=== PATIENT | female | born 1985 | race Caucasian/White ===

== ENCOUNTER 2017-05-05 10:30 | Outpatient (RCR) | payer MEDICAID, SELFPAY ==
--- NOTE | 2017-02-06 13:32 | HP.PTEVAL_ITS ---
Patient's Visit Information MELLY ESTRADA is a 31 year old F referred to Physical Therapy by Nahid Hernández with a diagnosis of LUMBAGO WITH SCIATICA LEFT.. Date of Evaluation: 02/06/17 Physical Therapist: Evelyn Moreno - Visit Plan Frequency: 2-3x /Week Duration: 4-6 Weeks Plan: AQUATIC THERAPY. POSTURE CORRECTION/STRENGTHENING, INSTRUCTION IN APPROPRIATE BODY MECHANICS AND ACTIVITY MODIFICATIONS. DLS STARTING WITH A NEUTRAL SPINE PROGRESSING ROM TOLERATED. DAV LE ROM, STRETCHING AND STRENGTHENING. HEP INSTRUCTION. - Subjective Subjective: THIS PATIENT PRESENTS TO PT WITH C/O DAV LBP L > R. AT TIMES SHE HAS PAIN NUMBNESS AND TINGLING ALL THE WAY DOWN BOTH LEGS TO HER FEET - AGAIN, LEFT > RIGHT. THESE SX'S STARTED A LONG TIME AGO (2011). THEY STARTED WHEN SHE STARTED GROOMING. 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 WORSE WITH: BENDING, LIFTING, PUSHING , PULLINIG, WALKING, HOUSEWORK. BETTER WITH: REST. PAIN SCALE: WORST 10/10, LEAST 0/10. AT THIS POINT IN TIME SHE FEELS LIKE HER SX'S ARE UNCHANGING. IMAGING: LUMBAR X-RAY RECENTLY SHOWED TO BE FINE BUT SOME STRAIGHTENING OF THE NORMAL LUMBAR LORDOSIS. PMH: DEPRESSION AND ANXIETY. PAST TREATMENTS - NONE. PT EVAL WHILE BUT UNABLE TO FOLLOW THROUGH. - Objective THIS PATIENT AMBULATES INDEP'LY INTO PT WITHOUT ANY ASSISTIVE DEVICES. HER SITTING POSTURE IS POOR. HER STANDING POSTURE IS MAULIK. NO RELEVENT LATERAL SHIP. INDEP SIT TO STAND WITHOUT UE ASSIST. DECREASED LLE LIGHT TOUCH SENSATION COMPARED TO THE RIGHT. DAV LE DTR'S 2/2. DAV LE STRENGTH 5/5 WITH MMT. POOR CORE STRENGTH. LUMBAR MVMT LOSS: FLEX - MIN, EXT - MOD, DAV SG - MIN. PATIENT WITH C/O INCREASED LBP WITH LUMBAR ROM TESTING ALL PLANES. TESTING DOES NOT PROVOKE LE SX'S. POSITIVE DAV LE DURAL SIGNS. PALPATION: TENDERNESS WITH PALPATION OF DAV THORACIC AND LUMBAR PARASPINALS LEFT > RIGHT. INCREASED MUSCLE TONE OF PARASPINALS LEFT > RIGHT. PATIENT IS ALSO TENDER WITH LIGHT PALPASTION OF THE LUMBAR SPINE, SACRAL REGION, DAV SI REGIONS AND LEFT BUTTOCK. - Goals Goal 1:: DECREASE C/O BACK AND DAV LE SX'S. Goal Time Frame: 4-6 Weeks Goal 2:: IMPROVE BENDING, LIFTING, STANDING, WALKING, ADL, WORK AND SLEEP FUNCTION Goal Time Frame: 4-6 Weeks Goal 3:: INSTRUCT IN PROPHYLAXIS Goal Time Frame: 4-6 Weeks - Rehabilitation Potential Rehabilitation Potential: Fair - Anticipated Interventions Patient/Client Instruction: Educate patient on: Condition, Plan of Care, Risk Factors, Benefits of Fitness Program For the Purpose of:: To improve self management Therapeutic Exercise to Include: Strength training, Endurance training, Body mechanics, Postural training, Flexibilty training, In an aquatic setting, Dynamic Lumbar Stabilization For the Purpose of:: To improve ability of physical actions for home/community/ work/leisure Thank you for the opportunity to evaluate your patient. For Medicare and Medicare HMO plans, please review the plan of care and approve it. It will need to be FAXED BACK to us at [phone] for Medicare purposes. Please let me know if there are questions or concerns regarding this plan of care. Physician Signature: Date:
--- NOTE | 2017-04-09 10:49 | HP.PTREVAL_ITS ---
Nahid Hernández, It has been my pleasure to treat MELLY ESTRADA over the last 16 visits for LUMBAGO WITH SCIATICA LEFT.. Please see the progress note below for an update on the physical therapy plan of care! Subjective: PATIENT REPORTS SHE IS A LITTLE BIT BETTER OVER ALL. CURRENTLY HAVING 5/10 LEFT LOW BACK PAIN AND DAV HIP ACHINIG. PATIENT PLANS TO GET A MEMBERSHIP THIS WEEK. SHE REPORTS SHE STILL GETS BACK AND DAV LE SX'S L>R UP TO 7/10 AND HER LBP AND LEFT HIP PAIN IS CONSTANT - LEAST 2/10. SHE IS NOT HAVING MUCH PAIN BELOW HER KNEES SHE DID BEFORE PT AND SHE DOES NOT THINK SHE HAS FOOT SX'S ANYMORE. PT STATES SHE WOULD REALLY LIKE TO TRY LAND EX'S. Objective/Function: DECREASED LLE LIGHT TOUCH SENSATION COMPARED TO THE RIGHT. DAV LE DTR'S 2/2. DAV LE STRENGTH 5/5 WITH MMT. POOR CORE STRENGTH. LUMBAR MVMT LOSS: FLEX - MIN, EXT - MOD, DAV SG - MIN. PATIENT WITH C/O INCREASED LBP WITH LUMBAR ROM TESTING ALL PLANES. TESTING DID PROVOKE LE SX'S INTO THIGHS. POSITIVE DAV LE DURAL SIGNS. PALPATION: TENDERNESS WITH PALPATION OF DAV THORACIC AND LUMBAR PARASPINALS LEFT > RIGHT. INCREASED MUSCLE TONE OF PARASPINALS LEFT > RIGHT. PATIENT IS ALSO TENDER WITH LIGHT PALPASTION OF THE LUMBAR SPINE, SACRAL REGION, DAV SI REGIONS AND LEFT BUTTOCK. DUE TO PATIENT CONTINUING TO HAVE DAV LE SX'S (L>R) AND HAVING QUESTIONS ABOUT SOCIAL SECURITY/ DISABILITY I HAVE RECOMMENDED SHE FOLLOW UP WITH HER FAMILY PHYSICIAN AT THIS TIME IN ADDITION TO THE BELOW PLAN. SHE IS AGREEABLE. Plan Plan: OK TO TRY TRANSITION TO LAND BASED EX FOR POSTURE CORRECTION/STRENGTHENING , INSTRUCTION IN APPROPRIATE BODY MECHANICS AND ACTIVITY MODIFICATIONS. DLS STARTING WITH A NEUTRAL SPINE PROGRESSING ROM TOLERATED. DAV LE ROM, STRETCHING AND STRENGTHENING. HEP INSTRUCTION. PLEASE START WITH EX'S IN LYING AND PROGRESS TO ANY STANDING EX'S OR MACHINES SLOWLY. Goals Goal 1:: DECREASE C/O BACK AND DAV LE SX'S. Goal Time Frame: 6-8 Weeks Goal Progress: Progressing Goal 2:: IMPROVE BENDING, LIFTING, STANDING, WALKING, ADL, WORK AND SLEEP FUNCTION Goal Time Frame: 6-8 Weeks Goal Progress: Progressing Goal 3:: INSTRUCT IN PROPHYLAXIS Goal Time Frame: 6-8 Weeks Goal Progress: Progressing Anticipated Interventions Patient/Client Instruction: Educate patient on: Condition, Plan of Care, Risk Factors, Benefits of Fitness Program For the Purpose of:: To improve self management Therapeutic Exercise to Include: Strength training, Endurance training, Body mechanics, Postural training, Flexibilty training, In an aquatic setting, Dynamic Lumbar Stabilization For the Purpose of:: To improve ability of physical actions for home/community/ work/leisure Please do not hesitate to contact me at [phone] by phone or Fax: if you have questions or concerns regarding this new plan of care! Sincerely, Evelyn Moreno
== END 2017-05-05 11:00 | disposition home or self-care (01) ==
LOC: PT 10:30
PROVIDERS: Family Provider Family Medicine; PCP Family Medicine; Visit Provider Family Medicine
DX: M54.42 Lumbago with sciatica, left side (principal)
CPT/HCPCS: 97110; 97113; 97162; 97530

== ENCOUNTER → 2017-09-25 16:42 | Outpatient (CLI) | payer MEDICAID, SELFPAY ==
[2017-09-30 09:05] LABS: HPV Reflexed? NOT INDICATED
== END ==
PROVIDERS: Visit Provider Obstetrics & Gynecology
DX: Z12.4 Encounter for screening for malignant neoplasm of cervix (principal)
CPT/HCPCS: 88175; G0145

== ENCOUNTER → 2017-10-01 16:23 | Outpatient (CLI) | payer MEDICAID, SELFPAY ==
--- NOTE | 2017-10-01 16:30 | RAD_ITS ---
XR Pelvis 1 or 2 Views INDICATION: PUBIC BONE PAIN COMPARISON: None TECHNIQUE: 2 frontal views of the pelvis FINDINGS: The pelvis is intact and there is normal alignment at the SI joints. Sclerosis is noted at the symphysis pubis with mild questionable osseous erosions. Superior and inferior pelvic rami and hips are normal. An IUD is seen in place. RAD/Pelvis 1 or 2 Views IMPRESSION: Findings suggestive of osteitis pubis. at 2109 Reported and signed by: Harmony Girard MD Electronically Signed: Harmony Girard MD at 21:07 EDT Tel , Service support ,
== END ==
PROVIDERS: Family Provider Family Medicine; PCP Family Medicine; Visit Provider Family Medicine
DX: M89.8X8 Other specified disorders of bone, other site (principal)
CPT/HCPCS: 72170

== ENCOUNTER 2017-12-27 15:30 | Emergency (ER) | payer MEDICAID, SELFPAY ==
[2017-12-27 15:32] VITALS: BP 112/79; PULSE 92; RESP 18; TEMP 36.6; O2SAT 100; BMI 25.0
--- NOTE | 2017-12-27 15:41 | CT_ITS ---
STUDY: CT ABDOMEN AND PELVIS WITHOUT CONTRAST REASON FOR EXAM: Female, 32 years old. Pelvic pain RADIATION DOSAGE (If Supplied By Facility): CTDIvol = ( 6.87 ) mGy, DLP = ( 324.59 ) mGycm TECHNIQUE: Transaxial images were obtained from the dome of the diaphragm to the symphysis pubis without oral contrast, and without intravenous contrast. Sagittal and coronal images were reconstructed. Individualized dose optimization techniques were used for this CT. COMPARISON: None. FINDINGS: The visualized lung bases are unremarkable. The visualized portions of the heart are within normal limits. Normal liver. Normal gallbladder and extrahepatic biliary system. Normal spleen. Normal pancreas. Normal bilateral adrenal glands. Normal right kidney. Normal left kidney. Normal visualized stomach. Normal small intestine. Mild diffuse fecal retention in the colon. The appendix is visualized and appears normal. Normal abdominal aorta. Normal inferior vena cava. Normal retroperitoneum. Normal urinary bladder. IUD in the uterus. Possible 1.2 cm left adnexal cystic lesion. Normal abdominal wall. Normal osseous structures. CT/Abdomen/Pelvis without Cont IMPRESSION: IUD in the uterus. Possible 1.2 cm left adnexal cystic lesion. Electronically Signed: Landen Cheatham DO at 17:31 EDT Tel [phone], Service support ,
--- NOTE | 2017-12-27 15:44 | ED.DCSUM_ITS ---
- ER Visit Summary Date of Service: 12/27/17 Chief Complaint: Pelvic pain History of Present Illness: The patient is a 32 F presenting with pelvic pain which has been ongoing for the past 2 years. She states she has pain in the left lower quadrant. She states that yesterday it worsened when she was walking frequently to garage sales. She has been seen by her CAR BODY INSPECTOR for these complaints. She states she was referred to orthopedics and is scheduled to see them next week to evaluate her pelvic bone. She denies any vaginal discharge or irregular bleeding. Denies possibility of STD. She denies nausea, vomiting , diarrhea. Denies fever or other complaints. Denies possibility of . Physical Examination: Vitals are stable. Patient is afebrile. Alert no acute distress. HEENT exam is unremarkable. Lungs are clear and equal bilaterally. Heart is regular rate and rhythm. Abdomen is soft mild left lower quadrant tenderness, no rebound or guarding Extremities are unremarkable. Skin is warm and dry. Remainder of exam is unremarkable. Emergency Department Course and Treatment: CBC, chemistries unremarkable. Urinalysis unremarkable. HCG negative. CT abdomen pelvis shows IUD in the uterus. Possible 1.2 cm left adnexal cystic lesion. She is advised to take NSAIDs for pain. Advised to follow-up with her CAR BODY INSPECTOR. Advised return to ED for worsening complaints. Disposition: Discharge home Impression: Pelvic pain, left adnexal cyst This note was generated with [employer] dictation software. It may contain incorrect words, spelling, and punctuation that were not noted in review of the chart prior to signing ED Disposition - Plan for ED Patient: Chief Complaint: Female C/O Referrals: Nahid Hernández [Primary Care Provider] -
[2017-12-27 15:59] LABS: Absolute Lymphocyte Count 2.63 X10^3/ul (0.83-4.51); Absolute Neutrophil Count 4.7 X10^3/uL (2.0-7.7); Basophil# 0.01 X10^3/uL; Basophil% 0.1 % (0-1); Eosinophil# 0.16 X10^3/uL; Hematocrit 43.8 % (37-47); Hemoglobin 14.5 g/dl (12.0-15.0); Lymphocyte # 2.63 X10^3/ul (4.0); Lymphocyte % 32.8 % (19-41); Mean Corp Hgb Conc 33.1 g/gl (32-36); Mean Corpuscular Hgb 28.7 pg (27.0-32.0); Mean Corpuscular Volume 86.6 fL (81-99); Mean Platelet Vol. 10.9 fl (6.2-12.0); Monocyte% 6.2 % (0-10); Neutrophil % 58.8 % (47-70); Platelet Count 196 K/mm3 (150-450); RBC Distribution Width CV 12.4 % (11.6-14.6); RBC Distribution Width SD 39.5 fl (35.1-43.9); Red Blood Count 5.06 M/mm3 (4.2-5.4)
[2017-12-27 16:01] LABS: POSITIVE COUNT NO; POSITIVE DIFFERENTIAL NO; POSITIVE MORPHOLOGY NO
[2017-12-27 16:07] LABS: Mucous, Urine 0 SEEN /hpf (<or=2+); Red Blood Cells-Urine 0 SEEN /hpf (0-5)
[2017-12-27 16:13] LABS: Anion Gap 5 (5-15); BUN 10 mg/dL (7-18); Calcium,Total 8.9 mg/dL (8.5-10.1); Chloride 105 mmol/L (98-107); Creatinine, Serum 0.91 mg/dL (0.55-1.02); EST Glomerular Filtration Rate 76 mL/min (>60); Est Glom Filt Rate - Afr Amer 92 mL/min (>60); Glucose 85 mg/dL (74-106); Potassium 4.4 mmol/L (3.5-5.1); Sodium Level 140 mmol/L (136-145)
[2017-12-27 16:17] LABS: Color, Urine Yellow (Yellow); Glucose, Dipstick Normal (Normal); Ketone-Dipstick Negative (Negative); Leukocyte Esterase-Dipstick 25 /ul (Negative); Nitrite-Dipstick Negative (Negative); Occult Blood-Urine Negative /ul (Negative); Protein-Dipstick Negative (Negative); Urine Bilirubin Dipstick Negative (Negative); Urine Clarity Cloudy (Clear); Urine Urobilinogen Normal (Normal)
[2017-12-27 16:31] LABS: Pregnancy, Serum, hCG Quali. NEGATIVE Negative (0-9 Nonpreg)
[2017-12-27 16:59] LABS: Bacteria 1+ /hpf (None Seen); Squamous Epithelial Cells - UA 5-10 SEEN /hpf (5-10); White Blood Cells 0-5 SEEN /hpf (0-5)
--- NOTE | 2017-12-27 18:02 | ED.DEP ---
ED Disposition - Plan for ED Patient: Chief Complaint: Female C/O Instructions: ED Cyst Ovarian Referrals: Nahid Hernández [Primary Care Provider] -
--- NOTE | 2017-12-27 18:09 | ED.DEP ---
ED Disposition - Plan for ED Patient: Chief Complaint: Female C/O Instructions: ED Cyst Ovarian Prescriptions: Naproxen [Naprosyn] 500 mg PO BID PRN #20 tablet Referrals: Nahid Hernández [Primary Care Provider] -
[2017-12-27] MEDS: Ketorolac 30 MG/ML Syringe IV (18:32)
[2017-12-27 19:02] VITALS: BP 110/80; PULSE 88; RESP 18; O2SAT 98
== END 2017-12-27 19:03 | disposition home or self-care (01) ==
PROVIDERS: Emergency Provider Emergency Medicine; Family Provider Family Medicine; PCP Family Medicine
DX: N83.8 Other noninflammatory disorders of ovary, fallopian tube and broad ligament (principal); R10.32 Left lower quadrant pain; F32.9 Major depressive disorder, single episode, unspecified; F90.9 Attention-deficit hyperactivity disorder, unspecified type; Z79.899 Other long term (current) drug therapy; Z97.5 Presence of (intrauterine) contraceptive device
CPT/HCPCS: 74176; 80048; 81001; 84703; 85025; 96374; 99283; A4216

== ENCOUNTER 2018-02-25 07:06 | Day surgery (SDC) | payer MEDICAID, SELFPAY ==
[2018-02-20 16:04] LABS: Hematocrit 42.1 % (37-47); Hemoglobin 13.7 g/dl (12.0-15.0); Mean Corp Hgb Conc 32.5 g/gl (32-36); Mean Corpuscular Hgb 28.1 pg (27.0-32.0); Mean Corpuscular Volume 86.3 fL (81-99); Mean Platelet Vol. 11.1 fl (6.2-12.0); Platelet Count 201 K/mm3 (150-450); RBC Distribution Width CV 12.6 % (11.6-14.6); RBC Distribution Width SD 39.6 fl (35.1-43.9); Red Blood Count 4.88 M/mm3 (4.2-5.4); White Blood Count 8.7 K/mm3 (4.4-11.0)
[2018-02-20 16:06] LABS: Scan Indicated on CBC? Y/N NO
[2018-02-20 16:31] LABS: International Normalized Ratio 1.1; Partial Thromboplast Time 27.5 Seconds (24.1-36.2); Prothrombin Time (Protime)PT. 13.8 SECONDS (11.7-14.9)
[2018-02-20 16:43] LABS: Pregnancy, Serum, hCG Quali. NEGATIVE Negative (0-9 Nonpreg)
[2018-02-25 07:27] LABS: Internal QC Validated? YES +Cl - CLEAR BKGD; Pregnancy, Urine Negative Negative
[2018-02-25 07:32] VITALS: BP 110/74; PULSE 63; RESP 16; TEMP 37.1; O2SAT 99; BMI 25.2
--- NOTE | 2018-02-25 08:28 | DCINST_ITS ---
You will use the following diet at home:: No restrictions, Regular Discharge Activity: Return to Normal Activity, May Drive, May not drive while taking narcotic pain medications., May Shower Return to work on:: 03/02/18 May shower in (days): 0 May resume sexual activity in: 2 weeks Call your doctor if your incision/area has: Sudden Increased Bleeding, Increased Pain/ Swelling, Increased Redness, Foul Smelling Discharge, Swelling at the incision site Call your doctor if you observe: Fever of 101 or Higher, Inability to urinate, Inability to have a bowel movement, Using more than one pad per hour, Shortness of breath, Chest pain, Calf discomfort, Uncontrolled pain Remove Dressing in (days):: 2 Cleanse incision/area with: Soap & Water Allergies/Adverse Reactions: Allergies No Known Allergies Allergy (Verified 02/18/18 15:21) Medications to take at Discharge Clonazepam 1 mg PO QHS 03/17/16 Duloxetine Hcl [Cymbalta] 30 mg PO DAILY 02/18/18 Lisdexamfetamine Dimesylate [Vyvanse] 40 mg PO DAILY 02/18/18 Naproxen [Naprosyn] 500 mg PO BID PRN PRN 02/18/18 Tizanidine HCl [Zanaflex] 4 mg PO BID PRN 02/18/18 Ibuprofen 800 mg PO Q6H PRN PRN #30 tab 02/25/18 Oxycodone [Oxyir] 5 mg PO Q6H PRN PRN 7 Days #28 tab 02/25/18 The following prescriptions were given: Ibuprofen 800 mg PO Q6H PRN PRN #30 tab PRN Reason: pain or cramping Oxycodone [Oxyir] 5 mg PO Q6H PRN PRN 7 Days #28 tab PRN Reason: Severe Pain (6-02/25) Primary Care Physician: Care Physician,No Primary [Primary Care Provider] - Test Results: Test results from this visit will be discussed in further detail at your follow- up appointment, if applicable. Please Follow Up With: Alec Lozano MD When: one week Proposed Discharge Date: 02/25/18
[2018-02-25] MEDS: Bupivacaine 0.5% PF 10 ML VIAL (08:45)
--- NOTE | 2018-02-25 08:54 | PCM.OPRPT ---
Problem List (1) Chronic pelvic pain in female Status: Chronic Report of Operation Date of Procedure: 02/25/18 Pre-Operative Diagnosis: Chronic pelvic pain Post-Operative Diagnosis: Same Surgery/Procedure Performed:: Diagnostic laparoscopy, lysis of adhesions Description of Surgical Findings:: Normal appearing liver and stomach. Normal uterus, ovaries, and fallopian tubes. Minor adhesions of anterior bladder peritoneum to anterior lower uterine segment. No evidence of endometriosis. No abdominal adhesions noted. crime lab analyst: Nida Miller Type of Anesthesia:: General Anesthesiologist: Glynn Thomson Special Medications: none Specimen's removed: none Drains: none Estimated Blood Loss (mL): minimal Fluids Replaced: 700cc LR Description of Procedure: Willow was taken to the OR with IV running. She was given two grams of Cefotetan intravenously for surgical prophylaxis. SCDs were in place and operational from the preoperative area through surgery and into recovery. General anesthesia was introduced without complication. She was then prepped and draped in the dorsal lithotomy position and the bladder drained with a red rubber catheter. A acorn style uterine manipulator was placed. Attention was then directed to the abdomen where a 5 mm vertical incision was made in the lower base of the umbilicus. The underlying subcutaneous tissue was then dissected bluntly down to the level of fascia. The abdominal wall was then elevated and a Veress needle was placed through the umbilical defect into the abdominal cavity. The abdomen was then inflated to 15 Torr with CO2 gas. A second 5 mm port was placed on the right side lateral to the inferior epigastric vessels about 4 cm below the level of the umbilicus. A thorough survey of the abdomen and pelvis was performed with findings as above. Using the endoshears the adhesions between the bladder and lower uterine segment was excised. The laparoscopic right port was removed followed by removal of the umbilical port after the gas was evacuated. The incisions were closed with 4-0 monocryl. The incision sites were injected with 0.5% Marcaine for local anesthesia. All instruments were removed from the vagina. Sponge and instrument counts were correct. She was reversed from anesthesia and taken to the recovery room in stable condition. Grafts/Implants Used: none - Complications none - Admit VTE Documentation VTE Present on Admission: No VTE Mechan Device Prophylaxis: SCD's VTE Pharm Prophylaxis ordered?: No Reason prophylaxis not ordered:: Treatment Not Indicated
--- NOTE | 2018-02-25 09:06 | OP.PCM_ITS ---
Problem List (1) Chronic pelvic pain in female Status: Chronic Report of Operation Date of Procedure: 02/25/18 Pre-Operative Diagnosis: Chronic pelvic pain Post-Operative Diagnosis: Same Surgery/Procedure Performed:: Diagnostic laparoscopy, lysis of adhesions Description of Surgical Findings:: Normal appearing liver and stomach. Normal uterus, ovaries, and fallopian tubes. Minor adhesions of anterior bladder peritoneum to anterior lower uterine segment. No evidence of endometriosis. No abdominal adhesions noted. agricultural equipment sales engineer: Nida Miller Type of Anesthesia:: General Anesthesiologist: Glynn Thomson Special Medications: none Specimen's removed: none Drains: none Estimated Blood Loss (mL): minimal Fluids Replaced: 700cc LR Description of Procedure: Willow was taken to the OR with IV running. She was given two grams of Cefotetan intravenously for surgical prophylaxis. SCDs were in place and operational from the preoperative area through surgery and into recovery. General anesthesia was introduced without complication. She was then prepped and draped in the dorsal lithotomy position and the bladder drained with a red rubber catheter. A acorn style uterine manipulator was placed. Attention was then directed to the abdomen where a 5 mm vertical incision was made in the lower base of the umbilicus. The underlying subcutaneous tissue was then dissected bluntly down to the level of fascia. The abdominal wall was then elevated and a Veress needle was placed through the umbilical defect into the abdominal cavity. The abdomen was then inflated to 15 Torr with CO2 gas. A second 5 mm port was placed on the right side lateral to the inferior epigastric vessels about 4 cm below the level of the umbilicus. A thorough survey of the a bdomen and pelvis was performed with findings as above. Using the endoshears the adhesions between the bladder and lower uterine segment was excised. The laparoscopic right port was removed followed by removal of the umbilical port after the gas was evacuated. The incisions were closed with 4-0 monocryl. The incision sites were injected with 0.5% Marcaine for local anesthesia. All instruments were removed from the vagina. Sponge and instrument counts were correct. She was reversed from anesthesia and taken to the recovery room in stable condition. Grafts/Implants Used: none - Complications none - Admit VTE Documentation VTE Present on Admission: No VTE Mechan Device Prophylaxis: SCD's VTE Pharm Prophylaxis ordered?: No Reason prophylaxis not ordered:: Treatment Not Indicated
[2018-02-25 09:10] VITALS: BP 110/74; BP 145/102; PULSE 90; RESP 17; TEMP 36.6; O2SAT 100
[2018-02-25 09:15] VITALS: BP 110/74; BP 132/67; PULSE 90; RESP 16; O2SAT 95
[2018-02-25 09:30] VITALS: BP 110/74; BP 133/62; PULSE 89; RESP 16; TEMP 36.4; O2SAT 100
[2018-02-25] MEDS: oxyCODONE 5 MG Tablet 10 MG PO (09:58)
[2018-02-25] MEDS: Lactated Ringers 1,000 ML 125 ML IV (10:07)
[2018-02-25 11:16] VITALS: BP 110/74; BP 123/62; PULSE 60; RESP 16; TEMP 36.3; O2SAT 98
== END 2018-02-25 11:21 | disposition home or self-care (01) ==
LOC: SDC 07:06 → AC 07:07
PROVIDERS: Referring Provider Obstetrics & Gynecology; Visit Provider Obstetrics & Gynecology
PROC: (CPT 49320; principal; 2018-02-25 08:15)
DX: R10.2 Pelvic and perineal pain (principal); G89.29 Other chronic pain; K58.9 Irritable bowel syndrome, unspecified; K21.9 Gastro-esophageal reflux disease without esophagitis; F32.9 Major depressive disorder, single episode, unspecified; F41.9 Anxiety disorder, unspecified; F17.200 Nicotine dependence, unspecified, uncomplicated; Z79.899 Other long term (current) drug therapy
CPT/HCPCS: 49320; 36415; 81025; 84703; 85027; 85610; 85730; 86850; 86900; J7120; A4216; J2405

== ENCOUNTER 2018-03-10 18:38 | Emergency (ER) | payer MEDICAID, SELFPAY ==
[2018-03-10 18:39] VITALS: BP 128/63; PULSE 94; RESP 16; TEMP 36.4; O2SAT 99; BMI 25.4
[2018-03-10 19:09] VITALS: BP 131/92; PULSE 79; RESP 17
[2018-03-10 19:11] VITALS: BP 114/78; BP 119/73; BP 120/87; PULSE 66; PULSE 72; PULSE 84
--- NOTE | 2018-03-10 19:12 | ED.VISSUMM ---
- ER Visit Summary Date of Service: 03/10/18 Chief Complaint: Dizziness and ears ringing History of Present Illness: The patient is a 32 F past medical history of symphysis pubis disorder post fall and . Also history of anxiety and depression. Patient states today except she has had some intermittent dizziness which she does. And her ears are ringing. When she stands she feels near syncopal. She denies any melena. She denies any vomiting. She has had mild nausea and diarrhea. No dysuria. No headache. No chest pain. No shortness of breath. No hemoptysis. No prior history. Physical Examination: Vital signs stable afebrile. Initial blood pressure 128/63. Pulse ox 99% on room air no signs of hypoxia.. and child are in the room. H EENT exam unremarkable. Pupils round reactive light. TMs normal bilaterally. Canals normal. Posterior pharynx moist pink. No erythema. No signs of trauma to her face or head. Neck nontender. No lymphadenopathy. No meningismus. Lungs clear to auscultation bilaterally. Heart regular rhythm rate about 90 no murmur. Chest nontender. Abdomen soft nontender. Normal bowel sounds no peritoneal signs. Patient is moving all 4 extremities. They are neurovascularly intact. She has 5 out of 5 flight communications operator strength bilaterally. Dorsi plantar flexion intact. Back exam normal. Skin exam normal. No rashes. No hematomas. No bruising. Neurologically she is awake alert with no focal motor or sensory deficits. NIH of 0. Fingertip to nose and heel to shirley all within normal limits. Test Results: Orthostatic vital signs are unremarkable. Emergency Department Course and Treatment: Clinically the patient has a normal exam. I think some of her symptoms may be from the amount of ibuprofen she is taking. She is going to decrease that. I do not think she needs labs done at this time. I did explain to her and her I would gladly do screening labs if they felt they were necessary and they are fine with those not being done. On the monitor she is a sinus rhythm. Rate of about 90. Treatment Plan: Follow-up with her primary care physician as needed. Disposition: Discharge Impression: Acute ears ringing secondary to excessive ibuprofen use. This note was generated with [employer] dictation software. It may contain incorrect words, spelling, and punctuation that were not noted in review of the chart prior to signing ED Disposition - Plan for ED Patient: Chief Complaint: Dizziness Referrals: Care Physician,No Primary [Primary Care Provider] -
--- NOTE | 2018-03-10 19:16 | ED.DCSUM_ITS ---
- ER Visit Summary Date of Service: 03/10/18 Chief Complaint: Dizziness and ears ringing History of Present Illness: The patient is a 32 F past medical history of symphysis pubis disorder post fall and . Also history of anxiety and depression. Patient states today except she has had some intermittent dizziness which she does. And her ears are ringing. When she stands she feels near syncopal. She denies any melena. She denies any vomiting. She has had mild nausea and diarrhea. No dysuria. No headache. No chest pain. No shortness of breath. No hemoptysis. No prior history. Physical Examination: Vital signs stable afebrile. Initial blood pressure 128/63. Pulse ox 99% on room air no signs of hypoxia.. and child are in the room. H EENT exam unremarkable. Pupils round reactive light. TMs normal bilaterally. Canals normal. Posterior pharynx moist pink. No erythema. No signs of trauma to her face or head. Neck nontender. No lymphadenopathy. No meningismus. Lungs clear to auscultation bilaterally. Heart regular rhythm rate about 90 no murmur. Chest nontender. Abdomen soft nontender. Normal bowel sounds no peritoneal signs. Patient is moving all 4 extremities. They are neurovascularly intact. She has 5 out of 5 jig box operator strength bilaterally. Dorsi plantar flexion intact. Back exam normal. Skin exam normal. No rashes. No hematomas. No bruising. Neurologically she is awake alert with no focal motor or sensory deficits. NIH of 0. Fingertip to nose and heel to shirley all within normal limits. Test Results: Orthostatic vital signs are unremarkable. Emergency Department Course and Treatment: Clinically the patient has a normal exam. I think some of her symptoms may be from the amount of ibuprofen she is taking. She is going to decrease that. I do not think she needs labs done at this time. I did explain to her and her I would gladly do screening labs if they felt they were necessary and they are fine with those not being done. On the monitor she is a sinus rhythm. Rate of about 90. Treatment Plan: Follow-up with her primary care physician as needed. Disposition: Discharge Impression: Acute ears ringing secondary to excessive ibuprofen use. This note was generated with [employer] dictation software. It may contain incorrect words, spelling, and punctuation that were not noted in review of the chart prior to signing ED Disposition - Plan for ED Patient: Chief Complaint: Dizziness Referrals: Care Physician,No Primary [Primary Care Provider] -
--- NOTE | 2018-03-10 19:16 | ED.DEP ---
ED Disposition - Plan for ED Patient: Disposition: Home or Assisted Living Chief Complaint: Dizziness Instructions: ED Dizziness [facility] Referrals: Dante Collins MD [STAFF PHYSICIAN] - 3-5 Days if not improving Additional Instructions: Decrease ibuprofen use to no more than 800 mg 3 times a day. If you do not need to use less than that. Plenty fluids and rest. If feeling worse return to ER if not improving follow-up with Dr. Manuel Collins.
== END 2018-03-10 19:32 | disposition home or self-care (01) ==
LOC: ED 19:24
PROVIDERS: Emergency Provider Emergency Medicine
DX: H93.13 Tinnitus, bilateral (principal); R55 Syncope and collapse; R11.0 Nausea; R19.7 Diarrhea, unspecified; F32.9 Major depressive disorder, single episode, unspecified; F41.9 Anxiety disorder, unspecified; F17.290 Nicotine dependence, other tobacco product, uncomplicated; Z79.1 Long term (current) use of non-steroidal anti-inflammatories (NSAID); Z79.899 Other long term (current) drug therapy
CPT/HCPCS: 99283

== ENCOUNTER → 2018-03-20 12:40 | Outpatient (CLI) | payer MEDICAID, SELFPAY ==
[2018-03-20 13:08] LABS: Erythrocyte Sedimentation Rate 6 mm/hr (0-20)
[2018-03-20 13:37] LABS: CRP < 2.90 mg/L (0.0-3.0); Rheumatoid Factor < 10.0 IU/mL (<15)
[2018-03-23 15:47] LABS: ANTINUCLEAR ANTIBODIES DIRECT Negative (Negative)
[2018-03-25 09:12] LABS: CCP IgG Antibodies 7 units (0-19); HLA B27 Negative (.)
== END ==
PROVIDERS: PCP Internal Medicine; Referring Provider Internal Medicine; Visit Provider Nurse Practitioner Family
DX: M86.9 Osteomyelitis, unspecified (principal); R10.2 Pelvic and perineal pain; G89.29 Other chronic pain
CPT/HCPCS: 36415; 81374; 85652; 86038; 86140; 86200; 86225; 86235; 86431

== ENCOUNTER → 2018-06-11 15:11 | Outpatient (CLI) | payer MEDICAID, SELFPAY ==
[2018-06-11 14:34] VITALS: BMI 25.0
[2018-06-11 16:21] LABS: Absolute Lymphocyte Count 3.32 X10^3/ul (0.83-4.51); Absolute Neutrophil Count 3.4 X10^3/uL (2.0-7.7); Basophil# 0.02 X10^3/uL; Basophil% 0.2 % (0-1); Eosinophil# 1.12 X10^3/uL; Eosinophils% 13.3 % (0-5); Hematocrit 40.3 % (37-47); Lymphocyte # 3.32 X10^3/ul (4.0); Lymphocyte % 39.5 % (19-41); Mean Corp Hgb Conc 32.3 g/gl (32-36); Mean Corpuscular Hgb 28.6 pg (27.0-32.0); Mean Corpuscular Volume 88.6 fL (81-99); Mean Platelet Vol. 11.6 fl (6.2-12.0); Monocyte# 0.54 X10^3/uL; Monocyte% 6.4 % (0-10); Neutrophil # 3.38 X10^3/uL (2.7-7.7); Neutrophil % 40.4 % (47-70); Platelet Count 252 K/mm3 (150-450); RBC Distribution Width CV 12.7 % (11.6-14.6); RBC Distribution Width SD 40.6 fl (35.1-43.9); Red Blood Count 4.55 M/mm3 (4.2-5.4); White Blood Count 8.4 K/mm3 (4.4-11.0)
[2018-06-11 16:23] LABS: POSITIVE COUNT NO; POSITIVE DIFFERENTIAL NO; POSITIVE MORPHOLOGY NO
[2018-06-11 16:45] LABS: ALB/GLOB Ratio 0.7 RATIO (0.9-2.4); AST(SGOT) 11 U/L (15-37); Alanine Aminotransfer ALT/SGPT 21 U/L (13-56); Alkaline Phosphatase 88 U/L (45-117); Anion Gap 8 (5-15); BUN 10 mg/dL (7-18); BUN/Creat Ratio 12.4 RATIO (10-20); Calcium,Total 8.7 mg/dL (8.5-10.1); Chloride 105 mmol/L (98-107); Creatinine, Serum 0.81 mg/dL (0.55-1.02); EST Glomerular Filtration Rate 87 mL/min (>60); Est Glom Filt Rate - Afr Amer 106 mL/min (>60); Globulin 4.2 g/dL (2.2-4.2); Glucose 93 mg/dL (74-106); Potassium 3.8 mmol/L (3.5-5.1); Protein, Total 7.2 g/dL (6.4-8.2); Sodium Level 142 mmol/L (136-145)
== END ==
PROVIDERS: Family Provider Internal Medicine; PCP Internal Medicine; Referring Provider Internal Medicine; Visit Provider Internal Medicine
DX: R10.9 Unspecified abdominal pain (principal)
CPT/HCPCS: 36415; 80053; 85025

== ENCOUNTER → 2018-06-13 08:58 | Outpatient (CLI) | payer MEDICAID, SELFPAY ==
[2018-06-11 14:34] VITALS: BMI 25.0
--- NOTE | 2018-06-13 08:59 | US_ITS ---
STUDY: ABDOMINAL ULTRASOUND - RIGHT UPPER QUADRANT REASON FOR VISIT: Female, 33 years old. Right upper quadrant pain TECHNIQUE: Ultrasound evaluation of the right upper quadrant was performed with real-time and static laws-scale imaging. TECHNICAL QUALITY: Adequate. COMPARISON: None. FINDINGS: Liver: The liver measures 13 cm. There is normal echogenicity of the liver. The bile ducts are within normal limits. There is hepatic color flow. The direction of portal flow is hepatopetal. There is no demonstrated mass lesion. Gallbladder: Normal distended gallbladder. The gallbladder wall measures 2 mm. There is a negative sonographic Villaseñor's sign. There is no pericholecystic fluid. There are no gallstones. Common Bile Duct (C.B.D.): The common bile duct measures 4 mm. Pancreas: There is normal echogenicity of the visualized pancreas. There is no demonstrated pancreatic mass or cyst. Right Kidney: Normal size of the right kidney. The right kidney measures 10.8 cm. Normal renal cortex. The right cortex measures 1.4 cm. There is no demonstrated renal mass or cyst. There is no right hydronephrosis. US/Abdomen Limited IMPRESSION: Normal right upper quadrant ultrasound examination. Electronically Signed: Pepe Tellez MD at 23:39 EST , Service support ,
== END ==
PROVIDERS: Family Provider Internal Medicine; PCP Internal Medicine; Referring Provider Internal Medicine; Visit Provider Internal Medicine
DX: R10.11 Right upper quadrant pain (principal)
CPT/HCPCS: 76705

== ENCOUNTER → 2018-07-02 15:04 | Outpatient (CLI) | payer MEDICAID, SELFPAY ==
[2018-06-23 16:07] VITALS: BMI 25.0
== END ==
PROVIDERS: Family Provider Internal Medicine; PCP Internal Medicine; Referring Provider Internal Medicine; Visit Provider Internal Medicine
DX: D72.1 Eosinophilia (principal)
CPT/HCPCS: 87177; 87209

== ENCOUNTER 2018-07-03 16:30 | Outpatient (RCR) | payer MEDICAID, SELFPAY ==
[2018-04-07 13:11] VITALS: BMI 25.0
--- NOTE | 2018-06-10 17:02 | HP.PTEVAL_ITS ---
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 Date of Evaluation: 06/10/18 Physical Therapist: Evelyn Moreno, PT, Cert MDT - Visit Plan Frequency: 2-3x /Week Duration: 4-6 Weeks Plan: *NO HIP ABDUCTION*. AQUATIC THERAPY FOR PAIN RELEIF, POSTURE CORRECTION/STRENGTHENING, INSTRUCTION IN APPROPRIATE BODY MECHANICS AND ACTIVITY MODIFICATIONS. DLS STARTING WITH A NEUTRAL SPINE PROGRESSING ROM TOLERATED. DAV LE ROM, STRETCHING AND STRENGTHENING. HEP INSTRUCTION. - Subjective Findings: SURGERY: S/P PELVIC FUSION BY DR. YANG AT [facility] APR 20 2018 (7 WEEKS PO). Work/Leisure: UNEMPLOYEED. Disability: NO. Present symptoms: DAV HIP PAIN. LOW BACK PAIN. DAV THIGH PAIN. NUMBNESS LEFT UPPER THIGH. Present since: AUGUST 2015. Pain Scale: WORST 7/10, LEAST 3/10. Currently: 5/10. 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 SHE REPORTS A DOG PULLED HER OVER. SHE REPORTS THE PAIN DID NOT START IMMEDIATELY AFTER THE FALL. Symptoms at onset: PAIN IN HIPS AND PUBIC AREA - RUNNING UP BACK AND DOWN LEGS. Worse: WALKING, TURNING TOO FAST, TWISTING, PICKING UP ANYTHING HEAVY, GOING UP AND DOWN STAIRS, BENDING OVER, STANDING. Better: FLAT ON BACK, MUSCLE RELAXERS, PAIN MEDS. Disturbed sleep: NO. Previous history/Previous treatment: AQUATIC THERAPY FALL OF 2016. CORTISONE SHOT IN PUBIC SYMPHASIS BY A TRAUMA SURGEON AT [facility] - GAVE A COUPLE DAYS OF RELEIF, NO CHIROPRACTOR. Coughing/sneezing/straining: NEGATIVE. Gait: PATIENT REPORTS SHE STILL HAS A LIMP ON HER LEFT LEG BECAUSE HER HIPS ARE HURTING LEFT > RIGHT. Difficulty initiating urinatin: NO. Accidents: NO. Unexplained weight loss: NO. Imaging: PMH: UNREMARKABLE EXCEPT DEPRESSION AND ANXIETY. ADHD. Recent major surgery: RARE PELVIC FUSION SURGERY APR 20 2018. SCREW IN EACH SI JOINT. 2 PLATES AND 6 SCREWS PUBIC SYMPHASIS REGION. PATIENT REPORTS SHE WAS NON WEIGHT BEARING FOR 6 WEEKS. RELEASED TO START WALKING 1/16/19. PLOF (Prior Level of Function): MAY 2015 ACTIVITY WAS UNLIMITED INCLUDING RUNNING UNTIL WITH DAUGHTER. OTHER: PATIENT REPORTS THE SURGERY HAS HELPED A LOT. SHE REPORTS SHE IS ABOUT 75% BETTER SINCE HAVING SURGERY. PATIENT AND PATIENTS [facility] REPORT THAT THE CORRECT DIAGNOSIS IS OSTEITIS OF PUBIC SYMPHYSIS AND THAT OSTEOMYELITIS IS NOT CORRECT. - Objective Sitting/Standing Posture: POOR. PATIENT HAS A VERY SLOUCHED POSTURE WITH FORWARD HEAD AND ROUNDED SHOULDERS. Lordosis: DECREASED. Lateral shift: NO. Relevant shift: N/A. Active Correction of posture: BETTER. Other Observations: INDEP GAIT INTO PT WITH FAIR CADANCE AND NO AD'S X > 300 FEET. MILD LIMP ON LLE. Motor deficit: DAV LE STRENGTH GROSSLY 4/5 WITH MMT'ING EXCEPT HIPS GRADED 3+ TO 4-/5 BUT TESTING WAS DONE CAREFULLY. PATIENT HAS ONLY BEEN WALKING ABOUT A WEEK AFTER BEING NWB FOR 6 WEEKS POST SURGERY. Sensory deficit: DECREASED LIGHT TOUCH SENSATION OF LEFT ANTEROLATERAL PROX THIGH, ALONG LATERAL THIGH AND LATERAL LEG COMPARED TO RIGHT. ROM deficit: TIGHT DAV HIP FLEXORS AND HS'S. HIP ABD NT. Lumbar mvmt loss: flex - MIN. ext - MOD. R SG - MOD. L SG - MOD. Core strength: POOR. Palpation/Observation: OBSERVED 2 LEFT AND ONE RIGHT SURGICAL INCISION THAT ARE WELL HEALING WITHOUT ANY SIGNS OF INFECTION OR OPEN AREAS. PATIENT DENIES ANY INCISION PROBLEMS. - Goals Goal 1:: DECREASE C/O BACK, PELVIC, DAV HIP AND DAV THIGH SX'S. 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 Goal Time Frame: 4-6 Weeks Goal 3:: INSTRUCT IN PROPHYLAXIS Goal Time Frame: 4-6 Weeks - Rehabilitation Potential Rehabilitation Potential: Fair - Anticipated Interventions Patient/Client Instruction: Educate patient on: Condition, Plan of Care, Risk Factors, Benefits of Fitness Program For the Purpose of:: To improve self management Therapeutic Exercise to Include: Strength training, Body mechanics, Postural training, Flexibilty training, Gait and locomotor training, In an aquatic setting, Active ROM, Dynamic Lumbar Stabilization, Scapular Strength/Stabilization Comment: *NO HIP ABDUCTION* For the Purpose of:: To decrease pain, To increase ROM, To improve muscle performance and motor function, To increase tolerance to activity/condition/position, To improve ability of physical actions for home/community/work/leisure, To improve gait and locomotor functions Thank you for the opportunity to evaluate your patient. For Medicare and Medicare HMO plans, please review the plan of care and approve it. It will need to be FAXED BACK to us at [phone] for Medicare purposes. For Medicare only, by signing this I certify the plan of care. Please let me know if there are questions or concerns regarding this plan of care. Physician Signature: Date:
--- NOTE | 2018-08-11 13:40 | HP.PT.NRP ---
HP - Discharge Summary (1) - Patient Information MELLY ESTRADA was seen in my office for initial evaluation on 06/10/18. The following Plan of Care was established for this patient: Initial Frequency: 2-3x /Week Initial Duration: 4-6 Weeks - Anticipated Interventions Patient/Client Instruction: Educate patient on: Condition, Plan of Care, Risk Factors, Benefits of Fitness Program For the Purpose of:: To improve self management Therapeutic Exercise to Include: Strength training, Body mechanics, Postural training, Flexibilty training, Gait and locomotor training, In an aquatic setting, Active ROM, Dynamic Lumbar Stabilization, Scapular Strength/Stabilization For the Purpose of:: To decrease pain, To increase ROM, To improve muscle performance and motor function, To increase tolerance to activity/condition/position, To improve ability of physical actions for home/community/work/leisure, To improve gait and locomotor functions This patient was last seen in our office 07/03/18. Pertinent comments regarding their Physical therapy will appear below: This patient has not returned to Physical Therapy and is appropriate to return to MD for further follow-up as needed. At this point I will be discontinuing this patient from physical therapy. I would be happy to see this patient again in the future if found appropriate by the physician. Thank you! Evelyn Moreno PT, Cert MDT
== END 2018-07-03 19:00 | disposition home or self-care (01) ==
LOC: PT 16:30
PROVIDERS: Family Provider Internal Medicine; PCP Internal Medicine
DX: M86.60 Other chronic osteomyelitis, unspecified site (principal); M86.9 Osteomyelitis, unspecified
CPT/HCPCS: 97113; 97162; 97530

== ENCOUNTER 2018-07-13 18:14 | Emergency (ER) | payer MEDICAID, SELFPAY ==
[2018-07-13 14:59] VITALS: BMI 25.0
[2018-07-13 18:15] VITALS: BP 117/71; PULSE 91; RESP 15; TEMP 36.8; O2SAT 98; BMI 25.3
[2018-07-13 19:12] LABS: Mucous, Urine 0 SEEN /hpf (<or=2+)
[2018-07-13 19:19] LABS: Absolute Lymphocyte Count 2.99 X10^3/ul (0.83-4.51); Basophil# 0.02 X10^3/uL; Basophil% 0.2 % (0-1); Eosinophil# 0.26 X10^3/uL; Hematocrit 44.1 % (37-47); Hemoglobin 14.3 g/dl (12.0-15.0); Lymphocyte # 2.99 X10^3/ul (4.0); Lymphocyte % 34.3 % (19-41); Mean Corp Hgb Conc 32.4 g/gl (32-36); Mean Corpuscular Hgb 28.5 pg (27.0-32.0); Mean Corpuscular Volume 87.8 fL (81-99); Mean Platelet Vol. 11.2 fl (6.2-12.0); Monocyte# 0.42 X10^3/uL; Monocyte% 4.8 % (0-10); Neutrophil # 5.01 X10^3/uL (2.7-7.7); Neutrophil % 57.6 % (47-70); Platelet Count 249 K/mm3 (150-450); RBC Distribution Width CV 12.4 % (11.6-14.6); RBC Distribution Width SD 39.6 fl (35.1-43.9); Red Blood Count 5.02 M/mm3 (4.2-5.4); White Blood Count 8.7 K/mm3 (4.4-11.0)
[2018-07-13 19:21] LABS: POSITIVE COUNT NO; POSITIVE DIFFERENTIAL NO; POSITIVE MORPHOLOGY NO
[2018-07-13 19:23] LABS: Color, Urine Yellow (Yellow); Glucose, Dipstick Normal (Normal); Ketone-Dipstick Negative (Negative); Leukocyte Esterase-Dipstick 25 /ul (Negative); Nitrite-Dipstick Negative (Negative); Occult Blood-Urine 10 /ul (Negative); Protein-Dipstick Negative (Negative); Urine Bilirubin Dipstick Negative (Negative); Urine Clarity Clear (Clear); Urine Urobilinogen Normal (Normal)
[2018-07-13 19:25] LABS: Bacteria 1+ /hpf (None Seen); Red Blood Cells-Urine 0-5 SEEN /hpf (0-5); Squamous Epithelial Cells - UA 0-5 SEEN /hpf (5-10); White Blood Cells 0-5 SEEN /hpf (0-5)
[2018-07-13 19:27] LABS: Anion Gap 4 (5-15); BUN 7 mg/dL (7-18); BUN/Creat Ratio 8.5 RATIO (10-20); Chloride 107 mmol/L (98-107); Creatinine, Serum 0.82 mg/dL (0.55-1.02); EST Glomerular Filtration Rate 86 mL/min (>60); Est Glom Filt Rate - Afr Amer 103 mL/min (>60); Glucose 89 mg/dL (74-106); Potassium 4.1 mmol/L (3.5-5.1); Sodium Level 139 mmol/L (136-145)
--- NOTE | 2018-07-13 19:54 | CT_ITS ---
STUDY: CT ABDOMEN AND PELVIS WITH CONTRAST REASON FOR EXAM: Female, 33 years old. Nausea, vomiting, diarrhea RADIATION DOSAGE (If Supplied By Facility): CTDIvol = ( 12.69 ) mGy, DLP = ( 580.46 ) mGycm TECHNIQUE: Transaxial images were obtained from the dome of the diaphragm to the symphysis pubis without oral contrast. Isovue 300 100ML IV was administered. Sagittal and coronal images were reconstructed. Individualized dose optimization techniques were used for this CT. COMPARISON: 12/28/1979. FINDINGS: The visualized lung bases are unremarkable. The visualized portions of the heart are within normal limits. There is a pectus deformity of the chest. There is a new small pericardial effusion. Normal liver. Normal gallbladder and extrahepatic biliary system. Normal spleen. Normal pancreas. Normal bilateral adrenal glands. Normal right kidney. Normal left kidney. Normal visualized stomach. Normal small intestine. Normal colon. The appendix is visualized and appears normal. Normal abdominal aorta. Normal inferior vena cava. Normal retroperitoneum. Normal urinary bladder. Normal abdominal wall. There is streak artifact from bilateral SI screws and plate and screws within the pubic symphysis. There is sclerosis at the SI joints. There is also sclerosis of the pubic symphysis which is obscured by the plate and screws There is a 1.4 cm x 1 cm right ovarian cyst. There is a 1.4 cm x 1.2 cm hypodensity within the anterior uterus not present on prior exam. There has been removal of the IUD. The prior described left ovarian cyst is not present on this study. CT/Abdomen/Pelvis W IV Cont ONLY IMPRESSION: Pectus deformity of the chest New small pericardial effusion which should be correlated clinically, cardiac echo should be considered Removal of the IUD, 1.4 x 1.2 cm hypodensity within the anterior myometrium this could represent a leiomyoma however it was not visualized on the prior study, however the prior study did not have intravenous contrast. This could represent a leiomyoma however this could also represent hematoma, abscess, or other benign or malignant lesions. This should be further evaluated with pelvic and transvaginal ultrasound 1.4 x 1 cm right ovarian cyst Bilateral sacroiliitis with placement of metallic plate and screws across the SI joints placement metallic plate and screws at the pubic symphysis with degenerative changes at the pubic symphysis which are obscured by the plate and screws Electronically Signed: Thomas Greenberg, at 22:19 EST Tel , Service support ,
[2018-07-13] MEDS: 0.9% Normal Saline 1,000 ML 1000 ML IV (20:05)
[2018-07-13] MEDS: Ketorolac 30 MG/ML Syringe IV (20:06)
[2018-07-13 20:24] LABS: Pregnancy, Serum, hCG Quali. NEGATIVE Negative (0-9 Nonpreg)
[2018-07-13 20:26] LABS: AST(SGOT) 21 U/L (15-37); Alanine Aminotransfer ALT/SGPT 54 U/L (13-56); Albumin, Serum 3.4 g/dL (3.2-5.0); Alkaline Phosphatase 99 U/L (45-117); Bilirubin, Direct 0.11 mg/dL (0.00-0.30); Globulin 4.7 g/dL (2.2-4.2); Lipase 125 U/L (73-393); Protein, Total 8.1 g/dL (6.4-8.2)
[2018-07-13] MEDS: Morphine 4 MG/ML Syringe IV (22:24)
[2018-07-13 22:28] VITALS: RESP 18; O2SAT 98
--- NOTE | 2018-07-13 22:57 | ED.VISSUMM ---
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 She reports she had left-sided abdominal pain for the past month. Continuous pain that waxes and wanes. She describes it as sharp and stabbing. Symptoms are worst 5-10 currently. She reports that it may be an worsened by food. Is relieved by nothing. She is been nausea and vomited twice today. No blood or emesis. She had 10 episodes of diarrhea per day. She denies any blood in stools or black tarry stools. No dysuria frequency. Last menstrual. Was approximate 1 week ago. No vaginal bleeding or discharge. Patient reports that she was started on omeprazole approximate 1 month ago and has not had any relief from this. She does report that she had a colonoscopy approximately 4 years ago at [facility] that was unremarkable. No family history of Crohn's or ulcerative colitis. Patient states that May 05 she had a fusion of a open versus pubis and SI joints following a at [facility]. Physical Examination: Vitals: Stable. Afebrile. General: Well-nourished and well-developed. Head: Normocephalic atraumatic. Neck: Supple, no lymphadenopathy. No JVD. Nontender. Cardiovascular: Regular rate and rhythm. No murmurs. Respiratory: No respiratory distress. Clear to auscultation bilaterally. Abdominal: Soft, mild left upper and left lower quadrant tenderness to palpation, nondistended, normal bowel sounds. No guarding, rebound, or peritoneal signs. Back: Nontender. Extremities: Nontender, no edema. Skin: Normal color, no rash. Neurologic: Alert and oriented ?3. Cranial nerves II through XII are intact. Normal strength and sensation. Psych: Normal affect. Test Results: CBC is normal. Chem-7 is normal. LFTs marked globin of 4.7. Lipase is normal. UA is negative. test is negative. Clinical Impression(s) from Imaging Studies Abdomen/Pelvis CT 07/13/18 19:54 IMPRESSION: Pectus deformity of the chest New small pericardial effusion which should be correlated clinically, cardiac echo should be considered Removal of the IUD, 1.4 x 1.2 cm hypodensity within the anterior myometrium this could represent a leiomyoma however it was not visualized on the prior study, however the prior study did not have intravenous contrast. This could represent a leiomyoma however this could also represent hematoma, abscess, or other benign or malignant lesions. This should be further evaluated with pelvic and transvaginal ultrasound 1.4 x 1 cm right ovarian cyst Bilateral sacroiliitis with placement of metallic plate and screws across the SI joints placement metallic plate and screws at the pubic symphysis with degenerative changes at the pubic symphysis which are obscured by the plate and screws Electronically Signed: Thomas Greenberg, at 22:19 EST Tel , Service support , Emergency Department Course and Treatment: Patient with a dose of morphine, Toradol, and Zofran IV. She is resting comfortably. Treatment Plan: The CT read is essentially worthless. They suggest a cardiac echo when she has no symptoms consistent with a pericardial effusion. The patient has a history of fibroids. She does not need to have a pelvic and transvaginal ultrasound is suggested on the CT. I had a prolonged discussion with her about the possible etiology of her symptoms. She will be discharged with instructions to follow-up her primary care physician and gastroenterology as previously scheduled. I suggested that she take fiber supplement and probiotics. Return to the emergency department for any worsening symptoms. Disposition: To home in improved and stable condition. Impression: 1. Abdominal pain, uncertain cause. 2. Uterine fibroids. This note was generated with [employer] dictation software. It may contain incorrect words, spelling, and punctuation that were not noted in review of the chart prior to signing ED Disposition - Plan for ED Patient: Disposition: Home or Assisted Living Instructions: ED Abdominal Pain Unkn Cause Prescriptions: Ondansetron [Zofran Odt] 4 mg PO Q8H PRN PRN #10 tablet PRN Reason: Nausea Referrals: Flakito Seals MD [Primary Care Provider] - 3-5 Days if not improving
[2018-07-13 23:07] VITALS: BP 118/71; PULSE 79; RESP 16; O2SAT 97
== END 2018-07-13 23:08 | disposition home or self-care (01) ==
LOC: ED 19:59
PROVIDERS: Emergency Provider Emergency Medicine; Family Provider Internal Medicine; PCP Internal Medicine
DX: R10.9 Unspecified abdominal pain (principal); D25.9 Leiomyoma of uterus, unspecified; N83.201 Unspecified ovarian cyst, right side; R11.2 Nausea with vomiting, unspecified; R19.7 Diarrhea, unspecified; R51 Headache; K21.9 Gastro-esophageal reflux disease without esophagitis; F32.9 Major depressive disorder, single episode, unspecified; F90.9 Attention-deficit hyperactivity disorder, unspecified type; F17.290 Nicotine dependence, other tobacco product, uncomplicated; Z79.899 Other long term (current) drug therapy
CPT/HCPCS: 74177; 80048; 80076; 81001; 83690; 84703; 85025; 96361; 96374; 96375; 99283; J7030; Q9967; A4216

== ENCOUNTER → 2018-08-11 15:23 | Outpatient (CLI) | payer MEDICAID, SELFPAY ==
[2018-07-13 18:15] VITALS: BMI 25.3
[2018-08-11 16:53] LABS: Amphetamine Urine VISTA POSITIVE (<1000 ng/mL); Barbiturate Urine VISTA NEGATIVE (< 200 ng/mL); Benzodiazepine Urine VISTA NEGATIVE (< 200 ng/mL); Cocaine Urine VISTA NEGATIVE (< 300 ng/mL); Ecstacy Urine VISTA NEGATIVE (< 500 ng/mL); Methadone Urine VISTA NEGATIVE (< 300 ng/mL); PCP Urine VISTA NEGATIVE (< 25 ng/mL); THC Urine VISTA NEGATIVE (< 50 ng/mL); Vista UDS pH Range 6
== END ==
PROVIDERS: Family Provider Internal Medicine; PCP Internal Medicine; Referring Provider Psychiatry & Neurology Psychiatry; Visit Provider Psychiatry & Neurology Psychiatry
DX: Z79.899 Other long term (current) drug therapy (principal)
CPT/HCPCS: 80307

== ENCOUNTER 2018-08-14 09:00 | Outpatient (RCR) | payer MEDICAID, SELFPAY ==
--- NOTE | 2018-08-14 09:45 | BH.NA ---
Physical Data - Vital Signs Pulse Rate: 105 Respiratory Rate: 14 - Height/Weight Height: 1.68 m Weight:: 70.307 kg Weight in Pounds: 155.0 lbs Current Medication Compliance - Medication Compliance Do you take your medication as prescribed?: Yes Do you need assistance with taking medication?: No Have you had side effects from medication?: Yes Nutritional History - Appetite Nutritional Instructions:: If client shows signs of a swallowing problem, weight change of 10 pounds or more in the last month, or is on a diabetic diet, the physician will review and request a dietitian consult, as appropriate. All unintentional weight loss will be referred to the physician for decision on need for dietitian consult. Describe your appetite:: Fair Have you noticed a change in your eating habits lately?: Yes - decreased appetite associated w/ increased depression Functional Assessment - Sleep Pattern Describe any problems with sleeping: Client endorses difficulty falling asleep and difficulty waking in the mornings. - Activities Motor Activity:: Functional Sensory/Communication Assess - Hearing Problems Do you have any hearing problems?: Adequate - Communication Problems Do you have difficulty understanding what people are saying?: No Do you have trouble putting your thoughts into words or expressing what you want to say?: No Do people ever have trouble understanding what you say?: No What is your primary language?: Nepali Learning Assessment - Learning Barriers Learning Barriers:: Ready to learn Medical Problems/History - Pain Assessment Do you have acute or chronic pain?: Yes - Female Reproductive Do you think you may be ?: No Number of pregnancies:: 3 Number of children:: 1 Have you reached menopause?: No Do you have any history of breast disease?: No :: 2 - EAB - Family History Family History: Family History (Last Reviewed 09/02/18 @ 15:50 by Lissa Olivier) Mother Arthritis Autoimmune disease Blood clot in vein Hypertension Melanoma CVA (cerebral vascular accident) Father Arthritis High cholesterol H/O ulcer disease Grandmother Anxiety Arthritis Myocardial infarction Depression COPD (chronic obstructive pulmonary disease) High cholesterol Hypertension Grandfather Arthritis High cholesterol Hypertension Diabetes Grandmother Kidney disease Surgical History - Surgical History Have you had any surgeries? If so, list type and date:: Yes Substance Abuse - Substance Abuse Please describe substance abuse in the last 30 days:: Denies ETOH use. Past substance use/abuse. 15 pack years cigarette smoking, now uses vape device. Mental Status Summary - Mental Status Significant Findings/Observations on Appearance and Mood:: Willow is a 33-year-old female who is cooperative with interview. She has appropriate grooming and hygiene, casually dressed. Normal activity with steady gait. Good eye contact. Speech is clear and of normal rate and volume. Mild depression and anxiety. Mood congruent affect. Logical associations and normal process. No symptoms of delusions. Denies hallucinations and HI; passive SI for the past 2 months without plan or intent. Suicide Assessment - Suicidal Ideation Are you currently or have you been suicidal in the past?: Yes Suicidal Intentional Rating Scale (SIRS): Current suicidal thoughts/No plan/Contracts for safety Physician Notification: If Active suicidal thoughts/Will not contract for safety is checked, contact physician and document in the Physician Notification section below. Past Psychiatric History - MH Treatment Hx Past Psychiatric Medications:: Prozac, Adderall, most SSRIs Describe (age, circumstance, etc) any past hospitalizations: N/A Fall Risk Assessment - Age Age: Less than 60 - Mental Status Mental Status: Willing & able to ask for assistance when needed - Physical Status Physical Status: No problems - Impairments Impairments: None - Elimination Elimination: Continent AND independent - Gait or Balance Gait or Balance: Walks independently - Hx of Falls History of falls in the past 6 months: No known history - Medications/Substances Psychotropics:: Antidepressants, Anxiolytics (e.g. benzodiazepines) Medications/substances used within the past 24 hours or ordered to administer: 1-2 of the medications/substances listed above - Total Score Total Points:: 1 Physician Notification - Physician Notification Physician Notified: Vance Trivedi Method of Notification: Face to Face Comments: treatment planning discussion RN Summary of Impressions - Impressions Recommendations: Include psychiatric and medical issues, treatment planning recommendations, and discharge planning needs. Impression: General Medical Conditions: GERD, ?fibro - Level of Care How do the client's current symptoms and functional deficits support need for this level of care?: Willow presents after a 2 month decompensation of her mental health symptoms. She recognizes that her medical issues and financial strain have greatly contributed to her decline. She has been isolating and avoiding, some days staying in bed all day. She has mostly had passive thoughts of , but has been having fleeting SI without plan or intent for the past 2 weeks. IOP will promote gains and social engagement while preventing further decompensation.
--- NOTE | 2018-08-14 10:20 | BH.SGPN.GN ---
Behaviors/Verbalizations/Mental Status: [] Eye contact is good. Motor activity is appropriate. Appearance is neat. Speech is Appropriate. Mood is anxious. Affect is congruent. Thoughts are linear and logical. No evidence of psychosis. Client Response/Progress/Benefit: [] Pt was an active participant in group discussion and activity. Worked with the group to identify negative coping skills which increase MH symptoms such as; addiction, isolation, avoidance, sleeping to escape, anger outbursts, and impulsive behaviors. Group also identified barriers or obstacles that keep us in unhealthy coping skills such as; lack of awareness of healthy coping, immediate gratification, unhealthy feels comfortable, challenging to change what we are used too, being in negative relationships, and distorted thinking. Participated in experiential activity and processed the activity with the group. Through processing of activity group identified some strategies which helped them overcome barriers during the activity. Able to identify how strategies used such as communication, focus, and mindfulness could also be beneficial positive coping skills. Started to categorize internal vs external coping skills. Benefited from group through identification of unhealthy coping skills, barriers to overcoming unhealthy coping skills, psycho-education on external vs internal coping skills, and coping strategies. Will continue in IOP to prevent decompensation, decrease isolative behaviors, stabilize anxiety/depression.
--- NOTE | 2018-08-14 11:20 | BH.SGPN.GN ---
Behaviors/Verbalizations/Mental Status: []Pt eye contact good, casually dressed, motor activity appropriate, speech normal rate and tone, mood anxious, congruent affect, thoughts linear and intact, no evidence of delusions or hallucinations. Client Response/Progress/Benefit: []Pt attentively listened to others and contributed thoughts at times during discussion. Pt identified several healthy coping skills throughout group brainstorm. Pt could relate to peers comments about how distracting coping skills can be unhealthy if use for avoidance. Pt identified she is willing to practice the following coping skills to increase her healthy skills toolkit: painting, journaling, funny movie, cleaning/organizing, and playing drums. Pt seemed to benefit from increasing repertoire of healthy coping skills. Pt to continue IOP level of care to maintain gains, continue utilization of healthy coping and prevent decompensation. Pt's first day in IOP. Pt to continue IOP level of care to increase emotional regulation, improve interpersonal skills and prevent decompensation. Narrative Note: []
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
--- NOTE | 2018-08-14 14:26 | BH.DR.ITP ---
Initial Treatment Plan - Patient Information Visit Information: ADMISSION DATE: 08/14/18 EXPECTED LOS: 4-6 weeks Diagnoses:: Major depression; persistent depressive disorder;Borderline personality disorder; history of polydrug abuse - Problems/Symptoms Problem #1:: Depression Symptom:: low mood, low energy and motivation; passive wishes Problem #2:: borderline personality disorder Symptom:: symptoms of emptiness, identity problems, a history of impulsivity Problem #3:: a history of pulysubstance abuse Symptom:: a history of poor coping skills leading to drug use
[2018-10-23 08:26] VITALS: PULSE 105; RESP 14
== END 2018-08-16 23:59 ==
LOC: BHIOP 09:00
PROVIDERS: Family Provider Internal Medicine; PCP Internal Medicine; Referring Provider Psychiatry & Neurology Psychiatry; Visit Provider Psychiatry & Neurology Psychiatry
DX: F33.2 Major depressive disorder, recurrent severe without psychotic features (principal); F34.1 Dysthymic disorder; F41.9 Anxiety disorder, unspecified; F90.9 Attention-deficit hyperactivity disorder, unspecified type; F60.3 Borderline personality disorder; G89.29 Other chronic pain; K21.9 Gastro-esophageal reflux disease without esophagitis; Z72.0 Tobacco use; F19.21 Other psychoactive substance dependence, in remission
CPT/HCPCS: 90833; 99204; H2012; T1002

== ENCOUNTER 2018-08-17 09:00 | Outpatient (RCR) | payer MEDICAID, SELFPAY ==
--- NOTE | 2018-08-17 09:05 | BH.SGPN.GN ---
Behaviors/Verbalizations/Mental Status: [] Eye contact is good. Motor activity is appropriate. Appearance is casual. Speech is Appropriate. Mood is depressed. Affect is flat. Thoughts are linear and logical. No evidence of psychosis. Reviewed daily check in sheet and no reports of suicidal ideations or intent Client Response/Progress/Benefit: [] Pt was an active participant in group discussions. Emotion for today is parviz. Stated that she is not happy however not sad. Reports positive weekend with her family. Was more active and motivated. Accomplished some goals and went to anabaptist with children which is something she has not done in several months. Feels that IOP has increased motivation and support which had improved symptoms. Progress noted per pt report. Benefited from group support, encouragement, and feedback. Will continue in IOP to maintain safety, improve daily functioning, and increase coping skills. Narrative Note: []
--- NOTE | 2018-08-17 10:22 | BH.SGPN.GN ---
Behaviors/Verbalizations/Mental Status: []Client alert and oriented, casually dressed and groomed. Eye contact good. Motor activity appropriate. Speech within normal limits. Affect flat, mood dysthymic. Thoughts linear, logical, no signs of hallucinations or delusions. Client Response/Progress/Benefit: []Client responded well to session, engaged in discussion and activity. Client discussed the quote and shared ?we have emotions for a reason, but we don?t want to live in them.? Client shared being able to cope with emotions in healthy ways can improve self-esteem and relationships. Client stated ?having too many emotions at once? and negative thinking can impact one?s ability to communicate in a stressful situation. Client reported the benefit of being able to communicate during stressful situations is getting the support one needs. Client participated in the activity and did well to provide calm, clear communication. Client appeared to benefit from increasing awareness of how emotions can impact communication and the benefits of being able to regulate emotions. Client?s second day in IOP and she appears to be assimilating well into the group. Client to continue to increase mood stability and healthy coping skills.
--- NOTE | 2018-08-17 11:20 | BH.SGPN.GN ---
Behaviors/Verbalizations/Mental Status: [] Eye contact is good. Motor activity is appropriate. Appearance is casual. Speech is Appropriate. Mood is depressed. Affect is flat. Thoughts are linear and logical. No evidence of psychosis. Client Response/Progress/Benefit: [] Pt was an active participant in group discussion and activity. Attentive during psychoeducation on 4 zones of regulation. Pt able to identify how she feels in each zone as well as how she acts in each zone. Also able to identify strategies to incorporate to support herself in each zone which included; short walks, playing with kids, doing something pleasurable, self-care, maintaining routine, self-awareness, journaling, meditation, grounding, reaching out to support, take a break from stressors, and sleep. Benefited from group from increased education on zones of regulation or stages of alertness for emotions and healthy coping skills to use for each zone. Narrative Note: []
--- NOTE | 2018-08-18 09:04 | BH.SGPN.GN ---
Behaviors/Verbalizations/Mental Status: [Eye contact is good. Motor activity is appropriate. Appearance is casual. Speech is Appropriate. Mood is anxious, euthymic. Affect is congruent. Thoughts are linear and logical. No evidence of psychosis. Reviewed daily check in sheet with no reports of suicidal ideations or intent. ] Client Response/Progress/Benefit: [Pt attentive and engaged AEB providing input and maintaining good eye contact throughout. Emotion for today is nervous which she reports continued anxiety about her metal health and ability to make progress. Pt reflected upon current mental health positives and indicated that getting up in time to complete routine and arriving on time are two big wins as she often avoids waking up when alarm goes off which causes her to ro and increases anxiety. Additional positive is that she had been able to open up to her [id number] about her mental health and he was supportive in response. Pt shared that this had been hard as they are not close and benefitted from reflecting upon benefits of reaching out to supports as well as encouragement from the group. Increased openness displays progress in motivation levels. Current stressor continues to be her mental health sx and developing strategies for best coping with them. Pt recommended continued IOP tx to further improve use of thought challenging and increase insight into symptom management skills and warning signs as well as maintain safety.] Narrative Note: []
--- NOTE | 2018-08-18 10:20 | BH.SGPN.GN ---
Behaviors/Verbalizations/Mental Status: [] Eye contact is good. Motor activity is appropriate. Appearance is casual. Speech is Appropriate. Mood is anxious. Affect is congruent. Thoughts are linear and logical. No evidence of psychosis. Client Response/Progress/Benefit: [] Pt was an active participant in group discussion and activity. Worked together with the group to define a crisis and discuss examples of crisis situations. Group identified warning signs that one is in crisis which include; intense anxiety, paranoia, excessive restlessness, distorted thinking, crying, labile, anger outbursts, self-harm, isolation, and pacing. Pt completed her own personal warning signs worksheet. Identified unhealthy ways to manage a crisis which included; over-eating, running away, anger, alcohol or substances, isolation, sleeping to escape, and self-harm. Benefited from group by increasing awareness of crisis and personal warning signs. Narrative Note: []
--- NOTE | 2018-08-18 11:20 | BH.SGPN.GN ---
Behaviors/Verbalizations/Mental Status: []Client alert and oriented, casually dressed and groomed. Eye contact good. Motor activity appropriate. Speech within normal limits. Affect congruent, mood irritable. Thoughts linear, logical, no signs of hallucinations or delusions. Client Response/Progress/Benefit: []Client responded well to session, quiet, but participating when prompted. Client identified her warning signs for crisis and gained further awareness of her earliest warning signs. Client?s top four early warning signs were negative thoughts, anger, apathy, and rapid mood changes. Client recognized that awareness of these warning signs can prevent further crisis and help client utilize healthy coping skills to break the cycle. Client created a crisis action plan to help client better manage warning signs for crisis. Client?s plan included coping skills such as a list of reasons why she cares when she feels apathetic, positive self-talk, and reminders of positive people in her life. Client selected three items that will help her remember these crisis interventions and explained them to the group. Client appeared to benefit from creating a crisis action plan and increasing her self-awareness. Progress limited as it is client?s third day in IOP. Client to continue IOP to prevent decompensation and increase mood stability.
--- NOTE | 2018-08-19 09:03 | BH.SGPN.GN ---
Behaviors/Verbalizations/Mental Status: []Client alert and oriented, casually dressed and good hygiene. Eye contact good. Motor activity appropriate. Speech within normal limits. Affect congruent, mood euthymic. Thoughts linear, logical, no signs of hallucinations or delusions. Reviewed client?s symptom tracker, no risk for suicidal ideation, plan, or intent as of 08/19/18. Client Response/Progress/Benefit: []Client responded well to session, active participant. Client reports feeling ?content? today as she shares she is feeling more positive. Client?s current mental health wins include waking up on time today, making dinner last night, and cleaning at home. Client shared she is increasing awareness of her negative thoughts which has been helpful. Client?s current stressor is that she has not heard back from her doctor yet. Client appeared to benefit from connecting with peers and reflecting on positives. Progress noted as client appeared well groomed and reported improved mood today. However, client continues to struggle with mood dysregulation and can continue to benefit from ongoing IOP treatment.
--- NOTE | 2018-08-19 10:07 | BH.SGPN.GN ---
Behaviors/Verbalizations/Mental Status: [Client eye contact good, grooming and attire casual and neat, motor activity WNL, speech normal rate and tone, mood euthymic and calm, congruent affect, thoughts linear and intact, no evidence of delusions or hallucinations] Client Response/Progress/Benefit: [Pt receptive of session, attentive to discussion, and providing input throughout. Pt worked with group to reflect upon the quote regarding how we make decisions in our own lives. She indicated agreeing with others as they shared and expressed that that lack of motivation or experience can prevent making healthy decisions in daily life. Pt appeared to benefit from group discussion regarding ?Chapters of My Life? poem and provided insight regarding how each chapter can represent the various stages in management of mental health sx and healthy decision making. Pt did well to assess her own current mental health progress and shared that she is currently in Chapter 2 or 3. Explained that this is because ?I know that it?s my fault for falling in the same hole and am starting to see warning signs when I get close, but don?t know what to do to stop it?. Pt progress noted in improved ability to reflect on her own experiences and impact they have had on mental health sx management and ability to make progress, as well as on personal relationships. Recommended continued tx to continue to promote healthy change behaviors, reduce anxiety and depression, and prevent decompensating] Narrative Note: []
--- NOTE | 2018-08-19 11:15 | BH.SGPN.GN ---
Behaviors/Verbalizations/Mental Status: [] Eye contact is good. Motor activity is appropriate. Appearance is neat. Speech is Appropriate. Mood is depressed. Affect is flat. Thoughts are linear and logical. No evidence of psychosis. Client Response/Progress/Benefit: [] Limited participation in group discussion. Tearful and seemed withdrawn. Limited participation in group discussion about what helps people move through the chapters of their life. Did not complete WDEP (wants, Doing, Evaluate, Plan) Worksheet. Limited benefit from group due to lack of participation which was mainly due to current depressive mood. Was attentive however. Narrative Note: []
--- NOTE | 2018-08-19 13:34 | BH.MTP ---
[facility] - Patient Information Program Physician:: Vance Trivedi Primary Therapist:: Cassi Grider - Psychiatric Diagnoses Psychiatric Diagnoses:: Major depression; persistent depressive disorder;Borderline personality disorder; history of polydrug abuse Diagnosis Code(s):: F 33.2 - Estimated LOS Estimated LOS (in weeks):: 6 Problem/Goal #1 - Problem/Goal #1 Stated Goal:: Client will decrease depressive symptoms, passive thoughts of , and low motivation. Description of Barriers: Client identifies her fianc? as a support, but she shared the couple has a history of relationship issues. Client stated she feels lonely and ambivalent about the relationship at times. Client is currently engaging in isolative behaviors and reports a limited support system. Client is currently sober, but she reports a history of substance use and medication noncompliance. Client acknowledges negative core beliefs of self and difficulty regulating her emotions which has caused relationship issues. Client shared she has a hard time recognizing cognitive distortions and she has a hard time trusting people. Client is currently unemployed and has physical limitations due to a recent surgery. Lastly, client shared she has not been in counseling ?long enough for it to work? and reports limited insight to her warning signs and triggers. Functional Impact: Client is a 33-year-old female with a history of MDD, previously diagnosed ADHD, trauma, and anxiety. Client was referred to [facility] [place] by her outpatient therapist, Krissy Mancilla due to worsening depression, fleeting suicidal thoughts, and mental health symptoms impacting her daily functioning. Client reports exacerbation of depressive symptoms over the past 2 months. Client shared she is struggling to get out of bed, complete daily responsibilities, and regulate emotions. Client currently endorses a depressed mood, lack of energy, lack of motivation, avoidance, hopelessness, increased sleep, isolation, and anhedonia. Client denies any current suicidal ideations, plan, or intent. However, she stated when triggered or upset she thinks no one would miss me. Client has a history of depression in 2016. Client reports medical issues from recent surgery that further impact her mental health. Client shared her symptoms impact he quality of life, relationships, and ability to function at her baseline. Goal Relevant Strengths/Supports: Client presents as an intelligent, caring, and resilient woman. Client reports motivation to learn about her diagnosis and coping skills to manage symptoms. Client shared she has struggled with addiction in the past and reports current sobriety. Client has a daughter age 2-1/2 and reports her daughter is client's motivated to get better. Client is established with outpatient counseling and she is receptive to bringing in her fianc? for a family session. Client identifies her hill as a positive support and uses painting as a healthy coping skill. - Objectives Objective #1 Stated Objective: Client will identify and replace 2-3 negative thinking patterns that reinforce depressive symptoms, hopelessness, and negative self-talk. Interventions: Through groups and individual therapy, client will be provided with education on cognitive distortions, mistaken beliefs, and identifying and combating negative self-talk. Therapist will assist client in recognizing triggers for increased depressive thought patterns. Therapist will help client explore connection between thoughts, feelings, and actions and help client reframe depressive thought patterns. Therapist will help client gain awareness of why client has developed negative core beliefs and teach client how to reframe these. Discharge Criteria: Client will have accomplished this goal when client can identify and replace at least 2 negative thinking patterns with more realistic, positive statements. Target Date: 09/25/18 Review Date: 09/14/18 Status: open Objective #2 Stated Objective: Client will learn and utilize 2-3 healthy coping strategies to better manage depressive symptoms and reduce DSM-5 symptoms for depression. Interventions: Through group and individual sessions, therapist will help client identify triggers and warning signs of depression and emotional dysregulation including emotional, physical, and behavioral changes. Therapist will teach client various coping skills to manage her symptoms. Therapist will use cognitive restructuring techniques and help client gain awareness of negative thoughts that reinforce depressive cycles. Therapist will help client incorporate mindfulness and emotional regulation skills when dealing with difficult situations or relationships. Discharge Criteria: Client will have met this goal when she can report learning and using at least 2 coping skills to manage depressive symptoms and her DSM-5 scores for depression have decreased. Target Date: 09/25/18 Review Date: 09/14/18 Status: open Problem/Goal #2 - Problem/Goal #2 Stated Goal:: Client will increase coping skills to more effectively manage impulsiveness and emotional dysregulation. Description of Barriers: Client identifies her fianc? as a support, but she shared the couple has a history of relationship issues. Client stated she feels lonely and ambivalent about the relationship at times. Client is currently engaging in isolative behaviors and reports a limited support system. Client is currently sober, but she reports a history of substance use and medication noncompliance. Client acknowledges negative core beliefs of self and difficulty regulating her emotions which has caused relationship issues. Client shared she has a hard time recognizing cognitive distortions and she has a hard time trusting people. Client is currently unemployed and has physical limitations due to a recent surgery. Lastly, client shared she has not been in counseling ?long enough for it to work? and reports limited insight to her warning signs and triggers. Functional Impact: Client is a 33-year-old female with a history of MDD, previously diagnosed ADHD, trauma, and anxiety. Client was referred to [facility] [place] by her outpatient therapist, Krissy Mancilla due to worsening depression, fleeting suicidal thoughts, and mental health symptoms impacting her daily functioning. Client reports exacerbation of depressive symptoms over the past 2 months. Client shared she is struggling to get out of bed, complete daily responsibilities, and regulate emotions. Client currently endorses a depressed mood, lack of energy, lack of motivation, avoidance, hopelessness, increased sleep, isolation, and anhedonia. Client denies any current suicidal ideations, plan, or intent. However, she stated when triggered or upset she thinks no one would miss me. Client has a history of depression in 2016. Client reports medical issues from recent surgery that further impact her mental health. Client shared her symptoms impact he quality of life, relationships, and ability to function at her baseline. Goal Relevant Strengths/Supports: Client presents as an intelligent, caring, and resilient woman. Client reports motivation to learn about her diagnosis and coping skills to manage symptoms. Client shared she has struggled with addiction in the past and reports current sobriety. Client has a daughter age 2-1/2 and reports her daughter is client's motivated to get better. Client is established with outpatient counseling and she is receptive to bringing in her fianc? for a family session. Client identifies her hill as a positive support and uses painting as a healthy coping skill. - Objectives Objective #1 Stated Objective: Client will identify 2 triggers and 2 coping skills to use when client experiences mood dysregulation and has increased urges to engage in impulsive behaviors. Interventions: Through individual and group counseling client will be provided with education on healthy coping skills to manage mood symptoms, impulse, and crisis behaviors. Therapist will provide information on healthy alternatives to emotion release and psychoeducation on borderline personality disorder. Individual therapist will teach client DBT techniques to increase emotional regulation and mindfulness. Therapist will also engage client to use self-compassion while working to change behaviors. Discharge Criteria: Client will have accomplished this goal when client can identify at least 2 triggers and 2 coping skills to increase mood stability and reduce impulsiveness. Target Date: 09/25/18 Review Date: 09/14/18 Status: open Objective #2 Stated Objective: Client will improve communication skills and learn 2-3 strategies to improve interpersonal effectiveness skills. Interventions: Therapist will teach client various calming coping skills to help client self-regulate when experiencing irritability or agitation. Therapist will provide psychoeducation and help client see the benefits of effective communication. Through group and individual therapy, client will learn different interpersonal effectiveness strategies and be able to practice them in the moment. Therapist will encourage client to set weekly goals. Therapist will help client challenge negative thoughts and learn how to express needs to supports. Discharge Criteria: Client will have accomplished this goal when she can report learning and utilizing at least 2 interpersonal effectiveness skills and report improved communication. Target Date: 09/25/18 Review Date: 09/14/18 Status: open
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
--- NOTE | 2018-08-19 13:50 | BH.MDN ---
Multi-Disciplinary Note - Note 30-min Individual Time Started:: 12:30 Date: 08/19/18 Purpose of session/treatment goals addressed:: The purpose of this session was to gather information on client's current stressors, symptoms, and treatment goals. Another goal was to build rapport, provide psychoeducation, and give homework. Eye Contact:: Fair Motor Activity:: Appropriate Appearance:: Casual Speech:: Soft Mood:: Dysthymic Affect:: Congruent - became tearful at one point Thoughts:: Linear, Logical, No evidence of hallucinations/delusions noted Staff Interventions:: Therapist used active listening and open-ended questions to explore client's current stressors, symptoms, and treatment goals. Therapist used strengths perspective to build rapport and help client identify positives and personal resilience factors. Therapist provided emotional validation and provided psychoeducation on client's diagnoses. Therapist gave client homework and helped client set a goal for this afternoon. Client Response:: Client responded well to session, open to meeting with therapist. Client shared she has struggled with mental health symptoms of depression, anger, and anxiety since she was a preteen and teenager. Client reported her mother was sick throughout her childhood and client often felt alone. Client shared she did not get the attention she needed and self-reported acting out as a form of rebellion. Client reported this rebellion turned into anger issues, drug use, and other problems. Client connected with her recent diagnosis of borderline personality disorder and was receptive to learning more about how it forms and how it can be managed. Client shared she has self-sabotaged in the past and pushed people away because if I push them away first they can't push me away. Client reported she was referred to [facility] by her outpatient counselor at [place] [facility] due to worsening depression. Client shared she is struggling with apathy, lack of motivation, hopelessness, and negative core beliefs. Client stated she wants to work on having less self-hate. Client reported her negative core beliefs and difficulty regulating her emotions have caused relationship issues. Client was reminded that she can bring her family and fianc? in for support while in [facility] and client was receptive. Risks/Concerns:: Client reports passive suicidal thoughts are always there. However, client denies any active suicidal ideations, plan, and intent as of 08/19/18. Client reports when she has thoughts they are fleeting (lasting a brief time) and client can manage the thoughts. Client reports ability to maintain safety and has her daughter as a reason to live. Progress Toward Goals/Plan:: Client's second week in IOP, therefore, no significant progress to document. Client reports long history on emotional dysregulation, anxiety, and depression. Client appears motivated to improve her emotional regulation and improve her ability to talk with supports. Client was diagnosed with borderline personality disorder last week and shared that's me to a T. Client states connecting with the symptoms and recognizes that her relationships have been impacted because of it. Client currently endorses a depressed mood with anhedonia, negative thinking, and low motivation. Client identified her treatment goals to be reduce depression, improve ability to manage anger, reduce self-hate, and learn how to talk to her supports more effectively without pushing them away. Client to continue IOP to prevent decompensation and increase emotional regulation skills. Time Stopped:: 13:05
--- NOTE | 2018-08-19 13:57 | BH.MDN_ITS ---
Multi-Disciplinary Note - Note 30-min Individual Time Started:: 12:30 Date: 08/19/18 Purpose of session/treatment goals addressed:: The purpose of this session was to gather information on client's current stressors, symptoms, and treatment goals. Another goal was to build rapport, provide psychoeducation, and give homework. Eye Contact:: Fair Motor Activity:: Appropriate Appearance:: Casual Speech:: Soft Mood:: Dysthymic Affect:: Congruent - became tearful at one point Thoughts:: Linear, Logical, No evidence of hallucinations/delusions noted Staff Interventions:: Therapist used active listening and open-ended questions to explore client's current stressors, symptoms, and treatment goals. Therapist used strengths perspective to build rapport and help client identify positives and personal resilience factors. Therapist provided emotional validation and provided psychoeducation on client's diagnoses. Therapist gave client homework and helped client set a goal for this afternoon. Client Response:: Client responded well to session, open to meeting with therapist. Client shared she has struggled with mental health symptoms of depression, anger, and anxiety since she was a preteen and teenager. Client reported her mother was sick throughout her childhood and client often felt alone. Client shared she did not get the attention she needed and self-reported acting out as a form of rebellion. Client reported this rebellion turned into anger issues, drug use, and other problems. Client connected with her recent diagnosis of borderline personality disorder and was receptive to learning more about how it forms and how it can be managed. Client shared she has self- sabotaged in the past and pushed people away because if I push them away first they can't push me away. Client reported she was referred to [facility] by her outpatient counselor at [place] and [facility] due to worsening depression. Client shared she is struggling with apathy, lack of motivation, hopelessness, and negative core beliefs. Client stated she wants to work on having less self- hate. Client reported her negative core beliefs and difficulty regulating her emotions have caused relationship issues. Client was reminded that she can bring her family and fianc? in for support while in [facility] and client was receptive. Risks/Concerns:: Client reports passive suicidal thoughts are always there. However, client denies any active suicidal ideations, plan, and intent as of 08/19/18. Client reports when she has thoughts they are fleeting (lasting a brief time) and client can manage the thoughts. Client reports ability to maintain safety and has her daughter as a reason to live. Progress Toward Goals/Plan:: Client's second week in IOP, therefore, no significant progress to document. Client reports long history on emotional dysregulation, anxiety, and depression. Client appears motivated to improve her emotional regulation and improve her ability to talk with supports. Client was diagnosed with borderline personality disorder last week and shared that's me to a T. Client states connecting with the symptoms and recognizes that her relationships have been impacted because of it. Client currently endorses a depressed mood with anhedonia, negative thinking, and low motivation. Client identified her treatment goals to be reduce depression, improve ability to manage anger, reduce self-hate, and learn how to talk to her supports more effectively without pushing them away. Client to continue IOP to prevent decompensation and increase emotional regulation skills. Time Stopped:: 13:05
--- NOTE | 2018-08-21 09:01 | BH.SGPN.GN ---
Behaviors/Verbalizations/Mental Status: []Client alert and oriented, casual dress, hygiene tended to. Eye contact good. Motor activity appropriate. Speech within normal limits. Affect congruent, mood anxious and depressed. Thoughts linear, logical, no signs of hallucinations or delusions. Reviewed client?s symptom tracker, pt indicated a 1 out of 5 for suicidal ideations with 5 being severe. Pt indicated a 0 out of 5 for suicidal intent. Pt's score of 1 out of 5 for suicidal ideation has been pt's baseline this week. Pt's IOP therapist notified. Client Response/Progress/Benefit: []Pt was attentive AEB good eye contact and nodding throughout, provided input when elicited by therapist. Emotions for today are disconnected, fragile, and helpless because of discord with fiance. Stressor identified as feeling like her fiance is not being as supportive since she started IOP. Pt stated her fiance is too close to his mom and is spending more time at his parents house then with her. Pt admitted she has not communicated her feelings to him in an effective manner. Stated she yelled at him through text which escalated the situation. Mental health win identified as taking daughter to [employer] [place] which was a goal she had set before. Additional win is arriving to [facility] on time. Pt seemed to benefit from support from peers and expressing thoughts and emotions. Recommended to continue IOP tx to improve emotional regulation, improve communication skills and prevent decompensation. Narrative Note: []
--- NOTE | 2018-08-21 10:05 | BH.SGPN.GN ---
Behaviors/Verbalizations/Mental Status: [] Eye contact is good. Motor activity is appropriate. Appearance is casual. Speech is Appropriate. Mood is depressed. Affect is flat. Thoughts are linear and logical. No evidence of psychosis. Client Response/Progress/Benefit: [] Pt was an active participant in group activity and discussion. Worked with the group to define anger and its causes. Completed worksheet identifying internal impacts of unhealthy anger which included; shame, sadness, worry, self-hate, loneliness, depression, shutting down, stomach ache, hopelessness, jaded, suicidal, fear of leaving, fear of retaliation, self-harm, and embarrassment. Pt reports external impact of unhealthy anger as; others are hurt by my actions, pushing others away, walking on eggshells around others, make others think there's something wrong with them, and decreased self-esteem in others. Benefited from group by identifying that internal and external impact of unhealthy anger. Narrative Note: []
--- NOTE | 2018-08-21 11:04 | BH.SGPN.GN ---
Behaviors/Verbalizations/Mental Status: [Client alert and oriented, casually dressed and groomed. Eye contact good. Motor activity appropriate. Speech within normal limits. Affect congruent, mood euthymic. Thoughts linear, logical, no signs of hallucinations or delusions] Client Response/Progress/Benefit: [Client responded well to session, mostly passive participant during discussion though appearing to actively listen. Client participated in group activity and did well to challenge herself to use internal coping skills to maintain regulated despite various restrictions. Able to connect how skills used in activity relate to those utilized when managing anger. Shared that it takes positive self-talk, reminding herself to breath and go slowly, as well as encouragement from others. Group identified strategies for effectively managing anger which included; checking-in with oneself, taking breaks as needed, slowing down, and using calming and mindfulness skills. Indicated relating to experiences shared by fellow participants regarding difficulties with using healthy anger management skills in the past. She shared that she has had difficulties in managing anger when trying to communicate with someone who has differing opinions from her. Client helped the group identify coping skills to more effectively manage anger and potential benefits of anger management. Client appeared to benefit from gaining coping skills to more effectively manage anger. Will continue IOP level of care to promote gains, further improve mental health sx management and increase emotion regulation strategies.] Narrative Note: []
--- NOTE | 2018-08-24 09:05 | BH.SGPN.GN ---
Behaviors/Verbalizations/Mental Status: []Client alert and oriented, casually dressed and groomed. Eye contact good. Motor activity appropriate. Speech within normal limits. Affect congruent-tearful, mood depressed, frustrated. Thoughts linear, logical, no signs of hallucinations or delusions. Reviewed client?s symptom tracker. Client marked high scores for thoughts of suicide, but she denied any plan, or intent as of 08/24/18. Therapist to follow up with client to further assess. Client Response/Progress/Benefit: []Client responded well to session, quiet, but participating when prompted. Client reports feeling ?helpless? today due to a recent conflict with her fianc?. Client shared she was excited about taking their daughter to a park and her fianc? ?just acted miserable to entire time.? Client reported she feels like she ?hates him? right now and reported belief that ?everything I do is wrong.? Client acknowledge that she may be using distorted thinking, but admitted she has a hard time telling if her thoughts are ?real or distorted.? The group provided client with emotional support and therapist encouraged a family session. Client was receptive to talking with her fianc? about a family session. Client unable to identify coping skills she can use today, so the group provided her with some ideas. Client appeared to benefit from processing her emotions with peers. Progress noted as client is increasing awareness of distortions, but she continues to struggle with challenging negative thoughts and using healthy coping skills to manage interpersonal relationship issues.
--- NOTE | 2018-08-24 10:18 | BH.SGPN.GN ---
Behaviors/Verbalizations/Mental Status: [Client alert and oriented, casually dressed and appropriately groomed. Eye contact good. Motor activity appropriate. Speech normal rate and tone. Affect congruent, mood agitated, depressed. Thoughts linear, logical, no signs of hallucinations or delusions. ] Client Response/Progress/Benefit: [Client receptive of session, providing input and remaining an active listener throughout discussion. Client indicated connecting with the topic of cognitive distortions and discussed struggling with automatic negative thoughts in her own life, especially in regarding to personal relationships. She went on to express that in the past her thoughts have resulted in assuming things about others or believing that they had cruel intentions. Client did well to work with the group on identifying ways in which thoughts can impact mental health and reviewing the various types of distorted thoughts that increase mental health sx. Client provided an example of personal thought distortion of mind-reading as she shared thinking that her [id number] believes she is a bad mother or can?t take care of her daughter. Client displaying progress in her ability to identify the impact of these thoughts on her emotions and did well to identify them as irrational. Client shared often becoming increasingly hopeless and agitated following use of mind-reading thoughts. She benefitted from increasing awareness of how cognitive distortions has impacted mental health and personal relationships. Recommended continued IOP tx to increase ability to identify and challenge distorted thoughts, improve distress tolerance, and prevent decompensation.] Narrative Note: []
--- NOTE | 2018-08-24 11:00 | BH.COMM ---
Communication Note - Communication with Client Communication Note: Therapist followed up with client as she had increased scores on her symptom tracker for thoughts of suicide. Client reported she has been having thoughts of people would be better off without me but she denies any active suicidal ideation. Client stated I know it will pass. Client denies any plans and intent as of 08/24/18. Client reported I don't ever have a plan, I don't want to follow through with it. Client is future oriented as she plans to spend the day with her daughter and she reports ability to maintain safety today. Therapist encouraged a family session this week as client's increased suicidal ideation is due to a conflict with her fianc?. Client reported she will talk with him about coming in for a session. Therapist to follow up with client throughout the week.
--- NOTE | 2018-08-24 11:25 | BH.SGPN.GN ---
Behaviors/Verbalizations/Mental Status: [] Pt eye contact good, casually dressed, motor activity appropriate, speech normal rate and tone, mood anxious, congruent affect, thoughts linear and intact, no evidence of delusions or hallucinations. Client Response/Progress/Benefit: []Client engaged in session as evidenced by client listening attentively to others and contributing thoughts to discussion. Client connected with discussion about needing to put effort into challenging distorted thought patterns because recognizes if doesn't try to challenge thoughts then nothing will change. Client identified mental filter and personalization to be the cognitive distortions that she most often uses. Client could relate to peers about having similar distorted thought patterns. Client worked with peers to identify distortions and reframe the distorted thought to a realistic, rational thought. Client showing progress with increased awareness of how her thought patterns impact her mental health and relationships. Client to continue IOP level of care to continue work on identifying and reframing unhelpful thought patterns, improve emotional regulation and prevent decompensation. Narrative Note: []
--- NOTE | 2018-08-26 09:05 | BH.SGPN.GN ---
Behaviors/Verbalizations/Mental Status: []Client alert and oriented, neatly dressed and groomed. Eye contact good. Motor activity appropriate. Speech within normal limits. Affect congruent-tearful, mood dysthymic. Thoughts linear, logical, no signs of hallucinations or delusions. Reviewed client?s symptom tracker. Client marked 3/5 for thoughts of suicide, but denied any plan, or intent as of 08/26/18. Therapist to have a family session with client today. Client Response/Progress/Benefit: []Client responded well to session, providing positive feedback. Client reports feeling ?numb? and was tearful today. Client shared she continues to struggle with managing her emotions and feeling conflicted in her relationship. Client reported that went over to her in-laws last night and ?didn?t cope well.? Client states that she frequently feels like ?I?m not good enough.? Client?s current mental health win is that her fianc? is coming in for a family session today. Client appeared to benefit from connecting with peers and processing her stressors. Progress noted as client?s suicidal thoughts reduced today, but she continues to struggle with emotional dysregulation associated with relationship conflict. Client to continue IOP to increase self-awareness and improve interpersonal effectiveness skills.
--- NOTE | 2018-08-26 10:15 | BH.SGPN.GN ---
Behaviors/Verbalizations/Mental Status: [] Eye contact is good. Motor activity is appropriate. Appearance is casual. Speech is Appropriate. Mood is depressed. Affect is flat. Thoughts are linear and logical. No evidence of psychosis. Client Response/Progress/Benefit: [] Pt was an active participant in group activity and discussion. Pt completed a drawing depicting her current reality which she compares herself to normal people. Believes something is wrong with her as other's are laughing at her. Worked with group to identify barrier to reaching desired reality which include; habit, unhealthy coping is easier, fear of failure, fear of changes, and sense of being vulnerable. Benefited from group as pt was able to identify current mental health state and barriers that are impacting progress. Narrative Note: []
--- NOTE | 2018-08-26 11:17 | BH.SGPN.GN ---
Behaviors/Verbalizations/Mental Status: [Client alert and oriented, casually dressed, appearance appropriate. Eye contact fair to good. Motor activity appropriate. Speech within normal limits. Affect congruent, mood dysthymic and anxious. Thoughts linear, logical, no signs of hallucinations or delusions. ] Client Response/Progress/Benefit: [Client was an attentive and willing to engage participant throughout group discussion and activity. Pt taking notes and did well to identify obstacles currently preventing from achieving her identified desired reality. Barriers included: distorted thoughts, difficulties managing stress, avoidance/isolation, and negative self-talk. Client was able to identify personal resilience factors that can help overcome barriers. Client?s personal resilience factors included; willingness to ask for help and learn new skills, healthy supports, focusing on taking things on step at a time, and using deep breathing skills when experiencing increased anxiety. Active during activity and worked with group to provide ideas on how to cope with internal barriers. Group identified various obstacles during the activity and developed strategies to overcome those obstacles to wellness and desired reality. Client selected wanting to work on the barrier of negative thinking patterns by continuing to identify positives about herself, as well as begin practicing thought challenging. Benefited from group by identifying obstacles and solutions to desired reality. Will continue IOP tx to improve mood stability, increase use of healthy communication skills, and prevent decompensation.] Narrative Note: []
--- NOTE | 2018-08-26 15:35 | BH.MDN_ITS ---
Multi-Disciplinary Note - Note Family Time Started:: 14:30 Date: 08/26/18 Purpose of session/treatment goals addressed:: The purpose of this session was to engage client's finace, Gera, in client's treatment by providing psychoeducation and communicating client's support needs. Another goal was to review conflict resolution and thought challenging strategies. Eye Contact:: Good Motor Activity:: Appropriate Appearance:: Casual Speech:: Appropriate Mood:: Irritable, Dysthymic Affect:: Flat - tearful at times Thoughts:: Linear, Logical, No evidence of hallucinations/delusions noted Staff Interventions:: Therapist used open-ended questions and active listening to gather information on the couple's expectations for the session. Therapist advocated for client by providing psychoeducation on depression and borderline personality disorder. Client helped client and her fiance create strategies to improve communication and support to each other. Therapist reviewed fair fighting rules, healthy stress management strategies, and thought challenging te chniques. Therapist gave the couple information on how to support a loved one with mental health and told the couple about [facility] family to family. Therapist gave the couple homework to practice the communication and mindfulness strategies together. Client Response:: Client and Gera responded well to session, open to meeting with therapist. Client had made a list of expectations for session, including addressing negative thoughts and emotions she has regarding the relationship. Gera's expectations were to learn more about borderline personality and find better ways to resolve conflict. The couple shared that they do not communicate well with each other and acknowledged they run into frequent miscommunication barriers. The couple was receptive to learning effective communication strategies and setting a goal to better improve communication this week. Client expressed certain communication and conflict triggers that the couple continues to struggle with including client's in-laws and her parenting. Client able to verbalize why these topics are triggering for her. Client shared multiple negative core beliefs she has including I'm not a good mother and I'm not good enough. Client also shared she struggles with mind-reading and jumping to conclusions. 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 With therapist support, Gera was able to help client identify and combat negative thinking patterns that reinforce her negative core beliefs. Gera shared it is challenging for him to communication with client at times because I don't know what her mood will be. Client reported it would be beneficial for the two of them to use more mindfulness strategies and check in with each other more often. Client stated belief this would help both recognize and manage emotions. Client able to verbalize her communication and support needs with her fianc? and he was able to share his as well. The couple responded well to psychoeducation on borderline personality disorder and was receptive to homework. Risks/Concerns:: Client denies any active suicidal ideations, plan, and intent as of 08/26/18. Client reports ability to maintain safety. Progress Toward Goals/Plan:: Progress noted in client's increased self-awareness of symptoms, negative thoughts, and behaviors associated with borderline personality disorder and depression. Client's reports he can recognize changes in increased self-awareness as well. Client did well during session to effectively communicate her mental health support needs and listen attentively. Client continues to endorse a depressed mood, negative core beliefs, and emotional dysregulation. Client and her fianc? both acknowledged they do not communicate well and shared they often forget to check in with each other. The couple was receptive to setting goals to improve this. Client to continue IOP to prevent decompensation and increase emotional regulation skills. Time Stopped:: 15:23
--- NOTE | 2018-08-27 09:10 | BH.SGPN.GN ---
Behaviors/Verbalizations/Mental Status: [] Eye contact is good. Motor activity is appropriate. Appearance is casual. Speech is Appropriate. Mood is anxious. Affect is congruent. Thoughts are linear and logical. No evidence of psychosis. Reviewed daily check in sheet and pt reports suicidal ideation 1/5 and 0/5 for intent. Informed primary therapist who reports this is baseline. Client Response/Progress/Benefit: [] Pt was an active participant in group discussion. Emotion for today is hyper. Shared that she had a family session yesterday with her fiance. She believes that the session went well and reports that it was the most they communicated in awhile. Discussed the benefits of the sessions and how poor communicated impacted their relationship and her mental health. States that she was more relaxed yesterday and today. Notes improvement and reports that her family also commented on improvement since starting IOP. She reports that she is fearful of leaving the program and not having the structure, support, and treatment. Anxiety that she will decompensate and that this is my peak. Group provided feedback and support. Progress noted per pt report. Will continue in IOP to maintain safety, prevent decompensation, and stabilize mood. Narrative Note: []
--- NOTE | 2018-08-27 10:11 | BH.SGPN.GN ---
Behaviors/Verbalizations/Mental Status: [Client alert and oriented, casually dressed, hygiene fair. Eye contact fair to good. Motor activity appropriate. Speech within normal limits. Affect congruent, mood dysthymic, irritable. Thoughts linear, logical, no signs of hallucinations or delusions.] Client Response/Progress/Benefit: [Pt responded well to session, providing feedback to discussion and asking questions throughout. Pt connected with the quote and expressed relating to the importance of ensuring that communication is occurring in healthy ways as ineffective communication can negatively impact mental health and relationships. She stated that ?jumping to conclusions and using a condescending tone can impact or prevent us from communicating? and provided a personal example. Pt helped the group discuss the different communication styles including the payoffs and costs of each. Shared relating to passive-aggressive communication and indicated that this is primarily how she communicates with her fianc?. Pt recognized that although this releases built up anger, it has also results in increase tension within the relationship. Pt appeared to benefit from increasing awareness of how communication impacts mental health. Progress noted as client reports increased ability to use more assertive communication rather than aggressive or passive-aggressive, but she continues to struggle with reacting based on her emotions before giving herself time to process. Recommended continued IOP tx to prevent decompensation, and promote effective communication skills and distress tolerance.] Narrative Note: []
--- NOTE | 2018-08-27 11:20 | BH.SGPN.GN ---
Behaviors/Verbalizations/Mental Status: []Pt eye contact good, casually dressed, motor activity appropriate, speech normal rate and tone, mood euthymic, congruent affect, thoughts linear and intact, no evidence of delusions or hallucinations. Client Response/Progress/Benefit: []Pt active participant AEB pt providing input throughout and attentive to others. Pt identified with her fiance she most often communicates passively which she recognizes leads to her fiance not knowing how she feels and needs not getting met. Pt stated with her in-laws she tends to use aggressive communication which results in everyone walking on egg shells. Pt engaged in activity and able to connect how indirect communication negatively impacts mental health and relationships. Pt identified her communication goal is to check-in with her fiance about how his day was to increase open communication. Pt seemed to benefit from increased insight into how her communication style impacts her mental health and relationships. Pt progressing with increased insight into how her reaction to situations and expecting others to know how she feels often leads to disappointment and reinforcement of depressed symptoms. Pt to continue IOP level of care to improve emotional regulation, continue to identify and challenge distorted thoughts and prevent decompensation. Narrative Note: []
--- NOTE | 2018-08-28 09:06 | BH.SGPN.GN ---
Behaviors/Verbalizations/Mental Status: [Client alert and oriented, casual dress, hygiene tended to. Eye contact good. Motor activity appropriate. Speech within normal limits. Affect congruent, mood anxious, dysthymic. Thoughts linear, logical, no signs of hallucinations or delusions. Reviewed client?s symptom tracker, no signs of suicidal ideation, plan, or intent as of today. ] Client Response/Progress/Benefit: [Pt was an active participant in group discussion, providing input and openly processing with the group. Emotion for today is worried/nervous. Pt indicated that she has been struggling with setting boundaries with her [id number] which is causing increased tension in her relationship. She indicated that this has been an ongoing stressor for her and benefitted from identifying the areas in which she has displayed progress while working things out. Pt noted progress as taking initiative to begin discussing things with her fianc? rather than reacting out of anger. Additional positive as trying to keep an open mind and work on patience. Progress noted in application of emotion regulation skills outside of treatment environment. Continued IOP tx recommended to maintain gains, prevent decompensation, and continue to improve emotion regulation skills. ] Narrative Note: []
--- NOTE | 2018-08-28 10:20 | BH.SGPN.GN ---
Behaviors/Verbalizations/Mental Status: []Pt eye contact good, casually dressed, motor activity appropriate, speech normal rate and tone, mood euthymic, congruent affect, thoughts linear and intact, no evidence of delusions or hallucinations. Client Response/Progress/Benefit: []Client active participant as shown by pt listening attentively to others and providing her input throughout. Client reported self-care to be important because you get your needs met. Client identified a common myth about self-care is that it means you go on vacation and that it's more self-indulgent activities. Client stated if don't engage in self-care will likely result in being overwhelmed and anxious. Client engaged in activity able to connect how sometimes you need to only focus on self-care until feel more stable then can add additional responsibilities and tasks to your life. Client seemed to benefit from increased awareness of the importance of self-care. Client showing progress with increased insight and awareness of how her actions can positively or negatively impact her mental health. Client to continue IOP level of care to improve emotional regulation, challenge distorted thought patterns and prevent decompensation. Narrative Note: []
--- NOTE | 2018-08-28 11:17 | BH.SGPN.GN ---
Behaviors/Verbalizations/Mental Status: []Client alert and oriented, casually dressed and groomed. Eye contact good. Motor activity appropriate. Speech within normal limits. Affect congruent, mood dysthymic. Thoughts linear, logical, no signs of hallucinations or delusions. Client Response/Progress/Benefit: []Client responded well to session, participating in activity and discussion. Client further processed the activity and shared that without balance and prioritizing self-care it is challenging to make progress. Client engaged in the discussion and self-assessment of the different areas of self-care. Client gave herself mostly low scores on the self-assessment and shared ?I?m terrible at all of these.? Client reported her barriers are lack of motivation, lack of energy, and poor support. Client set a goal to improve her personal physical self-care. Client?s goal is to practice the stretches she learned in physical therapy and practice core posture at least once a day. Client appeared to benefit from increasing awareness of how she can improve her self-care balance. Progress noted as client reports she has been challenging negative thoughts, but she continues to struggle with emotional dysregulation. Client to continue IOP to prevent decompensation and increase interpersonal effectiveness skills.
--- NOTE | 2018-08-31 09:03 | BH.SGPN.GN ---
Behaviors/Verbalizations/Mental Status: []Client alert and oriented, casual dress, hygiene tended to. Eye contact good. Motor activity appropriate. Speech within normal limits. Affect congruent, mood dysthymic and anxious. Tearful at times. Thoughts linear, logical, no signs of hallucinations or delusions. Reviewed client?s symptom tracker, pt indicated a score of 1 out of 5, with 5 being severe, on suicidal ideations. Pt indicated a 0 out of 5 on the suicidal intention question. Pt's baseline is a 1 for suicidal ideation. Pt's IOP therapist notified. Client Response/Progress/Benefit: []Pt was an active participant in group discussion, providing input and openly processing with the group. Emotion for today is helpless and out of control. Pt indicated that she set boundaries with her [id number] last week which she sees as a mental health win. However, pt states her fianc? went to his parents house and smoothed things over by removing the boundaries pt had set. Pt stated her fianc? is using her new diagnosis of borderline personality against her by saying she was being dramatic with the boundaries she set. Pt reported when she found out her fianc? had done that she didn't blow up on him, which would have been her response in the past. Pt stated instead she called her brother and her dad to get their opinion on whether she was being rational. Pt noted progress with managing her emotions and using supports to help her. Progress noted in application of emotion regulation skills outside of treatment environment. Continued IOP level of care recommended to maintain gains, prevent decompensation, and continue to improve emotion regulation and interpersonal skills. Narrative Note: []
--- NOTE | 2018-08-31 10:07 | BH.SGPN.GN ---
Behaviors/Verbalizations/Mental Status: []Client alert and oriented, casually dressed and groomed. Eye contact good. Motor activity appropriate. Speech within normal limits. Affect congruent, mood euthymic. Thoughts linear, logical, no signs of hallucinations or delusions. Client Response/Progress/Benefit: []Client responded well to session, actively engaged throughout activity and discussion. Provided insight regarding topic of social supports and personal experiences in seeking support. Client reported connecting with the quote and shared that ?sometimes supports aren?t nice because we need to hear the hard truths.? Client shared there are barriers to seeking social supports, however there are also consequences of not having a support system. Client identified consequences of lack of support to be isolation, feeling overwhelmed, and ?emotions manifesting in different ways.? Identified benefits of social support as listening and telling her the truth when she needs to hear it. Client was engaged during the group activity and took on a leadership role. Appeared to benefit from gaining awareness of barriers that keep people from seeking social support as well as practicing in the moment coping skills during activity. Progress noted as shown by client?s report of increase self-awareness. Client to continue IOP to prevent decompensation and increase emotional regulation skills.
--- NOTE | 2018-08-31 13:34 | BH.MTP_ITS ---
[facility] - Patient Information Program Physician:: Vance Trivedi Primary Therapist:: Cassi Grider - Psychiatric Diagnoses Psychiatric Diagnoses:: Major depression; persistent depressive disorder;Borderline personality disorder; history of polydrug abuse Diagnosis Code(s):: F 33.2 - Estimated LOS Estimated LOS (in weeks):: 6 Problem/Goal #1 - Problem/Goal #1 Stated Goal:: Client will decrease depressive symptoms, passive thoughts of , and low motivation. Description of Barriers: Client identifies her fianc? as a support, but she shared the couple has a history of relationship issues. Client stated she feels lonely and ambivalent about the relationship at times. Client is currently engaging in isolative behaviors and reports a limited support system. Client is currently sober, but she reports a history of substance use and medication noncompliance. Client acknowledges negative core beliefs of self and difficulty regulating her emotions which has caused relationship issues. Client shared she has a hard time recognizing cognitive distortions and she has a hard time trusti ng people. Client is currently unemployed and has physical limitations due to a recent surgery. Lastly, client shared she has not been in counseling ?long enough for it to work? and reports limited insight to her warning signs and triggers. Functional Impact: Client is a 33-year-old female with a history of MDD, previously diagnosed ADHD, trauma, and anxiety. Client was referred to [facility] by her outpatient therapist, Krissy Mancilla due to worsening depression, fleeting suicidal thoughts, and mental health symptoms impacting her daily functioning. Client reports exacerbation of depressive symptoms over the past 2 months. Client shared she is struggling to get out of bed, complete daily responsibilities, and regulate emotions. Client currently endorses a depressed mood, lack of energy, lack of motivation, avoidance, hopelessness, increased sleep, isolation, and anhedonia. Client denies any current suicidal ideations, plan, or intent. However, she stated when triggered or upset she thinks no one would miss me. Client has a history of depression in 2016. Client reports medical issues from recent surgery that further impact her mental health. Client shared her symptoms impact he quality of life, relationships, and ability to function at her baseline. Goal Relevant Strengths/Supports: Client presents as an intelligent, caring, and resilient woman. Client reports motivation to learn about her diagnosis and coping skills to manage symptoms. Client shared she has struggled with addiction in the past and reports current sobriety. Client has a daughter age 2-1/2 and reports her daughter is client's motivated to get better. Client is established with outpatient counseling and she is receptive to bringing in her fianc? for a family session. Client identifies her hill as a positive support and uses painting as a healthy coping skill. - Objectives Objective #1 Stated Objective: Client will identify and replace 2-3 negative thinking patterns that reinforce depressive symptoms, hopelessness, and negative self- talk. Interventions: Through groups and individual therapy, client will be provided with education on cognitive distortions, mistaken beliefs, and identifying and combating negative self-talk. Therapist will assist client in recognizing triggers for increased depressive thought patterns. Therapist will help client explore connection between thoughts, feelings, and actions and help client reframe depressive thought patterns. Therapist will help client gain awareness of why client has developed negative core beliefs and teach client how to reframe these. Discharge Criteria: Client will have accomplished this goal when client can identify and replace at least 2 negative thinking patterns with more realistic, positive statements. Target Date: 09/25/18 Review Date: 09/14/18 Status: open Objective #2 Stated Objective: Client will learn and utilize 2-3 healthy coping strategies to better manage depressive symptoms and reduce DSM-5 symptoms for depression. Interventions: Through group and individual sessions, therapist will help client identify triggers and warning signs of depression and emotional dysregulation including emotional, physical, and behavioral changes. Therapist will teach client various coping skills to manage her symptoms. Therapist will use cog nitive restructuring techniques and help client gain awareness of negative thoughts that reinforce depressive cycles. Therapist will help client incorporate mindfulness and emotional regulation skills when dealing with difficult situations or relationships. Discharge Criteria: Client will have met this goal when she can report learning and using at least 2 coping skills to manage depressive symptoms and her DSM-5 scores for depression have decreased. Target Date: 09/25/18 Review Date: 09/14/18 Status: open Problem/Goal #2 - Problem/Goal #2 Stated Goal:: Client will increase coping skills to more effectively manage impulsiveness and emotional dysregulation. Description of Barriers: Client identifies her fianc? as a support, but she shared the couple has a history of relationship issues. Client stated she feels lonely and ambivalent about the relationship at times. Client is currently engaging in isolative behaviors and reports a limited support system. Client is currently sober, but she reports a history of substance use and medication noncompliance. Client acknowledges negative core beliefs of self and difficulty regulating her emotions which has caused relationship issues. Client shared she has a hard time recognizing cognitive distortions and she has a hard time trusting people. Client is currently unemployed and has physical limitations due to a recent surgery. Lastly, client shared she has not been in counseling ?long enough for it to work? and reports limited insight to her warning signs and triggers. Functional Impact: Client is a 33-year-old female with a history of MDD, previously diagnosed ADHD, trauma, and anxiety. Client was referred to [facility] by her outpatient therapist, Krissy Mancilla due to worsening depression, fleeting suicidal thoughts, and mental health symptoms impacting her daily functioning. Client reports exacerbation of depressive symptoms over the past 2 months. Client shared she is struggling to get out of bed, complete daily r esponsibilities, and regulate emotions. Client currently endorses a depressed mood, lack of energy, lack of motivation, avoidance, hopelessness, increased sleep, isolation, and anhedonia. Client denies any current suicidal ideations, plan, or intent. However, she stated when triggered or upset she thinks no one would miss me. Client has a history of depression in 2016. Client reports medical issues from recent surgery that further impact her mental health. Client shared her symptoms impact he quality of life, relationships, and ability to function at her baseline. Goal Relevant Strengths/Supports: Client presents as an intelligent, caring, and resilient woman. Client reports motivation to learn about her diagnosis and coping skills to manage symptoms. Client shared she has struggled with addiction in the past and reports current sobriety. Client has a daughter age 2-1/2 and reports her daughter is client's motivated to get better. Client is established with outpatient counseling and she is receptive to bringing in her fianc? for a family session. Client identifies her hill as a positive support and uses painting as a healthy coping skill. - Objectives Objective #1 Stated Objective: Client will identify 2 triggers and 2 coping skills to use when client experiences mood dysregulation and has increased urges to engage in impulsive behaviors. Interventions: Through individual and group counseling client will be provided with education on healthy coping skills to manage mood symptoms, impulse, and crisis behaviors. Therapist will provide information on healthy alternatives to emotion release and psychoeducation on borderline personality disorder. Individual therapist will teach client DBT techniques to increase emotional regulation and mindfulness. Therapist will also engage client to use self- compassion while working to change behaviors. Discharge Criteria: Client will have accomplished this goal when client can identify at least 2 triggers and 2 coping skills to increase mood stability and reduce impulsiveness. Target Date: 09/25/18 Review Date: 09/14/18 Status: open Objective #2 Stated Objective: Client will improve communication skills and learn 2-3 strategies to improve interpersonal effectiveness skills. Interventions: Therapist will teach client various calming coping skills to help client self-regulate when experiencing irritability or agitation. Therapist will provide psychoeducation and help client see the benefits of effective communication. Through group and individual therapy, client will learn different interpersonal effectiveness strategies and be able to practice them in the moment. Therapist will encourage client to set weekly goals. Therapist will help client challenge negative thoughts and learn how to express needs to supports. Discharge Criteria: Client will have accomplished this goal when she can report learning and utilizing at least 2 interpersonal effectiveness skills and report improved communication. Target Date: 09/25/18 Review Date: 09/14/18 Status: open
--- NOTE | 2018-09-01 09:01 | BH.SGPN.GN ---
Behaviors/Verbalizations/Mental Status: [Client alert and oriented, casual dress, hygiene tended to. Eye contact good. Motor activity appropriate. Speech within normal limits. Affect congruent, mood euthymic and anxious. Thoughts linear, logical, no signs of hallucinations or delusions. Reviewed client?s symptom tracker, score of 1/5 on suicidal ideation which is consistent to baseline, denies plan, or intent as of today. Pt is to follow-up with individual therapist following group for the day ] Client Response/Progress/Benefit: [Pt was an active participant in group discussion, providing input and suggestions to the group throughout. Emotion for today is nervous and optimistic which is progress for pt as she reports decreased depression and anxiety compared to baseline. Pt indicated improved mood because of following through with plan o sit down with her and talk to him about ongoing stressors/concerns. Pt reports this was a big win for them both as the conversation went well and she was able to hear his point of view as well as refrained from using blaming statements. Pt expressed that her additional win was being able to spend some time with her own parents last night and helping her mom school cafeteria head cook as it was a nice stress relief. She identified that tension with her in-laws continues to be a source of stress but that she is making consistent strides forwards in her ability to manage her emotions and calmly address the conflict without escalating to crisis. Pt benefitted from identifying areas of progress and celebrating her success with the group. Recommended continued IOP tx to improve emotion regulation and implementation of healthy communication skills, as well as prevent decompensation and depress depression/anxiety.] Narrative Note: []
--- NOTE | 2018-09-01 10:10 | BH.SGPN.GN ---
Behaviors/Verbalizations/Mental Status: [] Eye contact is good. Motor activity is appropriate. Appearance is disheveled. Speech is Appropriate. Mood is depressed. Affect is flat. Thoughts are linear and logical. No evidence of psychosis. Client Response/Progress/Benefit: [] Pt was an active participant in group discussion and activity. Worked together with the group to define conflict which they reported was; disagreement between people, different opinions on same topic, power struggle, and internal conflict (struggles with depression, motivation, goals, decisions). Discussed the benefits of conflict in progressing in relationships and mental health. Pt worked with group to identify barriers to over conflict which included; being stubborn, being afraid to hurt someone else's feelings, procrastination, lack of confidence, fear of not being liked, uncomfortable emotions, and distortions in perception of the conflict. Attentive during psychoeducation on different conflict styles such as avoiding, accommodating, competing, and collaborative. Reviewed benefits and drawbacks to each style. Benefited as she was able to identify and define conflict as well as increase awareness of how conflict style impacts his mental health. Will continue in IOP to maintain safety, prevent decompensation, and stabilize symptoms. Narrative Note: []
--- NOTE | 2018-09-01 11:08 | BH.SGPN.GN ---
Behaviors/Verbalizations/Mental Status: [Pt eye contact good, casually dressed, motor activity appropriate, speech normal rate and tone, mood dysthymic and anxious, congruent affect, thoughts linear and intact, no evidence of delusions or hallucinations] Client Response/Progress/Benefit: [Pt receptive of session, provided input to discussion and asking questions throughout. Pt worked with the group to make connections between barriers faced in the challenge activity and those present in utilizing social supports in daily life. She reflected that a personal barrier in using her current supports is communication and struggling to manage her emotions. She contributed to discussion about the different types of support and indicated making connections with the benefits of support groups as well as personal supports. Client worked with the group to identify strategies for improving development of new supports and utilization of current supports. She suggested that creating a plan and increasing effective communications as potential strategies. Client seemed to benefit from identifying a type of support she would like to improve upon and creating actionable steps to promote follow-through. Indicated wanting to improve personal support from her by discussing her concerns as well as increasing her understanding of his own concerns and needs. Client to continue IOP level of care to prevent decompensation, improve emotion regulation skills, as well as continue to improve use of healthy skills.] Narrative Note: []
--- NOTE | 2018-09-01 11:15 | BH.SGPN.GN ---
Behaviors/Verbalizations/Mental Status: []Client alert and oriented, disheveled appearance- hair unkempt. Eye contact good. Motor activity appropriate. Speech within normal limits. Affect congruent, mood irritable, tired. Thoughts linear, logical, no signs of hallucinations or delusions. Client Response/Progress/Benefit: []Client responded well to session, active participant. Client further processed her conflict resolution style. Client reported she is mostly competing or accommodating. Client shared ?it depends on if I?m depressed or not.? Client identified benefits of being competing, however, client recognizes being competing can lead to relationship issues. Client shared ?it can be selfish, and people don?t want to be around me.? Client was encouraged to practice being collaborative during the active. Client was assertive, and she also listened to other?s ideas and needs. Client helped the group identify things that positively and negatively impact conflict resolution. Client agreed with group that thinking logically and focusing on the big picture helped effectively resolve conflict. Client helped the group identify strategies to better manage conflict such as managing emotions and focusing on one issue at a time. Client appeared to benefit from learning conflict resolution strategies and increasing self-awareness. Progress noted as client reports practicing thought challenging. However, client can continue to benefit from increasing emotional regulation and mood stability.
--- NOTE | 2018-09-01 13:58 | BH.MDN ---
Multi-Disciplinary Note - Note 30-min Individual Time Started:: 12:30 Date: 09/01/18 Purpose of session/treatment goals addressed:: The purpose of this session was to address current symptoms and stressors. Another goal was learning and practicing mindfulness and conflict resolution skills. Other topics included social support and cognitive restructuring. Eye Contact:: Fair Motor Activity:: Appropriate Appearance:: Disheveled - hair appeared unwashed Mood:: Irritable Affect:: Congruent, Other - tearful at times Thoughts:: Linear, Logical, No evidence of hallucinations/delusions noted Staff Interventions:: Therapist used active listening and open-ended questions to explore client?s current stressors, symptoms, and negative thought patterns. Therapist used strengths perspective to empower client on her implementation of improved communication and coping skills. Therapist processed client?s current interpersonal relationship frustrations and emotions. Therapist reviewed mindfulness skills and taught client strategies to improve interactions with her in-laws. Therapist used cognitive restructuring techniques to bring awareness to negative thought patterns and helped client reframe distortions. Therapist introduced distress tolerance and opposite action skills to help client manage her emotions and reduce unwanted consequences. Therapist gave client homework to practice these skills. Client Response:: Client responded well to session, open to meeting with therapist. Client shared she has been working on recognizing negative thoughts and mind-reading less. Client reports belief this has helped her manage emotions better and improved interactions with her fianc?. Client shared she and her talked about a triggering topic yesterday and I didn't blow up like I normally do. Client stated she and her have been communicating better and last night he stood up for me to his mother. Client continues to have conflict with her in-laws that is reinforced by client?s cognitive distortions and negative core beliefs. With therapist help, client able to identify and challenge distorted thoughts. Client was also able to empathize with her fianc? and challenge her perspective. Client shared she and her fianc? plan to discuss issues I have with my in-laws one at a time. Client reported she wants to address these issues with her [id number], but client does not know how to approach it without going off. Client receptive to learning mindfulness, opposite action, and conflict resolution skills. Client identified triggering words and approaches to avoid such as cussing, stonewalling, and attacking. Client reported belief she could also benefit from feeling more connected and engaging in things that give meaning to her. Client receptive to [employer]. Risks/Concerns:: Client denies any suicidal ideations, plan, and intent as of 09/01/18. Client reports ability to maintain safety and was future oriented throughout session. Progress Toward Goals/Plan:: Progress noted in client's increased self-awareness of symptoms, negative thoughts, and behaviors associated with borderline personality disorder and depression. Client's reports implementing coping skills to prevent escalation of conflict and improve emotional regulation. Client shared she continues to have issues with her in-laws, but she and her fianc? plan to address these issues together. Client continues to endorse a depressed mood, negative core beliefs, and emotional dysregulation. Client to continue IOP to prevent decompensation and increase emotional regulation skills. Time Stopped:: 13:03
--- NOTE | 2018-09-02 09:10 | BH.SGPN.GN ---
Behaviors/Verbalizations/Mental Status: [] Eye contact is good. Motor activity is appropriate. Appearance is casual. Speech is Appropriate. Mood is anxious/irritable. Affect is congruent. Thoughts are linear and logical. No evidence of psychosis. Reviewed daily check in sheet and pt reported 1/5 for suicidal ideations and 0/5 for intent. Per primary therapist this is baseline. Client Response/Progress/Benefit: [] Pt was an active participant in group discussion. Emotion for today is nervous. Reports continued physical and somatic issues, however continues to be active and not isolating. Completed yard work and went to in-laws yesterday. No trigger to anxiety however it is present throughout the day. Utilizes skills learned to minimize overwhelming emotions. Progress noted per pt report as she is managing emotions despite feeling ill. Provided appropriate feedback to peers. Will continue in IOP to prevent decompensation, improve daily functioning, and stabilize emotions. Narrative Note: []
--- NOTE | 2018-09-02 10:10 | BH.SGPN.GN ---
Behaviors/Verbalizations/Mental Status: []Client alert and oriented, neatly dressed and groomed. Eye contact good. Motor activity appropriate. Speech within normal limits. Affect congruent, mood depressed, anxious. Thoughts linear, logical, no signs of hallucinations or delusions. Client Response/Progress/Benefit: []Client responded well to session, positive contributions and engagement. Client contributed to the discussion of how life is made of up different internal and external positive and negative forces and how those forces impact one?s mental health. Client connected with the quote and shared growth does not happen without effort. Client stated, ?your forces have to work together. You have to be open and accepting to grow.? Client identified examples of positive forces including self-care, awareness, and communication. Client identified examples of negative forces to be toxic people, distortions, and unhealthy coping. Client participated in the activity and did well to take on a leadership role using assertive communication. Client appeared to benefit from gaining awareness of how positive and negative forces can cause growth. ?Progress noted as client reports utilizing improved communication with her fiance. However, client continues to report physiological symptoms she believes are medication related, and she continues to struggle with mood dysregulation.
--- NOTE | 2018-09-02 11:14 | BH.SGPN.GN ---
Behaviors/Verbalizations/Mental Status: [Client alert and oriented, casually dressed and groomed. Eye contact good. Motor activity appropriate. Speech within normal limits. Affect congruent and mood anxious and dysthymic. Thoughts linear, logical, no signs of hallucinations or delusions.] Client Response/Progress/Benefit: [Client willing to participate in activity and provided input throughout. Pt did well to follow direction, provide input, and encourage fellow participants in group. Able to challenge urges to give up during the activity and utilize positive self-talk to help motivate herself. Pt worked with group to identify positive and negative forces influencing group progress in the activity and did well to relate this back to daily life. Client completed reflection worksheet which identified positive and negative forces that impact mental wellness. Client noted positive forces as: her daughter, friends, willingness to ask for help, and desire to improve mental health. Identified negative forces as: negative thoughts, avoidance, isolation, conflict with supports, and fear. Client seemed to benefit from increased awareness of personal positive and negative forces in life and the impact they have on mental health and wellness. Progress noted in pt ability to identify positive forces of resilience factors supporting progress. Client to continue IOP level of care to continue to challenge distorted thought patterns, improve ability to regulation emotions, and prevent decompensation.] Narrative Note: []
--- NOTE | 2018-09-02 11:53 | BH.VS.HW ---
Vital Signs - Pulse Pulse Rate: 84 - Respirations Respiratory Rate: 14 - Blood Pressure Blood Pressure: 134/90 History of Present Illness Detail of Chief Complaint: daily headaches, N/V, night sweats Informant: Patient Onset: Weeks Context: Gradual Onset Timing: Intermittent Narrative: Willow reports daily headaches that start around noon for the past 2 weeks. She also endorses daily nausea in the morning, that has been progressive, with 2-3 episodes of vomiting for the past 2 days. She reports night sweats for several days as well. She saw her psychiatrist, Dr. Schuler, on August 31 and was advised that her symptoms may be related to recent (changes occurred 08/14/18) medications changes as follows: increased Cymbalta from 30mg to 60mg daily decreased clonazepam from 0.5mg to 0.25mg at bedtime start trazodone 100mg at bedtime as needed Willow notes that she is pretty sure that she is not , as she and her partner use condoms and she notes that she had my period in the last two weeks. She has taken both ibuprofen and acetaminophen for her headaches, without much relief from either; she is advised to avoid ibuprofen given the risk of . She denies other associated symptoms, including fevers, chills, anorexia, any pain, abnormal GI patterns, and urinary symptoms. Phone call to Lissa at Dr. Seals's office (client's PCP), with the permission of client, relayed Willow's complaints. Message will be forwarded to PCP and their office will follow-up with client. Prior similar symptoms: No Recent Illness/Hospitalization: No
[2018-09-02 12:19] VITALS: BP 134/90; PULSE 84; RESP 14
--- NOTE | 2018-09-02 12:19 | BH.NA_ITS ---
Vital Signs - Pulse Pulse Rate: 84 - Respirations Respiratory Rate: 14 - Blood Pressure Blood Pressure: 134/90 History of Present Illness Detail of Chief Complaint: daily headaches, N/V, night sweats Informant: Patient Onset: Weeks Context: Gradual Onset Timing: Intermittent Narrative: Willow reports daily headaches that start around noon for the past 2 weeks. She also endorses daily nausea in the morning, that has been progressive, with 2-3 episodes of vomiting for the past 2 days. She reports night sweats for several days as well. She saw her psychiatrist, Dr. Schuler, on August 31 and was advised that her symptoms may be related to recent (changes occurred 08/14/18) medications changes as follows: * increased Cymbalta from 30mg to 60mg daily * decreased clonazepam from 0.5mg to 0.25mg at bedtime * start trazodone 100mg at bedtime as needed Willow notes that she is pretty sure that she is not , as she and her partner use condoms and she notes that she had my period in the last two weeks. She has taken both ibuprofen and acetaminophen for her headaches, without much relief from either; she is advised to avoid ibuprofen given the risk of . She denies other associated symptoms, including fevers, chills, anorexia, any pain, abnormal GI patterns, and urinary symptoms. Phone call to Lissa at Dr. Seals's office (client's PCP), with the permission of client, relayed Willow's complaints. Message will be forwarded to PCP and office will follow-up with client. Prior similar symptoms: No Recent Illness/Hospitalization: No
--- NOTE | 2018-09-04 09:06 | BH.SGPN.GN ---
Behaviors/Verbalizations/Mental Status: [Eye contact is fair to good. Motor activity is appropriate. Appearance is casual. Speech is Appropriate. Mood is anxious/irritable/dysthymic. Affect is congruent. Thoughts are linear and logical. No evidence of psychosis. Reviewed daily check in sheet and pt reported 1/5 for suicidal ideations and 0/5 for intent. Per primary therapist this is baseline. ] Client Response/Progress/Benefit: [Pt was a mostly passive participant in group discussion. Emotion for today is anxious and a little down. Reports continued difficulties in managing daily symptoms of anxiety which impact her physical health as well and often results in pt feeling sore. Discussed not doing much on previous date due to not feeling well but was still able to complete some self-care activities despite this. Discussed spending some time with her significant other as well. Progress noted per pt report as she is doing well to continue to manage depressive sx. Provided appropriate feedback to peers. Will continue in IOP to prevent decompensation, improve daily functioning, and stabilize emotions.] Narrative Note: []
--- NOTE | 2018-09-04 10:30 | BH.SGPN.GN ---
Behaviors/Verbalizations/Mental Status: []Client alert and oriented, neatly dressed and groomed. Eye contact good. Motor activity appropriate. Speech within normal limits. Affect constricted, mood dysthymic. Thoughts linear, logical, no signs of hallucinations or delusions. Client Response/Progress/Benefit: []Client responded well to session, positive contributions. Client commented on the quote and shared ?we stay stuck because of fear.? Client appeared to connect with the topic of personal pitfalls and how they can prevent mental health progress. Client identified barriers that keep people from making progress to be fear of setting boundaries, lack of self-awareness, and toxic people. Client shared not using coping skills and negative thinking are examples of a personal pitfall. Client participated in the group activity and took on a leadership role. However, when the group continued to struggle client stated, ?we don?t have to keep going, right?? ?The group was able to connect this back to their daily lives and how easy it can be to give up on the path to recovery. Client appeared to benefit from increasing self-awareness of the consequences of personal pitfalls. Client has shown progress as per her report of practicing thought challenging. However, client continues to struggle with relationship issues and mood dysregulation.
--- NOTE | 2018-09-04 11:30 | BH.SGPN.GN ---
Behaviors/Verbalizations/Mental Status: []Client alert and oriented, casually dressed and groomed. Eye contact good. Motor activity appropriate. Speech within normal limits. Affect congruent to topic being discussed, mood anxious. Thoughts linear, logical, no signs of hallucinations or delusions. Client Response/Progress/Benefit: []Provided input throughout group discussion, attentive to peers comments and suggestions. Pt completed a worksheet where she identified her own personal pitfalls. Personal pitfalls included: low self-esteem, distorted thought patterns, rumination, difficulty managing emotions, and high expectations. Group worked together to identify strategies to overcome personal and general pitfalls which included; actively participating in mental health treatment, setting realistic expectations, positive self-talk, utilizing support system, reflection on past experiences, identifying coping skills that are effective and not effective, reframing, and challenging negative thoughts. Benefited from identifying personal and general pitfalls and strategies to over these pitfalls. Will continue in IOP to improve interpersonal relationships, improve emotional regulation, and prevent decompensation. Narrative Note: []
--- NOTE | 2018-09-07 09:05 | BH.SGPN.GN ---
Behaviors/Verbalizations/Mental Status: [] Eye contact is good. Motor activity is appropriate. Appearance is casual. Speech is Appropriate. Mood is anxious. Affect is congruent. Thoughts are linear and logical. No evidence of psychosis. Reviewed daily check in with suicidal ideations 1/5 and intent 0/5. This is baseline for patient. Client Response/Progress/Benefit: [] Pt was an active participant in group discussion. Emotion for today is anxious. Reports that he weekend was not overwhelming however continues to struggle with anxiety, difficulty focusing, racing thoughts, and trouble in social situations. Had a conversation with fiance regarding ways to improve communication between them and gave him some information to read. Pt reports that he read the information and they had a conversation. Pt is hopeful. Benefited from group support and encourage. Some progress noted per pt report. Will continue in IOP to maintain safety, prevent decompensation, and stabilize mood. Narrative Note: []
--- NOTE | 2018-09-07 10:05 | BH.SGPN.GN ---
Behaviors/Verbalizations/Mental Status: []Pt eye contact good, casually dressed, motor activity appropriate, speech normal rate and tone, mood euthymic, congruent affect, thoughts linear and intact, no evidence of delusions or hallucinations. Client Response/Progress/Benefit: []Client semi-active participant, provided some contributions during discussion and appeared to attentively listen to peers. Client nodded that viewing situations as impossible can negatively impact one?s mental health. Client agreed with peers comments that seeing things as impossible sets you up to not try new things or to overcome difficult situations. Client agreed with others that humor can be helpful because reminds you that no one is perfect which can help you feel more relaxed to view the situation a different way versus seeing the situation as impossible. Client engaged in the group activity and the group did not complete the activity during second group. Despite lack of success, client did not appear to fall into fixed thinking pitfalls and stayed engaged. Client appeared to benefit from gaining awareness how viewing situations as impossible can negatively impact mental health progress. Client showing progress with improved emotional regulation and improved communication with others. Client to continue IOP to maintain gains, continue to identify and challenge distorted thoughts and prevent decompensation. Narrative Note: []
--- NOTE | 2018-09-07 11:10 | BH.SGPN.GN ---
Behaviors/Verbalizations/Mental Status: [Client maintained good eye contact, casually dressed and appropriate grooming, motor activity appropriate, speech normal rate and tone, mood dysthymic, affect congruent, thoughts linear, logical, no evidence of delusions or hallucinations.]] Client Response/Progress/Benefit: [Pt attentive, did well to participate in discussion and growth mindset reflection activity. She provided positive feedback, insight, and asked topical questions throughout. Pt brainstormed with the group on how fixed mindset thoughts experienced in the activity impacted ability to complete the task at hand. Pt indicated thoughts of ?this is impossible? caused her to become frustrated and begin giving up. Worked to identify important components of a growth mindset such as improving ability to compromise with supports and express empathy. Pt expressed having difficulties in using growth mindset thoughts, however did well to apply cognitive restructuring to reframe fixed thoughts of ?I?m too broken and don?t deserve a normal, happy life? with growth mindset thought of ?There is [place], progress is a process and I may have flaws but everyone struggles with something.?. Benefitted from discussing benefits of growth mindset and strategies for reframing fixed thoughts. Progress in pt ability to challenge doubt related to her ability to continue to make and maintain progress. Continued IOP tx recommended to prevent decompensation, increase application of thought challenge skills and improve self-esteem, and continue to decrease intensity and severity of depression.] Narrative Note: []
--- NOTE | 2018-09-08 09:05 | BH.SGPN.GN ---
Behaviors/Verbalizations/Mental Status: [] Eye contact is good. Motor activity is appropriate. Appearance is neat. Speech is Appropriate. Mood is depressed. Affect is flat. Thoughts are linear and logical. No evidence of psychosis. Reviewed daily check in sheet and pt reports 2/5 for suicidal ideations and 0/5 for intent. Therapist notified. Client Response/Progress/Benefit: [] Pt was an active participant in group discussions. Emotion for today is depressed. Pt reports that she is not doing well emotionally. Reports that she isolated all day yesterday. States that she sat on the couch and watched TV. Feelings of hopelessness and suicidal ideations. No specific trigger however notes that katiuska worked all day and then went over his parent's house to help with a project leaving her home alone as he took their child. Negative thinking and some cognitive distortions what's the point?. Pt showed insight into not utilizing any skills or attempting to disrupt depressive episode. Does not appear motivated at this point to review and learn from yesterday as she continues to be depressed. Group provided some support and suggestions. Regression noted. Will continue in IOP to maintain safety, decreased depressive and isolative behaviors, and improve functioning. Narrative Note: []
--- NOTE | 2018-09-08 10:08 | BH.SGPN.GN ---
Behaviors/Verbalizations/Mental Status: [Client eye contact good, casually dressed, appropriately groomed, motor activity appropriate, speech normal rate and tone, mood dysthymic, anxious, congruent affect, thoughts linear and intact, no evidence of delusions or hallucinations.] Client Response/Progress/Benefit: [Pt active participant AEB contributing to discussion and providing feedback throughout. Pt noted connecting with topic of goal setting and reported that ?If we don?t acknowledge our progress than we may not continue to try?. Pt shared a benefit of short-term goals as: they can change bad habits, improve relationships, and help get needs met. Identified personal barriers to following through with goals as: lack of support, and low confidence levels. Client participated in the review of SMART goal setting criteria and provided insight regarding each component of SMART goals. Noted that specific goals are important in providing clear direction. Client seemed to benefit from rehearsing setting short-term SMART goals in the group activity and displayed progress in her ability to connect with materials discussed. Continued IOP tx to promote healthy change behaviors, decrease anxiety and improve emotion regualtion, and increase ability to consistently work towards tx goals. ] Narrative Note: []
--- NOTE | 2018-09-08 11:10 | BH.SGPN.GN ---
Behaviors/Verbalizations/Mental Status: []Pt eye contact good, casually dressed, motor activity restless, speech normal rate and tone, mood depressed, constricted affect, thoughts linear and logical, no evidence of delusions or hallucinations. Client Response/Progress/Benefit: []Pt listened attentively to others and contributed thoughts and ideas to discussion. Client identified her small SMART goal is to be more present and mindful by taking 1 hour each day with boyfriend and daughter with no phone or tv usage. Client stated this goal will benefit her by improve relationship with both daughter and boyfriend. Pt identified distorted thoughts to be a potential barrier, stated she can overcome this barrier by challenging and reframing thoughts. Pt shared the distorted thoughts she often has include: I suck and they don't need me; He is too busy for me; nothing to do. Pt identified thoughts she can use to challenge the distortions include: my boyfriend and me both want to have a better relationship; my daughter enjoys doing anything together so it doesn't have to be something extravagant. Pt progressing with increased insight and awareness of how her thought patterns impact her mental health and relationships. Pt seemed to benefit from identifying a SMART goal and identifying ways to help overcome potential barriers. Pt to continue IOP level of care to decrease depression, continue to use healthy coping and cognitive restructuring, and prevent decompensation. Narrative Note: []
--- NOTE | 2018-09-08 14:50 | BH.MDN_ITS ---
Multi-Disciplinary Note - Note 45-min Individual Time Started:: 12:05 Date: 09/08/18 Purpose of session/treatment goals addressed:: The purpose of this session was to address client's current symptoms, stressors, and cognitive distortions. Another goal was to practice cognitive restructuring and behavioral activation. Other topics included exploring interests and opposite action. Eye Contact:: Fair Motor Activity:: Slowed Appearance:: Casual Speech:: Soft Mood:: Dysthymic Affect:: Flat - tearful Thoughts:: Other - difficulty concentrating, No evidence of hallucinations/delusions noted Staff Interventions:: Therapist used active listening and open-ended questions to explore client?s current stressors, symptoms, and negative thought patterns. Therapist used strengths perspective to empower client on her report of improved communication and to help client challenge self-depreciating talk. Therapist processed client?s current interpersonal relationship frustrations and fears of being alone. Therapist used cognitive restructuring techniques to bring awareness to negative thought patterns and helped client reframe distortions that are reinforcing the depressive cycle. Therapist used exploratory questions to help client identify activities and interests she may be willing to try. Therapist discussed behavioral activation with client reviewed opposite action skills. Therapist assisted client in setting a behavioral activation goal today and gave client homework to complete a thought log. Client Response:: Client responded well to session, tearful throughout, but open to meeting with therapist. Client shared she is currently struggling with a depressed mood and distorted thoughts because her fianc? has not been home much due to work. Client stated, I'm not good alone and that she had a dream her rejected her. Client able to challenge her distortions and fears with the help of therapist. Client acknowledged that despite having less time together, their relationship has actually been improving. Client reported they are doing better with communicating and checking in with each other. Client stated she feels empty and stuck in her life at times because all I do is clean and go to the grocery store. Client receptive to exploring options at the [employer] [facility] and Florentin Robert Applebaum MD as ways to help client find herself. Client shared she has more awareness of her negative thinking, but she continues to have a hard time replacing the negative thoughts. Client appeared to connect that if she is not engaging in behavioral activation and self-care, it will be harder for her to challenge distortions. Client receptive to setting a behavioral activation goal today. Client shared she often lets her emotions determine her actions. After further discussion, client acknowledged the conseq uences of this and was open to creating opposite action strategies to overcome barriers. Client reports plan to set alarms today and she created notecards with self-talk statements she can read when she has a negative thought or barrier. Risks/Concerns:: Client reports having passive thoughts of suicide such as I'd be okay with it happening by accident. Client denies any active suicidal ideations, plan, and intent as of 09/08/18. Client reports ability to maintain safety and identifies her daughter as her reason to live. Progress Toward Goals/Plan:: Progress noted in client's increased self-awareness of symptoms, negative thoughts, and behaviors associated with borderline personality disorder and depression. Client reports her communication has improved with her fianc?, but she continues to feel alone and ?like a single parent? due to her fianc??s work schedule. Client continues to endorse a depressed mood, negative core beliefs, feelings of emptiness, and lack of motivation. Client shared she has awareness of coping skills that could help her, but she reports variable application. Client also continues to struggle with emotional regulation when faced with interpersonal issues and fear of abandonment. Client to continue IOP to prevent decompensation and increase use of healthy coping skills. Client receptive to homework. Time Stopped:: 12:52
--- NOTE | 2018-09-09 09:05 | BH.SGPN.GN ---
Behaviors/Verbalizations/Mental Status: [] Eye contact is good. Motor activity is appropriate. Appearance is casual. Speech is Appropriate. Mood is anxious. Affect is congruent. Thoughts are linear and logical. No evidence of psychosis. Reviewed daily check in sheet and suicidal ideations were 1/5 and intent was 0/5. Client Response/Progress/Benefit: [] Pt was an active participant in group discussion. Emotion for today is confused. Improved mood from yesterday in which she was depressed and suicidal. Shred that she met with counselor in IOP yesterday and developed a plan and challenged some of her behaviors and thoughts. Yesterday she completed some self-care skills and set a small goal which she achieved. Found that this helped motivate her to leave the house with her child and spend some time with fiance. Progress noted however continue to verbalize difficulty focusing and memory issues which impacts functioning. I don't know what is going on in my head. Reports that she can't slow down her brain. Benefited from group feedback and encouragement. Will continue in [facility] to maintain safety, prevent decompensation, and improve daily functioning. Narrative Note: []
--- NOTE | 2018-09-09 10:09 | BH.SGPN.GN ---
Behaviors/Verbalizations/Mental Status: []Client alert and oriented, casually dressed and groomed. Eye contact good. Motor activity appropriate. Speech within normal limits. Affect congruent, mood euthymic. Thoughts linear, logical, no signs of hallucinations or delusions. Client Response/Progress/Benefit: []Pt receptive of session AEB pt listening to others, taking notes, and providing input at times. Pt appeared to connect with various definitions of resilience provided by the group as well as ideas for how resilience can have positive impacts mental health and wellness. Pt reported having a flexible mindset is important because helps you handle situations better. Pt engaged in small group discussion about the various strategies that can help strengthen one's resilience. Pt appeared to connect with others comments about importance of self-awareness to build resilience because if know personal barriers then know what you can do to improve situation. Pt seemed to benefit from increased awareness of various components that can contribute to increased resilience. Continued IOP recommended to prevent decompensation, increase utilization of healthy coping skills, and stabilize moods. Narrative Note: []
--- NOTE | 2018-09-09 11:12 | BH.SGPN.GN ---
Behaviors/Verbalizations/Mental Status: []Client alert and oriented, neatly dressed and groomed. Eye contact good. Motor activity appropriate. Speech within normal limits. Affect congruent, mood euthymic. Thoughts linear, logical, no signs of hallucinations or delusions. Client Response/Progress/Benefit: []Client responded well to session, active participant. Client engaged in the group activity. Client reported at first, she was doubtful that the group could succeed ?I thought there?s no way.? However, the group stayed resilient and used different ideas to be successful. Client shared ?we had help from each other and we adapted? which can also help people be resilient in their daily lives. Client was given a stress ball as a reminder of resilience. On her stress ball, client wrote ?I can?t control others, but I can control how I respond.? Client shared this will remind her to accept what she cannot control and focus on what she can. Client reported she wants to work on increasing supportive connections to further improve personal resilience. Client shared this will take courage to reach out to new supports, but client is willing join a class to promote personal growth. Client appeared to benefit from identifying personal resilience factors. Progress noted as client used coping skills yesterday to prevent isolation and she reports improved mood today. Client to continue IOP as she still struggles with consistent emotional regulation and negative core beliefs.
--- NOTE | 2018-09-10 10:23 | BH.SGPN.GN ---
Behaviors/Verbalizations/Mental Status: [Client alert and oriented, casually dressed. Eye contact good. Motor activity appropriate. Speech within normal limits, soft. Affect congruent, mood anxious, agitated. Thoughts linear, logical, no signs of hallucinations or delusions. ] Client Response/Progress/Benefit: [Pt receptive of session, actively listening, contributing to discussion on stress, and providing feedback to fellow participants. Pt expressed that stress can be a motivator or cause you to remain stuck. She worked with the group to identify impacts of unmanaged stress and reported if a person does not manage stress it can result in burnout and lashing out on others. Pt provided a personal example regarding her in-laws. She appeared to benefit from gaining awareness of current stressors and learning about the impact stress has on overall wellbeing. Participated in activity identifying current stressors impacting mental health. Pt's current stressors include: finances, relationship tension, and her children. She identified her relationship and feeling lonely as current largest stressors. Pt continues to struggle with challenging negative thoughts which cause agitation and low self-esteem. Recommended continued IOP tx to promote use of affirmations and internal coping mechanisms, promote change behaviors, and prevent decompensation.] Narrative Note: []
--- NOTE | 2018-09-11 09:48 | BH.COMM ---
Communication Note - Communication with Client Communication Note: Pt scheduled for IOP group on this date however did not show. This therapist reached out to follow-up and pt indicated feeling ill and would not be able to attend group, rescheduled for next week.
--- NOTE | 2018-09-14 11:25 | BH.SGPN.GN ---
Addendum entered and electronically signed by ANGELINE Mtz 05/19/19 10:23: Addendum entered to include missing Group Psychotherapy Session Note #2. Date: 09/14/18 Start: 1025 Duration: 50 minutes Firer Low Pressure: Елена Gaines Group Topic: Crisis # of Participants: 10 Goal of Group: To increase understanding of a crisis and improve client?s awareness of personal warning signs before crisis. Staff Interventions: Therapist facilitated group discussion about defining a crisis and specifying various events that are considered a crisis. Therapist led the group in discussion about identifying personal warning signs before a crisis and importance of being aware of those signs. Therapist provided support by using active listening and providing feedback. Behaviors/Verbalizations/Mental Status: Client alert and oriented, casually dressed and groomed. Eye contact poor. Motor activity appropriate. Speech within normal limits. Affect flat, mood depressed. Thoughts linear, logical, no signs of hallucinations or delusions. Client Response/Progress/Benefit: Client passive participant AEB only contributing to discussion if elicited by therapist. Appeared to listen to peers? comments. Connected with discussion on how coping with external crisis by using unhealthy coping skills could lead to personal crisis. Client completed the personal warning signs worksheet and identified crisis warning signs to include: feeling disconnected, negative thinking, and feeling alone. Benefited from group by increasing awareness of crisis and personal warning signs. Will continue IOP tx to increase healthy coping, improve emotional regulation and prevent decompensation. Original Note: Addendum entered and electronically signed by ROSANGELA Camacho 05/18/19 16:53: Amended to add missing process group documentation. Please advise. Group Topic: [] process # of Participants: [] 9 participants Goal of Group: [] The goal of today's group was to check-in with client's mood, stressors, and positives, and review goals. Staff Interventions: [] Therapist used open-ended questions to elicit information about client's current stressors and mood state. Therapist was supportive by using active listening and reflection. Behaviors/Verbalizations/Mental Status: [] Eye contact is fair to good. Motor activity is appropriate. Appearance is casual. Speech is Appropriate. Mood is depressed. Affect is flat. Thoughts are linear and logical. No evidence of psychosis. Reviewed daily check in sheet and reported 2/5 for suicidal ideations and 0/5 for intent. Therapist notified, reported this is pt baseline per therapist Client Response/Progress/Benefit: [] Pt was an semi-active participant in group discussion. Shared with the group that she has been feeling ill this week which is impacting overall mood and reinforcing feelings of depression. Discussed struggling with physical pain and aches. Reported feeling the group environment is beginning to increase her understanding of her own mental health sx, but that she continues to struggle with understanding as to why she feels or does certain things. Appeared to benefit from support provided by group and able to identify increased insight as a positive. Emotion for today is down. Progress noted per pt report of improved insight despite not feeling well. Will continue in IOP to prevent decompensation, improve daily functioning, and stabilize emotions. Original Note: Behaviors/Verbalizations/Mental Status: []Client alert and oriented, casually dressed and groomed. Eye contact good. Motor activity appropriate. Speech within normal limits. Affect constricted, mood anxious. Thoughts linear, logical, no signs of hallucinations or delusions. Client Response/Progress/Benefit: []Client responded well to session, quiet, but participating when prompted. Client identified her warning signs for crisis and gained further awareness of her earliest warning signs. Client?s top three early warning signs were negative thoughts, apathy, and rapid mood changes. Client recognized that awareness of these warning signs can prevent further crisis and help client utilize healthy coping skills to break the cycle. Client created a crisis action plan to help client better manage warning signs for crisis. Client?s plan included coping skills such as engaging in mindfulness and self-talk. Client had previously created a crisis kit, and she chose not to make another one. Client appeared to benefit from creating a crisis action plan and increasing her self-awareness. Progress noted as client reports improvement in self-awareness, but she reports ongoing difficulty with regulating and ?trusting? her emotions.
--- NOTE | 2018-09-14 14:44 | BH.TPR ---
Treatment Plan Review Date of Admission:: 08/14/18 Date of Treatment Plan Review:: 09/14/18 Admitting Diagnoses:: Major depression F 33.2; persistent depressive disorder;Borderline personality disorder; history of polydrug abuse Current Diagnoses:: Major depression F 33.2; persistent depressive disorder;Borderline personality disorder; history of polydrug abuse Patient's Response to Treatment:: Client has been responding well to treatment as shown by her consistent attendance, connection with peers, and report of increased self-awareness. Client is an active group member who often provides supportive statements to peers and positive contributions to discussion. In individual sessions, client is receptive to learning new coping skills and engaged. However, client reports struggling with consistent application of coping skills and following through with homework. Client shares she has increased her awareness of warning signs, triggers, and symptoms associated with depression and borderline personality disorder. Client is experiencing a recent regression of symptom management due to ongoing interpersonal issues with her fianc?. However, prior to the regression, client was reporting improved communication and management of emotions. Client was unable to fill out the DSM-5 cross cutting symptom measure do to missing several days for illness. Therefore, client's scores cannot be evaluated for progress at this time. Status of Current Problems and Symptoms: Client reports a recent regression in symptom management due to ongoing interpersonal relationship issues. Client states she feels confused about what to do with her life and relationship which is increasing her anxiety, negative thinking, and depression. Client also reports fear of leaving IOP in a few weeks which per her report, is triggering fear of abandonment and rejection. Client currently endorses a depressed mood, negative core beliefs, difficulty concentrating and completing thoughts, feelings of emptiness, and lack of motivation. Client self-reported lack of application of coping skills which could be further contributing to her recent regression as well. Problem #1 Problem Name:: Decrease depressive symptoms, passive thoughts of , and low motivation Status of Goals:: Objective 1-Complete. Client can identify distorted thought patterns and reports attempting thought challenging. However, she reports difficulty with believing her positive statements at times and can continue to benefit from working on this goal. Objective 2- partially complete. Through group and individual therapy, client has learned various coping skills to manage depression. It is unknown at this time if client?s DSM-5 scores have decreased, see above. Will evaluate at discharge. Team Recommendations:: Client recommended to continue working on treatment goal to reinforce healthy coping skills and prevent further decompensation. Client encouraged to communicate with her fijennifer and to reach out to positive supports. Client also recommended to practice coping skills more consistently and she reported interest in journaling. Problem #2 Problem Name:: Increase coping skills to manage impulsiveness and emotional regulation Status of Goals:: Objective 1- partially complete. Client can identify triggers for mood instability and impulsiveness such as fear of abandonment and rejection. However, client continues to struggle with implementing healthy coping skills consistently to manage these triggers. Objective 2- complete. Client reports improved communication with her fianc? and increased self-awareness. Team Recommendations:: Client recommended to continue working on treatment goal to reinforce healthy coping skills and increase emotional regulation skills. Client reports some improvement with communication and managing her emotions. However, client recognizes when faced with interpersonal relationship issues it is harder for her to regulate emotions. Client also recommended to practice coping skills more consistently and practice mindfulness.
--- NOTE | 2018-09-14 15:05 | BH.MDN_ITS ---
Multi-Disciplinary Note - Note 60-min Individual Time Started:: 12:30 Date: 09/14/18 Purpose of session/treatment goals addressed:: The purpose of this session was to address current symptoms, stressors, and negative thought patterns. Another goal was to set a small goal today to break the depressive maintenance cycle. Other topics included: decision making, self-sabotage, and relationships. Eye Contact:: Fair Motor Activity:: Slowed Appearance:: Disheveled Speech:: Soft Mood:: Depressed Affect:: Flat - tearful Thoughts:: Circular, Other - reporting difficulty concentrating and can't finish a thought., No evidence of hallucinations/delusions noted Staff Interventions:: Therapist used active listening and open-ended questions to explore client?s current stressors, symptoms, and negative thought patterns. Therapist used strengths perspective and self-compassion techniques to help client combat self-deprecation. Therapist processed client?s current interpersonal relationship frustrations and fears of being alone. Therapist used motivation interviewing techniques and cost benefit analysis. Therapist used cognitive restructuring techniques to help client combat negative thoughts. Therapist addressed self-sabotage with client and reviewed opposite action skills. Therapist assisted client in setting a small goal today to promote emotional wellbeing. Client Response:: Client entered session alert and oriented, however, throughout session client was tearful and withdrawn. Client reported belief she is regressing and that I'm not ready to leave here. Client shared she fears that she will fall back into old patterns. Client also continues to feel ambivalent in her relationship. Client reported due to her fianc??s work schedule she is alone most of the time which is a constant trigger for me. Client sought answers from therapist on whether client should leave the relationship or stay. Therapist encouraged client to make this decision for herself. Client identified changes she would like to see in her relationship and some of those changes were unhealthy such as wanting to fight more. Client able to identify pros and cons of leaving the relationship, but client did not feel ready to make a major d ecision. Client acknowledges that she has a history of leaving relationships because the grass is greener on the other side. Client reported she has not been using her coping skills and over the weekend she isolated. Client stated she has been using self-depreciating talk and is having a hard time seeing progress. Client engaged in a self-compassion exercise and was willing to identify one positive a night for homework. Client receptive to discussion of self-sabotage and willing to set a small goal for today. Client shared she could use a break from watching her daughter and a change in scenery. Client willing to go to a local park with her art supplies and paint. Client shared this will help her feel better. Risks/Concerns:: Client denies any active suicidal ideations, plan, and intent as of 09/14/18. Protective factor of daughter. Client future oriented. Progress Toward Goals/Plan:: Progress noted in client's increased self-awareness and ability to set small behavioral activation goals. However, client reports recent regression in symptom management due to ongoing interpersonal relationship issues impacting client?s mental health. Client reports ambivalence about her relationship and fear about discharging from IOP. Client endorses a depressed mood, negative core beliefs, difficulty concentrating, feelings of emptiness, and lack of motivation. Client self-reported that she has not been consistent with utilizing her healthy coping skills this week which may contributing to client?s symptom management regression as well. Client to continue IOP to prevent decompensation and increase use of healthy coping skills. Client receptive to homework. Time Stopped:: 13:23
--- NOTE | 2018-09-14 15:09 | BH.COMM ---
Communication Note - Communication with Client Communication Note: Therapist called client's outpatient therapist, Krissy Mancilla, in attempt to discuss client's current stressors, progress, and plan of care. Therapist unable to reach Krissy and left a message.
--- NOTE | 2018-09-15 11:36 | BH.COMM ---
Communication Note - Communication with Client Communication Note: Client called to cancel her scheduled IOP group session today due to illness. Client is scheduled to attend tomorrow 09/16/18.
--- NOTE | 2018-09-16 15:26 | BH.COMM ---
Communication Note - Communication with Client Communication Note: Client no called/no showed to her scheduled IOP group session today. Therapist called client and her fianc? answered. Client's fianc? reported client is still sick and has lost of her voice. Therapist asked client to keep IOP staff informed if she needs to cancel again this week.
--- NOTE | 2018-09-25 08:24 | BH.MTP_ITS ---
Treatment Plan Review Date of Admission:: 08/14/18 Date of Treatment Plan Review:: 09/14/18 Admitting Diagnoses:: Major depression F 33.2; persistent depressive disorder;Borderline personality disorder; history of polydrug abuse Current Diagnoses:: Major depression F 33.2; persistent depressive disorder;Borderline personality disorder; history of polydrug abuse Patient's Response to Treatment:: Client has been responding well to treatment as shown by her consistent attendance, connection with peers, and report of increased self-awareness. Client is an active group member who often provides supportive statements to peers and positive contributions to discussion. In individual sessions, client is receptive to learning new coping skills and engaged. However, client reports struggling with consistent application of coping skills and following through with homework. Client shares she has increased her awareness of warning signs, triggers, and symptoms associated with depression and borderline personality disorder. Client is experiencing a recent regression of symptom management due to ongoing interpersonal issues with her fianc?. However, prior to the regression, client was reporting improved communication and management of emotions. Client was unable to fill out the DSM- 5 cross cutting symptom measure do to missing several days for illness. Therefore, client's scores cannot be evaluated for progress at this time. Status of Current Problems and Symptoms: Client reports a recent regression in symptom management due to ongoing interpersonal relationship issues. Client states she feels confused about what to do with her life and relationship which is increasing her anxiety, negative thinking, and depression. Client also reports fear of leaving IOP in a few weeks which per her report, is triggering f ear of abandonment and rejection. Client currently endorses a depressed mood, negative core beliefs, difficulty concentrating and completing thoughts, feelings of emptiness, and lack of motivation. Client self-reported lack of application of coping skills which could be further contributing to her recent regression as well. Problem #1 Problem Name:: Decrease depressive symptoms, passive thoughts of , and low motivation Status of Goals:: Objective 1-Complete. Client can identify distorted thought patterns and reports attempting thought challenging. However, she reports difficulty with believing her positive statements at times and can continue to benefit from working on this goal. Objective 2- partially complete. Through group and individual therapy, client has learned various coping skills to manage depression. It is unknown at this time if client?s DSM-5 scores have decreased, see above. Will evaluate at discharge. Team Recommendations:: Client recommended to continue working on treatment goal to reinforce healthy coping skills and prevent further decompensation. Client encouraged to communicate with her fijennifer and to reach out to positive supports. Client also recommended to practice coping skills more consistently and she reported interest in journaling. Problem #2 Problem Name:: Increase coping skills to manage impulsiveness and emotional regulation Status of Goals:: Objective 1- partially complete. Client can identify triggers for mood instability and impulsiveness such as fear of abandonment and rejection. However, client continues to struggle with implementing healthy coping skills consistently to manage these triggers. Objective 2- complete. Client reports improved communication with her fianc? and increased self- awareness. Team Recommendations:: Client recommended to continue working on treatment goal to reinforce healthy coping skills and increase emotional regulation skills. Client reports some improvement with communication and managing her emotions. However, client recognizes when faced with interpersonal relationship issues it is harder for her to regulate emotions. Client also recommended to practice coping skills more consistently and practice mindfulness.
== END 2018-09-15 23:59 ==
LOC: BHIOP 09:00
PROVIDERS: Family Provider Internal Medicine; PCP Internal Medicine; Referring Provider Psychiatry & Neurology Psychiatry; Visit Provider Psychiatry & Neurology Psychiatry
DX: F33.2 Major depressive disorder, recurrent severe without psychotic features (principal); F60.3 Borderline personality disorder; F19.11 Other psychoactive substance abuse, in remission
CPT/HCPCS: H0035; H2012; H2020; 90832; 90834; 90837; 90847

== ENCOUNTER 2018-09-18 09:00 | Outpatient (RCR) | payer MEDICAID, SELFPAY ==
[2018-09-02 15:51] VITALS: BMI 25.3
[2018-09-16 01:42] VITALS: BP 134/90; PULSE 84; RESP 14
--- NOTE | 2018-09-18 09:10 | BH.SGPN.GN ---
Behaviors/Verbalizations/Mental Status: [] Eye contact is good. Motor activity is appropriate. Appearance is casual. Speech is Appropriate. Mood is depressed. Affect is flat. Thoughts are linear and logical. No evidence of psychosis. Reviewed daily check in sheet and reported 2/5 for suicidal ideations and 0/5 for intent. Therapist notified Client Response/Progress/Benefit: [] Pt was an active participant in group discussion. Shared with the group that she was ill last week which is what resulted in lack of attendance. Reports that she gained some insight last week stating that she is struggling with her Borderline dx and how it has impacted her emotions, behaviors, and decisions in the past several years. States I'm thinking that I should do the opposite of what I think and feel. Group provided support, encouragement, and feedback. Able to see the positive in her insight stating I'm better emotionally than I was in the past two weeks however reports constant struggle with confidence and motivation. Emotion for today is parviz. Progress noted per pt report. Will continue in IOP to prevent decompensation, improve daily functioning, and stabilize emotions. Narrative Note: []
--- NOTE | 2018-09-18 11:15 | BH.SGPN.GN ---
Behaviors/Verbalizations/Mental Status: [] Eye contact is good. Motor activity is appropriate. Appearance is casual. Speech is Appropriate. Mood is euthymic. Affect is full. Thoughts are linear and logical. No evidence of psychosis. Client Response/Progress/Benefit: [] Pt was an active participant in group activity and discussion. Worked with the group members to identify strategies to overcome barriers to making changes which included planning ahead, identifying small steps that can be taken, reminding self of positives the change will have, reminding oneself of the reasons or whys behind making the change, and developing small incentives. Pt also identified a specific changes they would like to make, barriers to making that change, and a SMART goal to reach that change. Shared this with the group. Benefited from group as she was able to identify strategies to overcome barriers to change, developed specific change that she would like to make, and developed a plan to make that change. Will continue in IOP to increase coping skills, maintain safety, prevent decompensation, and improve daily functioning Narrative Note: []
--- NOTE | 2018-09-18 11:20 | BH.SGPN.GN ---
Behaviors/Verbalizations/Mental Status: [Client alert and oriented, casually dressed, appropriate grooming. Eye contact fair to good. Motor activity WNL. Speech appropriate rate/tone. Affect congruent, mood depressed. Thoughts linear, logical, no signs of hallucinations or delusions.] Client Response/Progress/Benefit: [Pt responded well to session, provided input and insight regarding topic of making small changes in improving mental health. Pt connected with the quote and indicated that change can?t happen if you keep ruminating on the past. Pt participated in group discussion regarding mental health benefits of change and barriers in making those changes. Noted that change can help to improve personal relationships. Pt identified three small personal changes to improve mental health as: improving self-confidence, increasing communication, and decreasing rumination on her past. Pt appeared to benefit from gaining awareness of personal changes that would improve mental health and the barriers keeping client stuck. Progress noted in client willingness to begin addressing barriers such as lack of trust preventing change through increased awareness. Continue IOP to further increase self-esteem, improve communication and use of supports, and maintain stability.] Narrative Note: []
--- NOTE | 2018-09-18 12:26 | PN_ITS ---
Progress Note Chief Complaint: The patient is a 33-year old female who is an active participant in the intensive outpatient mental health treatment program at [facility]. She has a history of depression, anxiety, ADD symptoms, and features of borderline personality. History of Present Illness/Interim History: The patient states that she has been up and down. She does think that the increase in Cymbalta was helpful. She has more energy and has been crying less. Her mood has improved some. She did apparently have difficulty cutting back on dose of Klonopin as I had suggested at the last session. She started to develop headaches, nausea and vomiting. It appears that she was going through withdrawal symptoms. Her primary care doctor increased her Klonopin back to 0.5 mg nightly. Trazodone has helped with sleep, but she cut back the dose to 50mg. The patient said that she has had a difficult time dealing with her borderline personality diagnosis. She feels that she can trust her thoughts are her feelings. She understands that she has exaggerated abandonment fears, overreacts and then cannot trust her thoughts. Her fidexter? works long hours and then has to be gone from the home for training, and she experiences abandonment fears. She also has issues of trust and has a hard time making friends. She is constantly fearing that people will reject her and emotionally harm her. She said that the understanding that she has borderline personality traits has lowered her self-esteem further to the point where it is now nonexistent. I provided supportive therapy and educational therapy. I explained to her that she will need to work on many of these issues individually in therapy. Current Psychiatric Medications: Cymbalta 60 mg daily, trazodone 50 mg nightly, Klonopin 0.5 mg nightly; Vyvanse 30 mg daily; gabapentin as needed Review of Symptoms: Psychiatry: Some continuing symptoms of depression and anxiety. She is not suicidal. There is no psychosis. She is cognitively intact. Constitutional she is of average weight and her weight has been steady. Her energy level is poor. Mental Status Examination: The patient presents as a demoralized woman who is casually dressed and neatly groomed. She demonstrates fair social skills. Her thoughts are logical and coherent. She reported some continuing mood swings and demoralization. She is not suicidal. There is no psychosis. She is cognitively intact. Diagnoses: [place] I: Major depression, recurrent, in partial remission; persistent depressive disorder; ADHD by history; history of polysubstance abuse, in remission [place] II: Borderline personality disorder [place] III: Chronic pain, status post pelvic fusion; GERD; nicotine dependence Plan: I am continuing treatment with Cymbalta, Klonopin, trazodone, Vyvanse and gabapentin at the current doses. The patient will continue participation in the intensive outpatient program. I will see her again for follow-up. During the session I provided 16 minutes of supportive and educational therapy.
--- NOTE | 2018-09-18 12:35 | BH.COMM ---
Communication Note - Communication with Client Communication Note: Therapist spoke with client's outpatient therapist, Krissy Mancilla, via phone for continuity of care purposes including: treatment updates, progress, and plan of care.
--- NOTE | 2018-09-21 09:05 | BH.SGPN.GN ---
Behaviors/Verbalizations/Mental Status: []Client alert and oriented, neatly dressed and groomed. Eye contact good. Motor activity appropriate. Speech within normal limits. Affect congruent, mood euthymic, anxious. Thoughts linear, logical, no signs of hallucinations or delusions. Reviewed client?s symptom tracker, no risk for suicidal ideation, plan, or intent as of 09/21/18. Client Response/Progress/Benefit: []Client responded well to session, engaged with peers and providing feedback. Client reports feeling ?anxious but optimistic? today. Client shared she had a good weekend with her family. Client and her fianc? took their daughter to [place] and client was able to be engaged ?not all foggy.? Client stated her current stressor and positive is that her family is going camping this weekend. Client reported camping is something she enjoys, but she is anxious about preparing for the trip. The group encouraged client to be proactive in preparing and packing to avoid increased anxiety later. Client was receptive to feedback. Client appeared to benefit from connecting with peers and identifying positives. Progress noted in client?s reduced suicidal ideations. Will continue IOP to improve daily functioning and increase consistent use of coping skills.
--- NOTE | 2018-09-21 10:12 | BH.SGPN.GN ---
Behaviors/Verbalizations/Mental Status: [Pt alert and oriented, casually dressed. Eye contact good. Motor activity appropriate. Speech within normal limits. Affect congruent, mood dysthymic. Thoughts linear, logical, no signs of hallucinations or delusions. ] Client Response/Progress/Benefit: [Pt responded well to session, attentive and providing input throughout. Pt connected with discussion on different types of anxiety, as well as the difference between ?normal? anxiety and anxiety disorders. When processing quote pt stated anxiety has impacted her relationships with herself and others due to avoiding and isolating. Pt helped the group identify examples of the various ways anxiety manifests and symptoms associated with thoughts, physical symptoms, and safety behaviors. Pt gained awareness of personal physical symptoms which included: racing heart, sweating, pressure in chest, nausea, and headaches. Pt identified avoiding anxious situations, becoming irritable, and isolating as safety behaviors pt has engaged in that provide short term relief but increase anxiety over time. Pt appeared to benefit from gaining insight to safety behaviors and how anxiety manifests itself, as well as harmful impact of safety behaviors on mental health. Appears to be progressing with increasing awareness of mental health symptoms and impact on functioning. Will continue IOP to promote continued skill application, challenge distorted thoughts, improve mood stability, and prevent decompensation.] Narrative Note: []
--- NOTE | 2018-09-21 11:15 | BH.SGPN.GN ---
Behaviors/Verbalizations/Mental Status: []Pt eye contact good, casually dressed, motor activity appropriate, speech normal rate and tone, mood euthymic, congruent affect, thoughts linear and intact, no evidence of delusions or hallucinations. Client Response/Progress/Benefit: []Client responded well to session, engaged and providing examples. Client connected with peers during discussion about physical symptoms experience when anxious. Client stated isolation and avoidance are her safety behaviors. Client reported one cannot prevent anxious thoughts from occurring, but can learn strategies to manage anxiety. Client appeared to connect with mindfulness and the different ways one can practice mindfulness. Client reported she currently uses hot bath, drums, painting, drinking tea, and sitting outside as her healthy strategies to manage anxiety. Client created a mindfulness ?menu? and reported she plans to try music, labeling her anxiety, and belly breathing as mindfulness techniques to manage anxiety. Client appeared to benefit from practicing in the moment mindfulness techniques. Progress noted as client reports increased ability to cope with depressive and anxious symptoms. Client to continue IOP level of care to continue use of healthy coping, decrease distorted thought patterns and prevent decompensation. Narrative Note: []
--- NOTE | 2018-09-22 09:10 | BH.SGPN.GN ---
Behaviors/Verbalizations/Mental Status: [] Eye contact is good. Motor activity is appropriate. Appearance is casual. Speech is Appropriate. Mood is anxious. Affect is congruent. Thoughts are linear and logical. No evidence of psychosis. Reviewed daily check in sheet and no reports of suicidal ideations or intent Client Response/Progress/Benefit: [] Pt was an active participant in group discussion. Provided feedback when appropriate. Emotion for today is numb. Recent win was communicating with last evening and making dinner, which she immediately discounted stating my mother walked me through everything. Discussed [place] [employer] again stating that he emotions are either very intense or numb and she is struggling to find the middle ground. Group provided support and feedback. Progress noted. Benefited from group support and encouragement. Continues to isolate and avoid however increased insight and awareness. Will continue in IOP to prevent decompensation and increase daily functioning. Narrative Note: []
--- NOTE | 2018-09-22 10:08 | BH.SGPN.GN ---
Behaviors/Verbalizations/Mental Status: []Client alert and oriented, casually dressed and groomed. Eye contact good. Motor activity appropriate. Speech within normal limits. Affect constricted, mood dysthymic. Thoughts linear, logical, no signs of hallucinations or delusions. Client Response/Progress/Benefit: []Client responded well to session, providing input and participating in session. Client connected with the quote and concept of having different chapters in one?s life. Group identified things that can prevent people from moving forward to their next chapter such as; fear of the unknown, negative thoughts, anxiety, trauma, and not knowing how to change. Client helped group discuss the ?chapters of my life? handout and was able to make connections to emotions, thoughts, and actions in each chapter. Client identified herself as in chapter 3 because she has increased self-awareness of warning signs and triggers ?but I don?t know how to fix it.? Client reported her barrier keeping her from getting to chapter 4 is not knowing what she can do to change. Client appeared to benefit from increasing self-awareness of her current chapter and barriers. Progress noted as client reports more awareness related to her emotions and communication with others. However, she continues to struggle with mood dysregulation and consistent application of coping skills. Client to continue IOP to prevent decompensation and increase emotional regulation.
--- NOTE | 2018-09-22 11:17 | BH.SGPN.GN ---
Behaviors/Verbalizations/Mental Status: []Pt eye contact good, casually dressed, motor activity appropriate, speech normal rate and tone, mood dysthymic, congruent affect, thoughts linear and intact, no evidence of delusions or hallucinations. Client Response/Progress/Benefit: []Pt was an active participant in group discussion. Completed WDEP (Wants, Doing, Evaluate, and Plan) worksheet. Pt identified want as I want to have confidence in my thoughts and feelings. Pt explained she tends to have emotions to an extreme so often questions whether her emotions are valid. Able to identify that she is currently avoiding emotions and not trusting herself. Stated she recognizes current actions are not helping her move closer to her want. With assistance pt identified her plan is to allow herself to feel emotions by journaling. Benefited from group by identifying thoughts and behaviors that are keeping her stuck and developing plan to become unstuck. Will continue in IOP to maintain safety, prevent decompensation, and stabilize mood. Narrative Note: []
--- NOTE | 2018-09-22 14:02 | BH.MDN ---
Multi-Disciplinary Note - Note 30-min Individual Time Started:: 12:30 Date: 09/22/18 Purpose of session/treatment goals addressed:: The purpose of this session was to address current symptoms, stressors, and ongoing barriers. Another goal was to increase distress tolerance skills and set small goals for this week. Other topics included: homework review and self-reflection. Eye Contact:: Fair Motor Activity:: Appropriate Appearance:: Neat Speech:: Appropriate Mood:: Anxious Affect:: Congruent Thoughts:: Linear, Logical, No evidence of hallucinations/delusions noted Staff Interventions:: Therapist used active listening and open-ended questions to explore client's current stressors, symptoms, and barriers. Therapist helped client evaluate progress and identify what is working. Therapist normalized client's difficulty with managing her emotions and negative thoughts. Therapist reviewed homework and helped client create strategies to increase follow through. Therapist taught client DBT distress tolerance skills to help client better manage uncomfortable thoughts and emotions. Therapist gave client a resource for a DBT workbook. Therapist assisted client in setting goals to journal and practice distress tolerance skills. Client Response:: Client responded well to session, open to meeting with therapist. Client reported belief she has been communicating better with her fiance and she has been managing her emotions better. Client completed half her homework, she has been writing down one positive a day, but she has not been journaling. Client reported she continues to struggle with finding the balance between feeling and thinking too much or not at all. Client shared she has not been letting herself feel or think because of fear that her thoughts and emotions are lying to her. Client appeared to connect with the DBT worksheet that normalized the difficulty of controlling thoughts and emotions. Client receptive to the DBT technique called now my mind is to help her acknowledge, but not feed into negative core beliefs. Client also plans to journal to help her find balance in her thoughts. Client receptive to practicing distress tolerance skills for managing emotions and from practicing regulating emotions in low-risk situations. Client shared she often goes home and distracts herself, which she recognizes is not helpful. Client plans to work on her identified goals when her daughter takes a nap today. Risks/Concerns:: Client denies any suicidal ideations, plan, and intent as of 09/22/18. Client future oriented and reports plan to meet with a group of friends tomorrow. Progress Toward Goals/Plan:: Client continues to report difficulty with trusting her emotions and thoughts, sharing ?I either feel too much or I go numb.? However, client is making progress on treatment goals per her report of managing her emotions better with her fianc? and report of improved communication. Client continues to struggle with consistent follow through with homework, but she reports increased willingness to follow through today. Client continues to endorse negative core beliefs, mood dysregulation, and low motivation. Client to continue IOP to promote mood stability and reduce decompensation. Time Stopped:: 13:04
--- NOTE | 2018-09-23 11:23 | BH.SGPN.GN ---
Behaviors/Verbalizations/Mental Status: [Pt eye contact good, casually dressed, motor activity appropriate, speech normal rate and tone, mood euthymic, congruent affect, thoughts linear and intact, no evidence of delusions or hallucinations.] Client Response/Progress/Benefit: [Pt receptive of session, provided input throughout discussion on Social Supports. Pt worked with the group to make connections between the challenge activity and utilizing social supports in daily life. Reflected that a personal barrier in using her current supports is lack of self-confidence. Pt contributed to discussion about the different types of support and benefits each can provide. She provided an example of a dogs as a form of personal support and shared that pets provide emotional comfort. Pt worked with the group to identify strategies for developing new and enhancing current supports. She suggested being willing to put in effort and work at building current relationships. Pt benefited from identifying a type of support she would like to improve and creating actionable steps to promote follow-through. Indicated wanting to increase personal supports by increasing her willingness to step outside her comfort zone. Pt to continue IOP level of care to prevent decompensation, reduce use of negative self-talk, and continue to promote change behaviors] Narrative Note: []
--- NOTE | 2018-09-25 09:05 | BH.SGPN.GN ---
Behaviors/Verbalizations/Mental Status: [] Eye contact is good. Motor activity is appropriate. Appearance is casual. Speech is Appropriate. Mood is anxious. Affect is congruent. Thoughts are linear and logical. No evidence of psychosis. Reviewed daily check in sheet and no reports of suicidal ideations or intent. Client Response/Progress/Benefit: [] Pt was an active participant in group activity. Provided feedback when appropriate. Emotion for today is positive but nervous. Stated to the group I actually got some things accomplished by myself. States that she was proud of herself for accomplishing tasks w/o the need of others. Reports that she usually has poor self-confidence and beleives she will mess things up. Motivated and looking forward to the weekend. Mild stressors and is anxious about discharge from IOP in the coming weeks. Has aftercare plan arranged. Progress noted per pt report. Benefited from group support and encouragement. Provided feedback to peers. Will continue in IOP to prevent decompensation and continue in improve daily functioning. Narrative Note: []
--- NOTE | 2018-09-25 10:10 | BH.SGPN.GN ---
Behaviors/Verbalizations/Mental Status: [] Eye contact is good. Motor activity is appropriate. Appearance is casual. Speech is Appropriate. Mood is depressed. Affect is flat. Thoughts are linear and logical. No evidence of psychosis. Client Response/Progress/Benefit: [] Pt was an active participant in group discussion. Attentive during psycho-education on boundaries. Worked with fellow group members to define what it means to set up a boundary. Group identified what happens when we have poor boundaries which includes; burn-out, people taking advantage of you, people pleasing, and decreased time for ourself and our issues. Identified what the result of rigid boundaries would be which includes; no close relationships, isolation, and loneliness. Attentive during education on the types of boundaries which include; physical, emotional, intellectual, sexual, material, and time. Group also identified the purpose of healthy boundaries as they can; remove toxic relationships, protect relationships by developing clear expectations, give us permission to care for ourselves, help us develop and have healthy connections, makes us feel safe, and helps protect us from taking on other people's stressors. Benefited from group by increasing education and aware of boundaries and how they impact mental health. Will continue in IOP to maintain safety, prevent decompensation, and stabilize mood. Narrative Note: []
--- NOTE | 2018-09-25 11:15 | BH.SGPN.GN ---
Behaviors/Verbalizations/Mental Status: []Client alert and oriented, casually dressed and groomed. Eye contact good. Motor activity appropriate. Speech within normal limits. Affect congruent, mood euthymic. Thoughts linear, logical, no signs of hallucinations or delusions. Client Response/Progress/Benefit: []Client responded well to session, active participant. Client further processed the self-assessment activity and participated in the discussion of the different boundary setting styles. Client shared realizing her life has shaped her boundary setting. Client identified herself as both porous and rigid for boundary setting. Client stated, ?I?m scared to get close to people, but I also cling to people.? Client recognized that the self-awareness she has gained in IOP is helping her recognize unhealthy boundaries. Client shared her mental health is negatively impacted by her boundary styles because ?I?ll just say no to everything and miss out on opportunities.? Client acknowledged that this further reinforces negative core beliefs. Client able to help the group identify characteristics of healthy boundaries such as saying no when appropriate, knowing one?s limits, and stating clear expectations. Client appeared to benefit from increasing awareness of her personal boundary style and from learning ways to increase healthy boundaries. Progress noted as client?s mood has been more stable this week and she has been journaling. Client continues to struggle with challenging negative thoughts that reinforce depression and impulsivity.
--- NOTE | 2018-09-30 10:15 | BH.SGPN.GN ---
Behaviors/Verbalizations/Mental Status: []Client alert and oriented, casually dressed and groomed. Eye contact good. Motor activity appropriate. Speech within normal limits. Affect flat, mood dysthymic. Thoughts linear, logical, no signs of hallucinations or delusions. Client Response/Progress/Benefit: []Client was an active participant in group activity and discussion. Client connected with the topic and able to identify common barriers that keep people stuck from moving forward. Client shared one barrier to be her belief that other people find it easy to be happy and enjoy life, but she cannot. Client identified her current reality which client described as not finding carmelo in life, physical pain, lack of self-confidence, and lack of self-worth. Client able to identify her personal resilience factors in her current reality such as increased self-awareness, positive supports, and progress since starting IOP. Client shared her realistic, desired reality would be having more control of her emotions, self-acceptance, and increased trust. Worked with group to identify barrier to reaching desired reality which include; negative thoughts of self and fear of rejection. Benefited from group as client was able to identify current mental health state and barriers that are impacting progress.
--- NOTE | 2018-09-30 11:20 | BH.SGPN.GN ---
Behaviors/Verbalizations/Mental Status: [] Eye contact is good. Motor activity is appropriate. Appearance is casual. Speech is Appropriate. Mood is depressed. Affect is flat. Thoughts are linear and logical. No evidence of psychosis. Client Response/Progress/Benefit: [] Pt was an active participant in group discussion and activity. Group worked together to identify obstacles and barriers that are keeping them from their desired reality. Identified distorted view of self, negative self-talk, lack of trust, procrastination, unrealistic expectations, and cognitive distortions as common barriers. Through experiential activity group then worked together to develop strategies to overcome these obstacles such as; reframing, reviewing positives, healthy distractions, baby steps, small goals, affirmations, setting boundaries, exposure, identify positive self-worth, adjusting expectations, and many more. Pt reports that she feels she is making progress towards her desired reality and is trying to recognize her personal strengths. Narrative Note: []
--- NOTE | 2018-09-30 14:16 | BH.MDN ---
Multi-Disciplinary Note - Note 30-min Individual Time Started:: 12:20 Date: 09/30/18 Purpose of session/treatment goals addressed:: The purpose of this session was to address current symptoms, stressors, and ongoing barriers. Another goal was to promote self-confidence and set small goals for this week. Other topics included: homework review and discuss aftercare options Eye Contact:: Good Motor Activity:: Appropriate Appearance:: Casual Speech:: Soft Mood:: Euthymic Affect:: Congruent Thoughts:: Linear, Logical, No evidence of hallucinations/delusions noted Staff Interventions:: Therapist used active listening and open-ended questions to explore client's current stressors, symptoms, and barriers. Therapist helped client evaluate progress and identify areas of progress to promote empowerment. Therapist used cost/benefit analysis to build decision-making skills and confidence. Therapist reviewed homework and helped client create strategies to increase follow through as she has been struggling with consistency. Therapist discussed aftercare and assisted client in exploring options to promote maintenance. Therapist gave client a self-esteem worksheet for homework and encouraged client to follow up with journaling. Client Response:: Client responded well to session, open to meeting with therapist. Client identifying areas of progress, but she also reports fear of leaving IOP. It appears that client's fear of leaving is reinforcing negative thinking as shown by client report that I'm going to fall into old ways. However, after further exploration, client recognized that yesterday she used opposite action to break out of a depressive maintenance cycle. Client shared her fianc? has been home more which has been helpful and now that it is warmer, her family has been camping. Client shared she has not been journaling, which she recognizing as a barrier and stated she wants to do that today when her daughter naps. 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 Client acknowledges that maintaining a routine will promote progress after discharge. Client shared I know I need to be around people and a job will give me purpose. 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 Client had some questions about disability and was encouraged to discuss this with her case management specialist to see if she qualifies. Client reported she continues to struggle with negative thoughts of self and finding carmelo in life. Client receptive to strategies provided by therapist and shared in group this morning to help challenge negative self-talk. Client given a worksheet. Client receptive to creating a maintenance plan to promote gains after discharge. Risks/Concerns:: Client denies any suicidal ideation, plan, or intent as of 09/30/18. Client reports her suicidal ideation has decreased since starting IOP which is progress. Progress Toward Goals/Plan:: Client?s progress appears to depend on the day/week as client has made some progress towards treatment goals, but she self-reports ongoing lack of follow through with self-established goals. Client has shown progress in implementing opposite action techniques, reports increased self-awareness, increased social interactions, and better communication with her fianc?. She also reports reduced suicidal ideation which is positive. However, client?s mood appears incongruent with her reported progress as client continues to report negative core beliefs, mood dysregulation, and little pleasure in life. Client to continue IOP to promote mood stability and reduce decompensation. Client encouraged to follow up with her outpatient provider this week. Time Stopped:: 12:50
--- NOTE | 2018-10-02 09:10 | BH.SGPN.GN ---
Behaviors/Verbalizations/Mental Status: [] Eye contact is good. Motor activity is appropriate. Appearance is casual. Speech is Appropriate. Mood is anxious. Affect is congruent. Thoughts are linear and logical. No evidence of psychosis. Reviewed daily check in sheet and no reports of suicidal ideations or intent. Client Response/Progress/Benefit: [] Pt was an active participant in group activity. Emotion for today is Calm. Shared with the group that her family trip over the weekend went well. States that she is doing well this week. Discussed some stressors related to medical issues. Discussed strategies which she found helpful to manager rfid her emotions over the weekend and into this week. Progress noted per pt report. Reports feeling motivated and hopeful. Understands that emotions and mental illness is erratic however increased confidence that she can manage. Benefited from group support and encouragement. Will continue in IOP to prevent decompensation, maintain gains, provided support, and improve daily functioning. Narrative Note: []
--- NOTE | 2018-10-02 09:12 | BH.SGPN.GN ---
Behaviors/Verbalizations/Mental Status: [Eye contact is good. Motor activity is appropriate. Appearance is disheveled. Speech is Appropriate. Mood is depressed. Affect is flat. Thoughts are linear and logical. No evidence of psychosis. Reviewed daily check in sheet and pt reports of suicidal ideations at 3/5 which is consistent to baseline, denies or intent. will follow-up with staff to further assess for risk] Client Response/Progress/Benefit: [Pt was an attentive but passive participant in group discussion, reports not wanting to process with the group on this date and expressed ?I don?t really have anything I want to share right now?. Pt continues to struggle with significant depression and distorted thought patterns reinforcing mental health sx. Did well to accept and benefited from group support and encouragement. Progress continues to be limited by inconsistent skill application and engagement in tx. Will continue IOP level of care to prevent decompensation, reduce anxiety and depression, continue to promote healthy change behaviors, and improve mood management.] Narrative Note: []
--- NOTE | 2018-10-02 10:25 | BH.SGPN.GN ---
Behaviors/Verbalizations/Mental Status: [Client alert and oriented, casually dressed and groomed. Eye contact good. Motor activity appropriate. Speech within normal limits. Affect congruent, mood dysthymic. Thoughts linear, logical, no signs of hallucinations or delusions. ] Client Response/Progress/Benefit: [Client engaged participant as shown by client?s increased contribution to discussion and helpful insight. Client participated in the discussion of the common myths about self-care including self-care is selfish, easy, makes us weak, and always fun. Indicated struggling with the myth that self-care is selfish, noting that she often tells herself that she doesn?t deserve it. Able to challenge this with the group. Client worked with group to debunk the myths about self-care. Client stated she is beginning o see that self-care is essential to better manage anxiety and have healthy relationships. Client seemed to benefit from increased awareness of the importance of self-care. Client showing variable progress as shown by continued difficulties with challenging distorted thought patterns and inconsistent use of healthy coping skills. Will continue IOP tx, to increase ability to identify and challenge distorted thoughts, improve mood stability, further promote application of healthy coping skills, and prevent decompensation.] Narrative Note: []
--- NOTE | 2018-10-02 11:25 | BH.SGPN.GN ---
Behaviors/Verbalizations/Mental Status: [] Eye contact is good. Motor activity is appropriate. Appearance is casual. Speech is Appropriate. Mood is anxious. Affect is congruent. Thoughts are linear and logical. No evidence of psychosis. Client Response/Progress/Benefit: [] Pt was attentive as well as an active participant in group discussion. Group identified barriers to completing self-care which included; leaving comfort zone, it takes effort, we avoid caring for ourselves when we are struggling, we depend on others to make us feel better, belief that self-care is selfish, feel guilt when caring for self, and time constraints. Attentive during psychoeducation on types of self care which are spiritual, physical, emotional, social, financial, psychological, and professional. Pt discussed her balance of self-care and group brainstormed strategies to overcome barriers to utilizing self-care strategies consistency. Benefited from assessing current self-care balance and developing strategies to overcome barrier to self-care. Will continue in IOP to prevent decompensation, maintain gains, and increase coping skills. Narrative Note: []
--- NOTE | 2018-10-07 09:10 | BH.SGPN.GN ---
Behaviors/Verbalizations/Mental Status: [Pt alert and oriented, casual dress, grooming appropriate. Eye contact good, tearful during check-in. Motor activity appropriate. Speech within normal limits. Affect congruent, mood depressed, anxious. Thoughts linear, logical, no signs of hallucinations or delusions. Reviewed client?s symptom tracker, reports suicidal ideation at a 1/5 which is pt baseline, denies plan, or intent as of today.?] Client Response/Progress/Benefit: [Pt was a willing participant in group discussion, providing input and feedback to the group. Emotion for today is anxious and hopeless. 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 Pt discussed beliefs that if she were providing to the household somehow or were able to be more independent she would have a greater sense of happiness. She responded well to feedback from the group and able to identify that beginning to look at the small areas of her life in which she provides to others as well as keeping track of daily positives may begin to change her perspective. Identified mental health wins as increased awareness regarding communication barriers in her relationship as well as an increase in desire to begin reconnecting with her fianc?. Pt progress noted increased insight regarding use of thought distortions and ability to challenge them during session. Pt recommended continued IOP tx to promote change behaviors, reinforce coping skills, and continue to decrease depressive sx.] Narrative Note: []
--- NOTE | 2018-10-07 10:18 | BH.SGPN.GN ---
Behaviors/Verbalizations/Mental Status: [Client alert and oriented, casually dressed and groomed. Eye contact good. Motor activity appropriate. Speech within normal limits. Affect congruent, mood euthymic, anxious. Thoughts linear, logical, no signs of hallucinations or delusions. ] Client Response/Progress/Benefit: [Client responded well, contributing some input to discussion throughout. Client appeared to connect with the topic of fear of failure. Client agreed that failure can lead to growth but indicated that she often focuses on the negatives without realizing it or struggles to identify positives within failure. Client noted struggling with fear of rejection or letting others down, which makes it difficult to cope with failure and causes increased anxiety and avoidance. Pt agreed with fellow participants who indicated that by focusing only on past failures and mistakes it can lead to negative thinking and giving up. Group identified the impacts of fear of failure on mental health which included: not trying, low self-esteem, all or nothing thoughts, avoidance, embarrassment, and increased mental health symptoms. Client agreed with peers that in order to move past failure it is important to challenge one?s perspective on failure and learn to redefine it in more positive terms. Noted failure can also represent a need for change. Client seemed to benefit from increased awareness of how fear of failure can impact mental health. Client to continue IOP tx to promote use of healthy coping skills, further decrease depressive and anxiety related symptoms, improve emotion regulation, and prevent decompensation.] Narrative Note: []
--- NOTE | 2018-10-07 11:20 | BH.SGPN.GN ---
Behaviors/Verbalizations/Mental Status: [] Eye contact is good. Motor activity is appropriate. Appearance is casual. Speech is Appropriate. Mood is anxious. Affect is congruent. Thoughts are linear and logical. No evidence of psychosis. Client Response/Progress/Benefit: [] Pt was an active participant in group activity. Completed fear of failure worksheet. Identified that fear of failure is keeping her from finding purpose and what I want out of life. Identified barriers to overcoming fear of failure as feeling like she is going about it alone, no direction, fear, mental illness, lack of confidence, poor focus, and no reason to try. Things that she can do to overcome fear of failing include; affirmations, thinking about her daughter, rewarding herself, finding humor in small missteps, journaling frustrations, and healthy distractions. Benefited from identifying the impact that fear of failure has had on her life and developing strategies to overcome this. Narrative Note: []
--- NOTE | 2018-10-09 06:37 | BH.AFTERPLAN ---
Aftercare Plan - Demographics Treatment End Date:: 10/09/18 Psychiatrist:: Vance Trivedi Psychiatrist Office #:: [phone] [facility] Therapist:: Cassi Grider Therapist Phone #:: [phone] - Medications Home Medications: Home Medications tizanidine 4 mg capsule 4 mg PO BID PRN #30 cap 06/23/18 Lisdexamfetamine Dimesylate [Vyvanse] 30 mg PO DAILY 08/14/18 Omeprazole 40 mg PO DAILY 08/14/18 clonazepam 0.5 mg tablet 0.25 mg PO DAILY PRN tab 09/02/18 duloxetine 30 mg capsule,delayed release 60 mg PO DAILY cap 09/02/18 trazodone 100 mg tablet 100 mg PO DAILY 09/02/18 ondansetron 4 mg disintegrating tablet 4 mg PO Q8H PRN #30 tab 09/11/18 - Plan Details Progress/Aftercare Plan Details:: Willow, since starting IOP you have made some great strides towards improving your mental health. You have increased self-awareness of your emotions, negative thoughts, and healthy and unhealthy coping skills. You have worked to improve communication with your fianc? and you have been social with positive supports. You have been able to bounce back from hard days and regulate your emotions more effectively. It has not always been a straight line of progress, but that is okay, because progress is not linear. You have looked into interests and jobs that will benefit you once you leave [facility]. Willow is recommended to follow up with Krissy Mancilla at [facility] for outpatient counseling. Willow is also using DBT workbooks to further help her increase emotional regulation and increase self-acceptance. Willow is also recommended to continue engaging in social activities with positive supports and was given resources for [place] [place], and [employer]. Lastly, Willow was given the number for the [facility] as she would like to seek new psychiatry services. Strategies for Success:: 1. Continue to engage in things that help and be proactive! Remember how you would handle a cold (drink water, vitamin C, sleep, etc). We can benefit from being just as proactive with our mental health. 2. Journaling. Identify daily wins, challenge negative thoughts, and keep track of emotions. 3. Self-awareness. Remember to pay attention to warning signs, triggers, and self-care needs. 4. Self-compassion. Rather than judging ourselves for having emotions- take care of them with the same compassion we would use to take care of someone we loved. 5. Stay active and get outside at least once a day! Helps with mindfulness, physical regulation, and sense of accomplishment. 6. Stay connected! remember to stay engaged with healthy supports. 7. Challenge negative self-talk and distortions. 8. Continue communicating with supports- express your needs and advocate for yourself. 9. Opposite action! for depression, anxiety, anger, etc. 10. Remember to give yourself credit! and stay consistent as best as you can! - Appointments Appointments/Referrals to Other Services:: 1. Follow up with Krissy Mancilla at [facility]. Next appointment is 10/14/18. 2. Call [facility] to switch psychiatrists. [phone]. 3. While waiting to hear back from [facility], you [facility]. 4. I have provided the name for the case reviewer at [facility] if you'd like to follow up with their job program. 5. 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
--- NOTE | 2018-10-09 06:49 | BH.IGGP_ITS ---
Aftercare Plan - Demographics Treatment End Date:: 10/09/18 Psychiatrist:: Vance Trivedi Psychiatrist Office #:: [phone] [facility] Therapist:: Cassi Grider Therapist Phone #:: [phone] - Medications Home Medications: Home Medications tizanidine 4 mg capsule 4 mg PO BID PRN #30 cap 06/23/18 Lisdexamfetamine Dimesylate [Vyvanse] 30 mg PO DAILY 08/14/18 Omeprazole 40 mg PO DAILY 08/14/18 clonazepam 0.5 mg tablet 0.25 mg PO DAILY PRN tab 09/02/18 duloxetine 30 mg capsule,delayed release 60 mg PO DAILY cap 09/02/18 trazodone 100 mg tablet 100 mg PO DAILY 09/02/18 ondansetron 4 mg disintegrating tablet 4 mg PO Q8H PRN #30 tab 09/11/18 - Plan Details Progress/Aftercare Plan Details:: Willow, since starting IOP you have made some great strides towards improving your mental health. You have increased self- awareness of your emotions, negative thoughts, and healthy and unhealthy coping skills. You have worked to improve communication with your fianc? and you have been social with positive supports. You have been able to bounce back from hard days and regulate your emotions more effectively. It has not always been a st raight line of progress, but that is okay, because progress is not linear. You have looked into interests and jobs that will benefit you once you leave [facility]. Willow is recommended to follow up with Krissy Mancilla at [facility] for outpatient counseling. Willow is also using DBT workbooks to further help her increase emotional regulation and increase self-acceptance. Willow is also recommended to continue engaging in social activities with positive supports and was given resources for [employer], and [employer]. Lastly, Willow was given the number for the [facility] as she would like to seek new psychiatry services. Strategies for Success:: 1. Continue to engage in things that help and be proactive! Remember how you would handle a cold (drink water, vitamin C, sleep, etc). We can benefit from being just as proactive with our mental health. 2. Journaling. Identify daily wins, challenge negative thoughts, and keep track of emotions. 3. Self-awareness. Remember to pay attention to warning signs, triggers, and self-care needs. 4. Self-compassion. Rather than judging ourselves for having emotions- take care of them with the same compassion we would use to take care of someone we loved. 5. Stay active and get outside at least once a day! Helps with mindfulness, physical regulation, and sense of accomplishment. 6. Stay connected! remember to stay engaged with healthy supports. 7. Challenge negative self-talk and distortions. 8. Continue communicating with supports- express your needs and advocate for yourself. 9. Opposite action! for depression, anxiety, anger, etc. 10. Remember to give yourself credit! and stay consistent as best as you can! - Appointments Appointments/Referrals to Other Services:: 1. Follow up with Krissy Mancilla at [facility]. Next appointment is 10/14/18. 2. Call [facility] to switch psychiatrists. [phone]. 3. While waiting to hear back from [facility], [facility]. 4. I have provided the name for the renal case manager at [facility] if you'd like to follow up with their job program. 5. 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
--- NOTE | 2018-10-09 09:10 | BH.SGPN.GN ---
Behaviors/Verbalizations/Mental Status: [] Eye contact is good. Motor activity is appropriate. Appearance is casual. Speech is Appropriate. Mood is anxious. Affect is congruent. Thoughts are linear and logical. No evidence of psychosis. Reviewed daily check in sheet and no reports of suicidal ideations or intent Client Response/Progress/Benefit: [] Pt was an active participant in group discussion. Emotion for today is scared. Shared with the group that today is her last day in IOP. Discussed anxiety and fear of being on my own. Shared that she has made significant progress during IOP and feels that traditional counseling will be more helpful as she feels that she knows herself better. Discussed how she has accepted that her depression will come in waves and not to become overwhelmed and set realistic goals for her mood management. Reports that she was taken off her anti-depressant for a few days due to a procedure so she thinks that is why her mood is depressed today. Hopeful about the future. Thanked the group members. She believes that process group were the most beneficial. Aftercare plans are arranged per pt report. Will be discharged from [facility] today. Narrative Note: []
--- NOTE | 2018-10-09 10:13 | BH.SGPN.GN ---
Behaviors/Verbalizations/Mental Status: []Eye contact is good. Motor activity is appropriate. Appearance is casual. Speech is Appropriate. Mood is anxious, euthymic. Affect is congruent. Thoughts are linear and logical. No evidence of psychosis. Client Response/Progress/Benefit: []Client responded well to session, active participant in discussion. Client participated in discussion of the importance of sleep and how it impacts mental health. Group able to identify benefits of sleep on mental health including: improved emotional regulation, better patience, improved attention, and better cognition. Client stated having a young child often impacts client?s sleep schedule. Client participated in the discussion of the ?dos and don?ts? of sleep hygiene. The group identified strategies to improve sleep hygiene including: turning off electronics, getting sunlight during the day, reducing caffeine, having a routine, and engaging in relaxation strategies. Client participated in identifying things to avoid or things that could hinder sleep quality including: drinking alcohol before bed, using substances, exercising before bed, eating large meals, and spending time on electronics. Appeared to benefit from psychoeducation on sleep hygiene. Will continue IOP tx to promote application of interpersonal effectiveness skills and improve mood stability.
--- NOTE | 2018-10-09 14:20 | BH.DS ---
Discharge Summary - Demographics Date of Admission:: 08/14/18 Discharge Date: 10/09/18 Presenting Problems at Admission:: Client is a 33-year-old female with a history of MDD, previously diagnosed ADHD, trauma, and anxiety. Client was referred to [facility] by her outpatient therapist, Krissy Mancilla due to worsening depression, fleeting suicidal thoughts, and mental health symptoms impacting her daily functioning. At admission, client reported exacerbation of depressive symptoms over the past 2 months. Client shared she was struggling to get out of bed, complete daily responsibilities, and regulate emotions. Client endorsed a depressed mood, lack of energy, lack of motivation, avoidance, hopelessness, increased sleep, isolation, and anhedonia. Client has a history of depression in 2016. Client has medical issues from recent surgery that further impacted her mental health at time of admission. Client shared her symptoms interfered with her quality of life, relationships, and ability to function at her baseline. Discharge Diagnoses:: Major depression F 33.2; persistent depressive disorder;Borderline personality disorder; history of polydrug abuse Reason for Discharge:: Client has made progress towards treatment goals, reports increased ability to regulate emotions and manage depression and anxiety. Client also reports reduced suicidal ideation. Client no longer meets criteria for [facility] level of care. - Treatment Progress During Treatment & Response: Client responded well to treatment as shown by her overall consistent attendance, connection with peers, and report of increased self-awareness. Client was an active group member who often provided supportive statements to peers and positive contributions to discussion. In individual sessions, client was receptive to learning new coping skills and was engaged in her treatment. However, client struggled at times to see consistent progress due to self-reported variable application of coping skills and following through with homework. Client acknowledged at discharge that she can benefit from using coping skills more regularly to prevent major setbacks. Client self-identified her progress as increased self-awareness of warning signs, triggers, and symptoms associated with depression and borderline personality disorder. Client also recognized that she made progress in improving communication with supports and using opposite action. At discharge, client reported some increased anxiety and depressive symptoms due to leaving [facility] and due to missing two days of medication. Client?s DSM-5 symptoms for depression decreased from admission to discharge going from 8/8 at admission to 5/8 at discharge. Additionally, client?s suicidal ideation significantly decreased since admission as evidenced by her report and DSM-5 scores. Client demonstrated progress in recognizing cognitive distortions, using emotional regulation, and advocating for her needs. Issues Still to be Addressed:: Client has made progress towards her treatment goals, but she can continue to benefit from ongoing therapy to reinforce healthy coping skills, combat negative core beliefs, and increase emotional regulation. Client has expressed concern that she will fall back into old ways once she leaves [facility] due to lack of routine and accountability. Client can benefit from increasing positive supports, establishing a fulfilling daily routine, and increasing consistent application of healthy coping skills. Client has increased self-awareness, but now client wants to increase self-worth and reduce negative self-talk. Client would also like to increase emotional regulation rather than reverting to emotional numbing. Client can benefit from ongoing mindfulness, opposite action, and communication with supports. Lastly, client has reported that she relies on her medications to help her sleep at night and she would like become less reliant on medications. Discharge Recommendations/Instructions:: Client was recommended to follow up with her outpatient therapist, Krissy Mancilla at [facility] for ongoing mental health counseling. Client?s next appointment is 10/14/18. Client also requested resources for alternative psychiatric providers as she would like to transfer [facility]. Client was provided information for [facility] in [place]. Client recommended to follow up with [facility] until she can establish care at [facility]. 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 Lastly, client encouraged to follow up with her medical appointments. Discharge Handout: Complete Discharge Handout with client on aftercare options and continuity of care.
--- NOTE | 2018-10-09 14:55 | BH.DS_ITS ---
Discharge Summary - Demographics Date of Admission:: 08/14/18 Discharge Date: 10/09/18 Presenting Problems at Admission:: Client is a 33-year-old female with a history of MDD, previously diagnosed ADHD, trauma, and anxiety. Client was referred to [facility] by her outpatient therapist, Krissy Mancilla due to worsening depression, fleeting suicidal thoughts, and mental health symptoms impacting her daily functioning. At admission, client reported exacerbation of depressive symptoms over the past 2 months. Client shared she was struggling to get out of bed, complete daily responsibilities, and regulate emotions. Client endorsed a depressed mood, lack of energy, lack of motivation, avoidance, hopelessness, increased sleep, isolation, and anhedonia. Client has a history of depression in 2016. Client has medical issues from recent surgery that further impacted her mental health at time of admission. Client shared her symptoms interfered with her quality of life, relationships, and ability to function at her baseline. Discharge Diagnoses:: Major depression F 33.2; persistent depressive disorder;Borderline personality disorder; history of polydrug abuse Reason for Discharge:: Client has made progress towards treatment goals, reports increased ability to regulate emotions and manage depression and anxiety. Client also reports reduced suicidal ideation. Client no longer meets criteria for [facility] level of care. - Treatment Progress During Treatment & Response: Client responded well to treatment as shown by her overall consistent attendance, connection with peers, and report of increased self-awareness. Client was an active group member who often provided supportive statements to peers and positive contributions to discussion. In individual sessions, client was receptive to learning new coping skills and was engaged in her treatment. However, client struggled at times to see consistent progress due to self-reported variable application of coping skills and f ollowing through with homework. Client acknowledged at discharge that she can benefit from using coping skills more regularly to prevent major setbacks. Client self-identified her progress as increased self-awareness of warning signs, triggers, and symptoms associated with depression and borderline personality disorder. Client also recognized that she made progress in improving communication with supports and using opposite action. At discharge, client reported some increased anxiety and depressive symptoms due to leaving [facility] and due to missing two days of medication. Client?s DSM-5 symptoms for depression decreased from admission to discharge going from 8/8 at admission to 5/8 at discharge. Additionally, client?s suicidal ideation significantly decreased since admission as evidenced by her report and DSM-5 scores. Client demonstrated progress in recognizing cognitive distortions, using emotional regulation, and advocating for her needs. Issues Still to be Addressed:: Client has made progress towards her treatment goals, but she can continue to benefit from ongoing therapy to reinforce healthy coping skills, combat negative core beliefs, and increase emotional regulation. Client has expressed concern that she will fall back into old ways once she leaves [facility] due to lack of routine and accountability. Client can benefit from increasing positive supports, establishing a fulfilling daily routine, and increasing consistent application of healthy coping skills. Client has increased self-awareness, but now client wants to increase self-worth and reduce negative self-talk. Client would also like to increase emotional regulation rather than reverting to emotional numbing. Client can benefit from ongoing mindfulness, opposite action, and communication with supports. Lastly, client has reported that she relies on her medications to help her sleep at night and she would like become less reliant on medications. Discharge Recommendations/Instructions:: Client was recommended to follow up with her outpatient therapist, Krissy Mancilla at [facility] for ongoing mental health counseling. Client?s next appointment is 10/14/18. Client also requested resources for alternative psychiatric providers as she would like to transfer from [facility]. Client was provided information for [facility] in [place]. Client recommended to follow up with [facility] until she can establish care at [facility]. 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 Lastly, client encouraged to follow up with her medical appointments. Discharge Handout: Complete Discharge Handout with client on aftercare options and continuity of care.
--- NOTE | 2018-10-09 14:56 | BH.MDN ---
Multi-Disciplinary Note - Note 45-min Individual Time Started:: 12:20 Date: 10/09/18 Purpose of session/treatment goals addressed:: The purpose of this session was to review client's progress and review strategies that will promote mood stability and gains made in IOP. Another goal was to process emotions triggered by discharge and discuss discharge recommendations. Eye Contact:: Good Motor Activity:: Appropriate Appearance:: Casual Speech:: Appropriate Mood:: Anxious, Dysthymic Affect:: Congruent - tearful Thoughts:: Linear, Logical, No evidence of hallucinations/delusions noted Staff Interventions:: Therapist used open-ended questions to explore client's thoughts on personal progress. Therapist reviewed supports, warning signs, and coping skills with client to promote gains and prevent setbacks. Therapist discussed aftercare plan with client and used strengths-perspective to empower client on the goals client has accomplished. Therapist discussed the benefits of ongoing maintenance and use of daily coping skills. Therapist and client discussed self-sabotage to be aware of and strategies client can use to combat this. Therapist used active-listening and solution-focused techniques to help client work through emotions triggered by discharge. Therapist gave client a quote collage for closure. Client Response:: Client responded well to session, open to meeting with therapist. Client reports having mixed feelings about leaving IOP as she is anxious she will fall back into old patterns of behavior. Therapist normalized these worries, and client then able to identify warning signs and what she can do to prevent significant setbacks. Client shared she can remind herself that setbacks will happen but it is how client responds to them that reduced duration, intensity, and frequency, of setbacks. Client and therapist discussed opposite action and self-sabotage behaviors that client can be mindful of moving toward. Client self-identified her progress as increased self-awareness of warning signs, triggers, and symptoms associated with depression and borderline personality disorder. Client also recognized that she made progress in improving communication with supports and using opposite action. At discharge, client reported some increased anxiety and depressive symptoms due to leaving IOP and due to missing two days of medication. Client shared she can also benefit from maintaining a structured routine to keep her busy and give her a sense of purpose. Client reported gratitude for the quote collage and extra resources provided by therapist. Risks/Concerns:: Client reports some passive thoughts of today, but she denies any active suicidal ideations, plan, or intent as of 10/09/18. Client stated my family keeps me from doing anything. Progress Toward Goals/Plan:: Client to discharge from [facility] as she has made progress towards her treatment goals and reports reduced suicidal ideations, depression, and improve emotional regulation. Client able to identify healthy coping skills and reports increased self-awareness. At discharge, client reported some increased anxiety and depressive symptoms due to leaving IOP and due to missing two days of medication. Client to follow up with her outpatient therapist, Krissy Mancilla, [facility] at [facility], and she has an appointment next week at [facility] to get connected with case management services. Time Stopped:: 13:00
== END 2018-10-16 23:59 ==
LOC: BHIOP 09:00
PROVIDERS: Family Provider Internal Medicine; PCP Internal Medicine; Referring Provider Psychiatry & Neurology Psychiatry; Visit Provider Psychiatry & Neurology Psychiatry
DX: F33.41 Major depressive disorder, recurrent, in partial remission (principal); F19.11 Other psychoactive substance abuse, in remission; F41.9 Anxiety disorder, unspecified; F60.3 Borderline personality disorder; G89.29 Other chronic pain; F90.9 Attention-deficit hyperactivity disorder, unspecified type; K21.9 Gastro-esophageal reflux disease without esophagitis; Z79.899 Other long term (current) drug therapy
CPT/HCPCS: 90833; 99213; H0035; H2012; H2020; 90832; 90834

== ENCOUNTER 2018-10-26 10:59 | Outpatient (RCR) | payer MEDICAID, SELFPAY ==
[2018-09-02 15:51] VITALS: BMI 25.3
== END 2018-10-26 19:00 | disposition home or self-care (01) ==
LOC: PT 10:59
PROVIDERS: Family Provider Internal Medicine; PCP Internal Medicine
DX: Z98.890 Other specified postprocedural states (principal)

== ENCOUNTER → 2018-11-25 09:30 | Outpatient (CLI) | payer MEDICAID, SELFPAY ==
[2018-09-02 15:51] VITALS: BMI 25.3
--- NOTE | 2018-11-25 09:33 | BI_ITS ---
MAMMOGRAPHY - BILATERAL DIAGNOSTIC REASON FOR EXAM: Female, 33 years old. Right breast pain and lump. PERTINENT HISTORY: Non-contributory. TECHNIQUE: Digital bilateral breast eduar (3D mammographic acquisition) in the CC and MLO projections. 2-D mediolateral oblique (MLO) and craniocaudad (CC) views of both breasts were obtained. CAD: Full Field Digital Mammography with Computer Added Detection was performed. COMPARISON: None. Baseline examination. FINDINGS: Breast Composition: The breasts are extremely dense, which lowers the sensitivity of mammography. There are no dominant masses or suspicious calcifications. No other significant abnormalities are identified. BI/DIAG MAMM W/CAD, BILAT IMPRESSION: Negative diagnostic mammogram. With the patient's history of a palpable lump in the right breast, correlation with ultrasound is recommended. ASSESSMENT CATEGORY: BIRADS Category 0: Incomplete. Need additional imaging evaluation. A letter regarding these results will be sent to the patient by the facility within 30 days. Approximately 10% of breast cancers are not detected by mammography. A normal mammogram should not delay biopsy of a clinically suspicious abnormality. Electronically Signed: Dewey Caicedo, at 11:16 EDT , Service support ,
--- NOTE | 2018-11-25 09:33 | US_ITS ---
STUDY: ULTRASOUND BREAST - RIGHT REASON FOR EXAM: Female, 33 years old. Palpable lump in the right breast. TECHNIQUE: Axial and longitudinal images of the RIGHT breast were performed with a high resolution ultrasound transducer. COMPARISON: Comparison is made with prior mammogram done earlier today. FINDINGS: RIGHT Breast: There is a 1.1 cm x 1 cm x 0.7 cm well-defined hypoechoic nodule with a central echogenic hilum at the 10:00 position breast at 8 cm from the nipple. This has the appearance of a benign lymph node. US/Breast Limited Unilateral IMPRESSION: Findings suggestive of a benign lymph node. Routine mammographic follow-up is recommended. ASSESSMENT CATEGORY: BIRADS Category 2: Benign. A letter regarding these results will be sent to the patient by the facility within 30 days. Electronically Signed: Dewey Caicedo, at 13:37 EDT , Service support ,
== END ==
PROVIDERS: Family Provider Internal Medicine; PCP Internal Medicine; Referring Provider Obstetrics & Gynecology; Visit Provider Obstetrics & Gynecology
DX: N64.4 Mastodynia (principal); N63.10 Unspecified lump in the right breast, unspecified quadrant
CPT/HCPCS: 76642; 77062; 77066; G0279

== ENCOUNTER 2018-11-26 15:54 | Emergency (ER) | payer MEDICAID, SELFPAY ==
[2018-09-02 15:51] VITALS: BMI 25.3
[2018-11-26 15:57] VITALS: BP 151/89; PULSE 113; RESP 17; TEMP 37.2; O2SAT 100; BMI 27.6
--- NOTE | 2018-11-26 16:00 | EKG12_ITS ---
Test Reason : CHEST PAIN Blood Pressure : / mmHG Vent. Rate : 098 BPM Atrial Rate : 098 BPM P-R Int : 120 ms QRS Dur : 082 ms QT Int : 304 ms P-R-T Axes : 053 060 -34 degrees QTc Int : 388 ms Normal sinus rhythm T wave abnormality, consider inferior ischemia T wave abnormality, consider anterior ischemia probably nonspecific Abnormal ECG Confirmed by THAO SELLERS, KETAN ([id number]), videotape editor ALEXIA YAP ([id number]) on 11/27/2018 12:18:19 PM Referred By: Rain Arias Confirmed By:KETAN OSUNA MD
--- NOTE | 2018-11-26 16:00 | RAD_ITS ---
STUDY: X-RAY CHEST REASON FOR EXAM: Female, 33 years old. Chest pain TECHNIQUE: Frontal view of the chest COMPARISON: X-ray chest December 12, 2016 FINDINGS: The lungs are clear. There are no pleural effusions. There is no pneumothorax. The heart is normal in size. The visualized osseous structures are within normal limits. RAD/Chest 1 View (Portable) IMPRESSION: No acute thoracic pathology. Electronically Signed: Moises Phan, at 16:29 EDT Tel , Service support ,
--- NOTE | 2018-11-26 16:14 | ED.DCSUM_ITS ---
- ER Visit Summary Date of Service: 11/26/18 Chief Complaint: [Chest pain ] History of Present Illness: The patient is a 33 F [presents to the emergency room with chest pain for the last 3 or 4 days. Patient scrubs a sharp stabbing pain that comes on intermittently and can last anywhere from 5 minutes to an hour. At times pain is pressure-like. Pain is not seem to be exertional. Patient denies recent travel or surgery. Patient also has been having some right-sided breast pain for over a month and today she had a mammogram as well as an ultrasound of the breast. Patient spoke with her primary care physician who advised her to come into the emergency department to get evaluated for the chest discomfort. Patient has history of lymphocytic colitis. No family history of heart disease. Patient does not smoke but she does vape.] Physical Examination: [HEENT-PERRLA, EOMI. Cranial nerves II through XII grossly intact. TMs clear. Mucous membranes moist. No adenopathy. Cardiovascular-regular rate and rhythm without murmur or ectopy Lungs-clear to auscultation, chest wall stable without crepitus or subcu emphysema Abdomen-normoactive bowel sounds, soft, nontender, no rebound or rigidity, no peritoneal signs. Extremities-intact ?4, normal range of motion, normal pulses, atraumatic] Test Results: [EKG obtained showed a sinus rhythm with a ventricular rate of [address] changes. When compared with prior EKG from 2017 no new changes noted.] Was normal. Chemistries were normal. Troponin is less than 0.015. D-dimer was normal and 0.35. Chest x-ray was normal. Emergency Department Course and Treatment: [] Treatment Plan: [Patient will be referred to general surgery to further evaluate lump in patient's breast although she just had an ultrasound today and mammogram today which she was told were relatively unremarkable. Her chest pain I feel atypical and I do not feel is cardiac in nature. Patient advised to follow-up with her primary care physician and she will be referred to a general surgeon for follow-up.] Disposition: [Discharged home stable condition] Impression: [Chest pain-atypical] This note was generated with [employer] dictation software. It may contain incorrect words, spelling, and punctuation that were not noted in review of the chart prior to signing ED Disposition - Plan for ED Patient: Referrals: Flakito Seals MD [Primary Care Provider] -
[2018-11-26 16:35] VITALS: O2SAT 95
[2018-11-26 16:35] LABS: Absolute Lymphocyte Count 1.96 X10^3/ul (0.83-4.51); Absolute Neutrophil Count 4.1 X10^3/uL (2.0-7.7); Basophil# 0.01 X10^3/uL; Basophil% 0.2 % (0-1); Eosinophil# 0.07 X10^3/uL; Eosinophils% 1.1 % (0-5); Hemoglobin 13.6 g/dl (12.0-15.0); Lymphocyte # 1.96 X10^3/ul (4.0); Lymphocyte % 29.7 % (19-41); Mean Corp Hgb Conc 33.2 g/gl (32-36); Mean Corpuscular Hgb 28.5 pg (27.0-32.0); Mean Corpuscular Volume 85.8 fL (81-99); Mean Platelet Vol. 11.1 fl (6.2-12.0); Monocyte# 0.41 X10^3/uL; Monocyte% 6.2 % (0-10); Neutrophil # 4.14 X10^3/uL (2.7-7.7); Neutrophil % 62.6 % (47-70); Platelet Count 238 K/mm3 (150-450); RBC Distribution Width CV 12.3 % (11.6-14.6); RBC Distribution Width SD 38.9 fl (35.1-43.9); Red Blood Count 4.78 M/mm3 (4.2-5.4); White Blood Count 6.6 K/mm3 (4.4-11.0)
[2018-11-26] MEDS: 0.9% Normal Saline 1,000 ML 150 ML IV (16:39)
[2018-11-26 16:40] LABS: Anion Gap 6 (5-15); BUN 13 mg/dL (7-18); BUN/Creat Ratio 13.6 RATIO (10-20); Calcium,Total 8.8 mg/dL (8.5-10.1); Chloride 105 mmol/L (98-107); Creatinine, Serum 0.96 mg/dL (0.55-1.02); EST Glomerular Filtration Rate 72 mL/min (>60); Est Glom Filt Rate - Afr Amer 87 mL/min (>60); Estimated Creatinine Clearance 72.65 ml/min; Glucose 105 mg/dL (74-106); Potassium 3.7 mmol/L (3.5-5.1); Sodium Level 141 mmol/L (136-145)
[2018-11-26 16:42] VITALS: PULSE 90; RESP 18; O2SAT 97
[2018-11-26 16:43] LABS: D-Dimer Quantitative (DVT/PE) 0.35 FEU/ug/m (0.27-0.49)
[2018-11-26 16:46] LABS: POSITIVE COUNT NO; POSITIVE DIFFERENTIAL NO; POSITIVE MORPHOLOGY NO
--- NOTE | 2018-11-26 17:34 | ED.DEP ---
ED Disposition - Plan for ED Patient: Instructions: CHEST PAIN, Uncertain Cause Prescriptions: Naproxen [Naprosyn] 500 mg PO BID PRN #20 tab Prescription Printed Referrals: Flakito Seals MD [Primary Care Provider] - 5-7 Days Mildred Russell MD [STAFF PHYSICIAN] - 5-7 Days
[2018-11-26 17:44] VITALS: BP 115/82; PULSE 87; RESP 15; O2SAT 98
[2018-11-26 18:18] LABS: Erythrocyte Sedimentation Rate 13 mm/hr (0-20)
== END 2018-11-26 17:45 | disposition home or self-care (01) ==
LOC: ED 16:29
PROVIDERS: Emergency Provider Emergency Medicine; Family Provider Internal Medicine; PCP Internal Medicine
DX: R07.89 Other chest pain (principal); F17.290 Nicotine dependence, other tobacco product, uncomplicated; Z79.899 Other long term (current) drug therapy; Z87.19 Personal history of other diseases of the digestive system
CPT/HCPCS: 71045; 80048; 84484; 85025; 85379; 85652; 93005; 96360; 99285; J7030; A4216

== ENCOUNTER → 2018-12-18 15:05 | Outpatient (CLI) | payer MEDICAID, SELFPAY ==
[2018-12-04 10:31] VITALS: BMI 27.6
== END ==
PROVIDERS: Family Provider Internal Medicine; PCP Internal Medicine; Visit Provider Obstetrics & Gynecology
DX: Z12.4 Encounter for screening for malignant neoplasm of cervix (principal)

== ENCOUNTER 2019-01-22 17:02 | Emergency (ER) | payer MEDICAID, SELFPAY ==
[2018-12-04 10:31] VITALS: BMI 27.6
[2019-01-22 17:03] VITALS: BP 119/77; PULSE 97; RESP 18; TEMP 36.4; O2SAT 95; BMI 27.3
--- NOTE | 2019-01-22 17:18 | CT_ITS ---
STUDY: CT ABDOMEN AND PELVIS WITHOUT CONTRAST REASON FOR EXAM: Female, 33 years old. Right lower quadrant pain x1 week RADIATION DOSAGE (If Supplied By Facility): CTDIvol = ( 8.65 ) mGy, DLP = ( 421.47 ) mGycm TECHNIQUE: Transaxial images were obtained from the dome of the diaphragm to the symphysis pubis without oral contrast, and without intravenous contrast. Sagittal and coronal images were reconstructed. Individualized dose optimization techniques were used for this CT. COMPARISON: 07/13/2018 FINDINGS: The visualized lung bases are unremarkable. The visualized portions of the heart are within normal limits. Normal liver. Normal gallbladder and extrahepatic biliary system. Normal spleen. Normal pancreas. Normal bilateral adrenal glands. Normal right kidney. Normal left kidney. Normal visualized stomach. Normal small intestine. Significant fecal retention throughout the colon. The appendix is visualized and appears normal. Normal abdominal aorta. Normal inferior vena cava. Normal retroperitoneum. Normal urinary bladder. Normal visualized uterus. Normal abdominal wall. Prior pelvic surgery for trauma CT/Abdomen/Pelvis without Cont IMPRESSION: Normal appendix. Significant fecal retention throughout the colon suggesting constipation Electronically Signed: Diogo Carrasquillo DO at 19:37 EDT Tel , Service support ,
[2019-01-22] MEDS: 0.9% Normal Saline 1,000 ML 125 ML IV (18:05)
[2019-01-22] MEDS: Morphine 4 MG/ML Syringe IV (18:06)
[2019-01-22] MEDS: Ondansetron 4 MG/2 ML Vial IV (18:06)
[2019-01-22 18:17] LABS: Absolute Neutrophil Count 5.7 X10^3/uL (2.0-7.7); Basophil# 0.02 X10^3/uL; Basophil% 0.2 % (0-1); Eosinophil# 0.11 X10^3/uL; Eosinophils% 1.2 % (0-5); Hematocrit 43.9 % (37-47); Hemoglobin 14.6 g/dL (12.0-15.0); Lymphocyte % 28.4 % (19-41); Mean Corp Hgb Conc 33.3 g/dL (32-36); Mean Corpuscular Hgb 28.2 pg (27.0-32.0); Mean Corpuscular Volume 84.7 fL (81-99); Mean Platelet Vol. 11.2 fl (6.2-12.0); Monocyte# 0.69 X10^3/uL; Monocyte% 7.5 % (0-10); NRBC Flagged by Analyzer 0 % (0-5); Neutrophil # 5.69 X10^3/uL (2.7-7.7); Neutrophil % 62.4 % (47-70); Platelet Count 232 K/mm3 (150-450); RBC Distribution Width CV 12.2 % (11.6-14.6); RBC Distribution Width SD 37.3 fl (35.1-43.9); Red Blood Count 5.18 M/mm3 (4.2-5.4); White Blood Count 9.1 K/mm3 (4.4-11.0)
[2019-01-22 18:25] LABS: Bacteria 0 SEEN /hpf (None Seen); Mucous, Urine 0 SEEN /hpf (<or=2+); Red Blood Cells-Urine 0 SEEN /hpf (0-5); White Blood Cells 0 SEEN /hpf (0-5)
[2019-01-22 18:33] LABS: ALB/GLOB Ratio 0.6 RATIO (0.9-2.4); AST(SGOT) 11 U/L (15-37); Alanine Aminotransfer ALT/SGPT 22 U/L (13-56); Alkaline Phosphatase 75 U/L (45-117); Anion Gap 8 (5-15); BUN 15 mg/dL (7-18); BUN/Creat Ratio 18.7 RATIO (10-20); Calcium,Total 9.2 mg/dL (8.5-10.1); Chloride 107 mmol/L (98-107); EST Glomerular Filtration Rate 88 mL/min (>60); Est Glom Filt Rate - Afr Amer 106 mL/min (>60); Estimated Creatinine Clearance 94.51 ml/min; Globulin 4.9 g/dL (2.2-4.2); Glucose 84 mg/dL (74-106); Lipase 131 U/L (73-393); Potassium 4.4 mmol/L (3.5-5.1); Protein, Total 7.9 g/dL (6.4-8.2); Sodium Level 140 mmol/L (136-145)
[2019-01-22 18:34] LABS: Color, Urine Yellow (Yellow); Glucose, Dipstick Normal (Normal); Ketone-Dipstick Negative (Negative); Leukocyte Esterase-Dipstick Negative /ul (Negative); Nitrite-Dipstick Negative (Negative); Occult Blood-Urine 10 /ul (Negative); Protein-Dipstick Negative (Negative); Specific Gravity, Urine 1.005 (1.002-1.030); Urine Bilirubin Dipstick Negative (Negative); Urine Clarity Clear (Clear); Urine Urobilinogen Normal (Normal)
[2019-01-22 18:57] LABS: Internal QC Validated? YES +Cl - CLEAR BKGD; Pregnancy, Serum, hCG Quali. NEGATIVE Negative
[2019-01-22 19:11] LABS: Squamous Epithelial Cells - UA 0-5 SEEN /hpf (5-10)
--- NOTE | 2019-01-22 19:57 | ED.VISSUMM ---
- ER Visit Summary Date of Service: 01/22/19 Chief Complaint: [Abdominal pain History of Present Illness: The patient is a 33 F [presents to the emergency department complaint of right-sided abdominal pain that started about a week ago. Patient states the pain is been relatively continuous but waxes and wanes in intensity. Patient currently rates her pain a 6 out of 10. Patient complains of some nausea and had one episode of vomiting today. Patient has had some urinary frequency but no dysuria. Patient has not had any fever. Her last bowel movement was yesterday. Patient had somewhat decreased appetite over the last several days. 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 Patient has had prior but no other abdominal surgeries.] Physical Examination: [HEENT-PERRLA, EOMI. Cranial nerves II through XII grossly intact. TMs clear. Mucous membranes moist. No adenopathy. Cardiovascular-regular rate and rhythm without murmur or ectopy Lungs-clear to auscultation, chest wall stable without crepitus or subcu emphysema Abdomen-normoactive bowel sounds, soft. Patient has tenderness palpation of the right lower quadrant with some guarding. There is no rebound, rigidity, or perineal signs. Extremities-intact ?4, normal range of motion, normal pulses, atraumatic] Test Results: [CBC with differential obtained showing a 9.1, hemoglobin 14.6, hematocrit 44, placed 232. Chemistries unremarkable. LFTs were unremarkable. Lipase was normal at 131. Urinalysis was normal. hCG was negative. CT scan of the M pelvis showed fecal retention and a normal appendix.] Emergency Department Course and Treatment: [Patient was medicated with 4 mg of morphine 4 mg Zofran. Patient did feel improved.] Treatment Plan: [Patient advised to use ibuprofen or Tylenol for discomfort. Patient to follow-up with her primary care physician within next 3 to 5 days. Patient advised to return if worsening pain, fever, vomiting, or conditions worsen anyway.] Disposition: [Discharged home in stable condition] Impression: Abdominal pain-etiology uncertain [] This note was generated with [employer] dictation software. It may contain incorrect words, spelling, and punctuation that were not noted in review of the chart prior to signing ED Disposition - Plan for ED Patient: Referrals: Flakito Seals MD [Primary Care Provider] -
--- NOTE | 2019-01-22 19:59 | ED.DEP ---
ED Disposition - Plan for ED Patient: Instructions: ABDOMINAL PAIN, Unknown Cause, (Female) Referrals: Flakito Seals MD [Primary Care Provider] - 3-5 Days
[2019-01-22 20:07] VITALS: BP 109/78; PULSE 100; RESP 16; O2SAT 93
[2019-01-22 20:10] VITALS: BP 109/78; PULSE 100; RESP 16; O2SAT 93
== END 2019-01-22 20:13 | disposition home or self-care (01) ==
LOC: ED 17:13
PROVIDERS: Emergency Provider Emergency Medicine; Family Provider Internal Medicine; PCP Internal Medicine
DX: R10.9 Unspecified abdominal pain (principal); R11.2 Nausea with vomiting, unspecified; K52.82 Eosinophilic colitis; K59.00 Constipation, unspecified; R35.0 Frequency of micturition; K21.9 Gastro-esophageal reflux disease without esophagitis; F41.9 Anxiety disorder, unspecified; F32.9 Major depressive disorder, single episode, unspecified; F17.290 Nicotine dependence, other tobacco product, uncomplicated; Z79.899 Other long term (current) drug therapy
CPT/HCPCS: 74176; 80053; 81001; 83690; 84703; 85025; 96361; 96374; 96375; 99283; J7030; A4216; J2405

== ENCOUNTER 2019-02-26 11:00 | Outpatient (RCR) | payer MEDICAID, SELFPAY ==
--- NOTE | 2019-02-19 15:02 | HP.PTEVAL_ITS ---
Patient's Visit Information MELLY ESTRADA is a 33 year old F referred to Physical Therapy by STACY YANG with a diagnosis of S/P PELVIS ORIF 04/19/18. CORE WEAKNESS AND PELVIC INSTABILITY. Date of Evaluation: 02/19/19 Physical Therapist: Evelyn Moreno, PT, Cert MDT - Visit Plan Frequency: 2-3x /Week Duration: 4-6 Months Plan: A COMBINATION OF AQUATIC THERAPY AND LAND THERAPY FOR PAIN RELEIF, POSTURE CORRECTION/STRENGTHENING, INSTRUCTION IN APPROPRIATE BODY MECHANICS AND ACTIVITY MODIFICATIONS. DLS STARTING WITH A NEUTRAL SPINE PROGRESSING ROM TOLERATED. DAV LE ROM, STRETCHING AND STRENGTHENING. HEP INSTRUCTION. - Subjective Findings: THIS PATIENT PRESENTS TO PHYSICAL THERAPY WITH C/O BACK PAIN. PATIENT REPORTS SHE ISN'T HAVING PAIN IN THE FRONT OF HER PELVIS ANYMORE. ALL OF HER PAIN IS IN THE BACK WHERE THE SCREWS ARE. THE SURGEON IS CONSIDERING TAKING TEHM OUT BUT HE WANTS HER TO TRY PHYSICAL THERAPY AGAIN BEFORE THEY DECIDE FOR SURE. THIS PATIENT IS WELL KNOWN TO OUR DEPARTMENT. NO OTHER PT THAN HERE AT [facility]. PLEASE SEE PAST PHYSICAL THERAPY DOCUMENTATION IN EMR FOR FURHTER INFORMATION. S/P PELVIC ORIF 04/20/18. SHE REPORTS THAT ONCE EVERYTHING WAS HEALED FROM THE SURGERY SHE GOT ABOUT 90% BETTER UNTIL SHE FELL APPROX AUGUST 2018. AFTER THE FALL SHE HAD PAIN IN THE FRONT OF HER PELVIS AND THE BACK. ACTUALLY STILL A LITTLE BIT OF INTERMITTENT PAIN IN THE FRONT. ALSO HAS PAIN IN HER HIPS. PAIN SCALE: WORST - 10/10 (USUALLY AFTER CLEANING, WALKING, LIFTING), LEAST 1/10 (LYING DOWN). PMH: UNREMARKABLE. OTHER: PATIENT REPORTS SHE HAS TRIED EXERCISING ON HER OWN BUT IT HURTS SO MUCH SHE CAN'T DO IT. - Objective Sitting/Standing Posture: POOR. Lordosis: NORMAL TO INCREASED. Lateral shift: NO. Relevant shift: N/A. Active Correction of posture: NE. Other Observations: INDEP GAIT AND TRANSFERS. Motor deficit: DAV LE'S 5/5 WITH MMT'ING EXCEPT HIPS 4-/5 AND HIP ADD TESTING DAV PRODUCES ANTERIOR PELVIC PAIN. Sensory deficit: DECREASED LIGHT TOUCH SENSATION GROSSLY THROUGHOUT LLE COMPARED TO RIGHT. ROM deficit: DAV LE'S WFL BUT TESTING OF DAV HIP ABD, IR AND ER PROBOKES UNILATERAL HIP PAIN. Reflexes: NT. Dural Signs: POSITIVE DAV LE'S. Lumbar mvmt loss: flex - NIL. ext - MOD. R SG - NIL. L SG - NIL. Core strength: POOR. Palpation: TENDERNESS WITH PALPATION OF THE LOWER LUMBAR SPINE, SACRAL AREA, DAV SI JOINT AREAS AND DAV LATERAL HIP REGIONS. MILD TENDERNESS PUBIC SYMPHASIS REGION. - Goals Goal 1:: DECREASE C/O DAV PELVIC, HIP AND LE SX'S. Goal Time Frame: 4-6 Weeks Goal 2:: IMPROVE CORE STABILITY TO EASE ADL'S Goal Time Frame: 4-6 Weeks Goal 3:: INSTRUCT IN PROPHYLAXIS Goal Time Frame: 4-6 Weeks - Rehabilitation Potential Rehabilitation Potential: Fair - Anticipated Interventions Patient/Client Instruction: Educate patient on: Condition, Plan of Care, Risk Factors, Benefits of Fitness Program For the Purpose of:: To improve self management Therapeutic Exercise to Include: Strength training, Body mechanics, Postural training, Flexibilty training, In an aquatic setting, Dynamic Lumbar Stabilization For the Purpose of:: To decrease pain, To improve muscle performance and motor function, To increase tolerance to activity/condition/position, To improve ability of physical actions for home/community/work/leisure, To improve gait and locomotor functions Thank you for the opportunity to evaluate your patient. For Medicare and Medicare HMO plans, please review the plan of care and approve it. It will need to be FAXED BACK to us at [phone] for Medicare purposes. For Medicare only, by signing this I certify the plan of care. Please let me know if there are questions or concerns regarding this plan of care. Physician Signature: Date:
--- NOTE | 2019-05-14 16:35 | HP.PT.NRP ---
HP - Discharge Summary (1) - Patient Information MELLY ESTRADA was seen in my office for initial evaluation on 02/19/19. The following Plan of Care was established for this patient: Initial Frequency: 2-3x /Week Initial Duration: 4-6 Months - Anticipated Interventions Patient/Client Instruction: Educate patient on: Condition, Plan of Care, Risk Factors, Benefits of Fitness Program For the Purpose of:: To improve self management Therapeutic Exercise to Include: Strength training, Body mechanics, Postural training, Flexibilty training, In an aquatic setting, Dynamic Lumbar Stabilization For the Purpose of:: To decrease pain, To improve muscle performance and motor function, To increase tolerance to activity/condition/position, To improve ability of physical actions for home/community/work/leisure, To improve gait and locomotor functions This patient was last seen in our office 02/26/19. Pertinent comments regarding their Physical therapy will appear below: This patient has not returned to Physical Therapy and is appropriate to return to MD for further follow-up as needed. At this point I will be discontinuing this patient from physical therapy. I would be happy to see this patient again in the future if found appropriate by the physician. Thank you! Evelyn Moreno, PT, Cert MDT
== END 2019-02-26 19:00 | disposition home or self-care (01) ==
LOC: PT 11:00
PROVIDERS: Family Provider Internal Medicine; PCP Internal Medicine
DX: Z98.890 Other specified postprocedural states (principal)
CPT/HCPCS: 97110; 97113; 97162

== ENCOUNTER 2019-03-18 14:03 | Emergency (ER) | payer MEDICAID, SELFPAY ==
[2019-03-18 14:04] VITALS: BP 113/77; PULSE 122; RESP 16; TEMP 36.8; O2SAT 97; BMI 26.6
[2019-03-18] MEDS: Dicyclomine 20 MG/2 ML Vial IM (14:36)
[2019-03-18] MEDS: 0.9% Normal Saline 1,000 ML 1000 ML IV (14:36)
[2019-03-18 14:44] LABS: Absolute Lymphocyte Count 1.93 X10^3/uL (0.83-4.51); Absolute Neutrophil Count 5.4 X10^3/uL (2.0-7.7); Basophil# 0.01 X10^3/uL; Basophil% 0.1 % (0-1); Eosinophils% 1.3 % (0-5); Hemoglobin 13.8 g/dL (12.0-15.0); Lymphocyte # 1.93 X10^3/ul (4.0); Lymphocyte % 24.2 % (19-41); Mean Corp Hgb Conc 33.7 g/dL (32-36); Mean Corpuscular Hgb 28.3 pg (27.0-32.0); Mean Corpuscular Volume 84.2 fL (81-99); Mean Platelet Vol. 10.8 fl (6.2-12.0); Monocyte# 0.57 X10^3/uL; Monocyte% 7.1 % (0-10); NRBC Flagged by Analyzer 0 % (0-5); Neutrophil # 5.35 X10^3/uL (2.7-7.7); Neutrophil % 66.9 % (47-70); Platelet Count 203 K/mm3 (150-450); RBC Distribution Width CV 11.9 % (11.6-14.6); RBC Distribution Width SD 36.2 fl (35.1-43.9); Red Blood Count 4.87 M/mm3 (4.2-5.4)
[2019-03-18 14:57] LABS: ALB/GLOB Ratio 0.7 RATIO (0.9-2.4); AST(SGOT) 11 U/L (15-37); Alanine Aminotransfer ALT/SGPT 21 U/L (13-56); Albumin, Serum 2.9 g/dL (3.2-5.0); Alkaline Phosphatase 70 U/L (45-117); Anion Gap 8 (5-15); BUN 13 mg/dL (7-18); BUN/Creat Ratio 15.5 RATIO (10-20); Calcium,Total 8.7 mg/dL (8.5-10.1); Chloride 108 mmol/L (98-107); Creatinine, Serum 0.84 mg/dL (0.55-1.02); EST Glomerular Filtration Rate 83 mL/min (>60); Est Glom Filt Rate - Afr Amer 100 mL/min (>60); Estimated Creatinine Clearance 90.01 ml/min; Globulin 4.3 g/dL (2.2-4.2); Glucose 89 mg/dL (74-106); Potassium 4.1 mmol/L (3.5-5.1); Protein, Total 7.2 g/dL (6.4-8.2); Sodium Level 140 mmol/L (136-145)
[2019-03-18 15:03] LABS: Lactic Acid 0.7 mmol/L (0.4-2.0)
[2019-03-18 15:09] LABS: Mucous, Urine 0 SEEN /hpf (<or=2+); Red Blood Cells-Urine 0 SEEN /hpf (0-5)
[2019-03-18 15:21] LABS: Color, Urine Yellow (Yellow); Glucose, Dipstick Normal (Normal); Ketone-Dipstick Negative (Negative); Leukocyte Esterase-Dipstick 500 /ul (Negative); Nitrite-Dipstick Negative (Negative); Occult Blood-Urine Negative /ul (Negative); Protein-Dipstick Negative (Negative); Urine Bilirubin Dipstick Negative (Negative); Urine Clarity Sl. Cloudy (Clear); Urine Urobilinogen Normal (Normal); Urine pH 6.5 (5.0 - 8.0)
--- NOTE | 2019-03-18 15:24 | ED.DCSUM_ITS ---
- ER Visit Summary Date of Service: 03/18/19 Chief Complaint: [Diarrhea History of present illness: The patient is a 33-year-old female presents to the ER with diarrhea x3 weeks. Patient states that she has been having watery stools every 15 minutes. Patient tells me that she has a history of microscopic colitis. She saw a event coordinator marketing and sales in [place] who did a colonoscopy within the last 6 months. She denies recent antibiotic usage. Patient denies any sick contacts. Patient states at times there is blood in the stool but she thought it was from her hemorrhoids. She describes diffuse abdominal discomfort. She is had some nausea and vomiting over the last 24 hours. She denies any fevers. She denies urinary symptoms. Patient states that her event coordinator marketing and sales wanted to put her on some steroids for her condition however her orthopedic doctor did not want her having steroids because he did a pelvic fusion on her last April and it could take up to a year for her pelvic fusion to heal Physical Examination: [HEENT-PERRLA, EOMI. Cranial nerves II through XII grossly intact. TMs clear. Mucous membranes moist. No adenopathy. Cardiovascular-regular rate and rhythm without murmur or ectopy Lungs-clear to auscultation, chest wall stable without crepitus or subcu emphysema Abdomen-normoactive bowel sounds, soft. Patient has mild diffuse tenderness throughout. There is no rebound, rigidity, or perineal signs. Extremities-intact ?4, normal range of motion, normal pulses, atraumatic] Test Results: [CBC with differential obtained was normal. Chemistries normal. LFTs normal. Lactate was normal at 0.7. Stool sent for C. difficile and enteric pathogens pending.] Emergency Department Course and Treatment: [Given a liter normal same fluid bolus. Patient was given Bentyl IM.] Treatment Plan: [Pending C. difficile results. Care of patient turned over to evening physician awaiting results and final disposition. I do not feel patient warrants any further imaging as she did have a CT scan of the abdomen and pelvis in January that was normal.] Disposition: [Pending] Impression: [Diarrhea Abdominal pain] This note was generated with Easy[employer] software. It may contain incorrect words, spelling, and punctuation that were not noted in review of the chart prior to signing ED Disposition - Plan for ED Patient: Referrals: Flakito Seals MD [Primary Care Provider] -
[2019-03-18 15:28] LABS: Squamous Epithelial Cells - UA 5-10 SEEN /hpf (5-10)
[2019-03-18 15:29] LABS: Bacteria RARE /hpf (None Seen); White Blood Cells 10-25 SEEN /hpf (0-5)
[2019-03-18 15:55] LABS: Internal QC Validated? YES +Cl - CLEAR BKGD; Pregnancy, Urine Negative Negative
[2019-03-18 16:15] VITALS: BP 128/76; PULSE 87; RESP 17; O2SAT 98
[2019-03-18 17:58] VITALS: BP 123/67; PULSE 83; RESP 17; O2SAT 98
== END 2019-03-18 17:58 | disposition home or self-care (01) ==
PROVIDERS: Emergency Provider Emergency Medicine; Family Provider Internal Medicine; PCP Internal Medicine
DX: R19.7 Diarrhea, unspecified (principal); R11.2 Nausea with vomiting, unspecified; R10.9 Unspecified abdominal pain; K21.9 Gastro-esophageal reflux disease without esophagitis; F17.290 Nicotine dependence, other tobacco product, uncomplicated; Z79.899 Other long term (current) drug therapy
CPT/HCPCS: 80053; 81001; 81025; 82274; 83605; 85025; 87086; 87088; 87493; 87506; 96360; 96372; 99283; J7030; A4216

== ENCOUNTER 2019-03-25 04:52 | Emergency (ER) | payer MEDICAID, SELFPAY ==
[2019-03-25 04:53] VITALS: BP 132/80; PULSE 116; RESP 16; TEMP 36.8; O2SAT 97; BMI 29.0
--- NOTE | 2019-03-25 05:02 | ED.VIS.GEN ---
History of Present Illness Chief Complaint: Nausea/Vomiting Informant: Patient Narrative: Stated she woke just prior to arrival and felt nauseated with vertigo. When she turns her head to the side she has exacerbation of vertigo. She is never had this before. She is had multiple episodes of emesis. She stated her hands and face feel like they are cramping. Current severity is moderate. Patient has a history of chronic eosinophilic colitis. She does not feel like that is acting up at this time. She has chronic abdominal pain due to that. This feels different and feels like vertigo with vomiting. No home treatment. 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 (13) Seasonal allergies Status: Chronic (14) Vitamin deficiency Status: Chronic (15) Fracture of left upper limb Status: Resolved (16) Pre-eclampsia Status: Resolved (17) UTI (urinary tract infection) Status: Resolved Past Medical History - Allergies and Home Meds Allergies/Adverse Reactions: Allergies No Known Allergies Allergy (Verified 03/25/19 04:52) Primary Care Physician: Flakito Seals MD [Primary Care Provider] - Prior records reviewed: Yes Past Medical History: - - See problem list Surgical History: - - Reviewed Lives: With Family Smoking Status: Current every day smoker Alcohol: None Drugs: None Review of Systems General: Denies: Chills, Fever, Sweats Eyes: Denies: Visual changes - bilaterally, Diplopia ENT: Denies: Rhinorrhea, Sore throat Cardiovascular: Denies: Chest pain, Palpitations Respiratory: Denies: Dyspnea, Cough, Dyspnea on exertion Gastrointestinal: Reports: Nausea, Vomiting. Denies: Abdominal pain, Diarrhea, Melena, Hematochezia Genitourinary: Denies: Dysuria, Hematuria, Frequency Musculoskeletal: Reports: Myalgias. Denies: Back pain, Extremity Pain Skin: Denies: Rash, Wounds Neurological: Denies: Headache, Weakness, Numbness Physical Exam Vital Signs/Narrative: Vital Signs Temp Pulse Resp BP Pulse Ox 03/25/19 04:53 98.3 F 116 H 16 132/80 H 97 General: Well nourished, Well developed, No Acute Distress Head: Normocephalic, Atraumatic Eyes: Perrl, EOMI ENT: Moist mucous membranes, No rhinorrhea Neck: Supple, Nontender Cardiovascular: Regular rate, Regular rhythm, No murmurs Respiratory: No distress, CTA bilaterally, Chest nontender Abdomen: Soft, Nontender, Nondistended, Normal bowel sounds Back: Nontender, Normal Inspection Extremities: Nontender, No edema Skin: Normal color, No rash Neurological: Alert, Oriented x3, Cranial nerves II-XII grossly intact, Normal Strength, Normal Sensation Psychological: Normal affect, Normal Mood Diagnostic/Tx/Re-eval - Medical Decision Making Patient given IV fluids, Toradol, Zofran, meclizine. Lab work obtained lab work shows nothing acute. Patient felt much better after treatment. She is no longer vomiting. Her vertigo has subsided. Given Zofran and meclizine for home. I think she has benign paroxysmal positional vertigo. Discussed this with patient. We will follow-up as an outpatient. I do not feel she needs imaging. Do not feel she has a central cause ED Disposition - Plan for ED Patient: Disposition: Psychiatric Hospital or Unit Diagnosis: Vertigo Instructions: Benign Positional Vertigo Prescriptions: Meclizine HCl 25 mg PO TID PRN #15 tab PRN Reason: Vertigo Prescription Printed Ondansetron [Zofran Odt] 4 mg PO Q8H PRN PRN #10 tab PRN Reason: Nausea Prescription Printed Referrals: Flakito Seals MD [Primary Care Provider] -
[2019-03-25] MEDS: Ketorolac 15 MG/ML Vial IV (05:09)
[2019-03-25] MEDS: Ondansetron 4 MG/2 ML Vial IV (05:09)
[2019-03-25] MEDS: 0.9% Normal Saline 1,000 ML 1000 ML IV (05:10)
[2019-03-25 05:21] LABS: Anion Gap 8 (5-15); BUN 13 mg/dL (7-18); BUN/Creat Ratio 14.1 RATIO (10-20); Chloride 107 mmol/L (98-107); Creatinine, Serum 0.92 mg/dL (0.55-1.02); EST Glomerular Filtration Rate 74 mL/min (>60); Est Glom Filt Rate - Afr Amer 90 mL/min (>60); Estimated Creatinine Clearance 82.18 ml/min; Glucose 130 mg/dL (74-106); Potassium 3.4 mmol/L (3.5-5.1); Sodium Level 140 mmol/L (136-145)
[2019-03-25] MEDS: Meclizine HCl 25 MG Tablet PO (05:37)
[2019-03-25 06:28] VITALS: BP 116/72; PULSE 72; RESP 16; O2SAT 100
== END 2019-03-25 06:30 | disposition home or self-care (01) ==
PROVIDERS: Emergency Provider Emergency Medicine; Family Provider Internal Medicine; PCP Internal Medicine
DX: H81.10 Benign paroxysmal vertigo, unspecified ear (principal); R11.2 Nausea with vomiting, unspecified; K52.82 Eosinophilic colitis; G89.29 Other chronic pain; K21.9 Gastro-esophageal reflux disease without esophagitis; F32.9 Major depressive disorder, single episode, unspecified; F41.9 Anxiety disorder, unspecified; F90.9 Attention-deficit hyperactivity disorder, unspecified type; F17.200 Nicotine dependence, unspecified, uncomplicated; Z79.899 Other long term (current) drug therapy
CPT/HCPCS: 80048; 96361; 96374; 96375; 99285; J7030; A4216; J2405

== ENCOUNTER → 2019-08-10 09:13 | Outpatient (CLI) | payer MEDICAID, SELFPAY ==
[2019-08-10 08:46] VITALS: BMI 30.7
[2019-08-10 12:03] LABS: Absolute Lymphocyte Count 1.99 X10^3/uL (0.83-4.51); Basophil# 0.03 X10^3/uL; Basophil% 0.4 % (0-1); Eosinophil# 0.12 X10^3/uL; Eosinophils% 1.8 % (0-5); Hematocrit 39.6 % (37-47); Hemoglobin 12.9 g/dL (12.0-15.0); Lymphocyte # 1.99 X10^3/ul (4.0); Lymphocyte % 29.7 % (19-41); Mean Corp Hgb Conc 32.6 g/dL (32-36); Mean Corpuscular Hgb 27.5 pg (27.0-32.0); Mean Corpuscular Volume 84.4 fL (81-99); Monocyte# 0.54 X10^3/uL; Monocyte% 8.1 % (0-10); NRBC Flagged by Analyzer 0 % (0-5); Neutrophil # 3.99 X10^3/uL (2.7-7.7); Neutrophil % 59.6 % (47-70); Platelet Count 213 K/mm3 (150-450); RBC Distribution Width CV 12.1 % (11.6-14.6); RBC Distribution Width SD 36.9 fl (35.1-43.9); Red Blood Count 4.69 M/mm3 (4.2-5.4); White Blood Count 6.7 K/mm3 (4.4-11.0)
[2019-08-10 12:17] LABS: ALB/GLOB Ratio 0.6 RATIO (0.9-2.4); AST(SGOT) 14 U/L (15-37); Alanine Aminotransfer ALT/SGPT 25 U/L (13-56); Albumin, Serum 2.7 g/dL (3.2-5.0); Alkaline Phosphatase 81 U/L (45-117); Anion Gap 7 (5-15); BUN 8 mg/dL (7-18); BUN/Creat Ratio 10.2 RATIO (10-20); Calcium,Total 8.7 mg/dL (8.5-10.1); Chloride 106 mmol/L (98-107); Creatinine, Serum 0.78 mg/dL (0.55-1.02); EST Glomerular Filtration Rate 90 mL/min (>60); Est Glom Filt Rate - Afr Amer 109 mL/min (>60); Globulin 4.3 g/dL (2.2-4.2); Glucose 93 mg/dL (74-106); Potassium 3.7 mmol/L (3.5-5.1); Sodium Level 140 mmol/L (136-145)
== END ==
PROVIDERS: PCP Internal Medicine; Visit Provider Internal Medicine
DX: R19.7 Diarrhea, unspecified (principal)
CPT/HCPCS: 36415; 80053; 85025

== ENCOUNTER → 2019-08-23 | Outpatient (CLI) | payer MEDICAID, SELFPAY ==
[2019-08-10 08:46] VITALS: BMI 30.7
== END | disposition home or self-care (01) ==
LOC: LABSPEC 13:56
PROVIDERS: PCP Internal Medicine; Referring Provider Internal Medicine; Visit Provider Internal Medicine
DX: R19.7 Diarrhea, unspecified (principal)
CPT/HCPCS: 87493

== ENCOUNTER 2019-11-09 16:21 | Emergency (ER) | payer MEDICAID, SELFPAY ==
[2019-11-09 15:51] VITALS: BMI 29.0
[2019-11-09 16:23] VITALS: BP 121/79; PULSE 85; RESP 17; TEMP 36.8; O2SAT 94; BMI 31.1
--- NOTE | 2019-11-09 16:36 | CT_ITS ---
STUDY: CT BRAIN WITHOUT CONTRAST REASON FOR EXAM: Female, 34 years old. PT STATED HEADACHE RADIATION DOSAGE (If Supplied By Facility): CTDIvol = ( 44.99 ) mGy, DLP = ( 762.36 ) mGycm TECHNIQUE: Transaxial CT imaging of the brain was performed without administration of intravenous contrast material. Individualized dose optimization techniques were used for this CT. COMPARISON: No relevant priors. FINDINGS: Normal soft tissue structures. Normal calvarium. Normal size ventricles and extra-axial spaces for the patient''s age. Normal white matter tracts of the cerebral hemispheres. Normal basal ganglia and thalami. Normal brainstem. Normal cerebellum. There is no intracranial hemorrhage. There are no findings of an acute ischemic infarction. Normal visualized paranasal sinuses. CT/Brain/Head without Contrast IMPRESSION: Normal unenhanced CT scan of the brain. Electronically Signed: Moises Mccarty MD at 17:32 EDT , Service support ,
--- NOTE | 2019-11-09 16:40 | ED.DCSUM_ITS ---
History of Present Illness Chief Complaint: Sore Throat Informant: Patient Onset: Days Context: Gradual Onset Timing: Continuous Current Severity: Moderate Maximum Severity: Moderate Narrative: The patient is a 34-year-old female who presents to the emergency department multiple complaints. She states for the past 2 to 3 weeks, she has been having abdominal headache. She states worse throughout the day. She denies any changes in vision, speech, or hearing. She actually followed up with her primary care who told her it was likely migraines. She was placed on anti- inflammatories with little improvement. Over the past 2 days, she is began to have pain in her anterior left neck. She states if she eats or drinks, it actually helps the pain. She has not had any speaking or swallowing difficulties. She denies any history of prior migraines. She is otherwise been in her normal state of health. Prior similar symptoms: No Recent Illness/Hospitalization: No Past Medical History - Allergies and Home Meds Allergies/Adverse Reactions: Allergies No Known Allergies Allergy (Verified 11/09/19 16:22) Primary Care Physician: Flakito Seals MD [Primary Care Provider] - Prior records reviewed: Yes Past Medical History: - - Anxiety, depression Surgical History: - - Reviewed Smoking Status: Current every day smoker Review of Systems General: Denies: Chills, Fever, Sweats Eyes: Denies: Visual changes - bilaterally, Diplopia ENT: Denies: Rhinorrhea, Sore throat Cardiovascular: Denies: Chest pain, Palpitations Respiratory: Denies: Dyspnea, Cough, Dyspnea on exertion Gastrointestinal: Denies: Abdominal pain, Nausea, Vomiting, Diarrhea, Melena, Hematochezia Genitourinary: Denies: Dysuria, Hematuria, Frequency Musculoskeletal: Denies: Back pain, Extremity Pain Skin: Denies: Rash, Wounds Neurological: Reports: Headache. Denies: Weakness, Numbness Physical Exam Vital Signs/Narrative: Vital Signs Temp Pulse Resp BP Pulse Ox 11/09/19 16:23 98.2 F 85 17 121/79 H 94 Inital Vital Signs reviewed: Yes General: Well nourished, Well developed, No Acute Distress Head: Normocephalic, Atraumatic Eyes: Perrl, EOMI ENT: Moist mucous membranes, No rhinorrhea Neck: Supple, Nontender Cardiovascular: Regular rate, Regular rhythm, No murmurs Respiratory: No distress, CTA bilaterally, Chest nontender Abdomen: Soft, Nontender, Nondistended, Normal bowel sounds Back: Nontender, Normal Inspection Extremities: Nontender, No edema Skin: Normal color, No rash Neurological: Alert, Oriented x3, Cranial nerves II-XII grossly intact, Normal Strength, Normal Sensation Psychological: Normal affect, Normal Mood Diagnostic/Tx/Re-eval Clinical Impression(s) from Imaging Studies Brain CT 11/09/19 16:36 IMPRESSION: Normal unenhanced CT scan of the brain. Electronically Signed: Moises Mccarty MD at 17:32 EDT , Service support , Abnormal Lab Results 11/09/19 11/09/19 17:00 17:00 WBC 6.6 RBC 4.73 Hgb 12.9 Hct 40.7 MCV 86.0 MCH 27.3 MCHC 31.7 L RDW Std Deviation 39.6 RDW Coeff of Chaz 12.9 Plt Count 213 MPV 11.6 Immature Gran % (Auto) 0.500 Neut % (Auto) 57.6 Lymph % (Auto) 29.2 [place] % (Auto) 8.9 Eos % (Auto) 3.5 Baso % (Auto) 0.3 Absolute Neuts (auto) 3.8 Absolute Lymphs (auto) 1.94 Nucleated RBC % 0 Sodium 138 Potassium 4.0 Chloride 104 Carbon Dioxide 29.0 Anion Gap 5 BUN 9 Creatinine 0.82 Estim Creat Clear Calc 91.35 Est GFR (MDRD) Af Amer 103 Est GFR (MDRD) Non-Af 85 BUN/Creatinine Ratio 10.9 Glucose 82 Calcium 9.3 - Medical Decision Making The patient presents to the emergency department mild headache. He has tenderness over the cervical anterior chain. There is no significant lymphadenopathy. There is no mass. Posterior oropharynx is widely patent. Given her persistent headache, without significant history I did obtain a noncontrast head CT. This was negative. I do have very low suspicion for subarachnoid or other dangerous process. She is not meningitic or encephalopathic. She was treated with migraine abortive medications and Decadron with improvement. At this point, I do not see clear indication for antibiotics as she does not have any significant adenopathy, just some mild tenderness. I will have her follow-up with her primary care and she will be discharged home. Impression 1. Headache ED Disposition - Plan for ED Patient: Instructions: ED Local Lymph Node Swelling in the Neck No Antibiotic Treatment, ED CEPHALGIA Tension Headache Prescriptions: Acetaminophen/Butalbital/Caffe [Fioricet] 1 tab PO Q4H PRN PRN #20 tab PRN Reason: Headache Prescription Printed Referrals: Flakito Seals MD [Primary Care Provider] -
[2019-11-09] MEDS: 0.9% Normal Saline 1,000 ML 999 ML IV (16:49)
[2019-11-09] MEDS: Ketorolac 30 MG/ML Syringe IV (16:51)
[2019-11-09] MEDS: proCHLORPERazine 10 MG/2 ML Vial 5 MG IV (16:54)
[2019-11-09] MEDS: DiphenhydrAMINE 50 MG/ML Syringe IV (16:55)
[2019-11-09 17:43] LABS: Absolute Lymphocyte Count 1.94 X10^3/uL (0.83-4.51); Absolute Neutrophil Count 3.8 X10^3/uL (2.0-7.7); Basophil# 0.02 X10^3/uL; Basophil% 0.3 % (0-1); Eosinophil# 0.23 X10^3/uL; Eosinophils% 3.5 % (0-5); Hematocrit 40.7 % (37-47); Hemoglobin 12.9 g/dL (12.0-15.0); Lymphocyte # 1.94 X10^3/ul (4.0); Lymphocyte % 29.2 % (19-41); Mean Corp Hgb Conc 31.7 g/dL (32-36); Mean Corpuscular Hgb 27.3 pg (27.0-32.0); Mean Platelet Vol. 11.6 fl (6.2-12.0); Monocyte# 0.59 X10^3/uL; Monocyte% 8.9 % (0-10); NRBC Flagged by Analyzer 0 % (0-5); Neutrophil # 3.83 X10^3/uL (2.7-7.7); Neutrophil % 57.6 % (47-70); Platelet Count 213 K/mm3 (150-450); RBC Distribution Width CV 12.9 % (11.6-14.6); RBC Distribution Width SD 39.6 fl (35.1-43.9); Red Blood Count 4.73 M/mm3 (4.2-5.4); White Blood Count 6.6 K/mm3 (4.4-11.0)
[2019-11-09 18:00] LABS: Anion Gap 5 (5-15); BUN 9 mg/dL (7-18); BUN/Creat Ratio 10.9 RATIO (10-20); Calcium,Total 9.3 mg/dL (8.5-10.1); Chloride 104 mmol/L (98-107); Creatinine, Serum 0.82 mg/dL (0.55-1.02); EST Glomerular Filtration Rate 85 mL/min (>60); Est Glom Filt Rate - Afr Amer 103 mL/min (>60); Estimated Creatinine Clearance 91.35 ml/min; Glucose 82 mg/dL (74-106); Sodium Level 138 mmol/L (136-145)
[2019-11-09] MEDS: dexAMETHasone 10 MG/ML Vial IV (18:25)
[2019-11-09 18:36] VITALS: BP 115/71; PULSE 63; RESP 16; RESP 63; TEMP -8.8; TEMP 16; O2SAT 98
== END 2019-11-09 18:37 | disposition home or self-care (01) ==
LOC: ED 16:51
PROVIDERS: Emergency Provider Emergency Medicine; PCP Internal Medicine
DX: R51 Headache (principal); F32.9 Major depressive disorder, single episode, unspecified; F41.9 Anxiety disorder, unspecified; F17.200 Nicotine dependence, unspecified, uncomplicated; J02.9 Acute pharyngitis, unspecified; Z79.899 Other long term (current) drug therapy
CPT/HCPCS: 70450; 80048; 85025; 96361; 96374; 96375; 99284; J7030; A4216

== ENCOUNTER → 2020-01-28 10:47 | Outpatient (CLI) | payer MEDICAID, SELFPAY ==
[2020-01-28 10:09] VITALS: BMI 31.1
--- NOTE | 2020-01-28 11:40 | RAD_ITS ---
STUDY: X-RAY - BILATERAL TEMPOROMANDIBULAR JOINTS REASON FOR EXAM: Female, 34 years old. LEFT TMJ PAIN, NKI TECHNIQUE: Open and closed mouth view(s) of the temporomandibular joints were obtained. COMPARISON: None. FINDINGS: Normal right temporomandibular joint (T.M.J.). Normal right mandibular condyle. There is no dislocation of the right mandibular condyles. Normal left temporomandibular joint (T.M.J.). Normal left mandibular condyle. There is no dislocation of the left mandibular condyles. The soft tissue structures are unremarkable. RAD/Temporo-Mandibular Jt William IMPRESSION: Normal x-ray of the temporomandibular articulation. Electronically Signed: Deewy Caicedo, at 13:12 EDT , Service support ,
[2020-01-28 13:36] LABS: Thyroid Stim Hormone (TSH) 2.23 uIU/mL (0.358-3.74)
== END ==
PROVIDERS: PCP Internal Medicine; Referring Provider Nurse Practitioner Family; Visit Provider Nurse Practitioner Family
DX: M26.609 Unspecified temporomandibular joint disorder, unspecified side (principal); R63.5 Abnormal weight gain
CPT/HCPCS: 36415; 70330; 84443

== ENCOUNTER 2020-02-15 09:56 | Outpatient (RCR) | payer MEDICAID, SELFPAY ==
[2020-01-28 10:09] VITALS: BMI 31.1
== END 2020-02-15 23:59 | disposition home or self-care (01) ==
LOC: NS 09:56
PROVIDERS: PCP Internal Medicine; Visit Provider Nurse Practitioner Family
DX: Z71.3 Dietary counseling and surveillance (principal); E66.9 Obesity, unspecified; Z68.31 Body mass index [BMI] 31.0-31.9, adult
CPT/HCPCS: 97802

== ENCOUNTER → 2020-03-28 | Outpatient (CLI) | payer MEDICAID, SELFPAY ==
[2020-01-28 10:09] VITALS: BMI 31.1
== END | disposition home or self-care (01) ==
LOC: MTDU 10:18
PROVIDERS: PCP Internal Medicine; Referring Provider Internal Medicine; Visit Provider Internal Medicine
DX: Z20.828 Contact with and (suspected) exposure to other viral communicable diseases (principal)
CPT/HCPCS: 87635; C9803; U0003

== ENCOUNTER 2020-05-24 19:36 | Emergency (ER) | payer MEDICAID, SELFPAY ==
[2020-05-24 19:37] VITALS: BP 116/50; PULSE 84; RESP 16; TEMP 36.3; O2SAT 97; BMI 29.0
--- NOTE | 2020-05-24 19:59 | ED.VIS.GEN ---
History of Present Illness Chief Complaint: Lower Extremity Injury Informant: Patient Narrative: 34-year-old female presenting for evaluation of left knee and left lower leg pain. Patient states that she was skating and tried to turn around to go backwards and felt a crack in her knee knee and the area below her knee. She states that after that she fell down but did not strike her knee on the ground. She is unable to ambulate. - Past Medical History (1) ADHD Status: Chronic (2) Anxiety Status: Chronic Past Medical History - Allergies and Home Meds Allergies/Adverse Reactions: Allergies No Known Allergies Allergy (Verified 05/24/20 19:39) Primary Care Physician: Flakito Seals MD [Primary Care Provider] - Prior records reviewed: Yes Past Medical History: - - Reviewed in problem list Surgical History: noncontributory, - - Reviewed Lives: Spouse/ Significant Other Smoking Status: Never smoker Alcohol: None Drugs: None Review of Systems General: Denies: Chills, Fever, Sweats Eyes: Denies: Visual changes - bilaterally, Diplopia ENT: Denies: Rhinorrhea, Sore throat Cardiovascular: Denies: Chest pain, Palpitations Respiratory: Denies: Dyspnea, Cough, Dyspnea on exertion Genitourinary: Denies: Dysuria, Hematuria, Frequency Musculoskeletal: Reports: Extremity Pain - Left knee pain. Denies: Back pain Skin: Denies: Rash, Wounds Neurological: Denies: Headache, Weakness, Numbness Psych: Denies: Depression, Anxiety Physical Exam Vital Signs/Narrative: Vital Signs Temp Pulse Resp BP Pulse Ox 05/24/20 19:37 97.3 F L 84 16 116/50 L 97 Inital Vital Signs reviewed: Yes General: Well nourished, No Acute Distress Head: Normocephalic, Atraumatic Eyes: Perrl, EOMI ENT: Moist mucous membranes, Nasal congestion Cardiovascular: Regular rate, Regular rhythm Respiratory: No distress, CTA bilaterally Extremities: - - Tenderness to palpation over the inferior aspect of the left knee extending into the left proximal fibular region. No deformity. No bruising. No ecchymosis. No swelling.. Negative for: No edema Skin: Normal color, No rash Neurological: Alert, Oriented x3, Cranial nerves II-XII grossly intact Psychological: Normal affect, Normal Mood Diagnostic/Tx/Re-eval Clinical Impression(s) from Imaging Studies Knee X-Ray 05/24/20 20:26 IMPRESSION: No acute fracture or other significant bony pathology Electronically Signed: Moises Mccarty MD at 20:50 EST , Service support , Tibia/Fibula X-Ray 05/24/20 20:26 IMPRESSION: Normal x-ray examination of the tibia and fibula. Electronically Signed: Moises Mccarty MD at 20:47 EST , Service support , - Medical Decision Making Patient given oxycodone for pain. She had x-rays of the left knee and left tib-fib. These are both interpreted by myself and the radiologist as negative for acute fracture or subluxation. Patient given Jacinto wrap to the knee for comfort. She is given crutches for ambulation. She is counseled to follow-up outpatient with her PCP. She is given return precautions. Patient stable for discharge. Impression: 1. Left knee strain ED Disposition - Plan for ED Patient: Disposition: Home or Assisted Living Instructions: ED Knee Sprain Prescriptions: Hydrocodone Bitart/Apap 5-325 [[place] 5MG-325MG] 1 tab PO Q6H PRN PRN 2 Days #10 tab PRN Reason: Pain Prescription Printed Referrals: Flakito Seals MD [Primary Care Provider] -
[2020-05-24] MEDS: oxyCODONE 5 MG Tablet PO (20:04)
--- NOTE | 2020-05-24 20:26 | RAD_ITS ---
STUDY: X-RAY - LEFT KNEE REASON FOR EXAM: Female, 34 years old. Pt was skating today and felt pain in lateral left knee. TECHNIQUE: 4 view(s) of the knee. COMPARISON: None. FINDINGS: Normal visualized distal femur. Normal visualized proximal tibia and fibula. Normal proximal tibiofibular articulation. Small bone island noted within the lateral femoral condyle Normal medial femorotibial compartment. Normal lateral femorotibial compartment. Normal patellofemoral articulation. The soft tissue structures are unremarkable. RAD/Knee 4 or More Views IMPRESSION: No acute fracture or other significant bony pathology Electronically Signed: Moises Mccarty MD at 20:50 EST , Service support ,
--- NOTE | 2020-05-24 20:26 | RAD_ITS ---
STUDY: X-RAY - LEFT TIBIA AND FIBULA REASON FOR EXAM: Female, 34 years old. Pt was skating today and felt pain in lateral left knee. TECHNIQUE: 3 view(s) of the tibia and fibula were obtained. COMPARISON: None. FINDINGS: Normal visualized tibia. Normal visualized fibula. The soft tissue structures are unremarkable. RAD/Tibia & Fibula 2 Views IMPRESSION: Normal x-ray examination of the tibia and fibula. Electronically Signed: Moises Mccarty MD at 20:47 EST , Service support ,
== END 2020-05-24 21:20 | disposition home or self-care (01) ==
PROVIDERS: Emergency Provider Student in an Organized Health Care Education/Training Program; PCP Internal Medicine
DX: S86.912A Strain of unspecified muscle(s) and tendon(s) at lower leg level, left leg, initial encounter (principal); X50.1XXA Overexertion from prolonged static or awkward postures, initial encounter; Y93.21 Activity, ice skating; Y92.9 Unspecified place or not applicable; Y99.9 Unspecified external cause status; F90.9 Attention-deficit hyperactivity disorder, unspecified type; F41.9 Anxiety disorder, unspecified; Z79.899 Other long term (current) drug therapy
CPT/HCPCS: 73564; 73590; 99284

== ENCOUNTER → 2020-06-30 | Outpatient (CLI) | payer MEDICAID, SELFPAY | END | disposition home or self-care (01) | LOC: LABSPEC 13:51 | PROVIDERS: PCP Internal Medicine; Referring Provider Nurse Practitioner Family; Visit Provider Nurse Practitioner Family | DX: Z20.822 Contact with and (suspected) exposure to COVID-19 (principal) | CPT/HCPCS: 87635; U0005; U0003 ==

== ENCOUNTER → 2020-07-24 16:14 | Outpatient (CLI) | payer MEDICAID, SELFPAY ==
[2020-07-24 15:05] VITALS: BMI 31.8
[2020-07-24 16:52] LABS: Absolute Lymphocyte Count 2.25 X10^3/uL (0.83-4.51); Absolute Neutrophil Count 3.8 X10^3/uL (2.0-7.7); Basophil# 0.02 X10^3/uL; Basophil% 0.3 % (0-1); Eosinophil# 0.16 X10^3/uL; Eosinophils% 2.3 % (0-5); Hematocrit 39.6 % (37-47); Hemoglobin 12.6 g/dL (12.0-15.0); Lymphocyte # 2.25 X10^3/ul (4.0); Lymphocyte % 32.8 % (19-41); Mean Corp Hgb Conc 31.8 g/dL (32-36); Mean Corpuscular Hgb 26.9 pg (27.0-32.0); Mean Corpuscular Volume 84.4 fL (81-99); Mean Platelet Vol. 11.3 fl (6.2-12.0); Monocyte# 0.61 X10^3/uL; Monocyte% 8.9 % (0-10); NRBC Flagged by Analyzer 0 % (0-5); Neutrophil # 3.76 X10^3/uL (2.7-7.7); Platelet Count 245 K/mm3 (150-450); RBC Distribution Width CV 13.2 % (11.6-14.6); RBC Distribution Width SD 40.1 fl (35.1-43.9); Red Blood Count 4.69 M/mm3 (4.2-5.4); White Blood Count 6.9 K/mm3 (4.4-11.0)
[2020-07-24 17:25] LABS: Vitamin D,25 Hydroxy 15.2 ng/mL
[2020-07-24 17:36] LABS: Erythrocyte Sedimentation Rate 28 mm/hr (0-30)
[2020-07-24 17:37] LABS: ALB/GLOB Ratio 0.6 RATIO (0.9-2.4); AST(SGOT) 12 U/L (15-37); Alanine Aminotransfer ALT/SGPT 21 U/L (13-56); Albumin, Serum 2.8 g/dL (3.2-5.0); Alkaline Phosphatase 96 U/L (45-117); Anion Gap 5 (5-15); BUN 10 mg/dL (7-18); BUN/Creat Ratio 11.6 RATIO (10-20); Calcium,Total 8.5 mg/dL (8.5-10.1); Chloride 106 mmol/L (98-107); Creatinine, Serum 0.86 mg/dL (0.55-1.02); EST Glomerular Filtration Rate 80 mL/min (>60); Est Glom Filt Rate - Afr Amer 97 mL/min (>60); Free T3 2.4 pg/mL (2.18-3.98); Globulin 4.5 g/dL (2.2-4.2); Glucose 82 mg/dL (74-106); Potassium 4.1 mmol/L (3.5-5.1); Protein, Total 7.3 g/dL (6.4-8.2); Sodium Level 140 mmol/L (136-145); T4 Free Direct 0.98 ng/dL (0.76-1.46); Thyroid Stim Hormone (TSH) 3.59 uIU/mL (0.358-3.74)
== END ==
PROVIDERS: PCP Internal Medicine; Referring Provider Internal Medicine; Visit Provider Internal Medicine
DX: E55.9 Vitamin D deficiency, unspecified (principal); R07.0 Pain in throat; R50.9 Fever, unspecified; R53.83 Other fatigue
CPT/HCPCS: 36415; 80053; 82306; 84439; 84443; 84481; 85025; 85652

== ENCOUNTER → 2020-08-21 09:21 | Outpatient (CLI) | payer MEDICAID, SELFPAY ==
[2020-07-24 15:05] VITALS: BMI 31.8
[2020-08-22 16:09] LABS: Immunoglobulin A 291 mg/dL (87-352); Immunoglobulin G 1078 mg/dL (586-1602); Immunoglobulin G, Subclass 1 595 mg/dL (248-810); Immunoglobulin G, Subclass 2 340 mg/dL (130-555); Immunoglobulin G, Subclass 3 83 mg/dL (15-102); Immunoglobulin G, Subclass 4 1 mg/dL (2-96)
[2020-08-22 17:04] LABS: Immunoglobulin M 94 mg/dL (26-217)
== END ==
PROVIDERS: PCP Internal Medicine; Referring Provider Internal Medicine; Visit Provider Internal Medicine
DX: R77.1 Abnormality of globulin (principal)
CPT/HCPCS: 36415; 82784; 82787

== ENCOUNTER → 2020-09-08 14:18 | Outpatient (CLI) | payer MEDICAID, SELFPAY ==
[2020-09-08 15:04] LABS: Absolute Lymphocyte Count 2.23 X10^3/uL (0.83-4.51); Absolute Neutrophil Count 3.1 X10^3/uL (2.0-7.7); Basophil# 0.02 X10^3/uL; Basophil% 0.3 % (0-1); Eosinophil# 0.14 X10^3/uL; Eosinophils% 2.3 % (0-5); Hematocrit 41.5 % (37-47); Hemoglobin 13.1 g/dL (12.0-15.0); Lymphocyte # 2.23 X10^3/ul (0.83-4.51); Lymphocyte % 37.4 % (19-41); Mean Corp Hgb Conc 31.6 g/dL (32-36); Mean Corpuscular Hgb 26.5 pg (27.0-32.0); Mean Platelet Vol. 11.1 fl (6.2-12.0); Monocyte# 0.45 X10^3/uL; Monocyte% 7.5 % (0-10); NRBC Flagged by Analyzer 0 % (0-5); Neutrophil # 3.11 X10^3/uL (2.7-7.7); Neutrophil % 52.2 % (47-70); Platelet Count 263 K/mm3 (150-450); RBC Distribution Width CV 13.1 % (11.6-14.6); RBC Distribution Width SD 39.6 fl (35.1-43.9); Red Blood Count 4.94 M/mm3 (4.2-5.4)
[2020-09-08 15:24] LABS: ALB/GLOB Ratio 0.7 RATIO (0.9-2.4); AST(SGOT) 12 U/L (15-37); Alanine Aminotransfer ALT/SGPT 28 U/L (13-56); Albumin, Serum 3.1 g/dL (3.2-5.0); Alkaline Phosphatase 76 U/L (45-117); Anion Gap 8 (5-15); BUN 16 mg/dL (7-18); BUN/Creat Ratio 19.3 RATIO (10-20); Calcium,Total 9.3 mg/dL (8.5-10.1); Chloride 103 mmol/L (98-107); Creatinine, Serum 0.83 mg/dL (0.55-1.02); EST Glomerular Filtration Rate 84 mL/min (>60); Est Glom Filt Rate - Afr Amer 101 mL/min (>60); Globulin 4.2 g/dL (2.2-4.2); Glucose 82 mg/dL (74-106); Potassium 4.3 mmol/L (3.5-5.1); Protein, Total 7.3 g/dL (6.4-8.2); Sodium Level 135 mmol/L (136-145)
== END ==
PROVIDERS: PCP Internal Medicine; Referring Provider Internal Medicine; Visit Provider Internal Medicine
DX: F32.9 Major depressive disorder, single episode, unspecified (principal); F41.9 Anxiety disorder, unspecified
CPT/HCPCS: 36415; 80053; 85025

== ENCOUNTER → 2020-12-29 12:00 | Outpatient (CLI) | payer MEDICAID, SELFPAY ==
[2020-12-29 11:34] VITALS: BMI 26.6
--- NOTE | 2020-12-29 12:25 | RAD_ITS ---
STUDY: X-RAY CHEST REASON FOR EXAM: Female, 35 years old. One week history of cough and shortness of breath. TECHNIQUE: PA and lateral views of the chest. COMPARISON: Comparison is made with prior examination dated 11/26/2018. FINDINGS: Hyperinflation. The lungs are clear. There is no demonstrated pleural abnormality. Normal size heart. Normal mediastinum and ten. Normal visualized pulmonary arteries. Normal visualized aortic arch and descending thoracic aorta. Normal visualized thoracic spine. Pectus risk of active deformity. There is no demonstrated abnormality of the visualized soft tissue structures of the upper abdomen. RAD/Chest PA and Lateral IMPRESSION: Hyperinflation. The lungs are clear. Electronically Signed: Dewey Caicedo MD at 13:23 EDT , Service support ,
== END ==
PROVIDERS: PCP Internal Medicine; Referring Provider Physician Assistant Surgical; Visit Provider Physician Assistant Surgical
DX: J20.9 Acute bronchitis, unspecified (principal)
CPT/HCPCS: 71046

== ENCOUNTER → 2023-02-07 | Outpatient (CLI) | payer MEDICAID, SELFPAY ==
[2023-02-07 16:21] LABS: Absolute Lymphocyte Count 1.91 X10^3/uL (0.83-4.51); Absolute Neutrophil Count 4.1 X10^3/uL (2.0-7.7); Basophil# 0.03 X10^3/uL; Basophil% 0.5 % (0-1); Eosinophil# 0.09 X10^3/uL; Eosinophils% 1.4 % (0-5); Hemoglobin 12.8 g/dL (12.0-15.0); Lymphocyte # 1.91 X10^3/ul (0.83-4.51); Lymphocyte % 29.1 % (19-41); Mean Corp Hgb Conc 32.8 g/dL (32-36); Mean Corpuscular Hgb 28.8 pg (27.0-32.0); Mean Corpuscular Volume 87.6 fL (81-99); Mean Platelet Vol. 11.5 fl (6.2-12.0); Monocyte% 6.1 % (0-10); NRBC Flagged by Analyzer 0 % (0-5); Neutrophil # 4.11 X10^3/uL (2.7-7.7); Neutrophil % 62.6 % (47-70); Platelet Count 284 K/mm3 (150-450); Red Blood Count 4.45 M/mm3 (4.2-5.4); White Blood Count 6.6 K/mm3 (4.4-11.0)
[2023-02-07 17:15] LABS: ALB/GLOB Ratio 0.7 RATIO (0.9-2.4); AST(SGOT) 9 U/L (15-37); Alanine Aminotransfer ALT/SGPT 22 U/L (13-56); Albumin, Serum 2.9 g/dL (3.2-5.0); Alkaline Phosphatase 65 U/L (45-117); Anion Gap 5 (5-15); BUN 6 mg/dL (7-18); BUN/Creat Ratio 7.3 RATIO (10-20); Calcium,Total 8.8 mg/dL (8.5-10.1); Chloride 107 mmol/L (98-107); Cholesterol 239 mg/dL (200); Creatinine, Serum 0.83 mg/dL (0.55-1.02); EST Glomerular Filtration Rate 83 mL/min (>60); Est Glom Filt Rate - Afr Amer 100 mL/min (>60); Globulin 4.3 g/dL (2.2-4.2); Glucose 95 mg/dL (74-106); High Density Lipoprotein 56 mg/dL; Potassium 3.8 mmol/L (3.5-5.1); Protein, Total 7.2 g/dL (6.4-8.2); Sodium Level 140 mmol/L (136-145); Triglycerides 102 mg/dL; Very Low Density Lipoprotein 20 mg/dL (5-40)
== END | disposition home or self-care (01) ==
LOC: BIMLAB 15:39
PROVIDERS: PCP Internal Medicine; Referring Provider Internal Medicine; Visit Provider Internal Medicine
DX: Z00.00 Encounter for general adult medical examination without abnormal findings (principal)
CPT/HCPCS: 36415; 80053; 80061; 85025

== ENCOUNTER 2023-03-14 15:37 | Emergency (ER) | payer MEDICAID, SELFPAY ==
[2023-03-14 15:38] VITALS: BP 114/84; PULSE 99; RESP 16; TEMP 36.4; O2SAT 100; BMI 24.7
--- NOTE | 2023-03-14 16:44 | CT_ITS ---
STUDY: CT ABDOMEN AND PELVIS WITHOUT CONTRAST REASON FOR EXAM: Female, 37 years old. Kidney Stone RADIATION DOSAGE (If Supplied By Facility): CTDIvol = ( 6.90 ) mGy, DLP = ( 334.36 ) mGycm TECHNIQUE: Transaxial images were obtained from the dome of the diaphragm to the symphysis pubis without oral contrast, and without intravenous contrast. Sagittal and coronal images were reconstructed. Individualized dose optimization techniques were used for this CT. COMPARISON: January 22, 2019. FINDINGS: The visualized lung bases are unremarkable. The visualized portions of the heart are within normal limits. Normal liver. Normal gallbladder and extrahepatic biliary system. Normal spleen. Normal pancreas. Normal bilateral adrenal glands. Normal right kidney. Normal left kidney. Normal visualized stomach. Mild ileus with diffuse fecal retention in colon.. The appendix is visualized and appears normal. Minor atherosclerotic change of the aorta without evidence for aneurysm. Normal inferior vena cava. Normal retroperitoneum. Normal urinary bladder. Normal abdominal wall. Surgical changes status post bilateral pubic fracture repair CT/Abdomen/Pelvis without Cont IMPRESSION: Mild ileus diffuse fecal retention in colon. No evidence for renal obstruction or ureteral calculus. Electronically Signed: Moises Mccarty MD at 18:01 EDT ,
--- NOTE | 2023-03-14 16:47 | ED.VIS.GI ---
HPI HPI - GI History of Present Illness Chief Complaint: Abd Pain Informant: patient Narrative Narrative: Patient is a 37-year-old female presenting with lower abdominal pain. Patient she woke up this morning and felt like she was having bad cramps in her pelvic area. She had some urgency and thought maybe she is getting a UTI. She has some mild dysuria. She is having intermittent pain throughout the day but then she started having pain from her suprapubic region rating to her right flank. She started having some sweating and chills. She has a blood in her urine. She denies any abnormal vaginal discharge but notes yesterday she had something in her underwear that looks like tissue from inside me. She denies any associated nausea or vomiting. She denies any fever. She notes that she has had a new partner over the last few months but for the has not had any new partners over the past 2 years. Does not think she has sexually-transmitted infection. Denies any history of kidney stones. Did take ibuprofen around 11 AM with some relief of her symptoms. No other complaints or concerns at this time. Last menstrual period was earlier this month. [facility] Medical History Acute conjunctivitis, left eye Acute maxillary sinusitis, unspecified ADHD Borderline personality disorder Contact with and (suspected) exposure to other viral communicable diseases COVID-19 Fibromyalgia Fracture of left upper limb GERD (gastroesophageal reflux disease) Hearing loss Left hip pain Lump of right breast Nicotine dependence, cigarettes, uncomplicated Osteitis of symphysis pubis Polysubstance dependence, non-opioid, in remission Pre-eclampsia Preventative health care Seasonal allergies Severe recurrent major depression UTI (urinary tract infection) Vitamin deficiency Home Medications clonazepam 0.5 mg tablet 0.25 mg PO QHS PRN Insomnia 09/02/18 [History Last Taken Unknown] fluoxetine 40 mg capsule 40 mg PO DAILY 08/10/19 [History Last Taken Unknown] acetaminophen 325 mg tablet (Tylenol) 325 mg PO ONCE PRN Pain Or Fever 11/03/19 [History Last Taken Unknown] benzonatate 200 mg capsule 200 mg PO TID PRN cough #20 caps 01/13/23 [Rx Last Taken Unknown] cyclobenzaprine 10 mg tablet 5 - 10 mg (0.5 - 1 x 10 mg) PO TID PRN muscle spasm #60 tabs 02/07/23 [Rx Last Taken Unknown] Allergy/AdvReac Type Severity Reaction Status Date / Time No Known Allergies Allergy Verified 03/14/23 15:38 Family History Mother Arthritis Autoimmune disease Blood clot in vein Hypertension Melanoma CVA (cerebral vascular accident) Father Arthritis High cholesterol H/O ulcer disease Grandmother Anxiety Arthritis Myocardial infarction Depression COPD (chronic obstructive pulmonary disease) High cholesterol Hypertension Grandfather Arthritis High cholesterol Hypertension Diabetes Grandmother Kidney disease Surgical History history closed reduction left arm fracture history diagnostic laparoscopy History of History of colonoscopy (~2018) History of esophagogastroduodenoscopy (EGD) (~2019) History of orthopedic surgery removal orthpeadic screw from back Social History Smoking Status: Current every day smoker tobacco type: cigarettes Electronic Cigarette Use: with nicotine alcohol intake: current alcohol intake frequency: holidays/special occasions only Alcohol type: wine substance use type: does not use what type of physical activity do you participate in: none ROS ROS ED Constitutional Constitutional ED: Reports chills and sweats; Denies fever(s) ENT ENT ED: Denies sore throat Cardiovascular Cardiovascular: Denies chest pain Respiratory/Chest Respiratory/Chest: Denies cough Gastrointestinal Gastrointestinal: Reports abdominal pain; Denies constipation, diarrhea, melena, nausea or vomiting Genitourinary Genitourinary ED: Reports dysuria and urinary frequency; Denies hematuria Musculoskeletal Musculoskeletal: Reports back pain; Denies arthralgias or myalgias Integumentary Denies rash Neurologic Neurologic: Denies headache(s) Psychiatric Psychiatric: Denies anxiety EXAM Physical Exam Const Vital Signs: 03/14/23 15:38 Temperature 97.5 F L Temperature Source Temporal Pulse Rate 99 Respiratory Rate 16 Blood Pressure 114/84 H Blood Pressure Mean 94 Pulse Ox 100 Oxygen Delivery Method Room Air Positive well nourished and well developed General Appearance ED: well developed HEENT Reports moist mucous membranes Eyes PERRL Neck supple Resp normal respiratory effort and clear to auscultation bilaterally Cardio regular rate, regular rhythm and no murmurs GI non-distended Auscultation: normoactive bowel sounds Palpation: soft and tender LLQ, RLQ and suprapubic; Negative for guarding or rigid Narrative: Deferred per patient request Back/Spine no CVA tenderness Thoracic Spine / Upper Back: Negative for thoracic spinal tenderness Lumbar Spine / Lower Back: Negative for lumbar spinal tenderness Extremity full ROM General Extremety ED: Negative for edema General Extremity: Negative for edema Neuro Sensorium / Orientation: alert Motor Exam: Negative for general weakness Psych mental status grossly normal and thought process normal Skin no wounds Rashes: no rashes MDM MDM MDM Narrative Medical decision making narrative: Patient evaluated for suprapubic pain and lower abdominal pain. Now rating to her right flank. She is also had sweating and chills but no fever. Differential includes UTI, pyelonephritis, kidney stone and less likely colitis. Differential does also include STI/PID however patient initially requested to defer pelvic exam. Is given IV Toradol. Clinically does not appear dehydrated so will defer fluids at this time. Patient does not have prominent pain with Toradol. Repeat evaluation is performed. CT shows mild ileus with diffuse fecal retention in the colon. I suspect this is the cause of her pain. Case discussed with Dr. Beltrán, surgery on-call with the CT read. She does not have any peritoneal findings or leukocytosis. He highly recommends an enema in the ER for this and then magnesium citrate for when she is home for cleanout. Thinks outpatient treatment of this is reasonable at this time. Initially patient was hesitant to the enema and wanted to do at home but after discussion with the patient on the importance of making sure she has a proper enema she is agreeable. Will give soapsuds enema anticipate discharge home with magnesium citrate. Is given outpatient follow-up with general surgery and return precautions should her symptoms worsen or recur. Patient agreeable this plan of care. Work-up otherwise completely normal. Patient has a moderate-sized stool per nursing report. Discharged home per above plan. Given return precautions. Given outpatient follow-up information with general surgery. Lab Data Attestation: I reviewed the patient's lab results. Labs: Laboratory Results - last 24 hr 03/14/23 16:30 WBC 9.0 RBC 4.54 Hgb 13.0 Hct 39.7 MCV 87.4 MCH 28.6 MCHC 32.7 RDW Std Deviation 41.4 RDW Coeff of Chaz 12.9 Plt Count 200 MPV 11.4 Immature Gran % (Auto) 0.400 Neut % (Auto) 70.6 H Lymph % (Auto) 18.6 L Mobile % (Auto) 7.9 Eos % (Auto) 2.3 Baso % (Auto) 0.2 Absolute Neuts (auto) 6.4 Absolute Lymphs (auto) 1.68 Nucleated RBC % 0 Sodium 143 Potassium 4.0 Chloride 107 Carbon Dioxide 30.0 Anion Gap 6 BUN 9 Creatinine 0.76 Estim Creat Clear Calc 95.80 Est GFR (MDRD) Af Amer 111 Est GFR (MDRD) Non-Af 92 BUN/Creatinine Ratio 11.9 Glucose 85 Calcium 8.9 Urine Color Yellow Urine Clarity Clear Urine pH 6.5 Ur Specific [place] 1.010 Urine Protein Negative Urine Glucose (UA) Normal Urine Ketones Negative Urine Occult Blood Negative Urine Nitrite Negative Urine Bilirubin Negative Urine Urobilinogen Normal Ur Leukocyte Esterase Negative Urine RBC 0 SEEN Urine WBC 0 SEEN Ur Squamous Epith Cells 0-5 SEEN Urine Bacteria 0 SEEN Urine Mucus 0 SEEN Urine Test Negative Radiography Diagnostic Testing: Clinical Impression(s) from Imaging Studies Abdomen/Pelvis CT 03/14/23 16:44 IMPRESSION: Mild ileus diffuse fecal retention in colon. No evidence for renal obstruction or ureteral calculus. Electronically Signed: Moises Mccarty MD at 18:01 EDT , Management Discussion w/another healthcare provider: Sanitation Associate Discharge Plan Triage Chief Complaint: Abd Pain ED Provider: Tosha Hopkins Dx/Rx/DC Orders Clinical Impression: Pelvic pain, Fecal retention Instructions: ED Constipation (Adult) Prescriptions: No Action fluoxetine 40 mg capsule 40 mg PO DAILY acetaminophen [Tylenol] 325 mg tablet 325 mg PO ONCE PRN (Reason: Pain Or Fever) cyclobenzaprine 10 mg tablet 5 - 10 mg PO TID PRN (Reason: muscle spasm) Qty: 60 2RF benzonatate 200 mg capsule 200 mg PO TID PRN (Reason: cough) Qty: 20 0RF clonazepam 0.5 mg tablet 0.25 mg PO QHS PRN (Reason: Insomnia) Patient Comments: Primary Care Provider: Flakito Seals Referrals: Gage Beltrán MD [Med Staff - Active Staff] - As Needed Flakito Seals MD [Primary Care Provider] - Activity Restrictions/Additional Instructions: You have been given a bottle of magnesium citrate here. Please drink half a bottle of it when you get home. This is a laxative that should help you have further bowel movements to help clear out the stool in your colon. This should help with your pelvic pain. He might have cramping while the medicines are working. If your symptoms worsen via further concerns please follow-up with general surgery or return to the ER. Make sure you are drinking plenty of fluids. Once your bowel movements normalize you might benefit from taking daily MiraLAX to help prevent this from happening again. Disposition Disposition: Home, Self Care Discharge Date/Time: 03/14/23 19:27
[2023-03-14 16:51] LABS: Bacteria 0 SEEN /hpf (None Seen); Mucous, Urine 0 SEEN /hpf (<or=2+); Red Blood Cells-Urine 0 SEEN /hpf (0-5); White Blood Cells 0 SEEN /hpf (0-5)
[2023-03-14] MEDS: Ketorolac 15 MG/ML Vial IV (16:51)
[2023-03-14 17:09] LABS: Color, Urine Yellow (Yellow); Glucose, Dipstick Normal (Normal); Ketone-Dipstick Negative (Negative); Leukocyte Esterase-Dipstick Negative /ul (Negative); Nitrite-Dipstick Negative (Negative); Occult Blood-Urine Negative /ul (Negative); Protein-Dipstick Negative (Negative); Urine Bilirubin Dipstick Negative (Negative); Urine Clarity Clear (Clear); Urine Urobilinogen Normal (Normal); Urine pH 6.5 (5.0 - 8.0)
[2023-03-14 17:13] LABS: Internal QC Validated? YES +Cl - CLEAR BKGD; Pregnancy, Urine Negative Negative
[2023-03-14 17:17] LABS: Anion Gap 6 (5-15); BUN 9 mg/dL (7-18); BUN/Creat Ratio 11.9 RATIO (10-20); Calcium,Total 8.9 mg/dL (8.5-10.1); Chloride 107 mmol/L (98-107); Creatinine, Serum 0.76 mg/dL (0.55-1.02); EST Glomerular Filtration Rate 92 mL/min (>60); Est Glom Filt Rate - Afr Amer 111 mL/min (>60); Glucose 85 mg/dL (74-106); Sodium Level 143 mmol/L (136-145); Squamous Epithelial Cells - UA 0-5 SEEN /hpf (5-10)
[2023-03-14 17:23] LABS: Absolute Lymphocyte Count 1.68 X10^3/uL (0.83-4.51); Absolute Neutrophil Count 6.4 X10^3/uL (2.0-7.7); Basophil# 0.02 X10^3/uL; Basophil% 0.2 % (0-1); Eosinophil# 0.21 X10^3/uL; Eosinophils% 2.3 % (0-5); Hematocrit 39.7 % (37-47); Lymphocyte # 1.68 X10^3/ul (0.83-4.51); Lymphocyte % 18.6 % (19-41); Mean Corp Hgb Conc 32.7 g/dL (32-36); Mean Corpuscular Hgb 28.6 pg (27.0-32.0); Mean Corpuscular Volume 87.4 fL (81-99); Mean Platelet Vol. 11.4 fl (6.2-12.0); Monocyte# 0.71 X10^3/uL; Monocyte% 7.9 % (0-10); NRBC Flagged by Analyzer 0 % (0-5); Neutrophil # 6.35 X10^3/uL (2.7-7.7); Neutrophil % 70.6 % (47-70); Platelet Count 200 K/mm3 (150-450); RBC Distribution Width CV 12.9 % (11.6-14.6); RBC Distribution Width SD 41.4 fl (35.1-43.9); Red Blood Count 4.54 M/mm3 (4.2-5.4)
[2023-03-14] MEDS: Magnesium Citrate 300 ML PO (19:16)
== END 2023-03-14 19:27 | disposition home or self-care (01) ==
PROVIDERS: Emergency Provider Emergency Medicine; PCP Internal Medicine; Visit Provider Emergency Medicine
DX: K59.00 Constipation, unspecified (principal); F17.210 Nicotine dependence, cigarettes, uncomplicated; R31.9 Hematuria, unspecified; R30.0 Dysuria; R35.0 Frequency of micturition
CPT/HCPCS: 74176; 80048; 81001; 81025; 85025; 96374; 99284; A4216

== ENCOUNTER 2023-06-12 22:12 | Emergency (ER) | payer SELFPAY ==
[2023-06-12 22:13] VITALS: BP 144/83; PULSE 84; RESP 16; TEMP 35.7; O2SAT 100
--- NOTE | 2023-06-12 22:34 | CT_ITS ---
EXAM: CT Abdomen And Pelvis W/ Contrast Injection HISTORY: traumatic right flank pain TECHNIQUE: Routine protocol CT abdomen pelvis. IV Contrast: IV 100mL [id number] . Oral Contrast: without. Sagittal and coronal images were reconstructed. RADIATION DOSAGE (If Supplied By Facility): CTDIvol = ( 15.97 ) mGy, DLP = ( 729.32 ) mGycm Individualized dose optimization techniques were used for this CT. COMPARISON: CT abdomen and pelvis 03/14/2023. LIMITATIONS: None. FINDINGS: LOWER CHEST: Lung bases are clear. LIVER: Unremarkable. GALLBLADDER/BILE DUCTS: Unremarkable. PANCREAS: Unremarkable. SPLEEN: Unremarkable. ADRENAL GLANDS: Unremarkable. KIDNEYS / URETERS: Unremarkable. BOWEL / MESENTERY: Unremarkable. No bowel obstruction. APPENDIX: Identified and normal. No evidence of acute appendicitis. PERITONEUM: No free air. Small amount of free fluid in the pelvis.. VESSELS: Abdominal aorta is normal caliber. RETROPERITONEUM: Unremarkable. REPRODUCTIVE ORGANS: Lobulated uterus with likely a small fibroid along the right lateral aspect. Approximately 3 cm cyst in the right ovary, smaller cyst/follicle in the left ovary. BLADDER: Unremarkable. ABDOMINAL WALL: Unremarkable. BONES: Surgical hardware in the pelvis transfixing the pubic symphysis. No acute fracture demonstrated. OTHER: None. CT/Abdomen/Pelvis W IV Cont ONLY IMPRESSION: No evidence of acute intra-abdominal injury. Electronically Signed: Jessika Vasquez MD at 23:53 EST ,
--- NOTE | 2023-06-12 22:34 | CT_ITS ---
INDICATION: head injury EXAMINATION: CT BRAIN - CT Head or Brain W/O Contrast Injection TECHNIQUE: Multiple axial images were obtained of the head without intravenous contrast. A radiation dose optimization technique was used for this scan. IV Contrast dosage and agent: None. RADIATION DOSAGE (If Supplied By Facility): CTDIvol = ( 44.99 ) mGy, DLP = ( 796.11 ) mGycm COMPARISON: CT head 11/09/2019 FINDINGS: BRAIN: No acute bleed. No edema. Cazares-white matter differentiation is maintained. VENTRICLES AND SULCI: Not dilated. EXTRA-AXIAL: No hemorrhage, fluid collection, or mass. CALVARIUM / SKULL BASE: Unremarkable. FACE/SINUSES: Unremarkable. SOFT TISSUES: Unremarkable. CT/Brain/Head without Contrast IMPRESSION: No acute abnormality. Electronically Signed: Jessika Vasquez MD at 23:47 EST ,
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
[2023-06-12] MEDS: Ondansetron 4 MG/2 ML Vial IV (22:44)
[2023-06-12] MEDS: Morphine 4 MG/ML Syringe IV (22:44)
[2023-06-12 22:49] VITALS: BMI 25.6
[2023-06-12 22:50] VITALS: BMI 25.6
== END 2023-06-13 00:28 | disposition home or self-care (01) ==
PROVIDERS: Emergency Provider Emergency Medicine; PCP Internal Medicine; Visit Provider Emergency Medicine
DX: S06.0X0A Concussion without loss of consciousness, initial encounter (principal); S39.91XA Unspecified injury of abdomen, initial encounter; R11.2 Nausea with vomiting, unspecified; V00.221A Fall from sled, initial encounter; Y93.23 Activity, snow (alpine) (downhill) skiing, snowboarding, sledding, tobogganing and snow tubing; F17.290 Nicotine dependence, other tobacco product, uncomplicated
CPT/HCPCS: 70450; 74177; 96374; 96375; 99282; Q9967; A4216; J2405

== ENCOUNTER 2023-08-08 14:20 | Emergency (ER) | payer OTHER, SELFPAY ==
[2023-08-08 14:22] VITALS: BP 113/72; PULSE 102; RESP 18; TEMP 36.6; O2SAT 99; BMI 24.8
[2023-08-08] MEDS: Metoclopramide 10 MG Tablet PO (15:25)
[2023-08-08 15:37] VITALS: BP 108/67; PULSE 87; RESP 16; TEMP 36.7; O2SAT 99
--- NOTE | 2023-08-08 15:37 | EX.ED.GENINJ ---
HPI History of Present Illness Chief Complaint: Head Injury Narrative Narrative: 38-year-old female presenting with headache, nausea. 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 Patient had no LOC. She states she does have a mild headache and nausea and feels that she is lightheaded. She has recent history of concussion in May which took a few weeks to get better. Patient is not on any blood thinners. No projectile vomiting. She is able to ambulate with stable gait. She has only mild nausea and has not vomited. No visual complaints PFSH PFSH Medical History Acute conjunctivitis, left eye Acute maxillary sinusitis, unspecified ADHD Borderline personality disorder Contact with and (suspected) exposure to other viral communicable diseases COVID-19 Fibromyalgia Fracture of left upper limb GERD (gastroesophageal reflux disease) Hearing loss Left hip pain Lump of right breast Nicotine dependence, cigarettes, uncomplicated Osteitis of symphysis pubis Polysubstance dependence, non-opioid, in remission Pre-eclampsia Preventative health care Seasonal allergies Severe recurrent major depression UTI (urinary tract infection) Vitamin deficiency Home Medications clonazepam 0.5 mg tablet 0.25 mg PO QHS PRN Insomnia 09/02/18 [History Last Taken Unknown] fluoxetine 40 mg capsule 40 mg PO DAILY 08/10/19 [History Last Taken 08/08/23] cyclobenzaprine 10 mg tablet 5 - 10 mg (0.5 - 1 x 10 mg) PO TID PRN muscle spasm #60 tabs 02/07/23 [Rx Last Taken Unknown] metoclopramide HCl 10 mg tablet (Reglan) 10 mg PO Q8H PRN PRN headache #14 tabs 08/08/23 [Rx Last Taken Unknown] ondansetron 4 mg disintegrating tablet 4 mg PO Q8H PRN PRN Nausea #14 tabs 08/08/23 [Rx Last Taken Unknown] Allergy/AdvReac Type Severity Reaction Status Date / Time No Known Allergies Allergy Verified 08/08/23 14:22 Family History Mother Arthritis Autoimmune disease Blood clot in vein Hypertension Melanoma CVA (cerebral vascular accident) Father Arthritis High cholesterol H/O ulcer disease Grandmother Anxiety Arthritis Myocardial infarction Depression COPD (chronic obstructive pulmonary disease) High cholesterol Hypertension Grandfather Arthritis High cholesterol Hypertension Diabetes Grandmother Kidney disease Surgical History history closed reduction left arm fracture history diagnostic laparoscopy History of History of colonoscopy (~2018) History of esophagogastroduodenoscopy (EGD) (~2018) History of orthopedic surgery removal orthpeadic screw from back Social History Smoking Status: Current every day smoker tobacco type: e-cigarettes Electronic Cigarette Use: with nicotine alcohol intake: current alcohol intake frequency: holidays/special occasions only Alcohol type: wine substance use type: does not use what type of physical activity do you participate in: none ROS ROS ED Constitutional Constitutional ED: Denies chills, fever(s) or sweats Eyes Eyes: Denies blurry vision or change in vision ENT ENT ED: Denies ear pain or sore throat Cardiovascular Cardiovascular: Denies chest pain, palpitations or racing heartbeat Respiratory/Chest Respiratory/Chest: Denies cough, dyspnea or sputum Gastrointestinal Gastrointestinal: Reports nausea; Denies abdominal pain, constipation, diarrhea or vomiting Genitourinary Genitourinary ED: Denies dysuria, hematuria or urinary frequency Musculoskeletal Musculoskeletal: Denies arthralgias, myalgias or neck pain Integumentary Denies abscess, Abrasions or rash Neurologic Neurologic: Reports headache(s); Denies paresthesias or weakness Psychiatric Psychiatric: Denies anxiety, depression, suicidal ideation or suicidal thoughts Endocrine Endocrinology: Denies polydipsia or polyuria EXAM Physical Exam Const Vital Signs: 08/08/23 14:22 08/08/23 14:34 Temperature 97.8 F Temperature Source Temporal Pulse Rate 102 H Respiratory Rate 18 Respiratory Effort Normal Non-Labored Respiratory Depth Normal Respiratory Pattern Normal Blood Pressure 113/72 Blood Pressure Mean 85 Pulse Ox 99 Oxygen Delivery Method Room Air Positive well nourished General Appearance ED: NAD HEENT atraumatic and trauma Eyes PERRL and EOMs intact bilaterally Chest Wall inspection of chest normal Resp normal respiratory effort and clear to auscultation bilaterally Auscultation: Negative for rales, rhonchi or wheezes Cardio regular rhythm Rate: regular rate GI normal to inspection, nondistended, normoactive bowel sounds Extremity normal to inspection Neuro oriented x3, CN's II-XII intact bilaterally, moves all extremities, no focal motor deficits and no sensory deficits noted Sensorium / Orientation: alert Motor Exam: strength 5/5 throughout Psych mental status grossly normal Skin no rashes or lesions noted MDM MDM MDM Narrative Medical decision making narrative: Patient presenting with headache after she advertently struck heads with the dog that she was washing a pet Smart. Patient denies LOC. She is mildly nauseous. She has not been vomiting. She is he reports that she has a recent concussion took a few weeks to heal in May. On examination there is no focal neurologic deficits or lateralizing signs or symptoms. I do not believe she needs a head CT. We gave her Reglan here which should help with her headache and nausea. I will give her some Zofran and Reglan for home. Return precautions discussed. Impression: 1. Headache 2. Concussion Lab Data Attestation: I reviewed the patient's lab results. Discharge Plan Triage Chief Complaint: Head Injury ED Provider: Brett Mlaave Dx/Rx/DC Orders Instructions: ED Concussion Prescriptions: New metoclopramide HCl [Reglan] 10 mg tablet 10 mg PO Q8H PRN PRN (Reason: headache) Qty: 14 0RF ondansetron 4 mg tablet,disintegrating 4 mg PO Q8H PRN PRN (Reason: Nausea) Qty: 14 0RF No Action fluoxetine 40 mg capsule 40 mg PO DAILY cyclobenzaprine 10 mg tablet 5 - 10 mg PO TID PRN (Reason: muscle spasm) Qty: 60 2RF clonazepam 0.5 mg tablet 0.25 mg PO QHS PRN (Reason: Insomnia) Patient Comments: Primary Care Provider: Flakito Seals Referrals: Flakito Seals MD [Primary Care Provider] - Disposition Disposition: Home, Self Care
== END 2023-08-08 15:47 | disposition home or self-care (01) ==
LOC: ED 15:01
PROVIDERS: Emergency Provider Student in an Organized Health Care Education/Training Program; PCP Internal Medicine; Visit Provider Student in an Organized Health Care Education/Training Program
DX: S06.0X0A Concussion without loss of consciousness, initial encounter (principal); W54.1XXA Struck by dog, initial encounter; Y93.K9 Activity, other involving animal care; Y99.0 Civilian activity done for income or pay; Y92.512 Supermarket, store or market as the place of occurrence of the external cause; F17.290 Nicotine dependence, other tobacco product, uncomplicated; Z79.899 Other long term (current) drug therapy
CPT/HCPCS: 99282

== ENCOUNTER → 2023-10-09 | Outpatient (CLI) | payer BC, SELFPAY ==
[2023-10-09 16:46] LABS: Absolute Lymphocyte Count 2.25 X10^3/uL (0.83-4.51); Absolute Neutrophil Count 4.8 X10^3/uL (2.0-7.7); Basophil# 0.02 X10^3/uL; Basophil% 0.3 % (0-1); Eosinophil# 0.22 X10^3/uL; Eosinophils% 2.8 % (0-5); Hematocrit 42.4 % (37-47); Hemoglobin 13.6 g/dL (12.0-15.0); Lymphocyte # 2.25 X10^3/ul (0.83-4.51); Lymphocyte % 28.5 % (19-41); Mean Corp Hgb Conc 32.1 g/dL (32-36); Mean Corpuscular Hgb 27.9 pg (27.0-32.0); Mean Corpuscular Volume 86.9 fL (81-99); Monocyte# 0.62 X10^3/uL; Monocyte% 7.9 % (0-10); NRBC Flagged by Analyzer 0 % (0-5); Neutrophil # 4.76 X10^3/uL (2.7-7.7); Neutrophil % 60.2 % (47-70); Platelet Count 291 K/mm3 (150-450); RBC Distribution Width CV 12.4 % (11.6-14.6); Red Blood Count 4.88 M/mm3 (4.2-5.4); White Blood Count 7.9 K/mm3 (4.4-11.0)
[2023-10-09 17:08] LABS: ALB/GLOB Ratio 0.7 RATIO (0.9-2.4); AST(SGOT) 14 U/L (15-37); Alanine Aminotransfer ALT/SGPT 25 U/L (13-56); Albumin, Serum 3.1 g/dL (3.2-5.0); Alkaline Phosphatase 52 U/L (45-117); Anion Gap 5 (5-15); BUN 8 mg/dL (7-18); BUN/Creat Ratio 8.4 RATIO (10-20); Calcium,Total 9.3 mg/dL (8.5-10.1); Chloride 106 mmol/L (98-107); Creatinine, Serum 0.95 mg/dL (0.55-1.02); EST Glomerular Filtration Rate 71 mL/min (>60); Est Glom Filt Rate - Afr Amer 85 mL/min (>60); Globulin 4.2 g/dL (2.2-4.2); Glucose 87 mg/dL (74-106); Potassium 3.6 mmol/L (3.5-5.1); Protein, Total 7.3 g/dL (6.4-8.2); Sodium Level 137 mmol/L (136-145)
[2023-10-09 20:18] LABS: Bacteria 0 SEEN /hpf (None Seen); Mucous, Urine 0 SEEN /hpf (<or=2+); White Blood Cells 0 SEEN /hpf (0-5)
[2023-10-09 20:41] LABS: Color, Urine Yellow (Yellow); Glucose, Dipstick Normal (Normal); Ketone-Dipstick Negative (Negative); Leukocyte Esterase-Dipstick Negative /ul (Negative); Nitrite-Dipstick Negative (Negative); Occult Blood-Urine 50 /ul (Negative); Protein-Dipstick Negative (Negative); Urine Bilirubin Dipstick Negative (Negative); Urine Clarity Sl. Cloudy (Clear); Urine Urobilinogen Normal (Normal); Urine pH 6.5 (5.0 - 8.0)
[2023-10-09 20:52] LABS: Red Blood Cells-Urine 0-5 SEEN /hpf (0-5); Squamous Epithelial Cells - UA 0-5 SEEN /hpf (5-10)
== END | disposition home or self-care (01) ==
LOC: BIMLAB 16:19
PROVIDERS: PCP Internal Medicine; Referring Provider Nurse Practitioner; Visit Provider Nurse Practitioner
DX: N93.9 Abnormal uterine and vaginal bleeding, unspecified (principal)
CPT/HCPCS: 36415; 80053; 81001; 85025

== ENCOUNTER 2023-12-07 17:08 | Emergency (ER) | payer MEDICAID, SELFPAY ==
[2023-12-07 17:09] VITALS: BP 121/82; PULSE 87; RESP 16; TEMP 35.4; O2SAT 95; BMI 23.8
--- NOTE | 2023-12-07 18:06 | ED.RN ---
IM FEELING BETTER, IM JUST GOING TO GO
== END 2023-12-07 19:34 | disposition left against medical advice (07) ==
PROVIDERS: Emergency Provider Emergency Medicine; PCP Internal Medicine; Visit Provider Emergency Medicine
DX: R10.9 Unspecified abdominal pain (principal); R55 Syncope and collapse; Z53.21 Procedure and treatment not carried out due to patient leaving prior to being seen by health care provider
CPT/HCPCS: 99282

== ENCOUNTER 2024-02-28 10:35 | Emergency (ER) | payer MEDICAID, SELFPAY ==
[2024-02-28 10:36] VITALS: BP 147/78; PULSE 113; RESP 16; TEMP 37.1; O2SAT 97; BMI 24.3
[2024-02-28 10:38] VITALS: BP 120/86; PULSE 69; RESP 16; TEMP 36.8; O2SAT 98
--- NOTE | 2024-02-28 10:47 | EX.ED.DYSGE1 ---
HPI History of Present Illness Chief Complaint: Cellulitis Narrative Narrative: Patient is a 38-year-old female with past medical history of fibromyalgia, borderline personality disorder, ADHD, GERD who presents to the emergency department with a chief complaint of right middle finger pain and swelling. States that she followed up in urgent care on Friday and was placed on Augmentin. States that she had been taking the Augmentin however started yesterday she noted increasing pain and swelling to her right middle finger. 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 [facility] Medical History Hearing loss Preventative health care COVID-19 Acute conjunctivitis, left eye Contact with and (suspected) exposure to other viral communicable diseases Acute maxillary sinusitis, unspecified Left hip pain Fibromyalgia Lump of right breast Nicotine dependence, cigarettes, uncomplicated Borderline personality disorder Polysubstance dependence, non-opioid, in remission Severe recurrent major depression Pre-eclampsia ADHD Osteitis of symphysis pubis Vitamin deficiency GERD (gastroesophageal reflux disease) UTI (urinary tract infection) Fracture of left upper limb Seasonal allergies Home Medications ?Medication ?Instructions ?Recorded ?Last Taken ?Type fluoxetine 40 mg capsule 40 mg PO DAILY 08/10/19 08/08/23 History clonazepam 0.5 mg tablet 0.25 mg PO QHS Insomnia 10/09/23 Unknown History cyclobenzaprine 10 mg tablet 5 - 10 mg (0.5 - 1 x 10 mg) PO TID 01/16/24 Unknown Rx PRN muscle spasm #60 tabs amoxicillin 875 mg-potassium 1 tab PO Q12H 10 days #20 tabs 02/25/24 Unknown Rx clavulanate 125 mg tablet doxycycline hyclate 100 mg capsule 100 mg PO BID 7 days #14 caps 02/28/24 Unknown Rx Allergy/AdvReac Type Severity Reaction Status Date / Time No Known Allergies Allergy Verified 02/28/24 10:36 Family History Mother Arthritis Autoimmune disease Blood clot in vein Hypertension Melanoma CVA (cerebral vascular accident) Father Arthritis High cholesterol H/O ulcer disease Grandmother Anxiety Arthritis Myocardial infarction Depression COPD (chronic obstructive pulmonary disease) High cholesterol Hypertension Grandfather Arthritis High cholesterol Hypertension Diabetes Grandmother Kidney disease Surgical History H/O removal of cyst removal orthpeadic screw from back history closed reduction left arm fracture history diagnostic laparoscopy History of colonoscopy (~2018) History of esophagogastroduodenoscopy (EGD) (~2018) History of orthopedic surgery History of Social History Smoking Status: Current every day smoker tobacco type: e-cigarettes Electronic Cigarette Use: with nicotine alcohol intake: current alcohol intake frequency: holidays/special occasions only Alcohol type: wine substance use type: does not use what type of physical activity do you participate in: none ROS ROS ED ROS Narrative Constitutional: Denies fevers, chills, headaches, lightness, dizziness Neurological: Denies numbness, weakness, tingling Musculoskeletal: Complains of left finger pain and swelling as noted above Skin: Denies rashes or lesions EXAM Physical Exam Narrative Exam Narrative: General: Patient lying in bed rest comfortably did not appear to be in acute distress Head: Atraumatic, normocephalic Eyes: PERRL bilateral, EOMI bilateral, no conjunctival injection noted Neck: Soft, supple, trachea midline Cardiovascular:Regular rate and rhythm no murmurs gallops rubs noted Extremities: +5/5 strength noted in the bilateral upper and lower extremities, no pedal edema on exam, radial pulses +2/4 in the bilateral extremities. Patient is able to give me okay sign thumbs up and oppose her thumb to her pinky bilaterally thigh difficulty no concern for felon or flexor tenosynovitis Neurological: Patient following commands knew that she was at [facility] year is 2023. Sensation grossly intact to the median ulnar and radial nerve distributions bilaterally Skin: Patient has a localized swelling just proximal to her fingernail on the right middle finger with some fluctuance noted no overlying redness noted. Const Vital Signs: 02/28/24 10:36 02/28/24 10:38 Temperature 98.7 F 98.3 F Temperature Source Oral Oral Pulse Rate 113 H 69 Respiratory Rate 16 16 Blood Pressure 147/78 H 120/86 H Blood Pressure Mean 101 97 Pulse Ox 97 98 Oxygen Delivery Method Room Air Room Air MDM MDM MDM Narrative Medical decision making narrative: Patient is a 38-year-old female who presented to the emergency department with a chief complaint of right middle finger pain and swelling. On the differential diagnose includes but not limited to cellulitis, paronychia. Patient will have an I&D performed and cultures will be sent. She will be advised to follow-up with her primary care physician. We will switch her to doxycycline from her Augmentin. She will be advised to return with worsening symptoms or other concerns. Patient would like to go home at this point time all question concerns answered she was discharged home in stable condition with instructions to follow-up on the wound cultures. Procedure note Indication: Paronychia Timeout protocol was performed prior to initiating procedure. The area was prepped and draped in the usual, sterile manner. A digital block with 1% percent lidocaine without epinephrine was performed. A linear incision along the local skin lines were made and the purulent material expressed. The abscess was explored thoroughly and sequestered pockets were opened. Bleeding was minimal. Packing none Follow-up: The patient tolerated procedure well without complications. Standard postprocedure care is explained and return precautions were given. Discharge Plan Triage Chief Complaint: Cellulitis ED Provider: Yonny Quintero Dx/Rx/DC Orders Clinical Impression: Paronychia Prescriptions: New doxycycline hyclate 100 mg capsule 100 mg PO BID 7 Days Qty: 14 0RF No Action fluoxetine 40 mg capsule 40 mg PO DAILY cyclobenzaprine 10 mg tablet 5 - 10 mg PO TID PRN (Reason: muscle spasm) Qty: 60 1RF amoxicillin-pot clavulanate 875-125 mg tablet 1 tab PO Q12H 10 Days Qty: 20 0RF clonazepam 0.5 mg tablet 0.25 mg PO QHS Patient Comments: Primary Care Provider: Flakito Seals Referrals: Flakito Seals MD [Primary Care Provider] - Activity Restrictions/Additional Instructions: Follow-up with your primary care physician in the outpatient setting. Follow-up on the wound culture with your primary care physician. Take doxycycline that was sent to your pharmacy as prescribed discontinue taking the Augmentin that you already on. Return with worsening symptoms or any other concerns. Print Language: Romansh Disposition Disposition: Home, Self Care
[2024-02-28] MEDS: Lidocaine 1% (20 ml mdv) 20 ML Vial 10 ML INFILT (10:52)
[2024-02-28 11:12] VITALS: BP 120/86; PULSE 69; RESP 16; TEMP 36.8; O2SAT 98
== END 2024-02-28 11:27 | disposition home or self-care (01) ==
PROVIDERS: Emergency Provider Emergency Medicine; PCP Internal Medicine; Visit Provider Emergency Medicine
DX: L03.011 Cellulitis of right finger (principal); F17.290 Nicotine dependence, other tobacco product, uncomplicated; Z86.16 Personal history of COVID-19
CPT/HCPCS: 26010; 10060; 87070; 87077; 87186; 87205; 99282

== ENCOUNTER → 2024-07-12 | Outpatient (CLI) | payer MEDICAID, SELFPAY ==
--- NOTE | 2024-07-12 13:32 | RAD_ITS ---
PROCEDURE: HIPS B/L MIN 2 VIEWS W/ PELVIS REASON FOR EXAM: Pain following lifting injury. TECHNIQUE: Four views of both hips were obtained. COMPARISON: Comparison is made with prior study dated June 05, 2021. FINDINGS: No fracture. No suspicious bone lesion. Normal alignment. Soft tissues are unremarkable. Evidence of prior ORIF of the superior pubic rami bilaterally. Symphysis pubis. RAD/Hips B/L min 2 views w/ Pelvis IMPRESSION: No acute abnormality is seen. Stable examination. Reading Location: [id number]
--- NOTE | 2024-07-12 13:32 | RAD_ITS ---
PROCEDURE: THORACIC SPINE 2 VIEWS REASON FOR EXAM: Pain following lifting injury. TECHNIQUE: AP and lateral views of the thoracic spine was obtained. COMPARISON: None. FINDINGS: Normal vertebral heights. No evidence of fracture. Disc space heights are preserved. Normal alignment. No spondylolisthesis. RAD/Thoracic Spine 2 Views IMPRESSION: Normal examination. Reading Location: [id number]
--- NOTE | 2024-07-12 13:32 | RAD_ITS ---
PROCEDURE: CERV SPINE 2 OR 3 VIEWS REASON FOR EXAM: Pain following a lifting injury. TECHNIQUE: 3 views of the cervical spine. COMPARISON: None. FINDINGS: Normal vertebral body heights. No visible fracture. Disc space heights are preserved. Normal alignment. Prevertebral soft tissues are unremarkable. Loss of the normal cervical lordosis. RAD/Cerv Spine 2 or 3 Views IMPRESSION: NEGATIVE CERVICAL SPINE. Loss of the normal cervical lordosis. Reading Location: [facility]
--- NOTE | 2024-07-12 13:32 | RAD_ITS ---
PROCEDURE: LUMBAR SPINE 2 OR 3 VIEWS REASON FOR EXAM: Pain following lifting of a heavy object. TECHNIQUE: 2 view(s) of the lumbar spine COMPARISON: None. FINDINGS: Normal lumbar vertebral heights. No evidence of fracture. Disc space heights are preserved. Grade 1 anterior listhesis of L5 on S1. Can not rule out spondylolysis of the pars interarticularis of the L5 vertebrae. Large amount of fecal material is seen in the colon. RAD/Lumbar Spine 2 or 3 Views IMPRESSION: Grade 1 anterior listhesis of L5 on S1. No definite spondylolysis is seen alth ough oblique views recommended for further evaluation if indicated. Reading Location: [facility]
== END | disposition home or self-care (01) ==
LOC: MTRAD 13:32
PROVIDERS: PCP Internal Medicine; Referring Provider Physician Assistant; Visit Provider Physician Assistant
DX: S29.019A Strain of muscle and tendon of unspecified wall of thorax, initial encounter (principal); S16.1XXA Strain of muscle, fascia and tendon at neck level, initial encounter; S39.012A Strain of muscle, fascia and tendon of lower back, initial encounter; S39.013A Strain of muscle, fascia and tendon of pelvis, initial encounter
CPT/HCPCS: 72040; 72070; 72100; 73521

== ENCOUNTER 2024-10-20 09:37 | Emergency (ER) | payer MEDICAID, SELFPAY ==
[2024-10-20 09:38] VITALS: BP 109/90; PULSE 110; RESP 18; TEMP 37.1; O2SAT 100; BMI 27.0
--- NOTE | 2024-10-20 10:09 | EDS_ITS ---
HPI HPI - GI History of Present Illness Chief Complaint: Nausea/Vomiting Informant: patient and spouse/S.O. Narrative Narrative: 39-year-old female states she has been vomiting continuously for the last 12 hours, no blood, nonbilious. Some bilateral mid and lower abdominal cramping, but no other pains. No diarrhea. Subjective chills, no known fevers. She states the whole family has recently been sick. Significant other was vomiting yesterday but that is better now and the kids just the day before that, and they are better. They all ate a recipe that they modified prior to this unclear if it was related to that or an infection. No travel out of the area or the country recently. No recent abdominal surgeries. She denies any bright blood per rectum or melena. [facility] Medical History Strain of pelvis Lumbar strain Thoracic myofascial strain Cervical myofascial strain Hearing loss Preventative health care COVID-19 Acute conjunctivitis, left eye Contact with and (suspected) exposure to other viral communicable diseases Acute maxillary sinusitis, unspecified Left hip pain Fibromyalgia Lump of right breast Nicotine dependence, cigarettes, uncomplicated Borderline personality disorder Polysubstance dependence, non-opioid, in remission Severe recurrent major depression Pre-eclampsia ADHD Osteitis of symphysis pubis Vitamin deficiency GERD (gastroesophageal reflux disease) UTI (urinary tract infection) Fracture of left upper limb Seasonal allergies Home Medications ?Medication ?Instructions ?Recorded ?Last Taken ?Type fluoxetine 40 mg capsule 40 mg PO DAILY 08/10/1907/18 History clonazepam 0.5 mg tablet 0.25 mg PO QHS Insomnia 09/17 08/09 Unknown History omeprazole 20 mg capsule,delayed 20 mg PO QDAY 5 Unknown History release cyclobenzaprine 10 mg tablet 5 - 10 mg (0.5 - 1 x 10 m g) PO TID 09/29/24 Unknown Rx PRN muscle spasm #60 tabs clonazepam 1 mg tablet 1 mg PO DAILY PRN anxiety Unknown History ondansetron 8 mg disintegrating 8 mg PO Q8H PRN nausea and 10/20/24 Unknown Rx tablet vomiting #12 tabs Allergy/AdvReac Type Severity Reaction Status Date / Time No Known Allergies Allergy Verified 10/20/24 09:37 Family History Mother Arthritis Autoimmune disease Blood clot in vein Hypertension Melanoma CVA (cerebral vascular accident) Father Arthritis High cholesterol H/O ulcer disease Grandmother Anxiety Arthritis Myocardial infarction Depression COPD (chronic obstructive pulmonary disease) High cholesterol Hypertension Grandfather Arthritis High cholesterol Hypertension Diabetes Grandmother Kidney disease Surgical History H/O removal of cyst removal orthpeadic screw from back history closed reduction left arm fracture history diagnostic laparoscopy History of colonoscopy (~2018) History of esophagogastroduodenoscopy (EGD) (~2019) History of orthopedic surgery History of Social History (Updated 10/20/24 @ 10:06 by Rain Fortune) household members: family housing: house Smoking Status: Current every day smoker tobacco type: e-cigarettes Electronic Cigarette Use: with nicotine alcohol intake: current alcohol intake frequency: holidays/special occasions only Alcohol type: wine substance use type: does not use what type of physical activity do you participate in: none ROS ROS ED Constitutional Constitutional ED: Reports chills, fever(s) and subjective Eyes Eyes: Denies change in vision or diplopia ENT ENT ED: Denies rhinorrhea or sore throat Cardiovascular Cardiovascular: Denies chest pain or palpitations Respiratory/Chest Respiratory/Chest: Denies cough or dyspnea Gastrointestinal Gastrointestinal: Reports abdominal pain, nausea and vomiting; Denies diarrhea or melena Genitourinary Genitourinary ED: Denies dysuria or hematuria Musculoskeletal Musculoskeletal: Denies back pain or neck pain Integumentary Denies abscess or rash Neurologic Neurologic: Denies headache(s), paresthesias or weakness Psychiatric Psychiatric: Denies anxiety or suicidal thoughts EXAM Physical Exam Const Vital Signs: 10/20/24 09:38 Temperature 98.7 F Temperature Source Temporal Pulse Rate 110 H Respiratory Rate 18 Blood Pressure 109/90 H Blood Pressure Mean 96 Pulse Ox 100 Oxygen Delivery Method Room Air Positive well nourished and well developed General Appearance ED: well developed and NAD HEENT Reports moist mucous membranes normocephalic and atraumatic Eyes PERRL and EOMs intact bilaterally Neck full ROM and supple Resp normal respiratory effort and clear to auscultation bilaterally Cardio regular rate, regular rhythm and no murmurs GI non-tender and non-distended Auscultation: normoactive bowel sounds Palpation: soft Back/Spine no CVA tenderness General Back: other FROM Extremity normal to inspection General Extremety ED: Negative for edema, pulses abnormal or tenderness General Extremity: Negative for edema or pulses abnormal Neuro oriented x3, CN's II-XII intact bilaterally and no sensory deficits noted Sensorium / Orientation: awake and alert Motor Exam: strength 5/5 throughout Skin no rashes or lesions noted and no wounds MDM MDM MDM Narrative Medical decision making narrative: Electrolytes unremarkable, she was treated with IV fluids and Reglan, Levsin. She is feeling much better and tolerating oral fluids. Given a prescription for metoclopramide, and we discussed reasons to return. Hopefully self-limiting either viral or foodborne illness, I do not think she needs other emergent testing right now she is in agreement. Lab Data Attestation: I reviewed the patient's lab results. Labs: Laboratory Results - last 24 hr 10/20/24 10:26 Sodium 138 Potassium 4.1 Chloride 106 Carbon Dioxide 22.7 Anion Gap 10 BUN 14 Creatinine 0.82 Estim Creat Clear Calc 96.83 Est GFR (MDRD) Non-Af 93 BUN/Creatinine Ratio 17.2 Glucose 128 H Calcium 8.6 Discharge Plan Triage Chief Complaint: Nausea/Vomiting ED Provider: Erick Reza Dx/Rx/DC Orders Clinical Impression: Acute gastritis without bleeding, Mild dehydration Instructions: ED Gastritis (Adult) Prescriptions: New ondansetron 8 mg tablet,disintegrating 8 mg PO Q8H PRN (Reason: nausea and vomiting) Qty: 12 0RF No Action fluoxetine 40 mg capsule 40 mg PO DAILY omeprazole 20 mg capsule,delayed release(DR/EC) 20 mg PO QDAY clonazepam 0.5 mg tablet 0.25 mg PO QHS Patient Comments: clonazepam 1 mg tablet 1 mg PO DAILY PRN (Reason: anxiety) cyclobenzaprine 10 mg tablet 5 - 10 mg PO TID PRN (Reason: muscle spasm) Qty: 60 0RF Primary Care Provider: Flakito Seals Referrals: Flakito Seals MD [Primary Care Provider] - 1-2 Days if not improving (Or ER if you are having trouble keeping fluids down) Print Language: Japanese Disposition Disposition: Home, Self Care
[2024-10-20] MEDS: 0.9% Normal Saline (1000mL) 1,000 ML 999 ML IV (10:24)
[2024-10-20] MEDS: Metoclopramide 10 MG/2 ML Vial 5 MG IV (10:27)
[2024-10-20] MEDS: Hyoscyamine Sulfate 0.125 MG Tablet 0.25 MG SL (10:28)
[2024-10-20 10:54] LABS: Anion Gap 10 (5-15); BUN 14 mg/dL (4-19); BUN/Creat Ratio 17.2 RATIO (10-20); Calcium,Total 8.6 mg/dL (7.6-11.0); Carbon Dioxide 22.7 mmol/L (21.0-32.0); Chloride 106 mmol/L (98-108); Creatinine, Serum 0.82 mg/dL (0.70-1.20); EST Glomerular Filtration Rate 93 (>60); Estimated Creatinine Clearance 96.83 ml/min (50-250); Glucose 128 mg/dL (70-99); Potassium 4.1 mmol/L (3.3-5.1); Sodium Level 138 mmol/L (133-145)
[2024-10-20 11:38] VITALS: BP 109/67; PULSE 73; RESP 18; TEMP 36.6; O2SAT 100
== END 2024-10-20 11:39 | disposition home or self-care (01) ==
PROVIDERS: Emergency Provider Emergency Medicine; PCP Internal Medicine; Visit Provider Emergency Medicine
DX: K29.00 Acute gastritis without bleeding (principal); E86.0 Dehydration; F17.290 Nicotine dependence, other tobacco product, uncomplicated; Z86.16 Personal history of COVID-19
CPT/HCPCS: 80048; 96361; 96374; 99283; A4216

== ENCOUNTER → 2024-12-13 | Outpatient (CLI) | payer MEDICAID, SELFPAY ==
[2024-12-13 15:20] LABS: Hematocrit 38.7 % (37-47); Hemoglobin 12.9 g/dL (12.0-15.0); Immature Granulocytes Count 0.020 X10^3/uL (0.0-0.0); Mean Corp Hgb Conc 33.3 g/dL (32-36); Mean Corpuscular Volume 85.1 fL (81-99); Mean Platelet Vol. 11.4 fl (6.2-12.0); NRBC Flagged by Analyzer 0 % (0-5); Platelet Count 218 K/mm3 (150-450); RBC Distribution Width CV 13.1 % (11.6-14.6); RBC Distribution Width SD 40.4 fl (35.1-43.9); Red Blood Count 4.55 M/mm3 (4.2-5.4); White Blood Count 5.0 K/mm3 (4.4-11.0)
[2024-12-13 15:43] LABS: AST(SGOT) 16 U/L (<=31); Alanine Aminotransfer ALT/SGPT 21 U/L (<=34); Albumin, Serum 3.6 g/dL (3.5-5.0); Alkaline Phosphatase 56 U/L (35-104); Amylase 42 U/L (28-100); Anion Gap 10 (5-15); BUN 9 mg/dL (4-19); BUN/Creat Ratio 12.2 RATIO (10-20); Calcium,Total 9.0 mg/dL (7.6-11.0); Carbon Dioxide 22.1 mmol/L (21.0-32.0); Chloride 108 mmol/L (98-108); Globulin 3.0 g/dL (2.2-4.2); Glucose 83 mg/dL (70-99); Lipase 46 U/L (13-75); Potassium 4.5 mmol/L (3.3-5.1)
[2024-12-13 15:44] LABS: Cholesterol 303 mg/dL (<=200); Low Density Lipoprotein Calc. 210 mg/dL; Triglycerides 152 mg/dL; Very Low Density Lipoprotein 30 mg/dL (5-40); cholesterol:hdl ratio screen 4.84
== END | disposition home or self-care (01) ==
LOC: BIMLAB 11:56
PROVIDERS: Physician Assistant; PCP Internal Medicine; Referring Provider Nurse Practitioner Family; Visit Provider Nurse Practitioner Family
DX: R10.13 Epigastric pain (principal); E78.89 Other lipoprotein metabolism disorders
CPT/HCPCS: 36415; 80053; 80061; 82150; 83690; 85025

== ENCOUNTER 2024-12-15 16:17 | Emergency (ER) | payer MEDICAID, SELFPAY ==
[2024-12-15 16:18] VITALS: BP 112/61; PULSE 82; RESP 16; TEMP 37; O2SAT 100
--- NOTE | 2024-12-15 16:31 | ED.VIS.BACK ---
HPI History of Present Illness Chief Complaint: Back Onset/Context/Timing Onset: Today Context: Sudden Onset Injury: lifting Timing: Continuous Quality: Sharp and - (Tearing) Location: Lumbar, Buttock and Left Leg Worsened by: improves with Movement and - (Sitting) Relieved by: Nothing Associated Symptoms Associated Symptoms: Numbness, Tingling and Radiation to Left Leg; Negative for Radiation to Right Leg, Fever, Abdominal Pain, Dysuria, Unable to Ambulate, Unable to Transfer, Urinary Retention, Urinary Incontinence, Constipation or Fecal Incontinence Narrative Narrative: Patient presents with pain in her left lower lumbar area that began today. Patient states she bent over to lift a dog when she felt something tear in her low back. Patient states her pain has been constant. Patient states her pain is over the left lower lumbar area and radiates down her left lower extremity. Patient states pain also radiates up to the left upper back. Patient states her pain is worse with movement and with sitting up. Patient states nothing makes it better. Patient admits to some numbness and tingling into her left foot. Patient denies any weakness. Patient states she just feels like she cannot stand on her left leg due to the pain. [facility] Medical History Strain of pelvis Lumbar strain Thoracic myofascial strain Cervical myofascial strain Hearing loss Preventative health care COVID-19 Acute conjunctivitis, left eye Contact with and (suspected) exposure to other viral communicable diseases Acute maxillary sinusitis, unspecified Left hip pain Fibromyalgia Lump of right breast Nicotine dependence, cigarettes, uncomplicated Borderline personality disorder Polysubstance dependence, non-opioid, in remission Severe recurrent major depression Pre-eclampsia ADHD Osteitis of symphysis pubis Vitamin deficiency GERD (gastroesophageal reflux disease) UTI (urinary tract infection) Fracture of left upper limb Seasonal allergies Home Medications ?Medication ?Instructions ?Recorded ?Last Taken ?Type fluoxetine 40 mg capsule 40 mg PO DAILY 08/10/19 08/08/23 History clonazepam 0.5 mg tablet 0.25 mg PO QHS Insomnia 10/09/23 Unknown History omeprazole 20 mg capsule,delayed 20 mg PO QDAY 07/22/24 Unknown History release clonazepam 1 mg tablet 1 mg PO DAILY PRN anxiety 10/20/24 Unknown History ondansetron 8 mg disintegrating 8 mg PO Q8H PRN nausea and 10/20/24 Unknown Rx tablet vomiting #12 tabs sucralfate 1 gram tablet (Carafate) 1 g PO QACHS #120 tabs 12/13/24 Unknown Rx cyclobenzaprine 10 mg tablet 5 - 10 mg (0.5 - 1 x 10 mg) PO TID 12/15/24 Unknown Rx PRN muscle spasm #20 tabs hydrocodone-acetaminophen 5-325mg 1 tab PO Q6H PRN PRN Pain 3 days 12/15/24 Unknown Rx 5mg-325mg #10 TABLETS Allergy/AdvReac Type Severity Reaction Status Date / Time No Known Allergies Allergy Verified 12/15/24 16:19 Family History Mother Arthritis Autoimmune disease Blood clot in vein Hypertension Melanoma CVA (cerebral vascular accident) Father Arthritis High cholesterol H/O ulcer disease Grandmother Anxiety Arthritis Myocardial infarction Depression COPD (chronic obstructive pulmonary disease) High cholesterol Hypertension Grandfather Arthritis High cholesterol Hypertension Diabetes Grandmother Kidney disease Surgical History H/O removal of cyst removal orthpeadic screw from back history closed reduction left arm fracture history diagnostic laparoscopy History of colonoscopy (~2018) History of esophagogastroduodenoscopy (EGD) (~2018) History of orthopedic surgery History of Social History household members: family housing: house Smoking Status: Current every day smoker tobacco type: e-cigarettes Electronic Cigarette Use: with nicotine alcohol intake: current alcohol intake frequency: holidays/special occasions only Alcohol type: wine substance use type: does not use what type of physical activity do you participate in: none ROS ROS ED Constitutional Constitutional ED: Denies chills or fever(s) Eyes Eyes: Denies blurry vision or change in vision ENT ENT ED: Denies rhinorrhea or sore throat Cardiovascular Cardiovascular: Denies chest pain or palpitations Respiratory/Chest Respiratory/Chest: Denies cough or dyspnea Gastrointestinal Gastrointestinal: Denies nausea or vomiting Genitourinary Genitourinary ED: Denies dysuria or hematuria Musculoskeletal Musculoskeletal: Reports back pain; Denies neck pain Integumentary Denies abscess or rash Neurologic Neurologic: Reports headache(s); Denies weakness Allergic/Immunologic Allergic/Immunologic ED: Denies mouth swelling or urticaria EXAM Physical Exam Const Vital Signs: 12/15/24 16:18 Temperature 98.6 F Temperature Source Oral Pulse Rate 82 Respiratory Rate 16 Blood Pressure 112/61 Blood Pressure Mean 78 Pulse Ox 100 Oxygen Delivery Method Room Air Positive well nourished and well developed General Appearance ED: well developed and NAD HEENT Reports moist mucous membranes Neck supple and no JVD Back/Spine Back/Spine Narrative: There is tenderness and spasm of the left lumbar paraspinal muscles. There is mild midline tenderness. There is no bony crepitance or step-off. Range of motion was limited in all motions of the lumbar spine secondary to pain. Straight leg raises were negative bilaterally. Strength is 5/5 bilaterally in the lower extremities. There are no sensory deficits noted. Deep tendon reflexes are 2/4 bilaterally in the lower extremities. Lumbar Spine / Lower Back: ROM limited and straight leg raise negative bilaterally Extremity normal to inspection General Extremety ED: Negative for edema or tenderness General Extremity: Negative for edema Neuro oriented x3 and no sensory deficits noted Sensorium / Orientation: alert Motor Exam: strength 5/5 throughout Psych mental status grossly normal MDM MDM MDM Narrative Medical decision making narrative: Differential diagnosis includes lumbosacral strain, sciatica, spondylolisthesis, and lumbar compression fracture. X-rays of the lumbar spine will be obtained to assess for spondylolisthesis and compression fracture. History & Record Review Additional record(s) reviewed:: Prior outpatient record and Prior ED visit Radiography X-Ray: LS SPine, No Fracture and Normal Bony Alignment Diagnostic Testing: Clinical Impression(s) from Imaging Studies Lumbar Spine X-Ray 12/15/24 17:00 IMPRESSION: Mild symmetric sacroiliac joint degenerative changes are seen. Mild degenerative changes of the mid to lower lumbar spine are noted, but no significant disc narrowing is seen. Findings suspicious for unilateral or bilateral L5 spondylolysis. No significant spondylolisthesis is seen at this time. No acute fracture is seen. If clinical concern persists, short-term follow-up imaging may be obtained to rule out a currently occult fracture. Reading Location: [place] [id number] X-rays of the lumbar spine were obtained. There are 2 views. On my independent rotation, there is no acute fracture or spondylolisthesis. There are some mild degenerative changes. Radiologist also interpreted the x-rays and agrees. Treatment and Re-Evaluation Narrative: Patient was given a dose of Toradol and Norflex here. On reevaluation, patient stated she was not any better after medications but she was sitting up at the end of the bed. Patient was upset because she received a NSAID. Patient states that she currently has an ulcer. However, initially when I asked the patient if she had any other past medical history, she only reported GERD, she did not report peptic ulcer disease. Her previous records were reviewed. There is no mention of peptic ulcer disease, only gastroesophageal reflux disease. Patient was given a dose of Dilaudid. Patient was given a prescription for a short course of [place]. Patient was also given a prescription for a short course of Flexeril. Patient was instructed to use ice to her low back. Patient was instructed to follow-up with her primary care physician in 3 to 5 days. Patient was instructed to return if worse in any way. Patient understood and was agreeable with the plan. All questions were answered. Discharge Plan Triage Chief Complaint: Back ED Provider: Simba Novoa Dx/Rx/DC Orders Clinical Impression: Acute lumbosacral myofascial strain, Sciatica of left side Instructions: ED Back Sprain/Strain, ED Sciatica Prescriptions: New hydrocodone-acetaminophen 5-325 mg tablet 1 tab PO Q6H PRN PRN (Reason: Pain) 3 Days Qty: 10 0RF Continued cyclobenzaprine 10 mg tablet 5 - 10 mg PO TID PRN (Reason: muscle spasm) Qty: 20 0RF No Action fluoxetine 40 mg capsule 40 mg PO DAILY omeprazole 20 mg capsule,delayed release(DR/EC) 20 mg PO QDAY sucralfate [Carafate] 1 gram tablet 1 g PO QACHS Qty: 120 0RF clonazepam 0.5 mg tablet 0.25 mg PO QHS Patient Comments: clonazepam 1 mg tablet 1 mg PO DAILY PRN (Reason: anxiety) ondansetron 8 mg tablet,disintegrating 8 mg PO Q8H PRN (Reason: nausea and vomiting) Qty: 12 0RF Primary Care Provider: Flakito Seals Referrals: Flakito Seals MD [Primary Care Provider] - 3-5 Days Print Language: Swiss Disposition Disposition: Home, Self Care
--- NOTE | 2024-12-15 17:00 | RAD_ITS ---
PROCEDURE: LUMBAR SPINE 2 OR 3 VIEWS 12/15/2024 REASON FOR EXAM: INJURY/PAIN TECHNIQUE: LUMBAR SPINE 2 OR 3 VIEWS COMPARISON: Lumbar spine series of 07/12/2024. RAD/Lumbar Spine 2 or 3 Views IMPRESSION: Mild symmetric sacroiliac joint degenerative changes are seen. Mild degenerative changes of the mid to lower lumbar spine are noted, but no si gnificant disc narrowing is seen. Findings suspicious for unilateral or bilateral L5 spondylolysis. No significa nt spondylolisthesis is seen at this time. No acute fracture is seen. If clinical concern persists, short-term follow-up imaging may be obtained to r ule out a currently occult fracture. Reading Location: [facility]
[2024-12-15] MEDS: Ketorolac 30 MG/ML Syringe IM (17:09)
[2024-12-15] MEDS: Orphenadrine 60 MG/2 ML Ampul IM (17:10)
[2024-12-15] MEDS: HYDROmorphone 0.5 MG/0.5 ML SYRINGE IM (18:36)
[2024-12-15 18:39] VITALS: BP 112/82; PULSE 66; RESP 12; TEMP 36.6; O2SAT 100
== END 2024-12-15 18:48 | disposition home or self-care (01) ==
PROVIDERS: Emergency Provider Emergency Medicine; PCP Internal Medicine; Visit Provider Emergency Medicine
DX: S39.012A Strain of muscle, fascia and tendon of lower back, initial encounter (principal); X50.1XXA Overexertion from prolonged static or awkward postures, initial encounter; K21.9 Gastro-esophageal reflux disease without esophagitis; Z79.899 Other long term (current) drug therapy; M54.32 Sciatica, left side; F17.210 Nicotine dependence, cigarettes, uncomplicated
CPT/HCPCS: 72100; 96372; 99282

== ENCOUNTER → 2025-02-02 | Outpatient (CLI) | payer MEDICAID, SELFPAY ==
--- NOTE | 2025-02-02 09:54 | US_ITS ---
PROCEDURE: ABDOMEN COMPLETE 02/02/2025 REASON FOR EXAM: RUQ ABD PAIN TECHNIQUE: Procedure Code: USABDC Modality: US Procedure: ABDOMEN COMPLETE COMPARISON: CT abdomen and pelvis dated 02/03/2025 FINDINGS: Liver: Grossly normal size and echotexture. Gallbladder: No stones, sludge, wall thickening or tenderness. Common bile duct: Normal measuring 4.5 mm . Pancreas: Visualized portions are sonographically unremarkable. Kidneys: The right kidney measures 10. The left kidney measures 10. Renal parenchymal thicknesses and echotextures are preserved. No hydronephrosis. Spleen: Normal in size and echotexture measuring 10.2. Aorta: Visualized abdominal aorta is of normal size. IVC: Visualized inferior vena cava is unremarkable. Peritoneal Findings: No ascites identified. US/Abdomen Complete IMPRESSION: NORMAL ABDOMINAL ULTRASOUND. Reading Location: [facility]
== END | disposition home or self-care (01) ==
LOC: US 09:47
PROVIDERS: PCP Internal Medicine; Referring Provider Nurse Practitioner Family; Visit Provider Nurse Practitioner Family
DX: R10.11 Right upper quadrant pain (principal)
CPT/HCPCS: 76700

== ENCOUNTER 2025-02-03 04:23 | Observation (INO) | payer MEDICAID, SELFPAY ==
[2025-02-03] VITALS (13 sets, daily range): BP systolic 99–142; BP diastolic 55–89; PULSE 16–98; RESP 14–97; TEMP 35.8–37; O2SAT 95–99; BMI 26.9; BMI 27.2
--- NOTE | 2025-02-03 04:42 | EX.ED.DYSGE1 ---
HPI History of Present Illness Chief Complaint: Abd Pain Informant: patient Narrative Narrative: Patient is a 39-year-old female who reports a past medical history of GERD. She states that tonight she went to a concert and while there drank 4 beers. She states that after doing so she began to experience upper abdominal discomfort and had bouts of nausea and vomiting. She states that initially the vomit was just food and bile. However she states after a few episodes it appeared to become dark and concerned her for potential blood. She denies any history of bleeding disorder or blood thinner use. She states she has not noticed any type of blood or darkness in her stool. She states however she has not experienced discoloration like this with previous bouts of vomiting which worried her and therefore she presents for evaluation [facility] Medical History Strain of pelvis Lumbar strain Thoracic myofascial strain Cervical myofascial strain Hearing loss Preventative health care COVID-19 Acute conjunctivitis, left eye Contact with and (suspected) exposure to other viral communicable diseases Acute maxillary sinusitis, unspecified Left hip pain Fibromyalgia Lump of right breast Nicotine dependence, cigarettes, uncomplicated Borderline personality disorder Polysubstance dependence, non-opioid, in remission Severe recurrent major depression Pre-eclampsia ADHD Osteitis of symphysis pubis Vitamin deficiency GERD (gastroesophageal reflux disease) UTI (urinary tract infection) Fracture of left upper limb Seasonal allergies Home Medications Medication Instructions Recorded Last Taken Type fluoxetine 40 mg capsule 40 mg PO DAILY 08/10/19 08/08/23 History omeprazole 20 mg capsule,delayed 20 mg PO QDAY GERD 07/22/24 Unknown History release clonazepam 1 mg tablet 1 mg PO DAILY PRN anxiety 10/20/24 Unknown History sucralfate 1 gram tablet (Carafate) 1 g PO QACHS #120 tabs 12/13/24 Unknown Rx Allergy/AdvReac Type Severity Reaction Status Date / Time No Known Allergies Allergy Verified 02/03/25 04:24 Family History Mother Arthritis Autoimmune disease Blood clot in vein Hypertension Melanoma CVA (cerebral vascular accident) Father Arthritis High cholesterol H/O ulcer disease Grandmother Anxiety Arthritis Myocardial infarction Depression COPD (chronic obstructive pulmonary disease) High cholesterol Hypertension Grandfather Arthritis High cholesterol Hypertension Diabetes Grandmother Kidney disease Surgical History H/O removal of cyst removal orthpeadic screw from back history closed reduction left arm fracture history diagnostic laparoscopy History of colonoscopy (~2018) History of esophagogastroduodenoscopy (EGD) (~2018) History of orthopedic surgery History of Social History household members: family housing: house Smoking Status: Current every day smoker tobacco type: e-cigarettes Electronic Cigarette Use: with nicotine alcohol intake: current alcohol intake frequency: holidays/special occasions only Alcohol type: wine substance use type: does not use what type of physical activity do you participate in: none ROS ROS ED Constitutional Constitutional ED: Denies chills or fever(s) Eyes Eyes: Denies change in vision ENT ENT ED: Denies sore throat Cardiovascular Cardiovascular: Denies chest pain Respiratory/Chest Respiratory/Chest: Denies cough or dyspnea Gastrointestinal Gastrointestinal: Reports abdominal pain, diarrhea, nausea and vomiting; Denies melena Genitourinary Genitourinary ED: Denies dysuria or hematuria Musculoskeletal Musculoskeletal: Denies myalgias Integumentary Denies rash Neurologic Neurologic: Denies headache(s) Hematologic/Lymphatic Hematologic/Lymphatic: Denies easy bleeding or easy bruising EXAM Physical Exam Const Vital Signs: 02/03/25 04:24 02/03/25 04:27 02/03/25 05:27 Temperature 98.6 F 98.6 F 98.6 F Temperature Source Oral Oral Oral Pulse Rate 16 L 98 77 Respiratory Rate 97 H 16 14 Blood Pressure 142/89 H 142/89 H 109/56 L Blood Pressure Mean 106 106 73 Pulse Ox 95 96 99 Oxygen Delivery Method Room Air Room Air Room Air 02/03/25 06:23 Temperature Temperature Source Pulse Rate 84 Respiratory Rate 14 Blood Pressure 118/77 Blood Pressure Mean 90 Pulse Ox 96 Oxygen Delivery Method Room Air Positive well nourished and well developed General Appearance ED: well developed; Negative for pallor HEENT Reports moist mucous membranes HEENT Narrative: No tongue or lip swelling no oral lesions no airway edema or compromise No dried blood or active bleeding noted in the posterior pharynx No secondary changes in the posterior pharynx to suggest infection Eyes PERRL and EOMs intact bilaterally General Eye ED: Negative for pale conjunctiva or scleral icterus Neck supple Neck Narrative: No subcutaneous emphysema noted Resp normal respiratory effort and clear to auscultation bilaterally Cardio regular rate and regular rhythm Rate: other Other Details: Heart is regular rate and rhythm without murmurs rubs or gallops Radial and carotid pulses are equal and symmetric GI non-distended and no masses GI Narrative: Abdomen is soft and nondistended with normal active bowel sounds. There is mild pain on palpation in the upper abdomen without voluntary guarding or rigidity. Negative Villaseñor sign. No pulsatile mass or fluid wave. No peritoneal signs Auscultation: normoactive bowel sounds Palpation: soft Narrative: Nonbleeding nonthrombosed external hemorrhoids are noted. Rectal tone is normal. No internal masses palpated. Stool is brown in color but Hemoccult positive. Extremity normal to inspection Neuro oriented x3, CN's II-XII intact bilaterally and no sensory deficits noted Sensorium / Orientation: alert Motor Exam: strength 5/5 throughout Psych mental status grossly normal Skin no rashes or lesions noted Skin Narrative: Capillary refill is less than 3 seconds General Skin Exam: Negative for jaundice or pallor MDM MDM MDM Narrative Medical decision making narrative: Patient arrived to the ER with stable vitals. However she reported bouts of emesis that progressed to discoloration concerning for GI bleed. However she does report a history of GERD and states she does not take her Carafate as she is supposed to. Therefore in order to assess for potential upper versus lower GI bleed I did elect to perform basic laboratory studies. The patient's BUN is normal which would go against a upper GI bleed and her stool is not melanotic in color. However it was Hemoccult positive. She denies any history of bleeding disorder or blood thinner use or history of liver disease or genetic clotting disorder but her INR came back elevated at 6.6. As patient denied any potential reason why it would be elevated there is a possibility it is lab error and therefore the value was repeated. The repeat INR was normal at 1.1 indicating the initial value was most likely lab error. However because of her reported coffee ground emesis and Hemoccult positive stool coupled with an initially elevated INR I did elect to perform a CTA of the abdomen and pelvis to check for potential source of bleeding. The CT scan showed hyperdense material within the stomach concerning for blood with active extravasation. I did discuss these findings with the radiologist and informed them that the patient had drank a GI cocktail with viscous lidocaine and Maalox but that should not have caused the hyperdense material noted on CT scan and he agrees. Based on her history and these findings she will need direct visualization with an EGD. I discussed the case with certified wellness program manager Dr. Peres. He agrees that with her report of GERD and now hematemesis after drinking alcohol as well as the findings on her CT scan that she will need admitted to the hospital for continued monitoring and EGD. Therefore the case was discussed with the hospitalist who agrees to accept the patient to the hospital for continued care. Based on the fact that the radiologist feels there is active extravasation she was given IV TXA for potential internal bleeding despite stable vitals and labs. History & Record Review Discussion w/independent historian: Patient Lab Data Attestation: I reviewed the patient's lab results. Labs: Laboratory Results - last 24 hr 02/03/25 02/03/25 02/03/25 04:43 04:52 05:43 WBC 11.8 H RBC 4.81 Hgb 13.7 Hct 39.5 MCV 82.1 MCH 28.5 MCHC 34.7 RDW Std Deviation 37.0 RDW Coeff of Chaz 12.3 Plt Count 259 MPV 10.9 Immature Gran % (Auto) 0.400 Neut % (Auto) 74.7 H Lymph % (Auto) 17.9 L [place] % (Auto) 6.4 Eos % (Auto) 0.3 Baso % (Auto) 0.3 Absolute Neuts (auto) 8.8 H Absolute Lymphs (auto) 2.11 Nucleated RBC % 0 PT 58.9 H 14.0 INR 6.6 H* 1.1 APTT 23.4 L 22.7 L Sodium 139 Potassium 3.5 Chloride 101 Carbon Dioxide 24.1 Anion Gap 15 BUN 11 Creatinine 0.75 Estim Creat Clear Calc 105.81 Est GFR (MDRD) Non-Af 105 BUN/Creatinine Ratio 14.3 Glucose 101 H Calcium 9.6 Total Bilirubin 0.25 Direct Bilirubin 0.09 AST 19 ALT 22 Alkaline Phosphatase 61 Total Protein 6.8 Albumin 3.6 Globulin 3.2 Lipase 31 Serum , Qual NEGATIVE Radiography Diagnostic Testing: Clinical Impression(s) from Imaging Studies Abdomen/Pelvis CTA 02/03/25 05:30 IMPRESSION: There is a 2.3 cm hiatal hernia with irregular nodular thickening. Direct visualization is recommended. There is increased density in the dependent portion of the stomach, axial image 29/45, with active extravasation suspected. Critical results were discussed with Dr. Barbosa by Dr. Green at the time of dictation. Reading Location: [facility] Management Discussion w/another healthcare provider: Hospitalist, Concrete Carpenter and Radiologist Discharge Plan Dx/Rx/DC Orders Clinical Impression: GI (gastrointestinal bleed), GERD (gastroesophageal reflux disease), Nausea and vomiting Disposition Disposition: Acute Care Hospital [facility]
[2025-02-03] MEDS: 0.9% Normal Saline (1000mL) 1,000 ML 999 ML IV (04:50)
[2025-02-03] MEDS: Lidocaine 2% Viscous15 ML UDC 15 ML PO (04:50)
[2025-02-03] MEDS: Pantoprazole Sodium 40 MG in 0.9% Normal Saline (100mL MB+) 100 ML 300 MG IV ×2 (04:51→21:20)
[2025-02-03 05:01] LABS: Hematocrit 39.5 % (37-47); Hemoglobin 13.7 g/dL (12.0-15.0); Immature Granulocytes Count 0.050 X10^3/uL (0.0-0.0); Mean Corp Hgb Conc 34.7 g/dL (32-36); Mean Corpuscular Volume 82.1 fL (81-99); Mean Platelet Vol. 10.9 fl (6.2-12.0); NRBC Flagged by Analyzer 0 % (0-5); Platelet Count 259 K/mm3 (150-450); RBC Distribution Width CV 12.3 % (11.6-14.6); RBC Distribution Width SD 37.0 fl (35.1-43.9); Red Blood Count 4.81 M/mm3 (4.2-5.4); White Blood Count 11.8 K/mm3 (4.4-11.0)
[2025-02-03 05:11] LABS: Partial Thromboplast Time 23.4 Seconds (24.1-36.2); Prothrombin Time (Protime)PT. 58.9 SECONDS (11.7-14.9)
[2025-02-03 05:15] LABS: Internal QC Validated? YES +Cl - CLEAR BKGD; Pregnancy, Serum, hCG Quali. NEGATIVE Negative; Record Kit Lot#, Serum Preg. 0000964736
[2025-02-03 05:24] LABS: AST(SGOT) 19 U/L (<=31); Alanine Aminotransfer ALT/SGPT 22 U/L (<=34); Albumin, Serum 3.6 g/dL (3.5-5.0); Alkaline Phosphatase 61 U/L (35-104); Anion Gap 15 (5-15); BUN 11 mg/dL (4-19); BUN/Creat Ratio 14.3 RATIO (10-20); Bilirubin, Direct 0.09 mg/dL (0.00-0.30); Calcium,Total 9.6 mg/dL (7.6-11.0); Carbon Dioxide 24.1 mmol/L (21.0-32.0); Chloride 101 mmol/L (98-108); Estimated Creatinine Clearance 105.81 ml/min (50-250); Globulin 3.2 g/dL (2.2-4.2); Glucose 101 mg/dL (70-99); Lipase 31 U/L (13-75); Potassium 3.5 mmol/L (3.3-5.1)
--- NOTE | 2025-02-03 05:30 | CT_ITS ---
PROCEDURE: CTA ABD/PELVIS W/WO CONTRAST 02/03/2025 REASON FOR EXAM: GI BLEED TECHNIQUE: Procedure Code: [id number] Modality: CT Procedure: CTA ABD/PELVIS W/WO CONTRAST Multiplanar Sagittal and Coronal images were obtained. CONTRAST: 96 cc Isovue 370 One or more dose reduction techniques were used (e.g., Automated exposure control, adjustment of the mA and/or kV according to patient size, use of iterative reconstruction technique). RADIATION DOSE SUMMARY: DLP: 739 mGycm COMPARISON: June 12, 2023 FINDINGS: Aorta: Intact, minimal atherosclerotic plaque is noted. Iliac Arteries: Patent Celiac: Patent SMA: Patent LORETTA : Patent Right Renal: Patent Left Renal: Patent Extravascular Findings: There is increased density in the dependent portion of the stomach, axial image 29/45, with active extravasation suspected. Hardware is noted at the pubic symphysis. There is a 2.3 cm hiatal hernia with irregular nodular thickening. Images of the lung bases are clear. The liver, spleen, gallbladder, pancreas, adrenals, and kidneys are unremarkable. There is gas and stool noted throughout the colon. Small bowel loops are nondistended. There is no free air or free fluid. There is no visible adenopathy. There is no pelvic mass or free fluid. There is no acute bony abnormality. CT/CTA Abd/Pelvis W/WO Contrast IMPRESSION: There is a 2.3 cm hiatal hernia with irregular nodular thickening. Direct visu alization is recommended. There is increased density in the dependent portion of the stomach, axial image 29/45, with active extravasation suspected. Critical results were discussed with Dr. Barbosa by Dr. Geren at the time of dictation. Reading [facility]
[2025-02-03 06:40] LABS: Prothrombin Time (Protime)PT. 14.0 SECONDS (11.7-14.9)
[2025-02-03 06:41] LABS: Partial Thromboplast Time 22.7 Seconds (24.1-36.2)
[2025-02-03] MEDS: TRANEXAMIC ACID 1,000 MG in 0.9% Normal Saline (100mL Bag) 100 ML 440 MG IV (07:09)
--- NOTE | 2025-02-03 07:14 | PCM.HP.STD ---
HPI - General General Date of Admission: 02/03/25 Date of Service: 02/03/25 Chief Complaint: Coffee-ground emesis HPI Narrative MELYL ESTRADA, is a 39 F who presents who presented with coffee-ground emesis. Per patient he has been having intermittent abdominal pain for couple of weeks. She apparently went to a concert last night drank a couple of beers this was later followed by intractable nausea vomiting. She did not notice bowel and coffee-ground material hence the decision to present to the ED. CT of the abdomen obtained in the ED did show a 2.3 cm hiatal hernia with irregular nodular thickening. GI was notified patient admitted to regular nursing floor for further management PENDING SALE TO [facility] Medical History Strain of pelvis Lumbar strain Thoracic myofascial strain Cervical myofascial strain Hearing loss Preventative health care COVID-19 Acute conjunctivitis, left eye Contact with and (suspected) exposure to other viral communicable diseases Acute maxillary sinusitis, unspecified Left hip pain Fibromyalgia Lump of right breast Nicotine dependence, cigarettes, uncomplicated Borderline personality disorder Polysubstance dependence, non-opioid, in remission Severe recurrent major depression Pre-eclampsia ADHD Osteitis of symphysis pubis Vitamin deficiency GERD (gastroesophageal reflux disease) UTI (urinary tract infection) Fracture of left upper limb Seasonal allergies Home Medications Medication Instructions Recorded Last Taken Type fluoxetine 40 mg capsule 40 mg PO DAILY 08/10/19 08/08/23 History omeprazole 20 mg capsule,delayed 20 mg PO QDAY 07/22/24 Unknown History release clonazepam 1 mg tablet 1 mg PO DAILY PRN anxiety 10/20/24 Unknown History ondansetron 8 mg disintegrating 8 mg PO Q8H PRN nausea and 10/20/24 Unknown Rx tablet vomiting #12 tabs sucralfate 1 gram tablet (Carafate) 1 g PO QACHS #120 tabs 12/13/24 Unknown Rx cyclobenzaprine 10 mg tablet 5 - 10 mg (0.5 - 1 x 10 mg) PO TID 12/27/24 Unknown Rx PRN muscle spasm #20 tabs Allergy/AdvReac Type Severity Reaction Status Date / Time No Known Allergies Allergy Verified 02/03/25 04:24 Family History Mother Arthritis Autoimmune disease Blood clot in vein Hypertension Melanoma CVA (cerebral vascular accident) Father Arthritis High cholesterol H/O ulcer disease Grandmother Anxiety Arthritis Myocardial infarction Depression COPD (chronic obstructive pulmonary disease) High cholesterol Hypertension Grandfather Arthritis High cholesterol Hypertension Diabetes Grandmother Kidney disease Surgical History H/O removal of cyst removal orthpeadic screw from back history closed reduction left arm fracture history diagnostic laparoscopy History of colonoscopy (~2018) History of esophagogastroduodenoscopy (EGD) (~2018) History of orthopedic surgery History of Social History household members: family housing: house Smoking Status: Current every day smoker tobacco type: e-cigarettes Electronic Cigarette Use: with nicotine alcohol intake: current alcohol intake frequency: holidays/special occasions only Alcohol type: wine substance use type: does not use what type of physical activity do you participate in: none ROS ROS Narrative GENERAL: denies fever, chills, night sweats, weight loss, anorexia HEENT: denies headache, sinus congestion, or drainage, dysphagia RESPIRATORY: denies cough, sputum production, shortness of breath, dyspnea on exertion CARDIAC: denies chest pain, palpitations, orthopnea, PND GASTROINTESTINAL: Coffee-ground emesis GENITOURINARY: denies dysuria, urgency, frequency, heamaturia EXTREMITY: denies swelling MUSCULOSKELETAL: denies current joint pain or tenderness NEUROLOGIC: denies focal numbness, weakness, tingling HEMATOLOGIC: denies easy bruising and/or hemorrhage INTEGUMENT: denies rashes PSYCHIATRIC: denies suicidal or homicidal ideation Vital Signs Vital Signs Vital Signs: 02/03/25 04:24 02/03/25 04:27 02/03/25 05:27 Temperature 98.6 F 98.6 F 98.6 F Temperature Source Oral Oral Oral Pulse Rate 16 L 98 77 Respiratory Rate 97 H 16 14 Blood Pressure 142/89 H 142/89 H 109/56 L Blood Pressure Mean 106 106 73 Pulse Ox 95 96 99 Oxygen Delivery Method Room Air Room Air Room Air 02/03/25 06:23 Temperature Temperature Source Pulse Rate 84 Respiratory Rate 14 Blood Pressure 118/77 Blood Pressure Mean 90 Pulse Ox 96 Oxygen Delivery Method Room Air Weight Weight: 75.8 kg Body Mass Index (BMI) 26.9 Physical Exam Narrative GENERAL: cooperative HEENT: Atraumatic; normocephalic EYES; Anicteric, Normal Conjunctiva NECK; supple, normal thyroid, RESPIRATORY: Diminished to auscultation CARDIOVASCULAR: Regular S1 S2, GI: soft, normoactive bowel sounds, : No Renal angle tenderness; EXTREMITIES: No edema, no clubbing, MUSCULOSKELETAL: no muscle wasting NEURO: Awake; no lateralizing signs. SKIN: No Rash PSYCH; Flat affect Results Lab / Micro Data 02/03/25 04:43 02/03/25 04:43 Labs: Laboratory Results - last 24 hr 02/03/25 04:43: WBC 11.8 H, RBC 4.81, Hgb 13.7, Hct 39.5, MCV 82.1, MCH 28.5, MCHC 34.7, RDW Std Deviation 37.0, RDW Coeff of Chaz 12.3, Plt Count 259, MPV 10.9, Immature Gran % (Auto) 0.400, Neut % (Auto) 74.7 H, Lymph % (Auto) 17.9 L, [place] % (Auto) 6.4, Eos % (Auto) 0.3, Baso % (Auto) 0.3, Absolute Neuts (auto) 8.8 H, Absolute Lymphs (auto) 2.11, Nucleated RBC % 0, Sodium 139, Potassium 3.5, Chloride 101, Carbon Dioxide 24.1, Anion Gap 15, BUN 11, Creatinine 0.75, Estim Creat Clear Calc 105.81, Est GFR (MDRD) Non-Af 105, BUN/Creatinine Ratio 14.3, Glucose 101 H, Calcium 9.6, Total Bilirubin 0.25, Direct Bilirubin 0.09, AST 19, ALT 22, Alkaline Phosphatase 61, Total Protein 6.8, Albumin 3.6, Globulin 3.2, Lipase 31, Serum , Qual NEGATIVE 02/03/25 04:52: PT 58.9 H, INR 6.6 H*, APTT 23.4 L 02/03/25 05:43: PT 14.0, INR 1.1, APTT 22.7 L Micro: Microbiology 02/03/25 05:14 Stool Stool Occult Blood (ZOË) - Final Occult Blood Positive Imaging Radiology Impression Abdomen/Pelvis CTA 02/03/25 05:30 IMPRESSION: There is a 2.3 cm hiatal hernia with irregular nodular thickening. Direct visualization is recommended. There is increased density in the dependent portion of the stomach, axial image 29/45, with active extravasation suspected. Critical results were discussed with Dr. Barbosa by Dr. Green at the time of dictation. Reading Location: [facility] Assessment & Plan Assessment/Plan (1) Upper GI bleed: PLAN: Plan Patient is a 39-year-old female presenting with coffee-ground emesis 1. Upper GI bleed – Patient admitted to a monitored bed. Initial imaging studies obtained did show is a 2.3 cm hiatal hernia with irregular nodular thickening. Direct visualization is recommended. GI subsequently consulted from the ED. Patient was placed on Protonix type and screen H&H ordered every 6 2. Depression with anxiety – Patient is on clonazepam and fluoxetine plan is to resume after patient endoscopic evaluation 3. GERD – Patient is supposed to be on PPI and sacral fate 4. DVT prophylaxis – Low risk we encourage early ambulation Time spent in the patient's overall evaluation,decision-making process, review of diagnostic data, adjustment of management, discussion with other providers, nursing nursing and ancillary staff involved in patient's care documentation 55 Minutes Charges/Coding Visit Charges Inpatient E&M: 33159 Init Hosp L2
[2025-02-03 09:03] LABS: Hematocrit 36.1 % (37-47); Hemoglobin 12.4 g/dL (12.0-15.0)
[2025-02-03] MEDS: Lactated Ringers 1,000 ML 150 ML IV ×3 (09:36→23:38)
[2025-02-03] MEDS: Pantoprazole Sodium 80 MG in 0.9% Normal Saline (50mL Bag) 15 ML 420 MG IV BOLUS (09:38)
--- NOTE | 2025-02-03 11:09 | PCM.PRE.AN2 ---
ASA Classification* ASA Classification ASA Classification: 3 Assessment & Plan Anesthesia* Anesthesia Assessment Anesthesia Assessment: Discussed sedation and/or anesthesia options, risks, benefits, and alternatives with patient/parents/legal guardian/POA. Questions invited. The patient/parents/legal guardian/POA seems to understand and agrees to proceed with anesthesia plan. Reviewed the physical assessment, medical history, allergy history and patient home medications list prior to surgery/procedure/anesthetic and documented any changes. Performed airway and anesthesia risk assessments. Anesthesia Type Anesthesia Type: MAC History Source History Obtained from:: Patient and Chart Anesthesia Focused Assessment* Temperature: 97.6 F Pulse Rate: 75 Blood Pressure: 115/69 Respiratory Rate: 18 Pulse Ox: 98 Oxygen Delivery Method: Room Air Airway Assessment Mouth opens: >3 cm Mallampati Score: III Teeth Condition: Intact Neck Range of motion (ROM): Full ROM Labs Anesthesia Preop lab: CBC WBC, (4.4-11.0) 11.8 K/mm3 H Today, 04:43 RBC, (4.2-5.4) 4.81 M/mm3 Today, 04:43 Hgb, (12.0-15.0) 12.4 g/dL Today, 08:50 Hct, (37-47) 36.1 % L Today, 08:50 Plt Count, (150-450) 259 K/mm3 Today, 04:43 CHEMISTRY Potassium, (3.3-5.1) 3.5 mmol/L Today, 04:43 Sodium, (133-145) 139 mmol/L Today, 04:43 BUN, (4-19) 11 mg/dL Today, 04:43 Creatinine, (0.70-1.20) 0.75 mg/dL Today, 04:43 Glucose, (70-99) 101 mg/dL H Today, 04:43 POC Glucose, (70-110) 91 mg/dL 16, 10:19 TSH, (0.358-3.74) 3.59 uIU/mL 07/24/20, 16:15 COAG PT, (11.7-14.9) 14.0 SECONDS Today, 05:43 Urine Test Negative Negative 03/14/23, 16:30 Pre-Assessment Diagnosis/Proposed Procedure Planned Operative Procedure(s): Esophagogastroduodenoscopy Anesthesia History 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 When Was Last Pacemaker Check QUESTION #4 FULL TEXT: You/Your Family Experience fever (hyperthermia) with Anesthesia Last Oral Intake Last Oral intake: Last Oral Intake NPO since 0000 Meds taken in AM with sips of water? 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 Female HX of Motion Sickness HX of N/V After Surgery Non-Smoker Duration of Surgery greater than 60 minutes Number of Risk Factors PONV Score Height & Weight Height & Weight: Anesthesia: Height & Weight Height 5 ft 6 in 02/03/25 08:22 Weight: 76.657 kg 02/03/25 08:22 Body Mass Index (BMI) 27.2 02/03/25 08:22 Respiratory Assessment Respiratory Assessment - long distance billing operator: Respiratory Tract Infection Hx - long distance billing operator Hx Respiratory Tract Infection No 06/04/21 14:44 STOP Sleep Apnea STOP Sleep Apnea - long distance billing operator: STOP Sleep Apnea - long distance billing operator Hx Hypertension No 02/03/25 08:33 Hx Sleep Apnea No 02/03/25 08:33 CPAP BIPAP Do you snore loudly (louder No 02/03/25 08:33 than talking or can be heard Do you often feel tired/ No 02/03/25 08:33 fatigued/ sleepy during daytime? Has anyone observed you stop No 02/03/25 08:33 breathing during sleep? STOP Results Negative 02/03/25 08:33 QUESTION #5 FULL TEXT : Do you snore loudly (louder than talking or can be heard through closed doors)? 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 Specify any problems Hx of Preganancy in last 3 No 02/03/25 08:33 Months Nurse Filling Out Transfusion CDANTONE 02/03/25 08:33 & Questions: Date: 02/03/25 02/03/25 08:33 Time: 08:34 02/03/25 08:33 Patient unable to answer at this time (ie. 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 INHALATION Q2H PRN PRN SOB &/OR WHEEZING Clonazepam 1 mg 02/03/25 08:23 Clonazepam 1 Mg Tablet PO DAILY PRN ANXIETY Fluoxetine HCl 40 mg 02/03/25 10:00 02/03/25 09:41 Fluoxetine Hcl 40 Mg Capsule PO Not Given DAILY ROMARIO Pantoprazole Sodium 40 mg/ 100 mls @ 300 mls/hr 02/03/25 22:00 Sodium Chloride IV 02/05/25 22:01 Q12 ROMARIO Lactated Ringer's 1,000 mls @ 150 mls/hr 02/03/25 08:23 02/03/25 09:36 IV 150 mls/hr .[id number] ROMARIO Administration Sodium Chloride 250 mls @ 15 mls/hr 02/03/25 08:29 IV .[id number] PRN Saline Flush Sodium Chloride 250 mls @ 15 mls/hr 02/03/25 08:29 IV .[id number] PRN Additional IVPB Infusion Melatonin 10 mg 02/03/25 08:23 Melatonin 10 Mg Tablet PO QHS PRN PRN INSOMNIA Ondansetron HCl 4 mg 02/03/25 08:23 Ondansetron 4 Mg/2 Ml Vial IV Q8H PRN PRN NAUSEA/VOMITING Pantoprazole Sodium 40 mg 02/06/25 22:00 Pantoprazole Sodium 40 Mg Tablet PO BID ROMARIO Senna/Docusate Sodium 2 tablet 02/03/25 08:23 Senna/Docusate Sodium 1 Tablet PO BID PRN PRN Constipation Sodium Chloride 10 - 40 ml 02/03/25 08:29 0.9% Saline Lock 10 Ml Syringe IV UD PRN SALINE FLUSH PFSH Medical History Strain of pelvis Lumbar strain Thoracic myofascial strain Cervical myofascial strain Hearing loss Preventative health care COVID-19 Acute conjunctivitis, left eye Contact with and (suspected) exposure to other viral communicable diseases Acute maxillary sinusitis, unspecified Left hip pain Fibromyalgia Lump of right breast Nicotine dependence, cigarettes, uncomplicated Borderline personality disorder Polysubstance dependence, non-opioid, in remission Severe recurrent major depression Pre-eclampsia ADHD Osteitis of symphysis pubis Vitamin deficiency GERD (gastroesophageal reflux disease) UTI (urinary tract infection) Fracture of left upper limb Seasonal allergies Home Medications Medication Instructions Recorded Last Taken Type fluoxetine 40 mg capsule 40 mg PO DAILY 08/10/19 08/08/23 History omeprazole 20 mg capsule,delayed 20 mg PO QDAY GERD 07/22/24 Unknown History release clonazepam 1 mg tablet 1 mg PO DAILY PRN anxiety 10/20/24 Unknown History sucralfate 1 gram tablet (Carafate) 1 g PO QACHS #120 tabs 12/13/24 Unknown Rx Allergy/AdvReac Type Severity Reaction Status Date / Time No Known Allergies Allergy Verified 02/03/25 04:24 Family History Mother Arthritis Autoimmune disease Blood clot in vein Hypertension Melanoma CVA (cerebral vascular accident) Father Arthritis High cholesterol H/O ulcer disease Grandmother Anxiety Arthritis Myocardial infarction Depression COPD (chronic obstructive pulmonary disease) High cholesterol Hypertension Grandfather Arthritis High cholesterol Hypertension Diabetes Grandmother Kidney disease Surgical History H/O removal of cyst removal orthpeadic screw from back history closed reduction left arm fracture history diagnostic laparoscopy History of colonoscopy (~2018) History of esophagogastroduodenoscopy (EGD) (~2019) History of orthopedic surgery History of Social History household members: family housing: house Smoking Status: Current every day smoker tobacco type: e-cigarettes Electronic Cigarette Use: with nicotine alcohol intake: current alcohol intake frequency: holidays/special occasions only Alcohol type: wine substance use type: does not use what type of physical activity do you participate in: none Review of Systems (Anesthesia) ROS Narrative System reviewed and no additional complaints, except as documented.
--- NOTE | 2025-02-03 11:27 | CHAPLAIN ---
Type of Pastoral Visit ___ Initial Visit ___ Follow-up Visit ___ On-call Visit ___ General Patient Visit ___ Spiritual Assessment ___ Family Conference ___ Bereavement ___ Rapid Response ___ Code Blue ___ Other (describe below) Pastoral Care Referral From ___ Patient ___ Family ___ Nurse ___ Physician ___ Raschel Knitting Machine Operator ___ Framing Manager ___ Other (describe below) Sacrament/Intervention ___ Active listening ___ Anointing ___ Sabianist ___ Bereavement ___ Communion ___ Susy exploration ___ ___ Life review ___ Prayer ___ Reconciliation ___ Sacrament of Sick ___ Supportive presence ___ Wedding ___ Other (describe below) Pastoral Comments patient is out of the room; left a calling card
--- NOTE | 2025-02-03 11:38 | EX.PCM.CON.G ---
HPI Consult Data Date of Consult: 02/03/25 HPI Narrative Reason for Consultation: Coffee-ground emesis HPI Narrative: MELLY ESTRADA, is a 39-year-old female who reports a past medical history of GERD. She states that tonight she went to a concert and while there drank 4 beers. She states that after doing so she began to experience upper abdominal discomfort and had bouts of nausea and vomiting. She states that initially the vomit was just food and bile. However she states after a few episodes it appeared to become dark and concerned her for potential blood. She denies any history of bleeding disorder or blood thinner use. She states she has not noticed any type of blood or darkness in her stool. She was in the emergency room 3 months ago for acute episode of abdominal pain followed by nausea vomiting but without hematemesis. She was given omeprazole and arboreal scientist fate. She does take omeprazole but does not take arboreal scientist fate. She also has a past medical history of anxiety and depression and takes clonazepam as needed along with fluoxetine on a daily basis. [facility] Medical History Strain of pelvis Lumbar strain Thoracic myofascial strain Cervical myofascial strain Hearing loss Preventative health care COVID-19 Acute conjunctivitis, left eye Contact with and (suspected) exposure to other viral communicable diseases Acute maxillary sinusitis, unspecified Left hip pain Fibromyalgia Lump of right breast Nicotine dependence, cigarettes, uncomplicated Borderline personality disorder Polysubstance dependence, non-opioid, in remission Severe recurrent major depression Pre-eclampsia ADHD Osteitis of symphysis pubis Vitamin deficiency GERD (gastroesophageal reflux disease) UTI (urinary tract infection) Fracture of left upper limb Seasonal allergies Home Medications Medication Instructions Recorded Last Taken Type fluoxetine 40 mg capsule 40 mg PO DAILY 08/10/19 08/08/23 History omeprazole 20 mg capsule,delayed 20 mg PO QDAY GERD 07/22/24 Unknown History release clonazepam 1 mg tablet 1 mg PO DAILY PRN anxiety 10/20/24 Unknown History sucralfate 1 gram tablet (Carafate) 1 g PO QACHS #120 tabs 12/13/24 Unknown Rx Allergy/AdvReac Type Severity Reaction Status Date / Time No Known Allergies Allergy Verified 02/03/25 04:24 Family History Mother Arthritis Autoimmune disease Blood clot in vein Hypertension Melanoma CVA (cerebral vascular accident) Father Arthritis High cholesterol H/O ulcer disease Grandmother Anxiety Arthritis Myocardial infarction Depression COPD (chronic obstructive pulmonary disease) High cholesterol Hypertension Grandfather Arthritis High cholesterol Hypertension Diabetes Grandmother Kidney disease Surgical History H/O removal of cyst removal orthpeadic screw from back history closed reduction left arm fracture history diagnostic laparoscopy History of colonoscopy (~2018) History of esophagogastroduodenoscopy (EGD) (~2018) History of orthopedic surgery History of Social History household members: family housing: house Smoking Status: Current every day smoker (No smoking today.) tobacco type: e-cigarettes Electronic Cigarette Use: with nicotine alcohol intake: current alcohol intake frequency: holidays/special occasions only Alcohol type: wine substance use type: does not use what type of physical activity do you participate in: none ROS Constitutional Constitutional: Denies fatigue, fever(s), poor appetite, weight gain or weight loss Gastrointestinal Gastrointestinal: Denies belching, bloating, change in bowel habits, change in stool character, chewing difficulty, coffee ground emesis, constipation, cramping, diarrhea, dyspepsia, dysphagia, early satiety, excessive flatus, fecal incontinence, heartburn, hematemesis, hematochezia, hemorrhoids, loose stools, melena, nausea, odynophagia, rectal bleeding, tenesmus, vomiting or weight changes Physical Exam Const alert, oriented x3, no apparent distress and healthy appearing General Appearance: cooperative GI normal to inspection, nondistended, normoactive bowel sounds, soft to palpation, non-tender and non-distended Percussion: normal to percussion Rectal Exam: deferred Lab / Micro Data 02/03/25 08:50 02/03/25 04:43 Labs: Laboratory Results - last 24 hr 02/03/25 04:43: WBC 11.8 H, RBC 4.81, Hgb 13.7, Hct 39.5, MCV 82.1, MCH 28.5, MCHC 34.7, RDW Std Deviation 37.0, RDW Coeff of Chaz 12.3, Plt Count 259, MPV 10.9, Immature Gran % (Auto) 0.400, Neut % (Auto) 74.7 H, Lymph % (Auto) 17.9 L, Phillips % (Auto) 6.4, Eos % (Auto) 0.3, Baso % (Auto) 0.3, Absolute Neuts (auto) 8.8 H, Absolute Lymphs (auto) 2.11, Nucleated RBC % 0, Sodium 139, Potassium 3.5, Chloride 101, Carbon Dioxide 24.1, Anion Gap 15, BUN 11, Creatinine 0.75, Estim Creat Clear Calc 105.81, Est GFR (MDRD) Non-Af 105, BUN/Creatinine Ratio 14.3, Glucose 101 H, Calcium 9.6, Total Bilirubin 0.25, Direct Bilirubin 0.09, AST 19, ALT 22, Alkaline Phosphatase 61, Total Protein 6.8, Albumin 3.6, Globulin 3.2, Lipase 31, Serum , Qual NEGATIVE 02/03/25 04:52: PT 58.9 H, INR 6.6 H*, APTT 23.4 L 02/03/25 05:43: PT 14.0, INR 1.1, APTT 22.7 L 02/03/25 08:50: Hgb 12.4, Hct 36.1 L, Blood Type A POSITIVE, Antibody Screen NEGATIVE Micro: Microbiology 02/03/25 05:14 Stool Stool Occult Blood (ZOË) - Final Occult Blood Positive Imaging Radiology Impression Abdomen/Pelvis CTA 02/03/25 05:30 IMPRESSION: There is a 2.3 cm hiatal hernia with irregular nodular thickening. Direct visualization is recommended. There is increased density in the dependent portion of the stomach, axial image , with active extravasation suspected. Critical results were discussed with Dr. Barbosa by Dr. Green at the time of dictation. Reading Location: [facility] Assessment & Plan Assessment/Plan (1) GI (gastrointestinal bleed): (2) GERD (gastroesophageal reflux disease): PLAN: Plan 39-year-old comes in to the ED with multiple episodes of nausea vomiting and episodes of coffee-ground emesis. Differential diagnosis does include erosive esophagitis, peptic ulcer disease, Fernanda-Tejada tear. She should undergo an upper endoscopy about upper GI tract. She was explained alternatives, risk and benefits include not withstanding bleeding, infection, sepsis, perforation, need for surgery . She will have an ASA of 3. Charges/Coding Visit Charges Inpatient E&M: 27754 Init Hosp L3
--- NOTE | 2025-02-03 11:45 | EGD_PTH ---
PATIENT: MELLY ESTRADA LOC: [facility] U#:[id number] AGE/SX: 39/F ROOM: [facility] RE02/03/[address]: Dr. Alec Redman MD : 1985 BED: 1 DIS: 02/04/2025 SPEC #: [id number] RECD: 02/03/25 13:49 STATUS: JENNIFER REQ #: [id number] CAROLYN: 02/03/25 11:[address]: Mehul Peres DEPT: SURGICAL PATHOLOGY RECD BY: Tyrone Forbes ENTERED: 02/03/25 14:44 SP TYPE: EGD BIOPSY OTHR DR: MD Dr. Flakito Razo MD Dr. Prakash Chand, MD Heather Evans, [employer] Sariah Almonte, [employer] MAYTE Mayers Tissues: A - Esophagus, NOS B - Gastric mucous membrane Procedures: Immunohistochemical Stains Special Stain Group I Surgery Specimen Level IV GMS Stain (control) Comments: @ Ordering doctor for IMHI edited from to @ by ALVINO at 02/03/25 1444 @ Ordering doctor for SUIV edited from to @ by ALVINO at 02/03/25 1444 @ Submitting doctor edited from to @ karishma DE OLIVEIRA at 02/03/25 1444 HEADER OPERATION: EGD, biopsy PRE-OP DIAGNOSIS: Upper GI bleed, depression with anxiety, GERD TISSUE SUBMITTED: A- Random esophagus biopsy, B- Gastric antrum biopsy MICROSCOPIC DIAGNOSIS A. Esophagus, random, biopsy: * Squamous mucosa with reactive changes and acute inflammation. * PASD stain highlights rare fungal organisms. B. Gastric antrum, biopsy: * Antral mucosa with features of reactive gastropathy. * IHC negative for H. pylori organisms. MICROSCOPIC DESCRIPTION Slides are reviewed. All matched controls reacted appropriately. These tests were developed and their performance characteristics determined by [facility]. They may not have been cleared or approved by the [place]. Food and Drug Administration. The FDA has determined that such clearance or approval is not necessary. The above immunohistochemical markers and/or special stains have been reviewed by the Pathologist. GROSS DESCRIPTION A. Received in fixative is one container labeled with the patient's name and designated "Random esophagus biopsy." The specimen consists of two irregular fragments of light dobbins soft tissue that measure 0.4 and 0.5 cm. The specimen is totally submitted in one cassette. B. Received in fixative is one container labeled with the patient's name and designated "Gastric antrum biopsy." The specimen consists of two irregular fragments of light dobbins soft tissue that measure 0.5 and 0.6 cm. The specimen is totally submitted in one cassette. AL 02/03/2025 CPT:65802t0,[id number]
--- NOTE | 2025-02-03 12:04 | CASEMGMT ---
Dx: GI Bleed LACE: 1 6-Clicks: 23 Medical record reviewed and patient evaluated for identification of discharge planning needs. Based on this review, at this time criteria are not present to indicate a need for discharge planning. Will remain available to assist with discharge planning needs as identified or requested.
--- NOTE | 2025-02-03 12:13 | OP.PROVAT_ITS ---
02/03/2025 Flakito Seals MD [address] [place] [address] [place] [address] Re : Upper GI endoscopy procedure for Willow Hurd Dear Dr. Seals This procedure was performed on January. My impressions and recommendations are as follows: Impressions : - LA Grade D erosive esophagitis with bleeding. Biopsied. - Non-bleeding gastric ulcers with no stigmata of bleeding. Biopsied. - Normal examined duodenum. Recommendations : - [facility]. - Resume previous diet. - Continue present medications. - Await pathology results. - Use Protonix (pantoprazole) 40 mg PO BID for 1 month. My findings are described in the full procedure note, which is enclosed. If I can be of further assistance, please feel free to contact me at . Sincerely, Mehul Friend, 02/03/2025 12:13:38 PM This report has been signed electronically.
--- NOTE | 2025-02-03 12:13 | OP.EGD_ITS ---
Patient Name: Willow Hurd Procedure Date: 02/03/2025 11:52 AM Date of : 1985 Age: 39 Procedure: Upper GI endoscopy Indications: Coffee-ground emesis Providers: Mehul Peres DO Medicines: Monitored Anesthesia Care Patient Profile: This is a 39 year old female. Refer to note in patient chart for documentation of history and physical. Patient has symptoms of acute nausea and acute vomiting. Complications: No immediate complications. Procedure: Pre-Anesthesia Assessment: - Prior to the procedure, a History and Physical was performed, and patient medications and allergies were reviewed. The patient is competent. The risks and benefits of the procedure and the sedation options and risks were discussed with the patient. All questions were answered and informed consent was obtained. Patient identification and proposed procedure were verified by the physician in the pre-procedure area. Mental Status Examination: alert and oriented. Airway Examination: normal oropharyngeal airway and neck mobility. Respiratory Examination: clear to auscultation. CV Examination: normal. Prophylactic Antibiotics: The patient does not require prophylactic antibiotics. Prior Anticoagulants: The patient has taken no anticoagulant or antiplatelet agents. ASA Grade Assessment: II - A patient with mild systemic disease. After reviewing the risks and benefits, the patient was deemed in satisfactory condition to undergo the procedure. The anesthesia plan was to use monitored anesthesia care (MAC). Immediately prior to administration of medications, the patient was re-assessed for adequacy to receive sedatives. The heart rate, respiratory rate, oxygen saturations, blood pressure, adequacy of pulmonary ventilation, and response to care were monitored throughout the procedure. The physical status of the patient was re-assessed after the procedure. After obtaining informed consent, the endoscope was passed under direct vision. Throughout the procedure, the patient's blood pressure, pulse, and oxygen saturations were monitored continuously. The Endoscope was introduced through the mouth, and advanced to the third part of the duodenum. Small bowel enteroscopy was deemed necessary. The upper GI endoscopy was accomplished without difficulty. The patient tolerated the procedure well. Scope In: 12:00:01 PM Scope Out: 12:06:02 PM Total Procedure Duration Time 0 hours 6 minutes 1 second Findings: LA Grade D (one or more mucosal breaks involving at least 75% of esophageal circumference) esophagitis with bleeding was found 31 to 40 cm from the incisors. Biopsies were taken with a cold forceps for histology. Verification of patient identification for the specimen was done. Estimated blood loss was minimal. Many non-bleeding linear gastric ulcers with no stigmata of bleeding were found in the gastric antrum. Biopsies were taken with a cold forceps for histology. Biopsies were taken with a cold forceps for histology. Verification of patient identification for the specimen was done. Estimated blood loss was minimal. Biopsies were taken with a cold forceps for Helicobacter pylori testing. Verification of patient identification for the specimen was done. Estimated blood loss was minimal. The examined duodenum was normal. Impression: - LA Grade D erosive esophagitis with bleeding. Biopsied. - Non-bleeding gastric ulcers with no stigmata of bleeding. Biopsied. - Normal examined duodenum. Recommendation: - [facility]. - Resume previous diet. - Continue present medications. - Await pathology results. - Use Protonix (pantoprazole) 40 mg PO BID for 1 month. Procedure Code(s): --- Professional --- 63574, Small intestinal endoscopy, enteroscopy beyond second portion of duodenum, not including ileum; with biopsy, single or multiple CPT copyright 2021 [employer]. All rights reserved. The codes documented in this report are preliminary and upon senior web architect review may be revised to meet current compliance requirements. Mehul Peres DO 02/03/2025 12:13:38 PM This report has been signed electronically. Number of Addenda: 0 Note Initiated On: 02/03/2025 11:52 AM
--- NOTE | 2025-02-03 12:14 | PCM.POST.ANE ---
Anesthesia: Postop Eval I Current Vital Signs Temperature: 97.9 F Pulse Rate: 87 Blood Pressure: 99/57 Respiratory Rate: 16 Pulse Ox: 98 Oxygen Delivery Method: Room Air Assessment Airway patent: Yes Spontaneous unlabored respirations: Yes Mental status: Awake and Calm nausea: No Vomiting: No Anesthesia Complication: No Fluid Hydration Crystalloid volume administer (ml): 400 Total IV fluid infused: 400 Progress Note Anesthesia document: Postop Eval 1 completed: Yes
--- NOTE | 2025-02-03 12:56 | POSTOPAN2_ITS ---
Anesthesia Postop Eval I Sum Postop Eval Completion status Anesthesia document: Postop Eval 1 completed: Yes Anesthesia Postop Eval I Summary Anesthesia Postop Eval I Summary: Anesthesia Postop Eval I: Assessment Summary Airway patent Yes 02/03/25 12:15 MOTOR VEHICLE TECHNICIAN.[email or web address] Spontaneous unlabored Yes 02/03/25 12:15 MOTOR VEHICLE TECHNICIAN.GDOTT respirations Mental status Awake,Calm 02/03/25 12:15 MOTOR VEHICLE TECHNICIAN.GDOTT nausea No 02/03/25 12:15 MOTOR VEHICLE TECHNICIAN.GDOTT Vomiting No 02/03/25 12:15 MOTOR VEHICLE TECHNICIAN.GDOTT Anesthesia Postop Eval I: Fluid Summary Crystalloid volume administer 400 02/03/25 12:15 MOTOR VEHICLE TECHNICIAN.GDOTT (ml) Colloids volume administered ( ml) Blood Product volume administered (ml) Total IV fluid infused 400 02/03/25 12:15 MOTOR VEHICLE TECHNICIAN.GDOTT Anesthesia Postop Eval I: Summary Notes Anesthesia Complication No 02/03/25 12:15 MOTOR VEHICLE TECHNICIAN.GDOTT Anesthesia Complication Comment: Post-operative progress note Anesthesia: Postop Eval II Evaluation Mental status: Awake and Calm Pain Level: 0 nausea: No Vomiting: No Complications Anesthesia Complication: No
--- NOTE | 2025-02-03 12:56 | PCM.POSTANE2 ---
Anesthesia Postop Eval I Sum Postop Eval Completion status Anesthesia document: Postop Eval 1 completed: Yes Anesthesia Postop Eval I Summary Anesthesia Postop Eval I Summary: Anesthesia Postop Eval I: Assessment Summary Airway patent Yes 02/03/25 12:15 GEOPHYSICAL PROSPECTING PERMIT AGENT.GDOTT Spontaneous unlabored Yes 02/03/25 12:15 GEOPHYSICAL PROSPECTING PERMIT AGENT.GDOTT respirations Mental status Awake,Calm 02/03/25 12:15 GEOPHYSICAL PROSPECTING PERMIT AGENT.GDOTT nausea No 02/03/25 12:15 GEOPHYSICAL PROSPECTING PERMIT AGENT.GDOTT Vomiting No 02/03/25 12:15 GEOPHYSICAL PROSPECTING PERMIT AGENT.GDOTT Anesthesia Postop Eval I: Fluid Summary Crystalloid volume administer 400 02/03/25 12:15 GEOPHYSICAL PROSPECTING PERMIT AGENT.GDOTT (ml) Colloids volume administered ( ml) Blood Product volume administered (ml) Total IV fluid infused 400 02/03/25 12:15 GEOPHYSICAL PROSPECTING PERMIT AGENT.GDOTT Anesthesia Postop Eval I: Summary Notes Anesthesia Complication No 02/03/25 12:15 GEOPHYSICAL PROSPECTING PERMIT AGENT.GDOTT Anesthesia Complication Comment: Post-operative progress note Anesthesia: Postop Eval II Evaluation Mental status: Awake and Calm Pain Level: 0 nausea: No Vomiting: No Complications Anesthesia Complication: No
[2025-02-03 14:46] LABS: Hematocrit 36.3 % (37-47); Hemoglobin 12.2 g/dL (12.0-15.0)
--- NOTE | 2025-02-03 15:12 | CHAPLAIN ---
Type of Pastoral Visit ___ Initial Visit ___ Follow-up Visit ___ On-call Visit ___ General Patient Visit ___ Spiritual Assessment ___ Family Conference ___ Bereavement ___ Rapid Response ___ Code Blue _x__ Other (describe below) Pastoral Care Referral From ___ Patient ___ Family ___ Nurse ___ Physician ___ Hairspring I Inspector ___ Crepe Sole Scourer ___ Other (describe below) Sacrament/Intervention ___ Active listening ___ Anointing ___ Baptist ___ Bereavement ___ Communion ___ Susy exploration ___ ___ Life review ___ Prayer ___ Reconciliation ___ Sacrament of Sick ___ Supportive presence ___ Wedding ___ Other (describe below) Pastoral Comments at first attempt the patient was out of the room for a procedure and a calling card was left; at second attempt the patient was sleeping soundly in the darkened room; did not disturb the patient
[2025-02-03 20:33] LABS: Hematocrit 33.6 % (37-47); Hemoglobin 11.3 g/dL (12.0-15.0)
[2025-02-03] MEDS: MELATONIN 10 MG TABLET PO (22:17)
[2025-02-04 02:48] VITALS: BP 107/67; PULSE 71; RESP 16; TEMP 36.7; O2SAT 97
[2025-02-04 03:23] LABS: Hematocrit 31.8 % (37-47); Hemoglobin 10.7 g/dL (12.0-15.0); Immature Granulocytes Count 0.030 X10^3/uL (0.0-0.0); Mean Corp Hgb Conc 33.6 g/dL (32-36); Mean Corpuscular Volume 85.0 fL (81-99); Mean Platelet Vol. 10.9 fl (6.2-12.0); NRBC Flagged by Analyzer 0 % (0-5); Platelet Count 188 K/mm3 (150-450); RBC Distribution Width CV 12.9 % (11.6-14.6); RBC Distribution Width SD 39.6 fl (35.1-43.9); Red Blood Count 3.74 M/mm3 (4.2-5.4); White Blood Count 6.7 K/mm3 (4.4-11.0)
[2025-02-04 04:05] LABS: Anion Gap 8 (5-15); BUN 6 mg/dL (4-19); BUN/Creat Ratio 8.2 RATIO (10-20); Calcium,Total 8.1 mg/dL (7.6-11.0); Carbon Dioxide 25.2 mmol/L (21.0-32.0); Chloride 107 mmol/L (98-108); Estimated Creatinine Clearance 112.35 ml/min (50-250); Glucose 103 mg/dL (70-99); Potassium 3.5 mmol/L (3.3-5.1)
[2025-02-04 06:00] VITALS: BMI 29.2
[2025-02-04] MEDS: Lactated Ringers 1,000 ML 150 ML IV (06:16)
--- NOTE | 2025-02-04 07:59 | PCM.PN.HOSP ---
Reason for Visit Chief Complaint: Coffee-ground emesis Subjective Subjective Patient underwent EGD the day prior by Dr. Peres findings included erosive esophagitis with bleeding as well as nonbleeding gastric ulcers with no stigmata of bleeding. Objective Data Objective Data Vital Signs: Vital Signs Temp Pulse Resp BP Pulse Ox O2 Del Method 98.1 F 71 16 107/67 97 Room Air 02/04/25 02:48 02/04/25 02:48 02/04/25 02:48 02/04/25 02:48 02/04/25 02:48 02/04/25 02:50 Oxygen Delivery Method Room Air Weight: 82.2 kg Body Mass Index (BMI) 29.2 Intake & Output: Intake and Output for Last 24 Hours 02/02/25 02/03/25 02/04/25 23:59 23:59 23:59 Intake Total 3345 / 3345 995 / 995 Balance 3345 / 3345 995 / 995 Lab / Micro Data 02/04/25 09:14 02/04/25 03:08 Labs: Laboratory Results - last 24 hr 02/03/25 08:50: Hgb 12.4, Hct 36.1 L, Blood Type A POSITIVE, Antibody Screen NEGATIVE 02/03/25 14:05: Hgb 12.2, Hct 36.3 L 02/03/25 20:11: Hgb 11.3 L, Hct 33.6 L 02/04/25 03:08: WBC 6.7, RBC 3.74 L, Hgb 10.7 L, Hct 31.8 L, MCV 85.0, MCH 28.6, MCHC 33.6, RDW Std Deviation 39.6, RDW Coeff of Chaz 12.9, Plt Count 188, MPV 10.9, Immature Gran % (Auto) 0.400, Neut % (Auto) 54.8, Lymph % (Auto) 33.9, [place] % (Auto) 9.0, Eos % (Auto) 1.8, Baso % (Auto) 0.1, Absolute Neuts (auto) 3.7, Absolute Lymphs (auto) 2.27, Nucleated RBC % 0, Sodium 140, Potassium 3.5, Chloride 107, Carbon Dioxide 25.2, Anion Gap 8, BUN 6, Creatinine 0.71, Estim Creat Clear Calc 112.35, Est GFR (MDRD) Non-Af 112, BUN/Creatinine Ratio 8.2 L, Glucose 103 H, Calcium 8.1 Micro: Microbiology 02/03/25 05:14 Stool Stool Occult Blood (ZOË) - Final Occult Blood Positive Physical Exam Narrative GENERAL: cooperative HEENT: Atraumatic; normocephalic EYES; Anicteric, Normal Conjunctiva NECK; supple, normal thyroid, RESPIRATORY: Diminished to auscultation CARDIOVASCULAR: Regular S1 S2, GI: soft, normoactive bowel sounds, : No Renal angle tenderness; EXTREMITIES: No edema, no clubbing, MUSCULOSKELETAL: no muscle wasting NEURO: Awake; no lateralizing signs. SKIN: No Rash PSYCH; Flat affect Assessment & Plan Assessment/Plan (1) Upper GI bleed: PLAN: Plan Patient is a 39-year-old female presenting with coffee-ground emesis 1. Upper GI bleed – Patient admitted to a monitored bed. Initial imaging studies obtained did show is a 2.3 cm hiatal hernia with irregular nodular thickening. Direct visualization is recommended. GI subsequently consulted from the ED. Patient was placed on Protonix type and screen H&H ordered every – 02/04/2025;Patient underwent EGD the day prior by Dr. Peres findings included erosive esophagitis with bleeding as well as nonbleeding gastric ulcers with no stigmata of bleeding. 2. Depression with anxiety – Patient is on clonazepam and fluoxetine plan is to resume after patient endoscopic evaluation 3. GERD – Patient is supposed to be on PPI and sacral fate 4. DVT prophylaxis – Low risk we encourage early ambulation Time spent in the patient's overall evaluation,decision-making process, review of diagnostic data, adjustment of management, discussion with other providers, nursing nursing and ancillary staff involved in patient's care [id number] Minutes Charges/Coding Visit Charges Inpatient E&M: 15050 Subs Hosp L2
[2025-02-04 08:45] VITALS: BP 110/58; PULSE 71; RESP 16; TEMP 36.7; O2SAT 97
[2025-02-04 09:27] LABS: Hematocrit 32.7 % (37-47); Hemoglobin 11.1 g/dL (12.0-15.0)
[2025-02-04] MEDS: Pantoprazole Sodium 40 MG in 0.9% Normal Saline (100mL MB+) 100 ML 300 MG IV (10:07)
--- NOTE | 2025-02-04 10:15 | DS.PCM_ITS ---
Providers Date of Admission: 02/03/25 Date of Discharge: 02/04/25 Primary Care Physician: Dr. Flakito Seals MD Consultations 02/03/25 08:23 Consult: Gastroenterology Routine Consulting Provider: [facility] Reason for Consult: GI bleed EMERGENT Consult: Yes Notified: Yes Date Notified: 02/03/25 Time Notified: 07:12 Method of Notification: Verbal Reason For Visit: GI BLEED Diagnosis Discharge Diagnosis (1) Upper GI bleed: Status: Acute Code(s): K92.2 - Gastrointestinal hemorrhage, unspecified Plan Patient is a 39-year-old female presenting with coffee-ground emesis 1. Upper GI bleed – Patient admitted to a monitored bed. Initial imaging studies obtained did show is a 2.3 cm hiatal hernia with irregular nodular thickening. Direct visualization is recommended. GI subsequently consulted from the ED. Patient was placed on Protonix type and screen H&H ordered every 6 – 02/04/2025;Patient underwent EGD the day prior by Dr. Peres findings included erosive esophagitis with bleeding as well as nonbleeding gastric ulcers with no stigmata of bleeding.. Plans for patient to be discharged on PPI. She was counseled to avoid alcohol use 2. Depression with anxiety – Patient is on clonazepam and fluoxetine plan is to resume after patient endoscopic evaluation 3. GERD – Patient is supposed to be on PPI and sacral fate 4. DVT prophylaxis – Low risk we encourage early ambulation Time spent in the patient's overall evaluation,decision-making process, review of diagnostic data, adjustment of management, discussion with other providers, nursing nursing and ancillary staff involved in patient's care [id number] Minutes Medications at Discharge Home Medications fluoxetine 40 mg capsule 40 mg PO DAILY 08/10/19 clonazepam 1 mg tablet 1 mg PO DAILY PRN anxiety 10/20/24 pantoprazole 40 mg tablet,delayed release 40 mg PO BID #60 tabs 02/04/25 sucralfate 1 gram tablet (Carafate) 1 g PO QACHS #120 tabs 02/04/25 Physical Exam Narrative GENERAL: cooperative HEENT: Atraumatic; normocephalic EYES; Anicteric, Normal Conjunctiva NECK; supple, normal thyroid, RESPIRATORY: Diminished to auscultation CARDIOVASCULAR: Regular S1 S2, GI: soft, normoactive bowel sounds, : No Renal angle tenderness; EXTREMITIES: No edema, no clubbing, MUSCULOSKELETAL: no muscle wasting NEURO: Awake; no lateralizing signs. SKIN: No Rash PSYCH; Flat affect Weight / BMI Weight Weight: 82.2 kg Body Mass Index (BMI) 29.2 ABG / Lab / Microbiology Data 02/04/25 09:14 02/04/25 03:08 Laboratory: Laboratory Results - last 24 hr 02/03/25 08:50: Blood Type A POSITIVE, Antibody Screen NEGATIVE 02/03/25 14:05: Hgb 12.2, Hct 36.3 L 02/03/25 20:11: Hgb 11.3 L, Hct 33.6 L 02/04/25 03:08: WBC 6.7, RBC 3.74 L, Hgb 10.7 L, Hct 31.8 L, MCV 85.0, MCH 28.6, MCHC 33.6, RDW Std Deviation 39.6, RDW Coeff of Chaz 12.9, Plt Count 188, MPV 10.9, Immature Gran % (Auto) 0.400, Neut % (Auto) 54.8, Lymph % (Auto) 33.9, [place] % (Auto) 9.0, Eos % (Auto) 1.8, Baso % (Auto) 0.1, Absolute Neuts (auto) 3.7, Absolute Lymphs (auto) 2.27, Nucleated RBC % 0, Sodium 140, Potassium 3.5, Chloride 107, Carbon Dioxide 25.2, Anion Gap 8, BUN 6, Creatinine 0.71, Estim Creat Clear Calc 112.35, Est GFR (MDRD) Non-Af 112, BUN/Creatinine Ratio 8.2 L, Glucose 103 H, Calcium 8.1 02/04/25 09:14: Hgb 11.1 L, Hct 32.7 L Microbiology: Microbiology 02/03/25 05:14 Stool Stool Occult Blood (ZOË) - Final Occult Blood Positive D/C Instructions Discharge Activity: Return to Normal Activity Call your doctor if you observe: Fever of 101 or Higher, Shortness of breath, Fainting spells and Chest pain DC O2, CPAP, BIPAP Needs Home O2 Discharge instructions: No Meaningful Use Info Meaningful Use Meaningful Use Diagnoses (Choose all that apply): None applicable Discharge Plan Admission Admit Date/Time: 02/03/25 07:09 Attending Provider: Alec Redman Primary Care Provider: Flakito Seals Consulting Providers: Carlyle Velez; Mehul Peres; Carlie Martin; Sariah Almonte; Tamy Hanna Discharge Orders/Prescriptions Prescriptions: New pantoprazole 40 mg Tablet,Delayed Release (Dr/Ec) 40 mg PO BID Qty: 60 0RF Continued fluoxetine 40 mg capsule 40 mg PO DAILY sucralfate [Carafate] 1 gram tablet 1 g PO QACHS Qty: 120 0RF clonazepam 1 mg tablet 1 mg PO DAILY PRN (Reason: anxiety) Discontinued omeprazole 20 mg capsule,delayed release(DR/EC) 20 mg PO QDAY Referrals / Follow Up: Flakito Seals MD [Primary Care Provider, Internal Medicine] - Within 2 Weeks Mehul Peres DO [Med Staff - Active Staff, Gastroenterology] - Within 1 Month Disposition Disposition (needs filled in before D/C Order can be placed): Home, Self Care Charges/Coding Visit Charges Inpatient E&M: 44114 Disch Hosp >30min
--- NOTE | 2025-02-04 11:04 | PHA.DC_ITS ---
Pharmacy [facility] Counseling Pharmacy Service has performed discharge medication reconciliation and counseling for this patient. The patient's discharge medication list was reviewed for discrepancies and discrepancies were resolved. The patient was counseled on the following discharge medications and changes in medications for homegoing were reviewed. The Reason for Use, instructions for use, and potential side effects were reviewed for all new medications. The patient's questions regarding all of their medications were answered. 1. Pantoprazole 40 mg PO BID The patient was able to verbally demonstrate an understanding of their discharge medications. Medications at Discharge Home Medications fluoxetine 40 mg capsule 40 mg PO DAILY 08/10/19 clonazepam 1 mg tablet 1 mg PO DAILY PRN anxiety 10/20/24 pantoprazole 40 mg tablet,delayed release 40 mg PO BID #60 tabs 02/04/25 sucralfate 1 gram tablet (Carafate) 1 g PO QACHS #120 tabs 02/04/25
--- NOTE | 2025-02-04 14:43 | CHAPLAIN ---
Type of Pastoral Visit ___ Initial Visit ___ Follow-up Visit ___ On-call Visit ___ General Patient Visit ___ Spiritual Assessment ___ Family Conference ___ Bereavement ___ Rapid Response ___ Code Blue ___ Other (describe below) Pastoral Care Referral From ___ Patient ___ Family ___ Nurse ___ Physician ___ [place] ___ Paper Ruler ___ Other (describe below) Sacrament/Intervention ___ Active listening ___ Anointing ___ Buddhism ___ Bereavement ___ Communion ___ Susy exploration ___ ___ Life review ___ Prayer ___ Reconciliation ___ Sacrament of Sick ___ Supportive presence ___ Wedding ___ Other (describe below) Pastoral Comments patient had been discharged before being seen by this generator man today
== END 2025-02-04 13:23 | disposition home or self-care (01) ==
LOC: ED 07:19 → PCU 09:02
PROVIDERS: Internal Medicine Gastroenterology; Admitting Provider Internal Medicine; Emergency Provider Emergency Medicine; PCP Internal Medicine; Visit Provider Internal Medicine
PROC: 0DJ08ZZ Inspection of Upper Intestinal Tract, Via Natural or Artificial Opening Endoscopic (ICD-10-PCS; CPT 43235; principal; 2025-02-03 11:40)
DX: K21.01 Gastro-esophageal reflux disease with esophagitis, with bleeding (principal); F17.290 Nicotine dependence, other tobacco product, uncomplicated; K44.9 Diaphragmatic hernia without obstruction or gangrene; F41.8 Other specified anxiety disorders; D62 Acute posthemorrhagic anemia; Z79.899 Other long term (current) drug therapy; K25.9 Gastric ulcer, unspecified as acute or chronic, without hemorrhage or perforation; R10.11 Right upper quadrant pain; M79.7 Fibromyalgia
CPT/HCPCS: 44361; 36415; 74174; 76700; 80048; 80076; 82274; 83690; 84703; 85014; 85018; 85025; 85610; 85730; 86850; 86900; 86901; 88305; 88312; 88342; 96361; 96365; 96366; 96375; 99221; 99285; Q9967; A4216; G0378; J2405

== ENCOUNTER 2025-03-19 16:19 | Emergency (ER) | payer MEDICAID, SELFPAY ==
[2025-03-19 16:20] VITALS: BP 138/70; PULSE 94; RESP 18; TEMP 36.2; O2SAT 98; BMI 28.8
--- NOTE | 2025-03-19 16:28 | EX.ED.DYSGE1 ---
HPI History of Present Illness Chief Complaint: Lower Extremity Injury Detail of Chief Complaint: Right leg pain due to injury, March 14 Informant: patient Onset/Context/Timing Onset: Days Context: Sudden Onset Timing: Continuous Quality: Pain Location: Anterior mid right leg Current Severity: Mild Maximum Severity: Severe Worsened by: Weightbearing Relieved by: Nothing Associated Symptoms Associated Symptoms: None Narrative Narrative: Patient is a 39-year-old female. She misjudged the last step going down the basement on March 14. She had pain at that time. She states she also twisted her left ankle. She has no complaints with regards to her left ankle. She states she cannot even push on the pedal because of pain right leg. Pain is worse with weightbearing. Certain movements also make it worse. She denies paresthesia, anesthesia or motor weakness. Prior similar symptoms: No Recent Illness/Hospitalization: No [facility] Medical History Strain of pelvis Lumbar strain Thoracic myofascial strain Cervical myofascial strain Hearing loss Preventative health care COVID-19 Acute conjunctivitis, left eye Contact with and (suspected) exposure to other viral communicable diseases Acute maxillary sinusitis, unspecified Left hip pain Fibromyalgia Lump of right breast Nicotine dependence, cigarettes, uncomplicated Borderline personality disorder Polysubstance dependence, non-opioid, in remission Severe recurrent major depression Pre-eclampsia ADHD Osteitis of symphysis pubis Vitamin deficiency GERD (gastroesophageal reflux disease) UTI (urinary tract infection) Fracture of left upper limb Seasonal allergies Home Medications ?Medication ?Instructions ?Recorded ?Last Taken ?Type fluoxetine 40 mg capsule 40 mg PO DAILY mental health 08/10/19 08/08/23 History clonazepam 1 mg tablet 1 mg PO DAILY PRN anxiety 10/20/24 Unknown History sucralfate 1 gram tablet (Carafate) 1 g PO QACHS #120 tabs 02/04/25 Unknown Rx promethazine 25 mg tablet 25 mg PO TID PRN nausea and 02/07/25 Unknown Rx vomiting #90 tabs pantoprazole 40 mg tablet,delayed 40 mg PO BID #60 tabs 03/16/25 Unknown Rx release Allergy/AdvReac Type Severity Reaction Status Date / Time No Known Allergies Allergy Verified 03/19/25 16:20 Family History Mother Arthritis Autoimmune disease Blood clot in vein Hypertension Melanoma CVA (cerebral vascular accident) Father Arthritis High cholesterol H/O ulcer disease Grandmother Anxiety Arthritis Myocardial infarction Depression COPD (chronic obstructive pulmonary disease) High cholesterol Hypertension Grandfather Arthritis High cholesterol Hypertension Diabetes Grandmother Kidney disease Other Diarrhea Surgical History H/O removal of cyst removal orthpeadic screw from back history closed reduction left arm fracture history diagnostic laparoscopy History of colonoscopy (~2018) History of esophagogastroduodenoscopy (EGD) (~2018) History of orthopedic surgery History of Social History household members: family housing: house Smoking Status: Current every day smoker tobacco type: e-cigarettes Electronic Cigarette Use: with nicotine alcohol intake: current alcohol intake frequency: holidays/special occasions only Alcohol type: wine substance use type: does not use what type of physical activity do you participate in: none ROS ROS ED Musculoskeletal Musculoskeletal: Denies arthralgias, back pain, myalgias or neck pain Integumentary Denies Abrasions or rash Neurologic Neurologic: Denies paresthesias or weakness Hematologic/Lymphatic Hematologic/Lymphatic: Reports systems reviewed and no addt'l complaints, except as documented; Denies easy bleeding or easy bruising EXAM Physical Exam Const Vital Signs: 03/19/25 16:20 Temperature 97.1 F L Temperature Source Temporal Pulse Rate 94 Respiratory Rate 18 Blood Pressure 138/70 H Blood Pressure Mean 92 Pulse Ox 98 Oxygen Delivery Method Room Air Positive well nourished and well developed Constitutional Narrative: Patient appears in no distress. Blood pressure slightly elevated. General Appearance ED: well developed, NAD and pallor HEENT HEENT Narrative: HEENT is grossly unremarkable. Eyes PERRL and EOMs intact bilaterally General Eye ED: Negative for scleral icterus Resp normal respiratory effort Cardio regular rate and regular rhythm Extremity normal to inspection Extremity Narrative: Tenderness mid anterior right leg over the tibia predominantly. There is no pain palpation over the lateral or medial malleolus. There is no pain to palpation over the fibular head or the joint line. She has full flexion and extension at the knee and ankle. DP pulses palpable. General Extremety ED: Yes tenderness; Negative for edema General Extremity: Negative for edema Neuro oriented x3 and CN's II-XII intact bilaterally Sensorium / Orientation: alert Psych mental status grossly normal Skin no rashes or lesions noted, no wounds and skin turgor normal General Skin Exam: elasticity normal and pallor; Negative for jaundice MDM MDM MDM Narrative Medical decision making narrative: Will obtain x-ray to evaluate for fracture of the fibula/tibia. Differential is contusion, muscle strain, fracture. Radiography Chest X-Ray - ED: 2 View (Independently interpreted by me at 1704 is negative for fracture. There is no evidence of foreign body. There is no soft tissue swelling. The x-ray is negative.) Discharge Plan Triage Chief Complaint: Lower Extremity Injury ED Provider: Kenneth Mccormack Dx/Rx/DC Orders Clinical Impression: Contusion of right lower leg, initial encounter, Injury due to fall, Vitamin deficiency Instructions: Bone Contusion Prescriptions: No Action fluoxetine 40 mg capsule 40 mg PO DAILY promethazine 25 mg tablet 25 mg PO TID PRN (Reason: nausea and vomiting) Qty: 90 0RF sucralfate [Carafate] 1 gram tablet 1 g PO QACHS Qty: 120 0RF clonazepam 1 mg tablet 1 mg PO DAILY PRN (Reason: anxiety) pantoprazole 40 mg tablet,delayed release (DR/EC) 40 mg PO BID Qty: 60 1RF Primary Care Provider: Flakito Seals Referrals: Flakito Seals MD [Primary Care Provider, Internal Medicine] - 1 Week if not improving Activity Restrictions/Additional Instructions: 1. Apply ice 6-8 times a day for the next 3 to 5 days. 2. You may take 4 ibuprofen tablets every 8 hours or 2 Aleve tablets every 12 hours for the next 3 to 5 days. 3. You may hurt for another 1 1 to 4 weeks. Print Language: Brazilian Disposition Disposition: Home, Self Care
--- NOTE | 2025-03-19 16:35 | RAD_ITS ---
PROCEDURE: RAD/Tibia & Fibula 2 Views
[2025-03-19 17:10] VITALS: BP 138/70; PULSE 94; RESP 18; TEMP 36.2; O2SAT 98
== END 2025-03-19 17:15 | disposition home or self-care (01) ==
PROVIDERS: Emergency Provider Emergency Medicine; PCP Internal Medicine; Visit Provider Emergency Medicine
DX: S80.11XA Contusion of right lower leg, initial encounter (principal); K21.9 Gastro-esophageal reflux disease without esophagitis; Z79.899 Other long term (current) drug therapy; F17.290 Nicotine dependence, other tobacco product, uncomplicated; W10.9XXA Fall (on) (from) unspecified stairs and steps, initial encounter; E56.9 Vitamin deficiency, unspecified
CPT/HCPCS: 73590; 99282